=== PATIENT | female | born 1980 | race Caucasian/White ===

== ENCOUNTER 2017-10-02 08:04 | Emergency (ER) | payer SELFPAY ==
--- NOTE | 2017-10-02 08:33 | ER ---
Nurse's Notes [facility] Name: Stella Siegel Age: 37 yrs Sex: Female : 1980 Arrival Date: 10/02/2017 Time: 08:07 Bed 5 Private MD: None, None Diagnosis: Local infection of the skin and subcutaneous tissue, unspecified-left breast Presentation: 10/02 08:12 Presenting complaint: Patient states: about two weeks ago, there was a bump that sg appeared on my left breast. I thought maybe it was a bug bite, well over the last two days it has grown and become red, hot and swollen, now having drainage from the area. Denies Fever, N/V/D, reports mild pain to the L breast. Transition of care: patient was not received from another setting of care. Onset of symptoms was October 02, 2017. Risk Assessment: Do you want to hurt yourself or someone else? Patient reports no desire to harm self or others. Initial Sepsis Screen: Does the patient meet any 2 criteria? No. Patient's initial sepsis screen is negative. Does the patient have a suspected source of infection? No. Patient's initial sepsis screen is negative. Care prior to arrival: None. 08:12 Method Of Arrival: Ambulatory sg 08:12 Acuity: SPENCER 3 sg Historical: - Allergies: 08:08 No Known Allergies; sg - PMHx: 08:08 Headaches; sg - PSHx: 08:08 tummy tuck; breast lift; sg - Immunization history:: Adult Immunizations not up to date. - Ebola Screening: : Patient negative for fever greater than or equal to 101.5 degrees Fahrenheit, and additional compatible Ebola Virus Disease symptoms Patient denies exposure to infectious person Patient denies travel to an Ebola-affected area in the 21 days before illness onset No symptoms or risks identified at this time. Screenin:20 Abuse screen: Denies threats or abuse. Denies injuries from another. Nutritional sv screening: No deficits noted. Tuberculosis screening: No symptoms or risk factors identified. Fall Risk None identified. Assessment: 08:20 General: Appears in no apparent distress. uncomfortable, Behavior is calm, cooperative, sv appropriate for age. Pain: Complains of pain in left nipple Pain currently is 4 out of 10 on a pain scale. Pain began 2 weeks ago, pt stated "It started off as looking like a bug bite of some sort." Is continuous. Neuro: Level of Consciousness is awake, alert, obeys commands, Oriented to person, place, time, situation, Moves all extremities. Full function Gait is steady, Speech is normal. Cardiovascular: Patient's skin is warm and dry. Respiratory: Respiratory effort is even, unlabored, Respiratory pattern is regular, symmetrical. :. Derm: Skin is pink, warm \\T\\ dry. Derm: Reports increased pain to the left nipple. Redness noted to the left nipple. Pt reports clear to green drainage from the left nipple. Musculoskeletal: No signs and/or symptoms reported regarding the musculoskeletal system. 08:57 Reassessment: Patient appears in no apparent distress at this time. No changes from sv previously documented assessment. Patient and/or family updated on plan of care and expected duration. Pain level reassessed. Patient is alert, oriented x 3, equal unlabored respirations, skin warm/dry/pink. Vital Signs: 08:13 BP 149 / 86; Pulse 75 MON; Resp 16 S; Temp 97.9(TE); Pulse Ox 97% on R/A; Pain 4/10; sg ED Course: 08:07 Patient arrived in ED. sb2 08:08 None, None is Private Physician. sb2 08:08 Arm band placed on. EKG completed in triage. Results shown to MD. EKG completed in sg triage. Results shown to MD. 08:13 Triage completed. sg 08:19 [facility]. jr8 08:19 Florin Duenas MD is Attending Physician. jr8 08:20 Patient has correct armband on for positive identification. Placed in gown. Pulse ox sv on. NIBP on. Door closed. Head of bed elevated. 08:26 Karen Finch, RN is Primary Nurse. sv 08:26 Chaperoned breast examination. sv 08:58 Patient did not have IV access during this emergency room visit. sv Administered Medications: No medications were administered Outcome: 08:33 Discharge ordered by . jr8 08:58 Discharged to home ambulatory. sv 08:58 Condition: stable 08:58 Discharge instructions given to patient, Instructed on discharge instructions, follow up and referral plans. medication usage, Demonstrated understanding of instructions, follow-up care, medications, Prescriptions given X 2. 08:58 Patient left the ED. sv Signatures: Karen iFnch RN RN sv Aime Waite RN RN sg Casey Castrejon PA PA jr8 Tasia Parham sb2
--- NOTE | 2017-10-02 08:33 | EDPHYS ---
Physician Documentation [facility] Name: Stella Siegel Age: 37 yrs Sex: Female : 1980 Arrival Date: 10/02/2017 Time: 08:07 Bed 5 Private MD: None, None ED Physician Florin Duenas HPI: 10/02 08:28 This 37 yrs old Female presents to ER via Ambulatory with complaints of jr8 Breast Problem. 08:28 Patient stated that she has noticed red region to left breast that has grown in size jr8 over the last couple of weeks. Stated that it started to drain and become painful now . Onset: The symptoms/episode began/occurred gradually, 2 week(s) ago. Severity of symptoms: At their worst the symptoms were mild in the emergency department the symptoms are unchanged. The patient has not experienced similar symptoms in the past. The patient has not recently seen a physician. Historical: - Allergies: 08:08 No Known Allergies; sg - PMHx: 08:08 Headaches; sg - PSHx: 08:08 tummy tuck; breast lift; sg - Immunization history:: Adult Immunizations not up to date. - Ebola Screening: : Patient negative for fever greater than or equal to 101.5 degrees Fahrenheit, and additional compatible Ebola Virus Disease symptoms Patient denies exposure to infectious person Patient denies travel to an Ebola-affected area in the 21 days before illness onset No symptoms or risks identified at this time. ROS: 08:28 Eyes: Negative for injury, pain, redness, and discharge, ENT: Negative for injury, jr8 pain, and discharge, Neck: Negative for injury, pain, and swelling, Cardiovascular: Negative for chest pain, palpitations, and edema, Respiratory: Negative for shortness of breath, cough, wheezing, and pleuritic chest pain, Abdomen/GI: Negative for abdominal pain, nausea, vomiting, diarrhea, and constipation, Back: Negative for injury and pain, MS/Extremity: Negative for injury and deformity, Neuro: Negative for headache, weakness, numbness, tingling, and seizure. 08:28 Skin: Positive for erythema, swelling, of the left breast. Exam: 08:28 Cardiovascular: Regular rate and rhythm with a normal S1 and S2. No gallops, murmurs, jr8 or rubs. Normal PMI, no JVD. No pulse deficits. Respiratory: Lungs have equal breath sounds bilaterally, clear to auscultation and percussion. No rales, rhonchi or wheezes noted. No increased work of breathing, no retractions or nasal flaring. Skin: Warm, dry with normal turgor. Normal color with no rashes, no lesions, and no evidence of cellulitis. MS/ Extremity: Pulses equal, no cyanosis. Neurovascular intact. Full, normal range of motion. Neuro: Awake and alert, GCS 15, oriented to person, place, time, and situation. Cranial nerves II-XII grossly intact. Motor strength 5/5 in all extremities. Sensory grossly intact. Cerebellar exam normal. Normal gait. 08:28 Chest/axilla: Inspection: normal, Axilla: lymphadenopathy, that is small, in the left axilla, with tenderness, Breasts: nipple discharge, is not appreciated, of the left breast, There is a swollen, red, tender lesion to left breast at 5 o'clock position distal to the nipple. No active drainage noted at this time. No fluctuance noted. Mild induration present . Vital Signs: 08:13 BP 149 / 86; Pulse 75 MON; Resp 16 S; Temp 97.9(TE); Pulse Ox 97% on R/A; Pain 4/10; sg MDM: 08:19 Patient medically screened. [facility] 08:28 Data reviewed: vital signs, nurses notes, and as a result, I will discharge patient. 8 Data interpreted: Pulse oximetry: on room air is 97 %. Interpretation: normal. Counseling: I had a detailed discussion with the patient and/or guardian regarding: the historical points, exam findings, and any diagnostic results supporting the discharge/admit diagnosis, the need for outpatient follow up, a family practitioner, to return to the emergency department if symptoms worsen or persist or if there are any questions or concerns that arise at home. Administered Medications: No medications were administered Disposition: 14:43 Co-signature as Attending Physician, Florin Duenas MD I agree with the assessment and kdr plan of care. Disposition: 10/02/17 08:33 Discharged to Home. Impression: Local infection of the skin and subcutaneous tissue, unspecified - left breast. - Condition is Stable. - Discharge Instructions: Skin Abscess, Cellulitis, Adult. - Prescriptions for Bactroban 2 % Topical Ointment - Apply to affected area 1 application by TOPICAL route every 12 hours; 30 gram. Bactrim DS 800- 160 mg Oral Tablet - take 1 tablet by ORAL route every 12 hours for 10 days; 20 tablet. - Medication Reconciliation Form, Thank You Letter, Antibiotic Education, Prescription Opioid Use form. - Follow up: Private Physician; When: 5 - 6 days; Reason: Wound Recheck, Recheck today's complaints, Continuance of care, Re-evaluation by your physician. - Problem is new. - Symptoms are unchanged. Signatures: Karen Finch RN RN sv Aime Waite RN RN sg Florin Duenas MD MD kdr Roszak, Josh, PA PA jr8 Corrections: (The following items were deleted from the chart) 08:58 08:33 10/02/2017 08:33 Discharged to Home. Impression: Local infection of the skin and sv subcutaneous tissue, unspecified - left breast. Condition is Stable. Forms are Medication Reconciliation Form, Thank You Letter, Antibiotic Education, Prescription Opioid Use. Follow up: Private Physician; When: 5 - 6 days; Reason: Wound Recheck, Recheck today's complaints, Continuance of care, Re-evaluation by your physician. Problem is new. Symptoms are unchanged. jr8
[2017-10-02 09:02] VITALS: BP 149/86; TEMP 97.9; O2SAT 97
== END 2017-10-02 08:58 | disposition home or self-care (01) ==
LOC: ER 08:04
DX: L08.9 Local infection of the skin and subcutaneous tissue, unspecified (principal)
CPT/HCPCS: 99283

== ENCOUNTER 2018-01-16 08:47 | Emergency (ER) | payer SELFPAY ==
[2018-01-16 09:28] LABS: Absolute Lymphocytes (CBC) 2.4 K/uL (0.7-4.9); Absolute Monocytes 0.6 K/uL (0.1-1.3); Absolute Neutrophil 4.7 K/uL (1.8-8.0); Eosinophils % 4.7 % (0-4.4); Hematocrit 47.2 % (36.0-45.0); Lymphocytes % 29.7 % (15.3-44.8); MCH 31.2 pg (27.0-35.0); MCV 90.3 fL (80-100); MPV 8.9 fL (7.6-11.3); RBC Red Blood Cell Count 5.22 M/uL (3.86-4.86)
[2018-01-16 09:47] LABS: BUN Blood Urea Nitrogen 14 mg/dL (7-18); Bicarbonate 24 mmol/L (21-32); Glucose Level 84 mg/dL (74-106); Potassium 3.4 mmol/L (3.5-5.1); Sodium Level 140 mmol/L (136-145)
[2018-01-16] MEDS ORDERED: KETOROLAC 30 MG/ML INJ ONE (10:02)
[2018-01-16] MEDS ORDERED: IPRATROPIUM BROM 0.5MG/2.5ML ONE (10:02)
[2018-01-16] MEDS ORDERED: ALBUTEROL 2.5 MG/3 ML NEB SOL ONE ×2 (10:02→11:11)
[2018-01-16] MEDS ORDERED: NA CHLORIDE 0.9% 1,000 ML ONE (10:02)
[2018-01-16] MEDS ORDERED: POTASSIUM 25 MEQ EFFERV TAB ONE (10:19)
--- NOTE | 2018-01-16 10:46 | RAD REPORT ---
EXAM DESCRIPTION: RAD - Chest Pa And Lat (2 Views) - 01/16/2018 10:08 am CLINICAL HISTORY: Fever, cough and congestion COMPARISON: August 2016 TECHNIQUE: PA and lateral views of the chest were obtained. FINDINGS: The lungs are clear. Interstitial markings are similar to comparison. Heart size is nita l and central vasculature is within normal limits. No pleural effusion or pneumothorax seen. No acu te bone finding. Prominent right convex scoliotic curvature of the thoracic spine noted. No aortic ab normality. IMPRESSION: No acute cardiopulmonary process.
[2018-01-16 10:47] LABS: Urine Blood TRACE (NEG); Urine Glucose NEGATIVE (NEG); Urine Protein TRACE (NEG)
[2018-01-16] MEDS ORDERED: predniSONE 20 MG TAB ONE (11:11)
[2018-01-16] MEDS ORDERED: HYDROCODONE/CHLORPHEN 5 ML/OSYR ONE (11:11)
--- NOTE | 2018-01-16 11:38 | EDPHYS ---
Physician Documentation [facility] Name: Stella Siegel Age: 37 yrs Sex: Female : 1980 Arrival Date: 01/16/2018 Time: 08:51 Bed 18 Private MD: None, None ED Physician Florin Duenas HPI: 01/16 09:20 This 37 yrs old Female presents to ER via Ambulatory with complaints of cp Dizziness, Fever, Congestion. 09:20 The patient presents with dizziness. cp 09:20 Onset: The symptoms/episode began/occurred few weeks. cp 09:20 Associated signs and symptoms: Pertinent positives: chest pain, headache, shortness of cp breath, productive cough, Pertinent negatives: abdominal pain, diaphoresis, focal weakness, vomiting. Severity of symptoms: in the emergency department the symptoms are unchanged despite home interventions. Patient's baseline: Neuro: alert and fully oriented, Motor: no deficits, Ambulation: walks without assistance, Speech: normal. 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 - Social history:: Smoking status: Patient uses tobacco products, smokes one pack cigarettes per day. Patient uses alcohol, occasionally. street drugs, marijuana. - Ebola Screening: : No symptoms or risks identified at this time. ROS: 09:30 Constitutional: Negative for body aches, chills, fever, poor PO intake. cp 09:30 Eyes: Negative for injury, pain, redness, and discharge. cp 09:30 ENT: Negative for drainage from ear(s), ear pain, difficulty swallowing, difficulty handling secretions. 09:30 Cardiovascular: Positive for chest pain, Negative for edema, palpitations. 09:30 Respiratory: Positive for cough, "sounds productive", shortness of breath, on exertion. 09:30 Abdomen/GI: Negative for abdominal pain, vomiting, diarrhea, constipation. 09:30 Back: Negative for pain at rest, pain with movement, radiated pain. 09:30 : Negative for urinary symptoms. 09:30 Skin: Negative for cellulitis, rash. 09:30 Neuro: Positive for dizziness, headache, Negative for altered mental status, syncope, weakness. 09:30 All other systems are negative. Exam: 09:35 Constitutional: The patient appears in no acute distress, alert, awake, cp non-diaphoretic, non-toxic, well developed, well nourished, uncomfortable. 09:35 Head/Face: Normocephalic, atraumatic. cp 09:35 Eyes: Pupils equal round and reactive to light, extra-ocular motions intact. Lids and lashes normal. Conjunctiva and sclera are non-icteric and not injected. Cornea within normal limits. Periorbital areas with no swelling, redness, or edema. ENT: Nares patent. No nasal discharge, no septal abnormalities noted. Tympanic membranes are normal and external auditory canals are clear. Oropharynx with no redness, swelling, or masses, exudates, or evidence of obstruction, uvula midline. Mucous membranes moist. 09:35 Neck: ROM/movement: limited range of motion, is not appreciated, nuchal rigidity, is not appreciated, Lymph nodes: no appreciated lymphadenopathy. 09:35 Chest/axilla: Inspection: normal, Palpation: is normal, no crepitus, no tenderness. 09:35 Cardiovascular: Rate: normal, Rhythm: regular, Heart sounds: murmur, not appreciated, Edema: is not appreciated. 09:35 Respiratory: the patient does not display signs of respiratory distress, Respirations: normal, no use of accessory muscles, no retractions, no splinting, no tachypnea, labored breathing, is not present, Breath sounds: bronchial sounds, that are moderate, are heard diffusely, decreased breath sounds, are not appreciated, stridor, is not appreciated, wheezing: that is mild, is heard diffusely. 09:35 Abdomen/GI: Inspection: abdomen appears normal, Bowel sounds: active, all quadrants, Palpation: abdomen is soft and non-tender, in all quadrants. 09:35 Back: pain, that is moderate, ROM is normal. 09:35 Skin: cellulitis, is not appreciated, no rash present. 09:35 Neuro: Orientation: to person, place \\T\\ time. Mentation: is normal, Cerebellar function: is grossly normal, Motor: moves all fours, strength is normal, Sensation: is normal. Vital Signs: 09:02 BP 119 / 71; Pulse 84; Resp 16; Temp 97.8(O); Pulse Ox 97% on R/A; Weight 63.5 kg; sv Height 5 ft. 7 in. (170.18 cm); Pain 6/10; 10:52 BP 115 / 76; Pulse 75; Resp 18; Pulse Ox 97% on R/A; sv 11:26 BP 117 / 75; Pulse 85; Resp 18; Pulse Ox 100% on R/A; sv 09:02 Body Mass Index 21.93 (63.50 kg, 170.18 cm) sv MDM: 09:02 Patient medically screened. cp 10:00 Differential diagnosis: cardiac arrhythmia, hypovolemia, pneumonia, meningitis, sepsis, cp UTI. 11:36 Data reviewed: vital signs, nurses notes, lab test result(s), radiologic studies, plain cp films. Test interpretation: by ED physician or midlevel provider: plain radiologic studies. Response to treatment: the patient's symptoms have markedly improved after treatment, VSS. Symptoms improved with meds. No signs of respiratory distress noted. Will discharge to home for continued monitoring. 01/16 09:06 Order name: Blood Culture Adult (2) sv 01/16 09:06 Order name: CBC with Diff; Complete Time: 09:33 sv 01/16 09:33 Interpretation: Normal except: RBC 5.22; HGB 16.3; HCT 47.2; EOSINOPHIL % 4.7. cp 01/16 09:06 Order name: Basic Metabolic Panel; Complete Time: 10:03 sv 01/16 10:03 Interpretation: Normal except: K 3.4. cp 01/16 09:34 Order name: Troponin I; Complete Time: 11:40 cp 01/16 11:40 Interpretation: Reviewed. cp 01/16 09:35 Order name: Procalcitonin; Complete Time: 10:48 cp 01/16 09:35 Order name: Lactate; Complete Time: 10:48 cp 01/16 10:51 Interpretation: Reviewed. cp 01/16 09:06 Order name: Chest Pa And Lat (2 Views) XRAY; Complete Time: 10:48 sv 01/16 10:37 Order name: Urine Dipstick--Ancillary (enter results); Complete Time: 10:48 eb 01/16 10:48 Interpretation: Normal except: UKET 1+; UBLD TRACE. cp 01/16 09:06 Order name: IV Saline Lock; Complete Time: 09:20 sv 01/16 09:06 Order name: Labs collected and sent; Complete Time: 09:20 sv 01/16 09:34 Order name: EKG; Complete Time: 09:35 cp 01/16 09:34 Order name: EKG - Nurse/Tech; Complete Time: 10:16 cp 01/16 09:36 Order name: Urine Dipstick-Ancillary (obtain specimen); Complete Time: 10:28 cp 01/16 09:36 Order name: Urine Test (obtain specimen); Complete Time: 10:28 cp Administered Medications: 10:30 Drug: NS 0.9% 1000 ml Route: IV; Rate: 1 bolus; Site: left antecubital; sv 11:30 Follow up: Response: No adverse reaction; IV Status: Order to discontinue infusion; IV sv Intake: 600ml 10:30 Drug: Albuterol 2.5 mg Route: Inhalation; sv 10:30 Drug: AtroVENT Aerosol 0.5 mg Route: Inhalation; sv 10:30 Drug: TORadol 30 mg Route: IVP; Site: left antecubital; sv 10:58 Follow up: Response: No adverse reaction sv 10:30 Drug: Potassium Effervescent Tablet 25 mEq Route: PO; sv 10:58 Follow up: Response: No adverse reaction sv 11:07 Drug: Albuterol 2.5 mg Route: Inhalation; sv 11:07 Drug: Albuterol 2.5 mg Route: Inhalation; sv 11:07 Drug: predniSONE 40 mg Route: PO; sv 11:30 Follow up: Response: No adverse reaction sv 11:07 Drug: Tussionex Pennkinetic ER 5 ml Route: PO; sv 11:30 Follow up: Response: No adverse reaction sv Disposition: 18:51 Co-signature as Attending Physician, Florin Duenas MD I agree with the assessment and kdr plan of care. Disposition: 01/16/18 11:37 Discharged to Home. Impression: Acute bronchitis. - Condition is Stable. - Discharge Instructions: Acute Bronchitis, Adult. - Prescriptions for Zithromax Z- Domenic 250 mg Oral Tablet - take 1 tablet by ORAL route as directed for 5 days Day 1 - take two (2) tablets one time. Day 2, 3, 4 , 5 take one (1) tablet once daily.; 6 tablet. Prednisone 20 mg Oral Tablet - take 2 tablet by ORAL route once daily for 5 days; 10 tablet. Albuterol Sulfate 90 mcg/actuation - inhale 1-2 puff by INHALATION route every 4-6 hours; 1 Inhaler. Guaifenesin AC 10- 100 mg/5 mL Oral Liquid - take 10 milliliters by ORAL route every 6 hours As needed; 180 milliliter. - Work release form, Medication Reconciliation Form, Thank You Letter, Antibiotic Education, Prescription Opioid Use form. - Follow up: Private Physician; When: 2 - 3 days; Reason: Recheck today's complaints. - Problem is new. - Symptoms have improved. Signatures: Dispatcher [employer] Karen Keyes RN RN Florin Obando MD MD kdr Leonel Thorne PA PA cp Corrections: (The following items were deleted from the chart) 11:54 11:37 01/16/2018 11:37 Discharged to Home. Impression: Acute bronchitis. Condition is sv Stable. Forms are Medication Reconciliation Form, Thank You Letter, Antibiotic Education, Prescription Opioid Use. Follow up: Private Physician; When: 2 - 3 days; Reason: Recheck today's complaints. Problem is new. Symptoms have improved. cp
--- NOTE | 2018-01-16 11:38 | ER ---
Nurse's Notes [facility] Name: Stella Siegel Age: 37 yrs Sex: Female : 1980 Arrival Date: 01/16/2018 Time: 08:51 Bed 18 Private MD: None, None Diagnosis: Acute bronchitis Presentation: 01/16 08:52 Presenting complaint: Patient states: fever (Tmax 103), chest congestion, SOB with deep sv breathing, productive cough thick yellow sputum, headache and neck pain x a few weeks. Transition of care: patient was not received from another setting of care. Onset of symptoms was December 2017. Risk Assessment: Do you want to hurt yourself or someone else? Patient reports no desire to harm self or others. Initial Sepsis Screen: Does the patient meet any 2 criteria? No. Patient's initial sepsis screen is negative. Does the patient have a suspected source of infection? Yes: Productive cough/pneumonia. Care prior to arrival: None. 08:52 Method Of Arrival: Ambulatory sv 08:52 Acuity: SPENCER 3 sv Triage Assessment: 08:55 General: Appears in no apparent distress. uncomfortable, slender, Behavior is calm, sv cooperative, appropriate for age. Pain: Complains of pain in chest Pain currently is 6 out of 10 on a pain scale. Quality of pain is described as sharp, Pain began 2-3 days ago. Is intermittent, episodic. Neuro: Level of Consciousness is awake, alert, obeys commands, Oriented to person, place, time, situation, Moves all extremities. Full function Gait is steady, Speech is normal. Respiratory: Reports cough that is productive, persistent pain with cough pain with respiration Airway is patent Respiratory effort is even, unlabored, Respiratory pattern is regular, symmetrical. Derm: Skin is normal. [employer] SEAL: 09:02 LMP 01/13/2018 sv Historical: - Allergies: 09:02 No Known Allergies; sv - Home Meds: 09:02 None [Active]; sv - PMHx: 09:02 Headaches; sv - PSHx: 09:02 tummy tuck; breast lift and reduction; sv - Immunization history:: Adult Immunizations up to date, Flu vaccine is not up to date. - Social history:: Smoking status: Patient uses tobacco products, smokes one pack cigarettes per day. Patient uses alcohol, occasionally. street drugs, marijuana. - Ebola Screening: : No symptoms or risks identified at this time. Screenin:03 Abuse screen: Denies threats or abuse. Denies injuries from another. Nutritional sv screening: No deficits noted. Tuberculosis screening: No symptoms or risk factors identified. Fall Risk None identified. Assessment: 10:40 Reassessment: Patient appears in no apparent distress at this time. Patient and/or sv family updated on plan of care and expected duration. Pain level reassessed. Patient is alert, oriented x 3, equal unlabored respirations, skin warm/dry/pink. Pt states "I can breathe better." Patient states feeling better. Patient states symptoms have improved. 11:53 Reassessment: Patient appears in no apparent distress at this time. Patient and/or sv family updated on plan of care and expected duration. Pain level reassessed. Patient is alert, oriented x 3, equal unlabored respirations, skin warm/dry/pink. Patient states feeling better. Patient states symptoms have improved. Vital Signs: 09:02 BP 119 / 71; Pulse 84; Resp 16; Temp 97.8(O); Pulse Ox 97% on R/A; Weight 63.5 kg; sv Height 5 ft. 7 in. (170.18 cm); Pain 6/10; 10:52 BP 115 / 76; Pulse 75; Resp 18; Pulse Ox 97% on R/A; sv 11:26 BP 117 / 75; Pulse 85; Resp 18; Pulse Ox 100% on R/A; sv 09:02 Body Mass Index 21.93 (63.50 kg, 170.18 cm) sv ED Course: 08:51 Patient arrived in ED. mr 08:52 None, None is Private Physician. mr 08:52 Arm band placed on Patient placed in an exam room, on a stretcher, on pulse oximetry. sv 08:55 First set of blood cultures drawn by me. jb1 09:00 Karen Finch, NELSON is Primary Nurse. sv 09:01 Triage completed. sv 09:02 Leonel Thorne PA is PHCP. cp 09:02 Florin Duenas MD is Attending Physician. cp 09:03 Patient has correct armband on for positive identification. Placed in gown. Bed in low sv position. Pulse ox on. NIBP on. Door closed. Head of bed elevated. 09:10 Second set of blood cultures drawn by me. jb1 09:20 Initial lab(s) drawn, by me, sent to lab. Inserted saline lock: 22 gauge in left jb1 antecubital area, using aseptic technique. Blood collected. 09:43 Patient moved to radiology via wheelchair. jb2 09:52 Lab(s) recollected, by me, sent to lab. gm 10:07 X-ray completed. Patient tolerated procedure well. Patient moved back from radiology. jb2 10:08 Chest Pa And Lat (2 Views) XRAY In Process Unspecified. EDMS 10:10 Patient moved back from radiology. sv 10:15 EKG done, by traffic survey technician. reviewed by Leonel BLAKE. at1 11:53 No provider procedures requiring assistance completed. IV discontinued, intact, sv bleeding controlled, No redness/swelling at site. Pressure dressing applied. Administered Medications: 10:30 Drug: NS 0.9% 1000 ml Route: IV; Rate: 1 bolus; Site: left antecubital; sv 11:30 Follow up: Response: No adverse reaction; IV Status: Order to discontinue infusion; IV sv Intake: 600ml 10:30 Drug: Albuterol 2.5 mg Route: Inhalation; sv 10:30 Drug: AtroVENT Aerosol 0.5 mg Route: Inhalation; sv 10:30 Drug: TORadol 30 mg Route: IVP; Site: left antecubital; sv 10:58 Follow up: Response: No adverse reaction sv 10:30 Drug: Potassium Effervescent Tablet 25 mEq Route: PO; sv 10:58 Follow up: Response: No adverse reaction sv 11:07 Drug: Albuterol 2.5 mg Route: Inhalation; sv 11:07 Drug: Albuterol 2.5 mg Route: Inhalation; sv 11:07 Drug: predniSONE 40 mg Route: PO; sv 11:30 Follow up: Response: No adverse reaction sv 11:07 Drug: Tussionex Pennkinetic ER 5 ml Route: PO; sv 11:30 Follow up: Response: No adverse reaction sv Intake: 11:30 IV: 600ml; Total: 600ml. sv Outcome: 11:37 Discharge ordered by . cp 11:54 Discharged to home ambulatory. sv 11:54 Condition: stable 11:54 Discharge instructions given to patient, Instructed on discharge instructions, follow up and referral plans. medication usage, Demonstrated understanding of instructions, follow-up care, medications, Prescriptions given X 4. 11:54 Patient left the ED. sv Signatures: Dispatcher [employer] EDMS Mikel Quintana jb1 Karen Finch RN RN sv Rivera, Mary mr Buguilherme, Ignacio jb2 Izabela Guererro, inventory auditor EKG Tat1 Leonel Thorne PA PA cp Moya, Gabriella gm
[2018-01-16 11:59] VITALS: TEMP 97.8
[2018-01-16 12:02] VITALS: BP 117/75; O2SAT 100
--- NOTE | 2018-01-16 14:35 | EKG ---
Test Date: 2018-01-16 Test Time: 10:10:58 Assistant Professor Of Economics: YSABEL MEASUREMENT RESULTS: Intervals: Rate: 57 FL: 148 QRSD: 86 QT: 408 QTc: 397 [place]: P: 55 FL: 148 QRS: 70 T: 56 INTERPRETIVE STATEMENTS: Sinus bradycardia Otherwise normal ECG Compared to ECG 09/16/2016 23:13:25 Sinus arrhythmia no longer present Electronically Signed On 01-16-18 14:33:59 LEATHER LEVELER by Deacon Barnes
== END 2018-01-16 11:54 | disposition home or self-care (01) ==
LOC: ER 08:47
DX: J20.9 Acute bronchitis, unspecified (principal); F17.210 Nicotine dependence, cigarettes, uncomplicated
CPT/HCPCS: 36415; 71046; 80048; 81003; 83605; 84145; 84484; 85025; 87040; 93005; 96361; 96374; 99285; J7030; J7512

== ENCOUNTER 2018-04-05 10:32 | Emergency (ER) | payer SELFPAY ==
[2018-04-05 11:51] LABS: Protime INR 1.11
[2018-04-05 11:55] LABS: Absolute Monocytes 0.8 K/uL (0.1-1.3); Absolute Neutrophil 5.8 K/uL (1.8-8.0); Basophils % 0.6 % (0-1.3); Eosinophils % 0.1 % (0-4.4); Hematocrit 49.2 % (36.0-45.0); Lymphocytes % 13.1 % (15.3-44.8); MPV 9.4 fL (7.6-11.3); RBC Red Blood Cell Count 5.57 M/uL (3.86-4.86)
[2018-04-05 11:58] LABS: Barbiturates NEGATIVE (NEGATIVE); Benzodiazepines NEGATIVE (NEGATIVE); Cocaine NEGATIVE (NEGATIVE); METHAMPHETAM NEGATIVE (NEGATIVE); Methadone NEGATIVE (NEGATIVE); Opiates NEGATIVE (NEGATIVE); Phencyclidine NEGATIVE (NEGATIVE); THC Cannibis POSITIVE (NEGATIVE)
--- NOTE | 2018-04-05 11:59 | RAD REPORT ---
EXAM DESCRIPTION: CT - Head Brain Wo Cont - 04/05/2018 11:49 am CLINICAL HISTORY: HEADACHE Headache x5 days COMPARISON: Head Brain Wo Cont dated 09/17/2016; Head Brain Wo Cont dated 07/18/2015 TECHNIQUE: All CT scans are performed using dose optimization technique as appropriate and may inclu de automated exposure control or mA/KV adjustment according to patient size. FINDINGS: No intracranial hemorrhage, hydrocephalus or extra-axial fluid collection.No areas of brai n edema or evidence of midline shift. The paranasal sinuses and mastoids are clear. The calvarium is intact. IMPRESSION: No acute intracranial abnormality.
[2018-04-05 12:01] LABS: ALT/SGPT 15 U/L (12-78); AST/SGOT 9 U/L (15-37); Albumin 4.7 g/dL (3.4-5.0); Alkaline Phosphatase 48 U/L (45-117); BUN Blood Urea Nitrogen 14 mg/dL (7-18); Bicarbonate 27 mmol/L (21-32); Bilirubin Direct 0.2 mg/dL (0-0.2); Bilirubin Total 0.6 mg/dL (0.2-1.0); Glucose Level 104 mg/dL (74-106); Magnesium 2.2 mg/dL (1.8-2.4); NT PRO-BNP 100 pg/mL (<125); Potassium 3.9 mmol/L (3.5-5.1); Protein, Total 8.4 g/dL (6.4-8.2); Sodium Level 138 mmol/L (136-145); Troponin (Emerg Dept Use Only) < 0.02 ng/mL (0.0-0.045)
[2018-04-05] MEDS ORDERED: DEXAMETHASONE 4 MG/ML VIAL ONE (12:20)
[2018-04-05] MEDS ORDERED: DIPHENHYDRAMINE 50 MG/ML VIAL ONE (12:20)
[2018-04-05] MEDS ORDERED: METOCLOPRAMIDE 10 MG/2mL INJ ONE (12:20)
[2018-04-05] MEDS ORDERED: KETOROLAC 30 MG/ML INJ ONE (12:20)
[2018-04-05] MEDS ORDERED: NA CHLORIDE 0.9% 1,000 ML ONE (12:42)
--- NOTE | 2018-04-05 12:47 | RAD REPORT ---
EXAM DESCRIPTION: RAD - Chest Single View - 04/05/2018 12:31 pm CLINICAL HISTORY: CHEST PAIN Chest pain. COMPARISON: <Comparisons> FINDINGS: Portable technique limits examination quality. The lungs are grossly clear. The heart is normal in size. Very pronounced dextroscoliosis of the thor acic spine. IMPRESSION: No acute intrathoracic process suspected.
--- NOTE | 2018-04-05 13:14 | EDPHYS ---
Physician Documentation [facility] Name: Stella Siegel Age: 37 yrs Sex: Female : 1980 Arrival Date: 04/05/2018 Time: 10:35 Bed 17 Private MD: None, None ED Physician Rito Rendon HPI: 04/05 11:20 This 37 yrs old Female presents to ER via Ambulatory with complaints of cp Headache, Pain All Over, Chest Pain. 11:20 The patient complains of pain to the top of head and forehead. cp 11:20 The patient describes the headache as aching, waxing and waning. cp 11:20 Onset: The symptoms/episode began/occurred 5 day(s) ago. cp 11:20 Severity of symptoms: in the emergency department the pain is unchanged, despite home cp interventions. 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 - Social history:: Smoking status: Patient uses tobacco products, Patient uses alcohol. - Ebola Screening: : Patient negative for fever greater than or equal to 101.5 degrees Fahrenheit, and additional compatible Ebola Virus Disease symptoms Patient denies exposure to infectious person Patient denies travel to an Ebola-affected area in the 21 days before illness onset. ROS: 11:25 Constitutional: Positive for weight loss, Negative for body aches, chills, fever, poor cp PO intake. 11:25 Eyes: Negative for injury, pain, redness, and discharge. cp Exam: 11:05 ECG was reviewed by the Attending Physician. cp 11:30 Constitutional: The patient appears in no acute distress, alert, awake, cp non-diaphoretic, non-toxic, well developed, well nourished. 11:30 Head/Face: Normocephalic, atraumatic. Eyes: Pupils equal round and reactive to light, cp extra-ocular motions intact. Lids and lashes normal. Conjunctiva and sclera are non-icteric and not injected. Cornea within normal limits. Periorbital areas with no swelling, redness, or edema. ENT: Nares patent. No nasal discharge, no septal abnormalities noted. Tympanic membranes are normal and external auditory canals are clear. Oropharynx with no redness, swelling, or masses, exudates, or evidence of obstruction, uvula midline. Mucous membranes moist. Neck: Trachea midline, no thyromegaly or masses palpated, and no cervical lymphadenopathy. Supple, full range of motion without nuchal rigidity, or vertebral point tenderness. No Meningismus. Chest/axilla: Normal chest wall appearance and motion. Nontender with no deformity. No lesions are appreciated. 11:30 Cardiovascular: Rate: normal, Rhythm: regular, Pulses: Pulses are 2+ in right radial artery and left radial artery. Heart sounds: murmur, not appreciated, Edema: is not appreciated, JVD: is not appreciated. 11:30 Respiratory: the patient does not display signs of respiratory distress, Respirations: normal, no use of accessory muscles, no retractions, no splinting, no tachypnea, labored breathing, is not present, Breath sounds: are clear throughout, no decreased breath sounds, no stridor, no wheezing. 11:30 Abdomen/GI: Inspection: abdomen appears normal, Bowel sounds: active, all quadrants, Palpation: abdomen is soft and non-tender, in all quadrants, rebound tenderness, is not appreciated, voluntary guarding, is not appreciated, involuntary guarding, is not appreciated. 11:30 Back: pain, is absent, ROM is normal. 11:30 Skin: cellulitis, is not appreciated, no rash present. 11:30 Neuro: Orientation: to person, place \T\ time. Mentation: is normal, Cerebellar function: is grossly normal, Motor: moves all fours, strength is normal, Sensation: is normal. Vital Signs: 10:48 BP 106 / 72; Pulse 115; Resp 18; Temp 98.7(O); Pulse Ox 94% on R/A; Weight 54.43 kg; hj Height 5 ft. 7 in. (170.18 cm); Pain 8/10; 11:10 BP 105 / 74; Pulse 94; Resp 18; Pulse Ox 99% on R/A; em 12:17 BP 138 / 77; Pulse 83; Resp 18; Pulse Ox 99% on R/A; Pain 9/10; em 13:00 BP 120 / 69; Pulse 79; Resp 18; Pulse Ox 99% on R/A; Pain 3/10; em 10:48 Body Mass Index 18.79 (54.43 kg, 170.18 cm) MDM: 10:53 Patient medically screened. 04/05 11:17 Order name: Basic Metabolic Panel; Complete Time: 12:09 04/05 12:10 Interpretation: Normal except: GFR 70; CA 10.2. cp 04/05 11:17 Order name: CBC with Diff; Complete Time: 12:09 04/05 12:10 Interpretation: Normal except: RBC 5.57; HGB 16.6; HCT 49.2; HEATHER% 76.2; LYM% 13.1. cp 04/05 11:17 Order name: LFT's; Complete Time: 12:09 04/05 11:17 Order name: Magnesium; Complete Time: 12:09 cp 04/05 11:17 Order name: NT PRO-BNP; Complete Time: 12:09 04/05 11:17 Order name: PT-INR; Complete Time: 12:09 04/05 11:17 Order name: Troponin (emerg Dept Use Only); Complete Time: 12:09 cp 04/05 11:17 Order name: UDS; Complete Time: 12:09 04/05 11:17 Order name: CT Head Brain wo Cont; Complete Time: 12:09 04/05 11:17 Order name: D-Dimer; Complete Time: 12:09 04/05 12:11 Order name: XRAY Chest (1 view) 04/05 12:47 Order name: Urine Dipstick--Ancillary (enter results) 04/05 12:47 Order name: Urine --Ancillary (enter results) 04/05 11:00 Order name: EKG; Complete Time: 11:01 04/05 11:17 Order name: Cardiac monitoring; Complete Time: 11:41 04/05 11:17 Order name: EKG - Nurse/Tech; Complete Time: 11:41 04/05 11:17 Order name: IV Saline Lock; Complete Time: 11:41 04/05 11:17 Order name: Labs collected and sent; Complete Time: 11:41 04/05 11:17 Order name: O2 Per Protocol; Complete Time: 11:41 04/05 11:17 Order name: O2 Sat Monitoring; Complete Time: 11:41 cp 16 11:17 Order name: Urine Dipstick-Ancillary (obtain specimen); Complete Time: 11:41 cp 04/05 11:17 Order name: Urine Test (obtain specimen); Complete Time: 11:41 cp EC:05 Rate is 89 beats/min. Rhythm is regular. [place] interval is normal. QRS interval is normal. cp QT interval is normal. Interpreted by me. Reviewed by me. Administered Medications: 12:21 Drug: TORadol 30 mg Route: IVP; Site: right antecubital; iw 13:00 Follow up: Response: No adverse reaction; Pain is decreased em 12:22 Drug: Reglan 10 mg Route: IVP; Site: right antecubital; iw 13:00 Follow up: Response: No adverse reaction; Pain is decreased em 12:24 Drug: Decadron - Dexamethasone 10 mg Route: IVP; Site: right antecubital; iw 13:00 Follow up: Response: No adverse reaction; Pain is decreased em 12:25 Drug: Benadryl 25 mg Route: IVP; Site: right antecubital; iw 13:00 Follow up: Response: No adverse reaction em 12:47 Drug: NS 0.9% 1000 ml Route: IV; Rate: 1 bolus; Site: right antecubital; em 14:12 Follow up: IV Status: Completed infusion; IV Intake: 1000ml em Disposition: 18:21 Co-signature as Attending Physician, Rito Rendon MD. Disposition: 04/05/18 13:13 Discharged to Home. Impression: Headache, Other chest pain. - Condition is Stable. - Discharge Instructions: Nonspecific Chest Pain, General Headache Without Cause. - Medication Reconciliation Form, Thank You Letter, Antibiotic Education, Prescription Opioid Use form. - Follow up: Private Physician; When: 2 - 3 days; Reason: Recheck today's complaints. - Problem is new. - Symptoms have improved. Signatures: Dispatcher [employer] Fredis Marie, DENTAL APPLIANCE FIXER DENTAL APPLIANCE FIXER em Melissa Mayes RN RN iw Joaquin, Henry, RN RN hj Page, Corey, PA PA cp Starr, Gregory, MD MD Corrections: (The following items were deleted from the chart) 12:10 12:09 Normal except: GFR 70. cp cp 14:00 13:13 04/05/2018 13:13 Discharged to Home. Impression: Headache; Other chest pain. em Condition is Stable. Forms are Medication Reconciliation Form, Thank You Letter, Antibiotic Education, Prescription Opioid Use. Follow up: Private Physician; When: 2 - 3 days; Reason: Recheck today's complaints. Problem is new. Symptoms have improved. cp
--- NOTE | 2018-04-05 13:14 | ER ---
Nurse's Notes [facility] Name: Stella Siegel Age: 37 yrs Sex: Female : 1980 Arrival Date: 04/05/2018 Time: 10:35 Bed 17 Private MD: None, None Diagnosis: Headache;Other chest pain Presentation: 04/05 10:45 Presenting complaint: Patient states: i had a headache for 5 days, last night my chest hj started hurting and L my arm started to get numbed; pain is 8/10; pain is like someone is sitting on my chest; reports SOB;. Transition of care: patient was not received from another setting of care. Onset of symptoms was April 05, 2018. Risk Assessment: Do you want to hurt yourself or someone else? Patient reports no desire to harm self or others. Initial Sepsis Screen: Does the patient meet any 2 criteria? No. Patient's initial sepsis screen is negative. Does the patient have a suspected source of infection? No. Patient's initial sepsis screen is negative. Care prior to arrival: None. 10:45 Method Of Arrival: Ambulatory 10:45 Acuity: SPENCER 3 Triage Assessment: 10:47 Headache History: The patient has had previous headaches. General: Appears in no hj apparent distress. uncomfortable, Behavior is cooperative, appropriate for age, anxious. Pain: Complains of pain in chest Pain currently is 8 out of 10 on a pain scale. Pain began 1 day ago. Also complains of no other associated symptoms. Neuro: Level of Consciousness is awake, alert, obeys commands, Oriented to person, place, time, situation, Appropriate for age. 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 - Social history:: Smoking status: Patient uses tobacco products, Patient uses alcohol. - Ebola Screening: : Patient negative for fever greater than or equal to 101.5 degrees Fahrenheit, and additional compatible Ebola Virus Disease symptoms Patient denies exposure to infectious person Patient denies travel to an Ebola-affected area in the 21 days before illness onset. Screenin:47 Abuse screen: Denies threats or abuse. Denies injuries from another. Nutritional hj screening: No deficits noted. Tuberculosis screening: No symptoms or risk factors identified. Fall Risk None identified. Assessment: 11:00 General: Appears in no apparent distress. comfortable, Behavior is calm, cooperative, em Denies fever. Pain: Complains of pain in chest and head Pain currently is 9 out of 10 on a pain scale. Neuro: Level of Consciousness is awake, alert, obeys commands, Oriented to person, place, time, situation, Moves all extremities. Gait is steady, Speech is normal, Facial symmetry appears normal, Reports headache in entire. Cardiovascular: Reports "pressure" since last night Capillary refill < 3 seconds Patient's skin is warm and dry. Rhythm is sinus arrythmia. Respiratory: Airway is patent Respiratory effort is even, unlabored, Respiratory pattern is regular, symmetrical. GI: Abdomen is flat, Reports nausea. : No signs and/or symptoms were reported regarding the genitourinary system. EENT: No signs and/or symptoms were reported regarding the EENT system. Derm: Skin is intact, is healthy with good turgor, Skin is pink, warm \\T\\ dry. Musculoskeletal: Range of motion: intact in all extremities. 11:15 Reassessment: Patient appears in no apparent distress at this time. Patient and/or iw family updated on plan of care and expected duration. Pain level reassessed. I agree with above assessment by Fredis Call LVN. 12:00 Reassessment: Patient appears in no apparent distress at this time. Patient and/or em family updated on plan of care and expected duration. Pain level reassessed. Patient is alert, oriented x 3, equal unlabored respirations, skin warm/dry/pink. reports headache, provider notified, new medications orders received. 13:10 Reassessment: Patient appears in no apparent distress at this time. Patient and/or em family updated on plan of care and expected duration. Pain level reassessed. Patient is alert, oriented x 3, equal unlabored respirations, skin warm/dry/pink. pending completion of 1 L NS, rates pain 3/10. Vital Signs: 10:48 BP 106 / 72; Pulse 115; Resp 18; Temp 98.7(O); Pulse Ox 94% on R/A; Weight 54.43 kg; hj Height 5 ft. 7 in. (170.18 cm); Pain 8/10; 11:10 BP 105 / 74; Pulse 94; Resp 18; Pulse Ox 99% on R/A; em 12:17 BP 138 / 77; Pulse 83; Resp 18; Pulse Ox 99% on R/A; Pain 9/10; em 13:00 BP 120 / 69; Pulse 79; Resp 18; Pulse Ox 99% on R/A; Pain 3/10; em 10:48 Body Mass Index 18.79 (54.43 kg, 170.18 cm) hj ED Course: 10:35 Patient arrived in ED. mr 10:36 None, None is Private Physician. mr 10:46 Triage completed. hj 10:47 Arm band placed on right wrist. hj 10:51 Patient has correct armband on for positive identification. Placed in gown. Bed in low hj position. Call light in reach. Side rails up X 1. 10:53 Leonel Thorne PA is PHCP. cp 10:53 Rito Rendon MD is Attending Physician. cp 11:20 Fredis Call LVN is Primary Nurse. em 11:30 Initial lab(s) drawn, by me, sent to lab. Urine collected: clean catch specimen, clear. em Inserted saline lock: 20 gauge in right antecubital area, using aseptic technique. Blood collected. 11:49 CT Head Brain wo Cont In Process Unspecified. EDMS 12:32 XRAY Chest (1 view) In Process Unspecified. EDMS 13:59 No provider procedures requiring assistance completed. IV discontinued, intact, em bleeding controlled, No redness/swelling at site. Pressure dressing applied. Administered Medications: 12:21 Drug: TORadol 30 mg Route: IVP; Site: right antecubital; iw 13:00 Follow up: Response: No adverse reaction; Pain is decreased em 12:22 Drug: Reglan 10 mg Route: IVP; Site: right antecubital; iw 13:00 Follow up: Response: No adverse reaction; Pain is decreased em 12:24 Drug: Decadron - Dexamethasone 10 mg Route: IVP; Site: right antecubital; iw 13:00 Follow up: Response: No adverse reaction; Pain is decreased em 12:25 Drug: Benadryl 25 mg Route: IVP; Site: right antecubital; iw 13:00 Follow up: Response: No adverse reaction em 12:47 Drug: NS 0.9% 1000 ml Route: IV; Rate: 1 bolus; Site: right antecubital; em 14:12 Follow up: IV Status: Completed infusion; IV Intake: 1000ml em Intake: 14:12 IV: 1000ml; Total: 1000ml. em Outcome: 13:13 Discharge ordered by . cp 14:00 Discharged to home ambulatory, with family. em 14:00 Condition: good 14:00 Discharge instructions given to patient, Instructed on discharge instructions, follow up and referral plans. Demonstrated understanding of instructions, follow-up care. 14:00 Patient left the ED. em Signatures: Dispatcher [employer] ANNELIESE Félix Evelyn Call, Fredis, SCRUB NURSE SCRUB NURSE em Melissa Mayes, NELSON DAMON iw Andriy Guthrie RN RN hj Page, Corey, PA PA cp Corrections: (The following items were deleted from the chart) 10:50 10:48 BP 106 / 72; Pulse 95bpm; Resp 18bpm; Pulse Ox 94% RA; Temp 98.7F Oral; 54.43 kg; hj Height 5 ft. 7 in.; BMI: 18.7; Pain 8/10; hj 10:51 10:45 Presenting complaint: Patient states: i had a headache for 5 days, last night my hj chest started hurting and L my arm started to get numbed; pain is 8/10; pain is like someone is sitting on my chest; hj 10:51 10:48 BP 106 / 72; Pulse 95bpm; Resp 18bpm; Pulse Ox 94% RA; Temp 98.7F Oral; 54.43 kg; hj Height 5 ft. 7 in.; BMI: 18.7; Pain 8/10; hj
[2018-04-05 13:54] LABS: Urine Blood 2+ (NEG); Urine Glucose NEGATIVE (NEG); Urine Protein 2+ (NEG); Urine pH 5.5 (5.0-7.0)
[2018-04-05 14:08] VITALS: O2SAT 99
[2018-04-05 14:09] VITALS: BP 120/69
--- NOTE | 2018-04-06 07:41 | EKG ---
Test Date: 2018-04-05 Test Time: 10:57:35 Pe Manager: TALITA MEASUREMENT RESULTS: Intervals: Rate: 89 OR: 140 QRSD: 88 QT: 350 QTc: 425 [place]: P: 56 OR: 140 QRS: 39 T: 67 INTERPRETIVE STATEMENTS: Normal sinus rhythm with sinus arrhythmia Possible Left atrial enlargement Borderline ECG Compared to ECG 01/16/2018 10:10:58 Sinus bradycardia no longer present Electronically Signed On 04-06-18 07:39:28 BOX OFFICE MANAGER by Deacon Barnes
[2018-04-06 18:43] VITALS: TEMP 98.7
== END 2018-04-05 14:00 | disposition home or self-care (01) ==
LOC: ER 10:32
DX: R07.89 Other chest pain (principal); Z72.0 Tobacco use
CPT/HCPCS: 36415; 70450; 71045; 80048; 80076; 80307; 81003; 81025; 83735; 83880; 84484; 85025; 85379; 85610; 93005; 96361; 96374; 96375; 99284; J2765; J7030

== ENCOUNTER 2018-09-16 13:59 | Emergency (ER) | payer SELFPAY ==
--- NOTE | 2018-09-16 15:40 | RAD REPORT ---
EXAM DESCRIPTION: RAD - Wrist Right 3 View - 09/16/2018 3:00 pm CLINICAL HISTORY: Right wrist pain, trauma COMPARISON: None. FINDINGS: No fracture is identified. There is no dislocation or periosteal reaction noted. Epiphyses and growth plates are Normal in appearance. No foreign body or other soft tissue abnormality. IMPRESSION: Negative right wrist examination.
--- NOTE | 2018-09-16 15:44 | RAD REPORT ---
EXAM DESCRIPTION: RAD - Hand Right 3 View - 09/16/2018 3:00 pm CLINICAL HISTORY: Blunt force trauma, hand pain COMPARISON: None. FINDINGS: No fracture is identified. There is no dislocation or periosteal reaction noted. No forei gn body or other soft tissue abnormality. IMPRESSION: Negative right hand examination.
--- NOTE | 2018-09-16 15:53 | ER ---
Nurse's Notes [facility] Name: Stella Siegel Age: 38 yrs Sex: Female : 1980 Arrival Date: 09/16/2018 Time: 13:58 Bed 12 Private MD: None, None Diagnosis: Contusion of right wrist Presentation: 09/16 14:08 Presenting complaint: Patient states: i hit the under side of the table 2x and hurt my hj R wrist, it happened today;. Transition of care: patient was not received from another setting of care. Onset of symptoms was September 16, 2018. Risk Assessment: Do you want to hurt yourself or someone else? Patient reports no desire to harm self or others. Initial Sepsis Screen: Does the patient meet any 2 criteria? No. Patient's initial sepsis screen is negative. Does the patient have a suspected source of infection? No. Patient's initial sepsis screen is negative. Care prior to arrival: None. 14:08 Method Of Arrival: Ambulatory 14:08 Acuity: SPENCER 4 hj Historical: - Allergies: 14:09 No Known Allergies; hj - PMHx: 14:09 Headaches; hj - PSHx: 14:09 tummy tuck; breast lift and reduction; hj - Family history:: not pertinent. - Hospitalizations: : No recent hospitalization is reported. Vital Signs: 14:10 BP 131 / 67; Pulse 71; Resp 18; Temp 99.2(TE); Pulse Ox 98% on R/A; Weight 59.87 kg; hj Height 5 ft. 6 in. (167.64 cm); Pain 10/10; 14:10 Body Mass Index 21.31 (59.87 kg, 167.64 cm) ED Course: 13:58 Patient arrived in ED. dp 13:59 None, None is Private Physician. dp 14:09 Triage completed. hj 14:09 Arm band placed on left wrist. hj 14:25 Anthony Mendoza MD is Attending Physician. rn 14:52 Velcro wrist splint applied to right wrist. sg 15:01 Hand Right 3 View XRAY In Process Unspecified. EDMS 15:01 Wrist Right 3 View XRAY In Process Unspecified. EDMS Administered Medications: No medications were administered Outcome: 15:50 Discharge ordered by . rn 15:59 Patient left the ED. snw Signatures: Dispatcher [employer] EDMS Aime Waite RN RN Karen Pappas, WIPER BLENDER-C WIPER BLENDER-Csnw Anthony Mendoza MD MD rn Joaquin, Henry, RN RN hj Pena, Darian dp
--- NOTE | 2018-09-16 15:53 | EDPHYS ---
Physician Documentation [facility] Name: Stella Siegel Age: 38 yrs Sex: Female : 1980 Arrival Date: 09/16/2018 Time: 13:58 Bed 12 Private MD: None, None ED Physician Anthony Mendoza HPI: 09/16 14:30 This 38 yrs old Female presents to ER via Ambulatory with complaints of Arm rn Injury, Arm Pain. 14:30 The patient or guardian complains of decreased range of motion, injury, pain. The rn complaints affect the right wrist and right hand. Onset: The symptoms/episode began/occurred this morning. Treatment prior to arrival includes: no previous treatment. Associated signs and symptoms: Pertinent negatives: fever, weakness. Severity of symptoms: At their worst the symptoms were moderate, in the emergency department the symptoms are unchanged. The patient has not experienced similar symptoms in the past. Reports hit wrist/hand on [place] register today, then dropped phone on affected wrist, + swelling and pain, no fall or other injury. . Historical: - Allergies: 14:09 No Known Allergies; hj - PMHx: 14:09 Headaches; hj - PSHx: 14:09 tummy tuck; breast lift and reduction; hj - Family history:: not pertinent. - Hospitalizations: : No recent hospitalization is reported. ROS: 14:30 Constitutional: Negative for fever, chills, and weight loss, MS/Extremity: + right rn wrist and hand pain/injury Neuro: Negative for headache, weakness, numbness, tingling, and seizure. Exam: 14:30 Constitutional: This is a well developed, well nourished patient who is awake, alert, rn and in no acute distress. MS/ Extremity: Pulses equal, no cyanosis. Neurovascular intact. + tenderness over right wrist and 1st/2nd MC of right hand. NO gross deformity other than mild swelling. Vital Signs: 14:10 BP 131 / 67; Pulse 71; Resp 18; Temp 99.2(TE); Pulse Ox 98% on R/A; Weight 59.87 kg; hj Height 5 ft. 6 in. (167.64 cm); Pain 10/10; 14:10 Body Mass Index 21.31 (59.87 kg, 167.64 cm) hj MDM: 14:25 Patient medically screened. rn 14:30 Differential diagnosis: closed fracture, contusion. rn 15:48 Data reviewed: vital signs, nurses notes, radiologic studies, plain films, and as a rn result, I will discharge patient. Counseling: I had a detailed discussion with the patient and/or guardian regarding: the historical points, exam findings, and any diagnostic results supporting the discharge/admit diagnosis, radiology results, the need for outpatient follow up, to return to the emergency department if symptoms worsen or persist or if there are any questions or concerns that arise at home. Special discussion: I discussed with the patient/guardian in detail that at this point there is no indication for admission to the hospital. It is understood, however, that if the symptoms persist or worsen the patient needs to return immediately for re-evaluation. 09/16 14:12 Order name: Hand Right 3 View XRAY; Complete Time: 15:51 09/16 14:13 Order name: Wrist Right 3 View XRAY; Complete Time: 15:51 09/16 14:30 Order name: Splint - Wrist: velcro wrist splint; Complete Time: 14:52 rn Administered Medications: No medications were administered Disposition: 09/16/18 15:50 Discharged to Home. Impression: Contusion of right wrist. - Condition is Stable. - Discharge Instructions: Contusion, Wrist Pain. - Medication Reconciliation Form, Thank You Letter, Antibiotic Education, Prescription Opioid Use form. - Follow up: Private Physician; When: As needed; Reason: Recheck today's complaints, Re-evaluation by your physician. - Problem is new. - Symptoms have improved. Signatures: Dispatcher [employer] [facility] Karen Awan, SELENIUM PLANT OPERATOR-C SELENIUM PLANT OPERATOR-Csnw Anthony Mendoza MD MD rn Joaquin, Henry, RN RN hj Corrections: (The following items were deleted from the chart) 14:21 14:14 Wrist Left 3 View+RAD.RAD.BRZ ordered. [facility] 15:59 15:50 09/16/2018 15:50 Discharged to Home. Impression: Contusion of right wrist. snw Condition is Stable. Forms are Medication Reconciliation Form, Thank You Letter, Antibiotic Education, Prescription Opioid Use. Follow up: Private Physician; When: As needed; Reason: Recheck today's complaints, Re-evaluation by your physician. Problem is new. Symptoms have improved. rn
[2018-09-16 16:36] VITALS: BP 131/67; TEMP 99.2; O2SAT 98
== END 2018-09-16 15:59 | disposition home or self-care (01) ==
LOC: ER 13:59
DX: S60.211A Contusion of right wrist, initial encounter (principal); W22.8XXA Striking against or struck by other objects, initial encounter
CPT/HCPCS: 99283

== ENCOUNTER 2018-10-07 12:38 | Emergency (ER) | payer SELFPAY ==
[2018-10-07] MEDS ORDERED: FAMOTIDINE 20 MG/2 ML VIAL IV ONE (12:58)
[2018-10-07] MEDS ORDERED: METHYLPREDNISOLONE 125 MG INJ ONE (12:58)
[2018-10-07] MEDS ORDERED: DIPHENHYDRAMINE 50 MG/ML VIAL ONE (12:58)
--- NOTE | 2018-10-07 13:34 | EDPHYS ---
Physician Documentation [facility] Name: Stella Siegel Age: 38 yrs Sex: Female : 1980 Arrival Date: 10/07/2018 Time: 12:40 Bed 20 Private MD: ED Physician Anthony Mendoza HPI: 10/07 13:30 This 38 yrs old Female presents to ER via Ambulatory with complaints of Rash, rn Allergic Reaction. 13:30 The patient's rash thought to be caused by an unknown cause. The rash is located on the rn body diffusely. The rash can be described as erythematous, papular. The rash can be described as urticarial. Onset: The symptoms/episode began/occurred today. Severity of symptoms: At their worst the symptoms were moderate in the emergency department the symptoms are unchanged. It is unknown whether or not the patient has had similar symptoms in the past. Reports broke out in rash today, itchy, no fever, no skin peeling, not sure what precipitated it, states generally pretty sensitive to perfumes and scents. . 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 tw2 Historical: - Allergies: 12:53 No Known Drug Allergies; tw2 - Home Meds: 12:53 None [Active]; tw2 - PMHx: 12:53 Headaches; tw2 - PSHx: 12:53 tummy tuck; breast lift and reduction; tw2 - Immunization history:: Adult Immunizations. - Social history:: Smoking status: Patient uses tobacco products, smokes one pack cigarettes per day. - Ebola Screening: : Patient denies travel to an Ebola-affected area in the 21 days before illness onset. - Family history:: not pertinent. - Hospitalizations: : No recent hospitalization is reported. ROS: 13:30 Constitutional: Negative for fever, chills, and weight loss, Eyes: Negative for injury, rn pain, redness, and discharge, ENT: Negative for injury, pain, and discharge, Cardiovascular: Negative for chest pain, palpitations, and edema, Respiratory: Negative for shortness of breath, cough, wheezing, and pleuritic chest pain, Abdomen/GI: Negative for abdominal pain, nausea, vomiting, diarrhea, and constipation, MS/Extremity: Negative for injury and deformity, Skin: + itchy widespread rash Neuro: Negative for headache, weakness, numbness, tingling, and seizure. Exam: 13:30 Constitutional: This is a well developed, well nourished patient who is awake, alert, rn itching Head/Face: Normocephalic, atraumatic. Eyes: Pupils equal round and reactive to light, extra-ocular motions intact. Lids and lashes normal. Conjunctiva and sclera are non-icteric and not injected. Cornea within normal limits. Periorbital areas with no swelling, redness, or edema. ENT: No oral lesions or swelling Cardiovascular: Regular rate and rhythm. No pulse deficits. Respiratory: No increased work of breathing, no retractions or nasal flaring. Speaking full sentences Skin: + diffuse erythematous urticarial/papular rash with excoriations. MS/ Extremity: Pulses equal, no cyanosis. Neurovascular intact. Full, normal range of motion. Equal circumference. Neuro: Awake and alert, GCS 15, oriented to person, place, time, and situation. Cranial nerves II-XII grossly intact. Motor strength 5/5 in all extremities. Sensory grossly intact. Cerebellar exam normal. Normal gait. Vital Signs: 12:53 BP 147 / 83; Pulse 92; Resp 19; Pulse Ox 100% on R/A; Weight 58.97 kg (R); Height 5 ft. tw2 6 in. (167.64 cm); Pain 10/10; 12:55 Temp 98.1(O); tw2 13:47 BP 128 / 78; Pulse 79; Resp 17; Pulse Ox 100% on R/A; tw2 12:53 Body Mass Index 20.98 (58.97 kg, 167.64 cm) tw2 12:53 "just itching and aggravated" tw2 MDM: 12:45 Patient medically screened. rn 13:30 Differential diagnosis: allergic reaction. Data reviewed: vital signs, nurses notes, rn and as a result, I will discharge patient. Counseling: I had a detailed discussion with the patient and/or guardian regarding: the historical points, exam findings, and any diagnostic results supporting the discharge/admit diagnosis, the need for outpatient follow up, to return to the emergency department if symptoms worsen or persist or if there are any questions or concerns that arise at home. Response to treatment: the patient's symptoms have markedly improved after treatment. Special discussion: I discussed with the patient/guardian in detail that at this point there is no indication for admission to the hospital. It is understood, however, that if the symptoms persist or worsen the patient needs to return immediately for re-evaluation. 10/07 12:50 Order name: IV Start; Complete Time: 13:12 rn Administered Medications: 13:04 Drug: Pepcid 20 mg Route: IVP; Site: right antecubital; tw2 13:49 Follow up: Response: No adverse reaction tw2 13:06 Drug: Benadryl 50 mg Route: IVP; Site: right antecubital; tw2 13:49 Follow up: Response: No adverse reaction; Marked relief of symptoms tw2 13:10 Drug: SOLU-Medrol 125 mg Route: IVP; Site: right antecubital; tw2 13:49 Follow up: Response: No adverse reaction tw2 Disposition: 10/07/18 13:33 Discharged to Home. Impression: Acute allergic reaction. - Condition is Stable. - Discharge Instructions: Rash. - Prescriptions for Prednisone 20 mg Oral Tablet - take 3 tablet by ORAL route once daily for 5 days; 15 tablet. - Medication Reconciliation Form, Thank You Letter, Antibiotic Education, Prescription Opioid Use form. - Follow up: Private Physician; When: As needed; Reason: Recheck today's complaints, Re-evaluation by your physician. - Problem is new. - Symptoms have improved. Signatures: Anthony Mendoza MD MD rn Wise, Tara, RN RN tw2 Corrections: (The following items were deleted from the chart) 13:52 13:33 10/07/2018 13:33 Discharged to Home. Impression: Acute allergic reaction. tw2 Condition is Stable. Forms are Medication Reconciliation Form, Thank You Letter, Antibiotic Education, Prescription Opioid Use. Follow up: Private Physician; When: As needed; Reason: Recheck today's complaints, Re-evaluation by your physician. Problem is new. Symptoms have improved. rn
--- NOTE | 2018-10-07 13:34 | ER ---
Nurse's Notes [facility] Name: Stella Siegel Age: 38 yrs Sex: Female : 1980 Arrival Date: 10/07/2018 Time: 12:40 Bed 20 Private MD: Diagnosis: Acute allergic reaction Presentation: 10/07 12:49 Presenting complaint: Patient states: i noticed yesterday on my left arm this rash, and tw2 its gotten worse and has spread, my grandson bathed in lavender and that is a big no for me so maybe that was it but i moved recently. Transition of care: patient was not received from another setting of care. Onset: The symptoms/episode began/occurred yesterday. Anaphylaxis evaluation, the patient reports or I have noted the following symptoms which indicate a significant risk of anaphylaxis:. Onset of symptoms was October 06, 2018. Risk Assessment: Do you want to hurt yourself or someone else? Patient reports no desire to harm self or others. Initial Sepsis Screen: Does the patient meet any 2 criteria? No. Patient's initial sepsis screen is negative. Does the patient have a suspected source of infection? No. Patient's initial sepsis screen is negative. Care prior to arrival: None. 12:49 Method Of Arrival: Ambulatory tw2 12:49 Acuity: SPENCER 4 tw2 Triage Assessment: 12:51 General: Appears slender, Behavior is anxious. Pain: Denies pain. Also complains of tw2 itching, all over now. EENT: No signs and/or symptoms were reported regarding the EENT system. Neuro: Level of Consciousness is awake, alert, obeys commands, Oriented to person, place, time, situation. Cardiovascular: Heart tones S1 S2 Patient's skin is warm and dry. Respiratory: Airway is patent Respiratory effort is even, unlabored, Respiratory pattern is regular, symmetrical, Breath sounds are clear bilaterally. GI: No signs and/or symptoms were reported involving the gastrointestinal system. : No signs and/or symptoms were reported regarding the genitourinary system. Derm: Rash noted that is red, raised, on back, buttocks, chest, abdomen, right arm, left arm, right leg and left leg. Musculoskeletal: Range of motion: intact in all extremities. 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 tw2 Historical: - Allergies: 12:53 No Known Drug Allergies; tw2 - Home Meds: 12:53 None [Active]; tw2 - PMHx: 12:53 Headaches; tw2 - PSHx: 12:53 tummy tuck; breast lift and reduction; tw2 - Immunization history:: Adult Immunizations. - Social history:: Smoking status: Patient uses tobacco products, smokes one pack cigarettes per day. - Ebola Screening: : Patient denies travel to an Ebola-affected area in the 21 days before illness onset. - Family history:: not pertinent. - Hospitalizations: : No recent hospitalization is reported. Screenin:56 Abuse screen: Denies threats or abuse. Nutritional screening: No deficits noted. tw2 Tuberculosis screening: No symptoms or risk factors identified. Fall Risk None identified. Assessment: 12:56 Reassessment: see triage assessment. Respiratory: Airway is patent Respiratory effort tw2 is even, unlabored, Respiratory pattern is regular, symmetrical. 13:47 Reassessment: Patient appears in no apparent distress at this time. Patient and/or tw2 family updated on plan of care and expected duration. Pain level reassessed. Patient is alert, oriented x 3, equal unlabored respirations, skin warm/dry/pink. Patient states feeling better. Patient states symptoms have improved. Respiratory: Breath sounds are clear bilaterally. Vital Signs: 12:53 BP 147 / 83; Pulse 92; Resp 19; Pulse Ox 100% on R/A; Weight 58.97 kg (R); Height 5 ft. tw2 6 in. (167.64 cm); Pain 10/10; 12:55 Temp 98.1(O); tw2 13:47 BP 128 / 78; Pulse 79; Resp 17; Pulse Ox 100% on R/A; tw2 12:53 Body Mass Index 20.98 (58.97 kg, 167.64 cm) tw2 12:53 "just itching and aggravated" tw2 ED Course: 12:40 Patient arrived in ED. mr 12:45 Anthony Mendoza MD is Attending Physician. rn 12:45 Bed in low position. Call light in reach. tw2 12:49 Susanna Mario RN is Primary Nurse. tw2 12:50 Triage completed. tw2 12:50 Arm band placed on. tw2 13:04 Inserted saline lock: 22 gauge in right antecubital area, using aseptic technique. tw2 13:52 No provider procedures requiring assistance completed. IV discontinued, intact, tw2 bleeding controlled, No redness/swelling at site. Pressure dressing applied. Administered Medications: 13:04 Drug: Pepcid 20 mg Route: IVP; Site: right antecubital; tw2 13:49 Follow up: Response: No adverse reaction tw2 13:06 Drug: Benadryl 50 mg Route: IVP; Site: right antecubital; tw2 13:49 Follow up: Response: No adverse reaction; Marked relief of symptoms tw2 13:10 Drug: SOLU-Medrol 125 mg Route: IVP; Site: right antecubital; tw2 13:49 Follow up: Response: No adverse reaction tw2 Outcome: 13:33 Discharge ordered by . rn 13:52 Discharged to home ambulatory, with family. tw2 13:52 Condition: stable 13:52 Discharge instructions given to patient, family, Instructed on discharge instructions, follow up and referral plans. medication usage, Demonstrated understanding of instructions, follow-up care, medications, Prescriptions given X 1. 13:52 Patient left the ED. tw2 Signatures: Evelyn Heard Roman, MD MD rn Wise, Tara, RN RN tw2
[2018-10-07 13:56] VITALS: O2SAT 100
[2018-10-07 13:58] VITALS: TEMP 98.1
[2018-10-07 13:59] VITALS: BP 128/78
== END 2018-10-07 13:52 | disposition home or self-care (01) ==
LOC: ER 12:38
DX: R21 Rash and other nonspecific skin eruption (principal); F17.210 Nicotine dependence, cigarettes, uncomplicated
CPT/HCPCS: 96374; 96375; 99283; J2930

== ENCOUNTER 2019-01-12 21:56 | Emergency (ER) | payer SELFPAY ==
[2019-01-12] MEDS ORDERED: HYDROCODONE/APAP 10/325 TAB ONE (22:43)
--- NOTE | 2019-01-12 22:43 | EDPHYS ---
Physician Documentation [facility] Name: Stella Siegel Age: 38 yrs Sex: Female : 1980 Arrival Date: 01/12/2019 Time: 21:58 Bed 25 Private MD: ED Physician Andres Draper HPI: 01/12 22:40 This 38 yrs old Female presents to ER via Ambulatory with complaints of BUMP pm1 ON BREAST. 22:40 Onset: The symptoms/episode began/occurred 3 day(s) ago. Associated signs and symptoms: pm1 Pertinent negatives: abdominal pain, chest pain, cough, fever, shortness of breath. Modifying factors: The patient symptoms are alleviated by nothing, the patient symptoms are aggravated by palpation. The patient has not experienced similar symptoms in the past. The patient has not recently seen a physician, the patient's primary care provider is Dr. Usha keenan. Patient noticed a bump on her breast for the past 3 days. 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 - Social history:: Smoking status: Patient uses tobacco products, smokes one-half pack cigarettes per day. - Ebola Screening: : No symptoms or risks identified at this time. ROS: 22:40 Constitutional: Negative for fever, chills, and weight loss, Eyes: Negative for injury, pm1 pain, redness, and discharge, ENT: Negative for injury, pain, and discharge, Neck: Negative for injury, pain, and swelling, Cardiovascular: Negative for chest pain, palpitations, and edema, Respiratory: Negative for shortness of breath, cough, wheezing, and pleuritic chest pain, Abdomen/GI: Negative for abdominal pain, nausea, vomiting, diarrhea, and constipation, Back: Negative for injury and pain, : Negative for injury, bleeding, discharge, and swelling, MS/Extremity: Negative for injury and deformity, Skin: Negative for injury, rash, and discoloration, Neuro: Negative for headache, weakness, numbness, tingling, and seizure. Exam: 22:40 Constitutional: This is a well developed, well nourished patient who is awake, alert, pm1 and in no acute distress. Head/Face: Normocephalic, atraumatic. 22:40 Cardiovascular: Regular rate and rhythm with a normal S1 and S2. No gallops, murmurs, or rubs. Normal PMI, no JVD. No pulse deficits. Respiratory: Lungs have equal breath sounds bilaterally, clear to auscultation and percussion. No rales, rhonchi or wheezes noted. No increased work of breathing, no retractions or nasal flaring. Back: No spinal tenderness. No costovertebral tenderness. Full range of motion. Skin: Warm, dry with normal turgor. Normal color with no rashes, no lesions, and no evidence of cellulitis. MS/ Extremity: Pulses equal, no cyanosis. Neurovascular intact. Full, normal range of motion. 22:40 Chest/axilla: Inspection: normal, Axilla: lymphadenopathy, is not appreciated, in the right axilla, Breasts: abscess, not appreciated, cellulitis, is not appreciated, mass(es), that is small, in the right breast, that is tender, 3 o'clock, nipple discharge, is not appreciated, rash, is not appreciated, swelling, is not appreciated, Lymph nodes: lymphadenopathy is not appreciated, Wayne DAMON present as international account representative. 22:40 Neuro: Orientation: is normal, Motor: is normal, moves all fours. Vital Signs: 22:02 BP 134 / 92; Pulse 98; Resp 16; Temp 98.1; Pulse Ox 100% ; Weight 68.04 kg; Height 5 rv ft. 6 in. (167.64 cm); Pain 7/10; 23:03 BP 130 / 78; Pulse 90; Resp 18; Temp 98; Pulse Ox 100% on R/A; mg2 22:02 Body Mass Index 24.21 (68.04 kg, 167.64 cm) rv MDM: 22:34 Patient medically screened. pm1 22:40 Data reviewed: vital signs. Data interpreted: Pulse oximetry: on room air is 100 %. pm1 Interpretation: normal. Counseling: I had a detailed discussion with the patient and/or guardian regarding: the historical points, exam findings, and any diagnostic results supporting the discharge/admit diagnosis, the need for outpatient follow up, for definitive care, an OB/Gyne specialist, Mammogram, to return to the emergency department if symptoms worsen or persist or if there are any questions or concerns that arise at home. Administered Medications: 22:47 Drug: Mccaskill 10 mg-325 mg 1 tabs Route: PO; mg2 22:47 Follow up: Response: No adverse reaction; Medication administered at discharge. mg2 Disposition: 01/13 03:40 Co-signature as Attending Physician, Andres Draper MD I agree with the assessment and tw4 plan of care. Disposition: 01/12/19 22:42 Discharged to Home. Impression: Unspecified lump in breast. - Condition is Stable. - Discharge Instructions: Breast Self-Awareness, Nieq-si-[id number]. - Prescriptions for Tramadol 50 mg Oral Tablet - take 1 tablet by ORAL route every 8 hours as needed; 12 tablet. - Medication Reconciliation Form, Thank You Letter, Antibiotic Education, Prescription Opioid Use form. - Follow up: Emergency Department; When: As needed; Reason: Worsening of condition. Follow up: Private Physician; When: 2 - 3 days; Reason: Recheck today's complaints, Continuance of care, Re-evaluation by your physician. - Problem is new. - Symptoms have improved. Signatures: Augustus Davis, ULTRASOUND MANAGER ULTRASOUND MANAGER pm1 Andres Draper MD MD tw4 Wayne Bauer RN RN mg2 Jacob Elizabeth RN RN rv Corrections: (The following items were deleted from the chart) 01/12 23:04 22:42 01/12/2019 22:42 Discharged to Home. Impression: Unspecified lump in breast. mg2 Condition is Stable. Forms are Medication Reconciliation Form, Thank You Letter, Antibiotic Education, Prescription Opioid Use. Follow up: Emergency Department; When: As needed; Reason: Worsening of condition. Follow up: Private Physician; When: 2 - 3 days; Reason: Recheck today's complaints, Continuance of care, Re-evaluation by your physician. Problem is new. Symptoms have improved. pm1
--- NOTE | 2019-01-12 22:43 | ER ---
Nurse's Notes [facility] Name: Stella Siegel Age: 38 yrs Sex: Female : 1980 Arrival Date: 01/12/2019 Time: 21:58 Bed 25 Private MD: Diagnosis: Unspecified lump in breast Presentation: 01/10 08:00 Presenting complaint: Patient states: I FOUND A KNOW ON MY RIGHT BREAST, AND IT IS VERY rv TENDER FOR THREE DAYS NOW. Transition of care: patient was not received from another setting of care. Onset of symptoms was January 10, 2019 at 08:00. Risk Assessment: Do you want to hurt yourself or someone else? Patient reports no desire to harm self or others. Initial Sepsis Screen: Does the patient meet any 2 criteria? No. Patient's initial sepsis screen is negative. Does the patient have a suspected source of infection? No. Patient's initial sepsis screen is negative. Care prior to arrival: None. 08:00 Method Of Arrival: Ambulatory rv 08:00 Acuity: SPENCER 4 rv Triage Assessment: 01/12 22:04 General: Appears in no apparent distress. comfortable, Behavior is calm, cooperative. rv Pain: Complains of pain in right breast. 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 - Social history:: Smoking status: Patient uses tobacco products, smokes one-half pack cigarettes per day. - Ebola Screening: : No symptoms or risks identified at this time. Screenin:41 Abuse screen: Denies threats or abuse. Denies injuries from another. Nutritional mg2 screening: No deficits noted. Tuberculosis screening: No symptoms or risk factors identified. Fall Risk None identified. Assessment: 22:40 General: Appears in no apparent distress. comfortable, Behavior is calm, cooperative. mg2 Pain: Complains of pain in right breast Pain does not radiate. Pain currently is 8 out of 10 on a pain scale. Quality of pain is described as aching, Pain began gradually, 2-3 days ago. Is intermittent. Neuro: Level of Consciousness is awake, alert, obeys commands, Oriented to person, place, time, situation. Cardiovascular: Capillary refill < 3 seconds Patient's skin is warm and dry. Respiratory: Airway is patent Respiratory effort is even, unlabored, Respiratory pattern is regular, symmetrical. GI: No signs and/or symptoms were reported involving the gastrointestinal system. : No signs and/or symptoms were reported regarding the genitourinary system. EENT: No signs and/or symptoms were reported regarding the EENT system. Derm: Skin is intact, is healthy with good turgor, Skin is pink, warm \T\ dry. normal. Musculoskeletal: Circulation, motion, and sensation intact. Capillary refill < 3 seconds. Vital Signs: 22:02 BP 134 / 92; Pulse 98; Resp 16; Temp 98.1; Pulse Ox 100% ; Weight 68.04 kg; Height 5 rv ft. 6 in. (167.64 cm); Pain 7/10; 23:03 BP 130 / 78; Pulse 90; Resp 18; Temp 98; Pulse Ox 100% on R/A; mg2 22:02 Body Mass Index 24.21 (68.04 kg, 167.64 cm) rv ED Course: 21:58 Patient arrived in ED. ag3 22:02 Triage completed. rv 22:24 Augustus Davis NP is PHCP. pm1 22:24 Andres Draper MD is Attending Physician. pm1 22:27 Wayne Bauer RN is Primary Nurse. mg2 22:41 Patient has correct armband on for positive identification. Pulse ox on. NIBP on. Door mg2 closed. Warm blanket given. 22:41 Arm band placed on. mg2 22:41 No provider procedures requiring assistance completed. Patient did not have IV access mg2 during this emergency room visit. Administered Medications: 22:47 Drug: [place] 10 mg-325 mg 1 tabs Route: PO; mg2 22:47 Follow up: Response: No adverse reaction; Medication administered at discharge. mg2 Outcome: 22:42 Discharge ordered by . pm1 23:03 Discharged to home ambulatory. mg2 23:03 Condition: good 23:03 Discharge instructions given to patient, Instructed on discharge instructions, follow up and referral plans. medication usage, Demonstrated understanding of instructions, follow-up care, medications, Prescriptions given X 1. 23:04 Patient left the ED. mg2 Signatures: Augustus Davis, CRANK HAND CRANK HAND pm1 Wayne Bauer, RN RN mg2 Jacob Elizabeth, RN RN rv Lisa Small ag3
[2019-01-12 23:39] VITALS: O2SAT 100
[2019-01-12 23:40] VITALS: BP 130/78; TEMP 98
== END 2019-01-12 23:04 | disposition home or self-care (01) ==
LOC: ER 21:56
DX: N63.0 Unspecified lump in unspecified breast (principal); F17.210 Nicotine dependence, cigarettes, uncomplicated
CPT/HCPCS: 99283

== ENCOUNTER 2019-03-19 06:17 | Emergency (ER) | payer SELFPAY ==
--- NOTE | 2019-03-19 06:48 | EDPHYS ---
Physician Documentation [facility] Name: Stella Siegel Age: 38 yrs Sex: Female : 1980 Arrival Date: 03/19/2019 Time: 06:20 Bed 1 Private MD: ED Physician Andres Draper HPI: 03/19 06:45 This 38 yrs old Female presents to ER via Ambulatory with complaints of Rash. tw4 06:45 The patient presents with rash, that is diffuse, redness of skin. Onset: The tw4 symptoms/episode began/occurred 1 hour(s) ago. Associated signs and symptoms: The patient has no apparent associated signs or symptoms. Possible causes: cleaning products. At home the patient or guardian has treated the symptoms with nothing. The patient has not experienced similar symptoms in the past. 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 - Coronavirus screen:: The patient has NOT traveled to [place], [place], or [place] in the past 14 days. The patient has NOT had contact with known/suspected case of Coronavirus? Proceed with normal triage procedures. - Social history:: Smoking status: Patient reports the use of cigarette tobacco products, smokes one-half pack cigarettes per day, Patient uses alcohol, occasionally. Patient/guardian denies using street drugs, IV drugs. - Ebola Screening: : Patient negative for fever greater than or equal to 101.5 degrees Fahrenheit, and additional compatible Ebola Virus Disease symptoms Patient denies exposure to infectious person Patient denies travel to an Ebola-affected area in the 21 days before illness onset. ROS: 06:45 Constitutional: Negative for fever, chills, and weight loss, Eyes: Negative for injury, tw4 pain, redness, and discharge, Cardiovascular: Negative for chest pain, palpitations, and edema, Respiratory: Negative for shortness of breath, cough, wheezing, and pleuritic chest pain, Abdomen/GI: Negative for abdominal pain, nausea, vomiting, diarrhea, and constipation, Back: Negative for injury and pain, MS/Extremity: Negative for injury and deformity, Neuro: Negative for headache, weakness, numbness, tingling, and seizure. 06:45 Skin: Positive for rash. Exam: 06:45 Constitutional: This is a well developed, well nourished patient who is awake, alert, tw4 and in no acute distress. Chest/axilla: Normal chest wall appearance and motion. Nontender with no deformity. No lesions are appreciated. Cardiovascular: Regular rate and rhythm with a normal S1 and S2. No gallops, murmurs, or rubs. Normal PMI, no JVD. No pulse deficits. Respiratory: Lungs have equal breath sounds bilaterally, clear to auscultation and percussion. No rales, rhonchi or wheezes noted. No increased work of breathing, no retractions or nasal flaring. Abdomen/GI: Soft, non-tender, with normal bowel sounds. No distension or tympany. No guarding or rebound. No evidence of tenderness throughout. Back: No spinal tenderness. No costovertebral tenderness. Full range of motion. 06:45 Skin: urticaria. Vital Signs: 06:44 BP 139 / 72; Pulse 84; Resp 16; Temp 98.1(O); Pulse Ox 98% on R/A; ar5 MDM: 06:43 Patient medically screened. tw4 06:45 Differential diagnosis: urticaria. Data reviewed: vital signs, nurses notes. Data tw4 interpreted: Pulse oximetry: Interpretation: normal. Counseling: I had a detailed discussion with the patient and/or guardian regarding: the historical points, exam findings, and any diagnostic results supporting the discharge/admit diagnosis. Medical screen evaluation completed. [facility] emergency medical condition absent. Medication response: benadryl. Special discussion: I discussed with the patient/guardian in detail that at this point there is no indication for admission to the hospital. It is understood, however, that if the symptoms persist or worsen the patient needs to return immediately for re-evaluation. Administered Medications: 06:50 Drug: SOLU-Medrol 125 mg {Note: Patient was taking to a privit room since wa with son. ao Witnessed by Autom electrical assembly technician.} Route: IM; Site: left gluteus; 07:10 Follow up: Response: No adverse reaction ao 06:50 Drug: Pepcid 20 mg Route: PO; ao 07:09 Follow up: Response: No adverse reaction ao 06:50 Drug: Benadryl 25 mg Route: PO; ao 07:09 Follow up: Response: No adverse reaction ao Disposition: 03/19/19 06:47 Discharged to Home. Impression: Urticaria, unspecified. - Condition is Stable. - Discharge Instructions: Allergies, Adult, Hives, [id number]. - Prescriptions for Medrol (Domenic) 4 mg Oral Tablets, Dose Pack - take 1 tablet by ORAL route as directed - follow package instructions; 1 packet. Pepcid 20 mg Oral Tablet - take 1 tablet by ORAL route once daily; 20 tablet. - Medication Reconciliation Form, Thank You Letter, Antibiotic Education, Prescription Opioid Use form. - Follow up: Private Physician; When: Upon discharge from the Emergency Department; Reason: Recheck today's complaints, Continuance of care. - Problem is new. - Symptoms have improved. Signatures: Efrain Vazquez RN RN Andres Cuevas MD MD tw4 Corrections: (The following items were deleted from the chart) 07:13 06:47 03/19/2019 06:47 Discharged to Home. Impression: Urticaria, unspecified. ao Condition is Stable. Forms are Medication Reconciliation Form, Thank You Letter, Antibiotic Education, Prescription Opioid Use. Follow up: Private Physician; When: Upon discharge from the Emergency Department; Reason: Recheck today's complaints, Continuance of care. Problem is new. Symptoms have improved. tw4
--- NOTE | 2019-03-19 06:48 | ER ---
Nurse's Notes [facility] Name: Stella Siegel Age: 38 yrs Sex: Female : 1980 Arrival Date: 03/19/2019 Time: 06:20 Bed 1 Private MD: Diagnosis: Urticaria, unspecified Presentation: 03/19 06:31 Presenting complaint: Patient states: Patient was in the hospital with her son and ao started itching all over the body. Pt states that has allergies to laundry detergens and fragrances but denies any other allergies. Transition of care: patient was not received from another setting of care. Onset of symptoms was March 19, 2019 at 05:00. Risk Assessment: Do you want to hurt yourself or someone else? Patient reports no desire to harm self or others. Initial Sepsis Screen: Does the patient meet any 2 criteria? No. Patient's initial sepsis screen is negative. Does the patient have a suspected source of infection? No. Patient's initial sepsis screen is negative. Care prior to arrival: None. 06:31 Method Of Arrival: Ambulatory ao 06:31 Acuity: SPENCER 4 ao Triage Assessment: 06:36 General: Appears in no apparent distress. comfortable, Behavior is calm, cooperative, ao appropriate for age. Pain: Denies pain. EENT: No signs and/or symptoms were reported regarding the EENT system. Neuro: Level of Consciousness is awake, alert, obeys commands, Oriented to person, place, time, situation, Appropriate for age Moves all extremities. Weakness Speech is normal, Facial symmetry appears normal. Cardiovascular: Capillary refill < 3 seconds Patient's skin is warm and dry. Respiratory: Airway is patent Respiratory effort is even, unlabored, Respiratory pattern is regular, symmetrical. GI: Abdomen is flat, non-distended. : No signs and/or symptoms were reported regarding the genitourinary system. Derm: Skin is intact, Skin is pink, warm \T\ dry. normal, Skin temperature is warm Rash noted that is itchy, red, on Forearms. Musculoskeletal: Circulation, motion, and sensation intact. Range of motion:. 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 - Coronavirus screen:: The patient has NOT traveled to [place], [place], or [place] in the past 14 days. The patient has NOT had contact with known/suspected case of Coronavirus? Proceed with normal triage procedures. - Social history:: Smoking status: Patient reports the use of cigarette tobacco products, smokes one-half pack cigarettes per day, Patient uses alcohol, occasionally. Patient/guardian denies using street drugs, IV drugs. - Ebola Screening: : Patient negative for fever greater than or equal to 101.5 degrees Fahrenheit, and additional compatible Ebola Virus Disease symptoms Patient denies exposure to infectious person Patient denies travel to an Ebola-affected area in the 21 days before illness onset. Screenin:38 Abuse screen: Denies threats or abuse. Denies injuries from another. Nutritional ao screening: No deficits noted. Tuberculosis screening: No symptoms or risk factors identified. Fall Risk None identified. Assessment: 06:38 General: Appears in no apparent distress. See triage assessment. ao 07:12 Reassessment: Discharge instructions given to patient by nurse and Dr Draper. Pt agree ao with POC and to follow up with PCP. Pt had not questions at this time. Vital Signs: 06:44 BP 139 / 72; Pulse 84; Resp 16; Temp 98.1(O); Pulse Ox 98% on R/A; ar5 ED Course: 06:20 Patient arrived in ED. ag3 06:33 Triage completed. ao 06:35 Arm band placed on right wrist. Patient placed Pt decide to stand next to son's room. ao 06:38 Patient has correct armband on for positive identification. Pulse ox on. NIBP on. ao 06:42 Andres Draper MD is Attending Physician. tw4 07:08 Efrain Vazquez, NELSON is Primary Nurse. ao 07:11 No provider procedures requiring assistance completed. Patient did not have IV access ao during this emergency room visit. Administered Medications: 06:50 Drug: SOLU-Medrol 125 mg {Note: Patient was taking to a privit room since wa with son. ao Witnessed by Autom sound technician supervisor.} Route: IM; Site: left gluteus; 07:10 Follow up: Response: No adverse reaction ao 06:50 Drug: Pepcid 20 mg Route: PO; ao 07:09 Follow up: Response: No adverse reaction ao 06:50 Drug: Benadryl 25 mg Route: PO; ao 07:09 Follow up: Response: No adverse reaction ao Outcome: 06:47 Discharge ordered by . tw4 07:11 Discharged to home ambulatory. ao 07:11 Condition: stable 07:11 Discharge instructions given to patient, Instructed on discharge instructions, follow up and referral plans. Demonstrated understanding of instructions, follow-up care, medications, Prescriptions given X 2. 07:13 Patient left the ED. ao Signatures: Efrain Vazquez RN RN ao Andres Draper MD MD tw4 Lisa Small 3 Ruthann Joaquin ar5 Corrections: (The following items were deleted from the chart) 07:09 07:08 Benadryl 25 mg PO ao ao 07:10 07:08 Pepcid 20 mg PO ao ao 07:11 07:09 SOLU-Medrol 125 mg IM in left gluteus ao ao
[2019-03-19] MEDS ORDERED: DIPHENHYDRAMINE 25 MG TAB/CAP ONE (06:55)
[2019-03-19] MEDS ORDERED: METHYLPREDNISOLONE 125 MG INJ ONE (06:55)
[2019-03-19] MEDS ORDERED: FAMOTIDINE 20 MG TAB ONE (06:56)
[2019-03-19 14:22] VITALS: BP 139/72; TEMP 98.1; O2SAT 98
== END 2019-03-19 07:13 | disposition home or self-care (01) ==
LOC: ER 06:17
DX: L50.9 Urticaria, unspecified (principal)
CPT/HCPCS: 96372; 99283; J2930

== ENCOUNTER 2019-08-17 11:00 | Emergency (ER) | payer SELFPAY ==
[2019-08-17] MEDS ORDERED: METOCLOPRAMIDE 10 MG/2mL INJ ONE (11:51)
[2019-08-17] MEDS ORDERED: NA CHLORIDE 0.9% 1,000 ML ONE (11:51)
--- NOTE | 2019-08-17 12:15 | RAD REPORT ---
EXAM DESCRIPTION: CT - Head Brain Wo Cont - 08/17/2019 11:58 am CLINICAL HISTORY: HEADACHE Headache, drowsiness COMPARISON: Head Brain Wo Cont dated 04/05/2018; Head Brain Wo Cont dated 09/17/2016 TECHNIQUE: All CT scans are performed using dose optimization technique as appropriate and may inclu de automated exposure control or mA/KV adjustment according to patient size. FINDINGS: No intracranial hemorrhage, hydrocephalus or extra-axial fluid collection.No areas of brai n edema or evidence of midline shift. The paranasal sinuses and mastoids are clear. The calvarium is intact. IMPRESSION: No acute intracranial abnormality.
--- NOTE | 2019-08-17 13:25 | ER ---
Nurse's Notes [facility] Name: Stella Siegel Age: 38 yrs Sex: Female : 1980 Arrival Date: 08/17/2019 Time: 11:04 Bed 20 Private MD: Diagnosis: Headache Presentation: 08/16 11:21 Chief complaint: Patient states: left sided migraine that started Saturday and now sv radiates to the left neck and shoulder. c/o nausea. Coronavirus screen: Proceed with normal triage. Patient denies a cough. Patient reports shortness of breath or difficulty breathing. Patient reports a measured and/or subjective temperature greater than 100.4F. Patient denies travel on a cruise ship or to a country the [facility] currently lists as an affected area. Patient denies contact with known and/or suspected case of COVID-19. Pt reports hx of scoliosis and it affects her left lung which is nothing new. Ebola Screen: No symptoms or risks identified at this time. Initial Sepsis Screen: Does the patient meet any 2 criteria? No. Patient's initial sepsis screen is negative. Does the patient have a suspected source of infection? No. Patient's initial sepsis screen is negative. Risk Assessment: Do you want to hurt yourself or someone else? Patient reports no desire to harm self or others. Onset of symptoms was July 2019. 11:21 Method Of Arrival: Ambulatory sv 11:21 Acuity: SPENCER 3 sv Triage Assessment: 11:25 Headache History: The patient has had previous headaches and this one is similar to previous episodes. General: Appears in no apparent distress. uncomfortable, well developed, Behavior is calm, cooperative, appropriate for age. Pain: Complains of pain in left frontal area, left side of the back of head, left temporal area, left occipital area, left ear, left base of the skull, left trapezius and left posterior aspect of neck Pain currently is 9 out of 10 on a pain scale. Pain began gradually, Is continuous, Noted to be has sunglasses on Also complains of sleeplessness. Neuro: Level of Consciousness is awake, alert, obeys commands, Oriented to person, place, time, situation, Moves all extremities. Full function Gait is steady, Speech is normal. Respiratory: Respiratory effort is even, unlabored, Respiratory pattern is regular, symmetrical. Derm: Skin is normal. Historical: - Allergies: 11:24 Laundry detergents; sv 11:24 NKDA; sv - PMHx: 11:24 Headaches; scoliosis; affects her left lung; sv - PSHx: 11:24 Tubal ligation; breast reduction; sv - Immunization history:: Flu vaccine is not up to date. - Social history:: Smoking status: Patient/guardian denies using tobacco, Stopped _ months ago .1. Screenin:26 Abuse screen: Denies threats or abuse. Denies injuries from another. Nutritional sv screening: No deficits noted. Tuberculosis screening: No symptoms or risk factors identified. Fall Risk None identified. Assessment: 11:50 General: Appears uncomfortable, Behavior is calm, cooperative, appropriate for age. ah Pain: Complains of pain in top of head and left eye Pain currently is 7 out of 10 on a pain scale. Quality of pain is described as throbbing, Pain began 1 week Alleviated by nothing. Neuro: Level of Consciousness is awake, alert, obeys commands, Oriented to person, place, time, situation, Appropriate for age. Cardiovascular: Heart tones S1 S2 present Capillary refill < 3 seconds Patient's skin is warm and dry. Respiratory: Airway is patent Respiratory effort is even, unlabored, Respiratory pattern is regular, symmetrical. GI: Reports nausea, Patient currently denies vomiting. Derm: Skin is intact, is healthy with good turgor. 12:01 Reassessment: returned from CT. 12:51 Reassessment: Patient and/or family updated on plan of care and expected duration. Pain ah level reassessed. Patient is alert, oriented x 3, equal unlabored respirations, skin warm/dry/pink. Patient states feeling better. Vital Signs: 11:21 BP 135 / 84; Pulse 72; Resp 16; Temp 98.3; Pulse Ox 99% ; Weight 72.57 kg; Height 5 ft. sv 6 in. (167.64 cm); Pain 9/10; 11:30 BP 134 / 92; Pulse 60; Resp 16; Pulse Ox 98% ; ah 12:48 BP 123 / 74; Pulse 60; Resp 16; Pulse Ox 100% ; ah 11:21 Body Mass Index 25.82 (72.57 kg, 167.64 cm) sv ED Course: 11:04 Patient arrived in ED. mr 11:13 [facility] 11:13 Leonel Carter MD is Attending Physician. [facility] 11:21 Charmaine Mann, RN is Primary Nurse. 11:23 Triage completed. 11:24 Arm band placed on. sv 11:26 Patient has correct armband on for positive identification. Bed in low position. Call light in reach. Pulse ox on. NIBP on. Door closed. Lights dimmed. Warm blanket given. Head of bed elevated. 11:45 Inserted saline lock: 22 gauge in left antecubital area, using aseptic technique. 11:58 CT Head Brain wo Cont In Process Unspecified. EDOR 13:30 No provider procedures requiring assistance completed. IV discontinued. Administered Medications: 11:50 Drug: Reglan 20 mg Route: IVP; Site: left antecubital; 13:29 Follow up: Response: No adverse reaction 12:09 Drug: NS 0.9% 1000 ml Route: IV; Rate: 1 bolus; Site: left antecubital; 13:30 Follow up: Response: No adverse reaction; IV Status: Completed infusion Outcome: 13:25 Discharge ordered by . [facility] 13:30 Discharged to home ambulatory. 13:30 Condition: good 13:30 Discharge instructions given to patient, Instructed on discharge instructions, follow up and referral plans. Demonstrated understanding of instructions, follow-up care. 13:35 Patient left the ED. Signatures: Dispatcher [employer] EDMS Karen Finch RN RN Sloan Yadav PA PA [facility] Félix Evelyn mr Charmaine Mann, RN RN Corrections: (The following items were deleted from the chart) 11:27 11:26 Door closed. Warm blanket given. Head of bed elevated. sv
--- NOTE | 2019-08-17 13:26 | EDPHYS ---
Physician Documentation [facility] Name: Stella Siegel Age: 38 yrs Sex: Female : 1980 Arrival Date: 08/17/2019 Time: 11:04 Bed 20 Private MD: STACIE Physician Leonel Carter HPI: 08/16 11:15 This 38 yrs old Female presents to ER via Ambulatory with complaints of jmm Headache. 11:15 The patient complains of pain to the forehead, left frontal area, left side of the back jmm of head, left temporal area, left occipital area and left base of the skull. Onset: The symptoms/episode began/occurred gradually, 1 week(s) ago. Associated signs and symptoms: Pertinent positives: nausea, Photophobia. Headache History: The patient has had previous headaches and this one is similar to previous episodes. The symptoms are alleviated by nothing. the symptoms are aggravated by lights, noise. The patient has experienced similar episodes in the past, several times. Historical: - Allergies: 11:24 Laundry detergents; sv 11:24 NKDA; sv - PMHx: 11:24 Headaches; scoliosis; affects her left lung; sv - PSHx: 11:24 Tubal ligation; breast reduction; sv - Immunization history:: Flu vaccine is not up to date. - Social history:: Smoking status: Patient/guardian denies using tobacco, Stopped _ months ago .1. ROS: 11:15 Constitutional: Negative for fever, chills, and weight loss, Cardiovascular: Negative jmm for chest pain, palpitations, and edema, Respiratory: Negative for shortness of breath, cough, wheezing, and pleuritic chest pain. 11:15 Abdomen/GI: Positive for nausea. 11:15 Neuro: Positive for headache. 11:15 All other systems are negative. Exam: 11:15 Constitutional: This is a well developed, well nourished patient who is awake, alert, jmm and in no acute distress. Head/Face: atraumatic. Eyes: EOMI, no conjunctival erythema appreciated ENT: Moist Mucus Membranes Neck: Trachea midline, Supple Chest/axilla: Normal chest wall appearance and motion. Cardiovascular: Regular rate and rhythm. No edema appreciated Respiratory: Normal respirations, no respiratory distress appreciated Abdomen/GI: Non distended, soft Back: Normal ROM Skin: General appearance color normal MS/ Extremity: Moves all extremities, no obvious deformities appreciated, no edema noted to the lower extremities Neuro: Awake and alert, normal gait Psych: Behavior is normal, Mood is normal, Patient is cooperative and pleasant Vital Signs: 11:21 BP 135 / 84; Pulse 72; Resp 16; Temp 98.3; Pulse Ox 99% ; Weight 72.57 kg; Height 5 ft. sv 6 in. (167.64 cm); Pain 9/10; 11:30 BP 134 / 92; Pulse 60; Resp 16; Pulse Ox 98% ; ah 12:48 BP 123 / 74; Pulse 60; Resp 16; Pulse Ox 100% ; ah 11:21 Body Mass Index 25.82 (72.57 kg, 167.64 cm) sv MDM: 11:15 Patient medically screened. [facility] 13:23 Data reviewed: vital signs, nurses notes. Counseling: I had a detailed discussion with [facility] the patient and/or guardian regarding: the historical points, exam findings, and any diagnostic results supporting the discharge/admit diagnosis, radiology results, the need for outpatient follow up, to return to the emergency department if symptoms worsen or persist or if there are any questions or concerns that arise at home. ED course: Pain is relieved in the ED. I do not suspect SAH or meningitis. Patient is advised to follow up with neuro for further evaluation. Patient understood and agrees with the plan of care. . 08/16 11:24 Order name: CT Head Brain wo Cont; Complete Time: 12:16 [facility] 08/16 11:24 Order name: Saline Lock; Complete Time: 11:53 [facility] Administered Medications: 11:50 Drug: Reglan 20 mg Route: IVP; Site: left antecubital; 13:29 Follow up: Response: No adverse reaction 12:09 Drug: NS 0.9% 1000 ml Route: IV; Rate: 1 bolus; Site: left antecubital; 13:30 Follow up: Response: No adverse reaction; IV Status: Completed infusion Disposition: 16:14 Co-signature as Attending Physician, Leonel Carter MD I agree with the assessment and kinsey plan of care. Disposition: 08/17/19 13:25 Discharged to Home. Impression: Headache. - Condition is Stable. - Discharge Instructions: Migraine Headache. - Medication Reconciliation Form, Thank You Letter, Antibiotic Education, Prescription Opioid Use form. - Follow up: Private Physician; When: 2 - 3 days; Reason: Recheck today's complaints, Continuance of care, Re-evaluation by your physician. Signatures: Dispatcher [employer] Karen Keyes, RN Leonel Weston MD MD cha Mickail, Joel, PA PA jmm Harris, Amy, RN RN Corrections: (The following items were deleted from the chart) 13:35 13:25 08/17/2019 13:25 Discharged to Home. Impression: Headache. Condition is Stable. Forms are Medication Reconciliation Form, Thank You Letter, Antibiotic Education, Prescription Opioid Use. Follow up: Private Physician; When: 2 - 3 days; Reason: Recheck today's complaints, Continuance of care, Re-evaluation by your physician. alisa
[2019-08-17 13:42] VITALS: TEMP 98.3
[2019-08-17 13:45] VITALS: BP 123/74; O2SAT 100
== END 2019-08-17 13:35 | disposition home or self-care (01) ==
LOC: ER 11:00
DX: R51 Headache (principal); Z91.048 Other nonmedicinal substance allergy status
CPT/HCPCS: 70450; 96361; 96374; 99284; J2765; J7030

== ENCOUNTER 2020-04-07 00:38 | Emergency (ER) | payer SELFPAY ==
[2011-08-13 19:50] VITALS: BP 166/88
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
--- NOTE | 2020-04-07 10:19 | RAD REPORT ---
EXAM DESCRIPTION: RAD - Foot Right 3 View - 04/07/2020 1:19 am CLINICAL HISTORY: PAIN COMPARISON: None. FINDINGS: 3 views of the right foot. Acute intra-articular fractures involving the base of the secon d and fourth metatarsals. No significant divergence of the metatarsals on these images. The metatarsa ls and tarsals remain appropriately aligned. Dorsal soft tissue edema. IMPRESSION: 1. Acute intra-articular fractures involving the base of the second through fourth metat arsals without metatarsal deviation. Follow-up CT could provide additional characterization to more c ompletely for Lisfranc type injury. Electronically signed by: Abdirahman Brice 04/07/2020 1:27 AM GAS ROLLER OPERATOR Due to temporary technical issues with the PACS/Fluency reporting system, reports are being signed by the in house radiologist without review as a courtesy to ensure prompt reporting. The interpreting r adiologist is fully responsible for the content of the report.
== END 2020-04-07 02:14 | disposition home or self-care (01) ==
LOC: ER 00:38
PROC: 2W3QX1Z Immobilization of Right Lower Leg using Splint (ICD-10-PCS; principal; 2020-04-07)
DX: S92.324A Nondisplaced fracture of second metatarsal bone, right foot, initial encounter for closed fracture (principal); S92.334A Nondisplaced fracture of third metatarsal bone, right foot, initial encounter for closed fracture; S92.344A Nondisplaced fracture of fourth metatarsal bone, right foot, initial encounter for closed fracture; F17.210 Nicotine dependence, cigarettes, uncomplicated; Z91.048 Other nonmedicinal substance allergy status
CPT/HCPCS: 99282

== ENCOUNTER 2020-04-10 13:24 | Emergency (ER) | payer SELFPAY ==
--- NOTE | 2020-04-10 15:56 | ER ---
Nurse's Notes [facility] Name: Stella Siegel Age: 39 yrs Sex: Female : 1980 Arrival Date: 04/10/2020 Time: 13:26 Bed 12 Private MD: Diagnosis: Nondisplaced fracture of second metatarsal bone, right foot;Nondisplaced fracture of third metatarsal bone, right foot;Nondisplaced fracture of fourth metatarsal bone, right foot Presentation: 04/10 13:34 Chief complaint: Patient states: Pain on the L side of neck, L lower back, L hip, L ca1 foot pain. Was here Saturday cause 2 of my toes on the R foot was broken. Coronavirus screen: Client denies travel out of the [place] in the last 14 days. At this time, the client does not indicate any symptoms associated with coronavirus-19. Ebola Screen: Patient negative for fever greater than or equal to 101.5 degrees Fahrenheit, and additional compatible Ebola Virus Disease symptoms Patient denies exposure to infectious person. Patient denies travel to an Ebola-affected area in the 21 days before illness onset. No symptoms or risks identified at this time. Initial Sepsis Screen: Does the patient meet any 2 criteria? No. Patient's initial sepsis screen is negative. Does the patient have a suspected source of infection? No. Patient's initial sepsis screen is negative. Risk Assessment: Do you want to hurt yourself or someone else? Patient reports no desire to harm self or others. Onset of symptoms was April 10, 2020. 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 - Social history:: Smoking status: Patient reports the use of cigarette tobacco products, smokes one-half pack cigarettes per day. Vital Signs: 13:34 BP 107 / 68; Pulse 83; Resp 16 S; Temp 98.1(TE); Pulse Ox 98% on R/A; Weight 77.11 kg ca1 (R); Height 5 ft. 7 in. (170.18 cm) (R); Pain 7/10; 13:34 Body Mass Index 26.63 (77.11 kg, 170.18 cm) ca1 ED Course: 13:26 Patient arrived in ED. ag5 13:38 Triage completed. ca1 13:39 Arm band placed on right wrist. ca1 14:30 Melissa Mayes RN is Primary Nurse. iw 14:48 Augustus Davis NP is PHCP. pm1 14:48 Anthony Mendoza MD is Attending Physician. pm1 Administered Medications: No medications were administered Outcome: 15:55 Discharge ordered by . pm1 16:42 Patient left the ED. iw Signatures: Melissa Mayes RN RN iw Augustus Davis NP CAPACITOR INSPECTOR pm1 Cristal Perez RN RN ca1 Ena Calderon ag5
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
[2020-04-10 17:16] VITALS: BP 107/68; TEMP 98.1; O2SAT 98
== END 2020-04-10 16:42 | disposition home or self-care (01) ==
LOC: ER 13:24
PROC: 2W3QX1Z Immobilization of Right Lower Leg using Splint (ICD-10-PCS; principal; 2020-04-10)
DX: S92.324A Nondisplaced fracture of second metatarsal bone, right foot, initial encounter for closed fracture (principal); S92.334A Nondisplaced fracture of third metatarsal bone, right foot, initial encounter for closed fracture; S92.344A Nondisplaced fracture of fourth metatarsal bone, right foot, initial encounter for closed fracture; F17.210 Nicotine dependence, cigarettes, uncomplicated; Z91.048 Other nonmedicinal substance allergy status
CPT/HCPCS: 99281

== ENCOUNTER 2020-09-17 23:27 | Emergency (ER) | payer SELFPAY ==
[2020-09-17 23:59] LABS: Absolute Lymphocytes (CBC) 3.1 K/uL (0.7-4.9); Basophils % 0.8 % (0-1.3); Hematocrit 41.4 % (36.0-45.0); Lymphocytes % 24.8 % (15.3-44.8); MPV 8.7 fL (7.6-11.3); RBC Red Blood Cell Count 4.64 M/uL (3.86-4.86)
[2020-09-18 00:02] LABS: Protime INR 0.97
[2020-09-18] MEDS ORDERED: HYDROMORPHONE HCL 1 MG/ML INJ ONE ×2 (00:16→03:25)
[2020-09-18] MEDS ORDERED: ONDANSETRON 4 MG/2 ML VIAL ONE ×2 (00:17→03:25)
[2020-09-18] MEDS ORDERED: NA CHLORIDE 0.9% 1,000 ML ONE (00:17)
[2020-09-18] MEDS ORDERED: KETOROLAC 30 MG/ML INJ ONE (00:17)
[2020-09-18 00:18] LABS: ALT/SGPT 22 U/L (12-78); AST/SGOT 9 U/L (15-37); Albumin 4.1 g/dL (3.4-5.0); Alkaline Phosphatase 52 U/L (45-117); BUN Blood Urea Nitrogen 20 mg/dL (7-18); Bicarbonate 23 mmol/L (21-32); Bilirubin Direct 0.1 mg/dL (0-0.2); Bilirubin Total 0.5 mg/dL (0.2-1.0); Glucose Level 103 mg/dL (74-106); Lipase 64 U/L (73-393); NT PRO-BNP 8 pg/mL (<125); Potassium 4.2 mmol/L (3.5-5.1); Protein, Total 7.8 g/dL (6.4-8.2); Sodium Level 137 mmol/L (136-145); Troponin (Emerg Dept Use Only) < 0.02 ng/mL (0.0-0.045)
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
--- NOTE | 2020-09-18 03:03 | EDPHYS ---
Physician Documentation [facility] Name: Stella Sigeel Age: 40 yrs Sex: Female : 1980 Arrival Date: 09/17/2020 Time: 23:28 Bed 27 Private MD: STACIE Physician Leonel Carter HPI: 09/17 23:46 This 40 yrs old Female presents to ER via Wheelchair with complaints of RIB kinsey PAIN, Breathing Difficulty, Can't walk. 23:46 The patient has shortness of breath at rest, with light activity. Onset: The kinsey symptoms/episode began/occurred 6 hour(s) ago. Duration: The symptoms are continuous, and are steadily getting worse. The patient's shortness of breath is aggravated by coughing, light activity, talking, walking. Associated signs and symptoms: The patient has no apparent associated signs or symptoms. Severity of symptoms: At their worst the symptoms were moderate in the emergency department the symptoms are unchanged. The patient has not experienced similar symptoms in the past. 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 - Social history:: Smoking status: Patient/guardian denies using tobacco, Stopped _ months ago 9 Patient uses alcohol, occasionally. - Immunization history: Last tetanus immunization: unknown. ROS: 23:47 Constitutional: Negative for fever, chills, and weight loss, Eyes: Negative for injury, kinsey pain, redness, and discharge, ENT: Negative for injury, pain, and discharge, Neck: Negative for injury, pain, and swelling, Cardiovascular: Negative for chest pain, palpitations, and edema, : Negative for injury, bleeding, discharge, and swelling, MS/Extremity: Negative for injury and deformity, Skin: Negative for injury, rash, and discoloration, Neuro: Negative for headache, weakness, numbness, tingling, and seizure, Psych: Negative for depression, anxiety, suicide ideation, homicidal ideation, and hallucinations, Allergy/Immunology: Negative for hives, rash, and allergies, Endocrine: Negative for neck swelling, polydipsia, polyuria, polyphagia, and marked weight changes, Hematologic/Lymphatic: Negative for swollen nodes, abnormal bleeding, and unusual bruising. 23:47 Respiratory: Positive for cough, shortness of breath. 23:47 Back: Positive for decreased range of motion, pain at rest, pain with movement, flank pain, on the right, radiated pain. Exam: 23:47 Head/Face: Normocephalic, atraumatic. Eyes: Pupils equal round and reactive to light, kinsey extra-ocular motions intact. Lids and lashes normal. Conjunctiva and sclera are non-icteric and not injected. Cornea within normal limits. Periorbital areas with no swelling, redness, or edema. ENT: Nares patent. No nasal discharge, no septal abnormalities noted. Tympanic membranes are normal and external auditory canals are clear. Oropharynx with no redness, swelling, or masses, exudates, or evidence of obstruction, uvula midline. Mucous membranes moist. Neck: Trachea midline, no thyromegaly or masses palpated, and no cervical lymphadenopathy. Supple, full range of motion without nuchal rigidity, or vertebral point tenderness. No Meningismus. Chest/axilla: Normal chest wall appearance and motion. Nontender with no deformity. No lesions are appreciated. Cardiovascular: Regular rate and rhythm with a normal S1 and S2. No gallops, murmurs, or rubs. Normal PMI, no JVD. No pulse deficits. Pelvic Exam: Normal external genitalia. Speculum exam with closed cervical os, no discharge or bleeding noted. Bimanual exam with normal adnexa, no adnexal or cervical motion tenderness. Normal uterus. Female : Normal external genitalia. Skin: Warm, dry with normal turgor. Normal color with no rashes, no lesions, and no evidence of cellulitis. MS/ Extremity: Pulses equal, no cyanosis. Neurovascular intact. Full, normal range of motion. Neuro: Awake and alert, GCS 15, oriented to person, place, time, and situation. Cranial nerves II-XII grossly intact. Motor strength 5/5 in all extremities. Sensory grossly intact. Cerebellar exam normal. Normal gait. Psych: Awake, alert, with orientation to person, place and time. Behavior, mood, and affect are within normal limits. 23:47 Respiratory: the patient does not display signs of respiratory distress, Respirations: normal, Breath sounds: decreased breath sounds, that are mild, are scattered, rhonchi, that are mild, are scattered, stridor, is not appreciated, Respiratory rate: 18 Vital Signs: 23:44 BP 134 / 92; Pulse 90; Resp 18 S; Temp 98.3(O); Pulse Ox 8% on R/A; Weight 79.38 kg bb (R); Height 5 ft. 6 in. (167.64 cm) (R); Pain /; 09/18 01:00 BP 133 / 80; Pulse 80; Resp 18; Pulse Ox 99% ; ea 02:00 BP 134 / 90; Pulse 87; Resp 18; Pulse Ox 99% ; ea 03:25 BP 128 / 70; Pulse 88; Resp 18; Pulse Ox 98% ; ea 09/17 23:44 Body Mass Index 28.25 (79.38 kg, 167.64 cm) bb Deisy Coma Score: 09/17 23:47 Eye Response: spontaneous(4). Verbal Response: oriented(5). Motor Response: obeys bb commands(6). Total: 15. 09/18 02:00 Eye Response: spontaneous(4). Verbal Response: oriented(5). Motor Response: obeys ea commands(6). Total: 15. 02:00 Eye Response: spontaneous(4). Verbal Response: oriented(5). Motor Response: obeys ea commands(6). Total: 15. 03:25 Eye Response: spontaneous(4). Verbal Response: oriented(5). Motor Response: obeys ea commands(6). Total: 15. Trauma Score (Adult): 09/17 23:47 Eye Response: spontaneous(1); Verbal Response: oriented(1); Motor Response: obeys bb commands(2); Systolic BP: > 89 mm Hg(4); Respiratory Rate: 10 to 29 per min(4); Deisy Score: 15; Trauma Score: 12 09/18 03:25 Eye Response: spontaneous(1); Verbal Response: oriented(1); Motor Response: obeys ea commands(2); Systolic BP: > 89 mm Hg(4); Respiratory Rate: 10 to 29 per min(4); [place] Score: 15; Trauma Score: 12 MDM: 09/17 23:44 Patient medically screened. kinsey 23:50 Differential diagnosis: Anemia UTI, Cholelithiasis chronic back pain, Osteoporosis kinsey spinal injury, sprain, Ureterolithiasis Pneumothorax vertebral fracture, Blunt Chest Trauma Chest Wall Contusion Chest Wall Injury Pneumothorax Pulmonary Contusion Rib Fracture. Antibiotic administration: Not indicated. The patient's Wells Deep Vein Thrombosis Score was calculated as follows: Total Score: 0-2 Pts- Low Risk. The patient's pulmonary embolism risk score was calculated as follows: Total Score: 0-2 points. This patient was found to be at low risk for a pulmonary embolism by using the Well's assessment criteria. Immunization status:. Data reviewed: vital signs, nurses notes, lab test result(s), EKG, radiologic studies, CT scan, plain films. Data interpreted: monitor worker: rate is 90 beats/min, rhythm is regular, Pulse oximetry: on room air is 98 %. Test interpretation: by ED physician or midlevel provider: ECG, plain radiologic studies. Counseling: I had a detailed discussion with the patient and/or guardian regarding: the historical points, exam findings, and any diagnostic results supporting the discharge/admit diagnosis, lab results, radiology results. 09/17 23:46 Order name: Basic Metabolic Panel [facility] 09/17 23:46 Order name: CBC with Diff [facility] 09/17 23:46 Order name: LFT's; Complete Time: 01: [facility] 09/17 23:46 Order name: Magnesium; Complete Time: : [facility] 09/17 23:46 Order name: NT PRO-BNP; Complete Time: 01: [facility] 09/17 23:46 Order name: PT-INR; Complete Time: 01: [facility] 09/17 23:46 Order name: Troponin (emerg Dept Use Only); Complete Time: 01: [facility] 09/17 23:46 Order name: XRAY Chest (1 view) [facility] 09/17 23:46 Order name: Lipase; Complete Time: : [facility] 09/17 23:47 Order name: Basic Metabolic Panel; Complete Time: : [facility] 09/17 23:47 Order name: CBC with Automated Diff; Complete Time: : [facility] 09/18 00:00 Order name: CT Traumagram (Head C Spine CAP W Con) 09/18 02:14 Order name: SARS-COV-2 RT PCR [facility] 09/17 23:46 Order name: EKG; Complete Time: 23:47 [facility] 09/17 23:46 Order name: Cardiac monitoring; Complete Time: 00:43 [facility] 09/17 23:46 Order name: EKG - Nurse/Tech; Complete Time: 00:43 [facility] 09/17 23:46 Order name: IV Saline Lock; Complete Time: 23:54 [facility] 09/17 23:46 Order name: Labs collected and sent; Complete Time: 23:54 [facility] 09/17 23:46 Order name: O2 Per Protocol; Complete Time: 23:54 [facility] 09/17 23:46 Order name: O2 Sat Monitoring; Complete Time: 23:54 [facility] 09/18 03:00 Order name: INCENTIVE SPIROMETRY kinsey Administered Medications: 23:58 Drug: NS 0.9% 1000 ml Route: IV; Rate: 1 bolus; Site: right antecubital; ea 09/18 03:28 Follow up: Response: No adverse reaction; IV Status: Completed infusion; IV Intake: ea 1000ml 09/17 23:58 Drug: Zofran (Ondansetron) 4 mg Route: IVP; Site: right antecubital; ea 09/18 02:43 Follow up: Response: No adverse reaction 09/17 23:58 Drug: Dilaudid (HYDROmorphone) 1 mg Route: IVP; Site: right antecubital; ea 09/18 02:43 Follow up: Response: No adverse reaction ea 00:01 Drug: Ketorolac 30 mg Route: IVP; Site: right antecubital; ea 02:43 Follow up: Response: No adverse reaction ea 03:23 Drug: Zofran (Ondansetron) 4 mg Route: IVP; Site: right antecubital; ea 03:24 Follow up: Response: Medication administered at discharge. ea 03:24 Drug: Dilaudid (HYDROmorphone) 1 mg Route: IVP; Site: right antecubital; ea 03:24 Follow up: Response: Medication administered at discharge. ea Disposition Summary: 09/18/20 03:02 Discharge Ordered Location: Home kinsey Problem: new kinsey Symptoms: have improved kinsey Condition: Stable kinsey Diagnosis - Strain of muscle and tendon of back wall of thorax kinsey - Contusion of lower back and pelvis kinsey - Other injury of muscle, fascia and tendon of lower back kinsey Followup: kinsey - With: Private Physician - When: 2 - 3 days - Reason: Recheck today's complaints, Continuance of care, Re-evaluation by your physician Followup: kinsey - With: Sukumar Lopez MD - When: 2 - 3 days - Reason: Recheck today's complaints, Continuance of care, Re-evaluation by your physician Discharge Instructions: - Discharge Summary Sheet kinsey - Acute Back Pain, Adult kinsey - Contusion kinsey - Rib Contusion kinsey - Contusion, [id number] [facility] Forms: - Medication Reconciliation Form [facility] - Thank You Letter [facility] - Antibiotic Education [facility] - Prescription Opioid Use [facility] Prescriptions: - acetaminophen-codeine 300-15 mg Oral tablet - take 1 tablet by ORAL route every 6 hours; 24 tablet; Refills: 0, Product [facility] Selection Permitted - Ibuprofen 600 mg Oral Tablet - take 1 tablet by ORAL route every 6 hours As needed take with food; 20 tablet; [facility] Refills: 0, Product Selection Permitted - Cyclobenzaprine 5 mg Oral Tablet - take 1 tablet by ORAL route 3 times per day As needed; 15 tablet; Refills: 0, [facility] Product Selection Permitted Signatures: Dispatcher [employer] Leonel Turner MD MD cha Ballard, Brenda, RN RN Kristie Fox RN RN justino Corrections: (The following items were deleted from the chart) 01:05 09/17 23:47 CORONAVIRUS+MR.LAB.BRZ ordered. STACIEPR ANNELIESE
[2020-09-18 03:33] VITALS: TEMP 98.3
[2020-09-18 03:41] VITALS: BP 128/70; O2SAT 98
--- NOTE | 2020-09-18 09:52 | RAD REPORT ---
EXAM DESCRIPTION: RAD - Chest Single View - 09/17/2020 11:57 pm CLINICAL HISTORY: Chest pain;Blunt chest trauma Chest pain. COMPARISON: Chest Single View dated 04/05/2018; Chest Pa And Lat (2 Views) dated 01/16/2018; Chest Si ngle View dated 09/16/2016; ABDOMEN 1 VIEW KUB dated 08/13/2011 FINDINGS: Portable technique limits examination quality. The lungs are underinflated resulting in vascular crowding. The heart is normal in size. Moderate tho racic dextroscoliosis. IMPRESSION: Underinflated lungs noted.
--- NOTE | 2020-09-19 09:05 | RAD REPORT ---
EXAM DESCRIPTION: CT Head and Cervical Spine Without Intravenous Contrast CLINICAL HISTORY: The patient is 40 years old and is Female; PAIN TECHNIQUE: Axial computed tomography images of the head/brain and cervical spine without intravenous contrast. Sagittal and coronal reformatted images were created and reviewed. This CT exam was pe rformed using one or more of the following dose reduction techniques: automated exposure control, a djustment of the mA and/or kV according to patient size, and/or use of iterative reconstruction techn ique. COMPARISON: No relevant prior studies available. FINDINGS: Brain: Unremarkable. No hemorrhage. No significant white matter disease. No edema. Ventricles: Unremarkable. No ventriculomegaly. Skull: No acute fracture. Sinuses: Unremarkable as visualized. No acute sinusitis. Mastoid air cells: Unremarkable as visualized. No mastoid effusion. Vertebrae: Unremarkable. No acute fracture. Normal alignment. Discs/spinal canal/neural foramina: No acute findings. No spinal canal stenosis. Soft tissues: Unremarkable. * A single impression for all exams can be found at the end of this report EXAM DESCRIPTION: CT Chest, Abdomen and Pelvis With Intravenous Contrast CLINICAL HISTORY: The patient is 40 years old and is Female; PAIN TECHNIQUE: Axial computed tomography images of the chest, abdomen and pelvis with intravenous contra st. Sagittal and coronal reformatted images were created and reviewed. This CT exam was performed using one or more of the following dose reduction techniques: automated exposure control, adjustme nt of the mA and/or kV according to patient size, and/or use of iterative reconstruction technique. COMPARISON: No relevant prior studies available. FINDINGS: CHEST: Lungs: Bibasilar dependent atelectasis. Pleural space: Unremarkable. No significant effusion. No pneumothorax. Heart: Unremarkable. No cardiomegaly. No significant pericardial effusion. ABDOMEN: Liver: Unremarkable. No mass. Gallbladder and bile ducts: Unremarkable. No calcified stones. No ductal dilation. Pancreas: Unremarkable. No ductal dilation. No mass. Spleen: Unremarkable. No splenomegaly. Adrenals: Unremarkable. No mass. Kidneys and ureters: Simple cysts in the left kidney. ACR White Paper guidelines (Manuela, et al. J ACR 2018; 15(2):264-273) suggest no follow-up is necessary. No hydronephrosis. No solid mass. Stomach and bowel: Scattered colonic diverticula. No obstruction. No mucosal thickening. PELVIS: Appendix: No findings to suggest acute appendicitis. Bladder: Unremarkable. No mass. Reproductive: Unremarkable as visualized. CHEST, ABDOMEN and PELVIS: Intraperitoneal space: Unremarkable. No significant fluid collection. No free air. Bones/joints: Scoliosis. No acute fracture. No dislocation. Soft tissues: Unremarkable. Vasculature: Unremarkable. No aortic aneurysm. Lymph nodes: Unremarkable. No enlarged lymph nodes. Tubes, lines and devices: Simple appearing 6 cm right ovarian/adnexal cyst. ACR White Paper joelle delines (Jefe, et. al. JACR 2020;17(2):248-254) recommend pelvic ultrasound follow-up in 6-12 months . * A single impression for all exams can be found at the end of this report IMPRESSION: CT Head and Cervical Spine Without Intravenous Contrast: No acute intracranial abnormality. No acute cervical spine fracture or subluxation. CT Chest, Abdomen and Pelvis With Intravenous Contrast: 1. No acute finding in the chest abdomen or pelvis. 2. Scattered colonic diverticula. 3. Simple appearing 6 cm right ovarian/adnexal cyst. ACR White Paper guidelines (Jefe, et. al. J ACR 2020;17(2):248-254) recommend pelvic ultrasound follow-up in 6-12 months. Electronically signed by: Robert Wright MD 09/18/2020 2:04 AM CDT Due to temporary technical issues with the PACS/Fluency reporting system, reports are being signed by the in house radiologists without review as a courtesy to insure prompt reporting. The interpreting radiologist is fully responsible for the content of the report.
== END 2020-09-18 03:27 | disposition home or self-care (01) ==
LOC: ER 23:27
DX: S29.012A Strain of muscle and tendon of back wall of thorax, initial encounter (principal); S30.0XXA Contusion of lower back and pelvis, initial encounter; S39.092A Other injury of muscle, fascia and tendon of lower back, initial encounter; X58.XXXA Exposure to other specified factors, initial encounter; Z87.891 Personal history of nicotine dependence; M41.9 Scoliosis, unspecified; Z20.822 Contact with and (suspected) exposure to COVID-19
CPT/HCPCS: 36415; 70450; 71045; 71260; 72125; 74177; 80048; 80076; 83690; 83735; 83880; 84484; 85025; 85610; 93005; 96361; 96374; 96375; 99284; G0390; J1170; J2405; Q9967; U0003

== ENCOUNTER 2021-02-28 19:18 | Emergency (ER) | payer SELFPAY ==
[2021-02-28] MEDS ORDERED: KETOROLAC 30 MG/ML INJ ONE (21:19)
[2021-02-28] MEDS ORDERED: PROMETHAZINE INJ 25 MG/ML AMP ONE (21:19)
[2021-02-28 22:02] LABS: Potassium 3.6 mmol/L (3.5-5.1)
[2021-02-28 22:10] LABS: Absolute Lymphocytes (CBC) 3.6 K/uL (0.7-4.9); Hematocrit 35.6 % (36.0-45.0); Lymphocytes % 36.7 % (15.3-44.8); MPV 8.7 fL (7.6-11.3); RBC Red Blood Cell Count 4.04 M/uL (3.86-4.86)
--- NOTE | 2021-03-01 00:09 | EDPHYS ---
Physician Documentation [facility] Name: Stella Goldstein Age: 40 yrs Sex: Female : 1980 Arrival Date: 02/28/2021 Time: 19:23 Bed 7 Private MD: ED Physician Irene Mayberry HPI: 02/28 21:14 This 40 yrs old Female presents to ER via Ambulatory with complaints of Headache, Elbow sp3 Injury. 21:14 40-year-old female with history of migraine headaches presents to the ED for 2 chief sp3 complaints. #1 is a headache that started approximately 16 days ago with her menstrual cycle. Her menses has since ceased but her headache persist. It was initially severe and now is moderately severe waxing and waning. She denies injury, visual changes, sensory motor changes, neck pain, trauma, or any other findings. 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 Her elbow pain is predominantly on the medial epicondyle extending laterally to the olecranon bursa. Patient repeats no redness, elbow swelling, fever, other joint pain, any other symptoms.. 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 - Social history:: Smoking status: Patient/guardian denies using tobacco, the patient reports quitting approximately 1 years ago. ROS: 21:16 Constitutional: Negative for fever, chills, and weight loss, Eyes: Negative for injury, sp3 pain, redness, and discharge, ENT: Negative for injury, pain, and discharge, Neck: Negative for injury, pain, and swelling, Cardiovascular: Negative for chest pain, palpitations, and edema, Respiratory: Negative for shortness of breath, cough, wheezing, and pleuritic chest pain, Abdomen/GI: Negative for abdominal pain, nausea, vomiting, diarrhea, and constipation, Back: Negative for injury and pain, Skin: Negative for injury, rash, and discoloration, Psych: Negative for depression, anxiety, suicide ideation, homicidal ideation, and hallucinations, Allergy/Immunology: Negative for hives, rash, and allergies, Endocrine: Negative for neck swelling, polydipsia, polyuria, polyphagia, and marked weight changes, Hematologic/Lymphatic: Negative for swollen nodes, abnormal bleeding, and unusual bruising. 21:16 All other systems are negative. Exam: 21:16 Constitutional: This is a well developed, well nourished patient who is awake, alert, sp3 and in no acute distress. Head/Face: Normocephalic, atraumatic. Eyes: Pupils equal round and reactive to light, extra-ocular motions intact. Lids and lashes normal. Conjunctiva and sclera are non-icteric and not injected. Cornea within normal limits. Periorbital areas with no swelling, redness, or edema. ENT: Nares patent. No nasal discharge, no septal abnormalities noted. External auditory canals are clear. Oropharynx with no redness, swelling, or masses, exudates, or evidence of obstruction, uvula midline. Mucous membranes moist. Neck: Trachea midline, no thyromegaly or masses palpated, and no cervical lymphadenopathy. Supple, full range of motion without nuchal rigidity, or vertebral point tenderness. No Meningismus. Chest/axilla: Normal chest wall appearance and motion. Nontender with no deformity. No lesions are appreciated. Cardiovascular: Regular rate and rhythm with a normal S1 and S2. No gallops, murmurs, or rubs. Normal PMI, no JVD. No pulse deficits. Respiratory: Lungs have equal breath sounds bilaterally, clear to auscultation and percussion. No rales, rhonchi or wheezes noted. No increased work of breathing, no retractions or nasal flaring. Abdomen/GI: Soft, non-tender, with normal bowel sounds. No distension or tympany. No guarding or rebound. No evidence of tenderness throughout. Back: No spinal tenderness. No costovertebral tenderness. Full range of motion. Skin: Warm, dry with normal turgor. Normal color with no rashes, no lesions, and no evidence of cellulitis. Psych: Awake, alert, with orientation to person, place and time. Behavior, mood, and affect are within normal limits. 21:16 Musculoskeletal/extremity: Patient has pain on the olecranon bursa on the right elbow. Full range of motion is present. No joint effusion is noted clinically. Distal examination neurovascularly is normal with a normal cap refill.. 21:16 Neuro: Patient has a subjective headache with a completely normal neurological exam. Cranial nerves II through XII are intact, motor or sensory, pain and temperature, speech, mental status are all intact and normal.. Vital Signs: 20:16 Pulse 88; Resp 20; Temp 98.2; Pulse Ox 100% ; Weight 124.74 kg; Height 5 ft. 6 in. vc1 (167.64 cm); Pain 2/10; 20:16 BP 115 / 59; vc1 20:53 BP 122 / 81; Pulse 81; Resp 18 S; Pulse Ox 100% on R/A; as6 21:53 BP 121 / 71; Pulse 73; Resp 16; Pulse Ox 98% ; st1 23:00 BP 108 / 63; Pulse 69; Resp 18 S; Pulse Ox 97% on R/A; as6 03/01 00:16 BP 107 / 73; Pulse 62; Resp 18 S; Pulse Ox 96% on R/A; as6 02/28 20:16 Body Mass Index 44.39 (124.74 kg, 167.64 cm) vc1 MDM: 02/28 21:14 Patient medically screened. sp3 21:17 Data reviewed: vital signs, nurses notes. ED course: Will obtain CT scan of the head sp3 and x-ray of the right elbow as well as CBC and a chemistry and a COVID test. Patient will be treated with ketorolac and Phenergan IV for symptomatic treatment of both chief complaints. If work-up is negative will discharge patient home. Included in the differential is olecranon bursitis, elbow sprain. And the headache chief complaint differential includes migraine, generalized headache, COVID. I met highly suspicious for meningitis, intracranial hemorrhage, mass-effect, or any other critical findings at this time.. 03/01 00:07 ED course: Scan is negative and elbow x-ray read by me is also negative. Patient likely sp3 has a small bursitis on the right elbow. Headache symptoms are better with the ketorolac and Phenergan. Will discharge patient home at this time. Labs are all normal with a COVID test pending which we will call patient with results if positive.. 02/28 21:13 Order name: CBC with Diff; Complete Time: 22:31 sp3 02/28 20:22 Order name: XRAY Elbow LEFT 2 view vc1 02/28 21:13 Order name: CT Head Brain wo Cont sp3 02/28 21:13 Order name: Chem 7; Complete Time: 22:31 sp3 03/01 00:14 Order name: SARS-COV-2 RT PCR EDMS 02/28 21:13 Order name: IV Saline Lock; Complete Time: 21:34 sp3 Administered Medications: 02/28 21:34 Drug: Ketorolac 30 mg Route: IVP; Site: left antecubital; as6 03/01 00:17 Follow up: Response: No adverse reaction as6 02/28 21:34 Drug: Phenergan (promethazine) 12.5 mg Route: IVP; Site: left antecubital; as6 03/01 00:17 Follow up: Response: No adverse reaction as6 Disposition Summary: 03/01/21 00:08 Discharge Ordered Location: Home sp3 Condition: Stable sp3 Diagnosis - Headache sp3 - Olecranon bursitis, right elbow sp3 Followup: sp3 - With: Private Physician - When: As needed - Reason: Continuance of care Discharge Instructions: - Discharge Summary Sheet sp3 - Bursitis sp3 - General Headache Without Cause sp3 Forms: - Medication Reconciliation Form sp3 - Thank You Letter sp3 - Antibiotic Education sp3 - Prescription Opioid Use sp3 Prescriptions: - Diclofenac Sodium 75 mg Oral Tablet Sustained Release - take 1 tablet by ORAL route 2 times per day; 30 tablet; Refills: 0, Product sp3 Selection Permitted Signatures: Dispatcher [employer] EDIrene Wade MD MD sp3 Hamzah Cornelius RN RN as6 Marzena Beyer RN RN vc1 Corrections: (The following items were deleted from the chart) 00:14 02/28 21:13 CORONAVIRUS+MR.LAB.BRZ ordered. EDMS EDMS
--- NOTE | 2021-03-01 00:09 | ER ---
Nurse's Notes [facility] Name: Stella Goldstein Age: 40 yrs Sex: Female : 1980 Arrival Date: 02/28/2021 Time: 19:23 Bed 7 Private MD: Diagnosis: Headache;Olecranon bursitis, right elbow Presentation: 02/28 20:16 Chief complaint: Patient states: I bumped it two weeks ago and now I can barely vc1 straighten it. and I have had a headache for 16 days tomorrow. Coronavirus screen: Vaccine status: Patient reports receiving the 2nd dose of the covid vaccine. Date October 21, 2020 [employer]. Ebola Screen: No symptoms or risks identified at this time. Initial Sepsis Screen: Does the patient meet any 2 criteria? No. Patient's initial sepsis screen is negative. Does the patient have a suspected source of infection? No. Patient's initial sepsis screen is negative. Risk Assessment: Do you want to hurt yourself or someone else? Patient reports no desire to harm self or others. Onset of symptoms is unknown. 20:16 Method Of Arrival: Ambulatory vc1 20:16 Acuity: SPENCER 3 vc1 Triage Assessment: 20:23 Headache History: The patient has had previous headaches and this one is more severe vc1 than previous episodes. General: Appears in no apparent distress. Behavior is calm, cooperative, appropriate for age. Pain: Complains of pain in forehead Pain radiates to left sternocleidomastoid Pain currently is 5 out of 10 on a pain scale. Pain began suddenly, Also complains of nausea. Neuro: No deficits noted. Reports headache frontal area, Started 2 weeks ago. 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 - Social history:: Smoking status: Patient/guardian denies using tobacco, the patient reports quitting approximately 1 years ago. Screenin:56 Abuse screen: Denies threats or abuse. Denies injuries from another. Nutritional as6 screening: No deficits noted. Tuberculosis screening: No symptoms or risk factors identified. Fall Risk None identified. Assessment: 20:55 General: Appears uncomfortable, Behavior is calm, cooperative. Pain: Complains of pain as6 in right elbow. Neuro: Level of Consciousness is awake, alert, obeys commands, Oriented to person, place, time, situation, Reports headache. Cardiovascular: Capillary refill < 3 seconds Patient's skin is warm and dry. Respiratory: Airway is patent Trachea midline Respiratory effort is even, unlabored, Respiratory pattern is regular, symmetrical. Derm: Skin is intact, is healthy with good turgor. Musculoskeletal: Reports pain in right elbow. Vital Signs: 20:16 Pulse 88; Resp 20; Temp 98.2; Pulse Ox 100% ; Weight 124.74 kg; Height 5 ft. 6 in. vc1 (167.64 cm); Pain 2/10; 20:16 BP 115 / 59; vc1 20:53 BP 122 / 81; Pulse 81; Resp 18 S; Pulse Ox 100% on R/A; as6 21:53 BP 121 / 71; Pulse 73; Resp 16; Pulse Ox 98% ; st1 23:00 BP 108 / 63; Pulse 69; Resp 18 S; Pulse Ox 97% on R/A; as6 03/01 00:16 BP 107 / 73; Pulse 62; Resp 18 S; Pulse Ox 96% on R/A; as6 02/28 20:16 Body Mass Index 44.39 (124.74 kg, 167.64 cm) vc1 ED Course: 02/28 19:23 Patient arrived in ED. kc5 20:21 Triage completed. vc1 20:26 Arm band placed on left wrist. vc1 20:37 Hamzah Cornelius, NELSON is Primary Nurse. as6 20:46 Irene Mayberry MD is Attending Physician. sp3 20:57 Bed in low position. Call light in reach. Pulse ox on. NIBP on. Warm blanket given. as6 21:10 XRAY Elbow LEFT 2 view In Process Unspecified. EDMS 21:33 Chem 7 Sent. as6 21:34 CBC with Diff Sent. as6 21:34 Inserted saline lock: 20 gauge in left antecubital area, using aseptic technique. Blood as6 collected. 23:32 CT Head Brain wo Cont In Process Unspecified. EDMS 03/01 00:33 No provider procedures requiring assistance completed. IV discontinued, intact, as6 bleeding controlled, No redness/swelling at site. Pressure dressing applied. Administered Medications: 02/28 21:34 Drug: Ketorolac 30 mg Route: IVP; Site: left antecubital; as6 03/01 00:17 Follow up: Response: No adverse reaction as6 02/28 21:34 Drug: Phenergan (promethazine) 12.5 mg Route: IVP; Site: left antecubital; as6 03/01 00:17 Follow up: Response: No adverse reaction as6 Outcome: 00:08 Discharge ordered by . sp3 00:33 Discharged to home ambulatory, with family. as6 00:33 Condition: stable 00:33 Discharge instructions given to patient, Instructed on discharge instructions, follow up and referral plans. medication usage, Demonstrated understanding of instructions, follow-up care, medications, Prescriptions given X 1. 00:33 Patient left the ED. as6 Signatures: Dispatcher [employer] EDMS Irene Mayberry MD MD sp3 Hamzah Cornelius RN RN as6 Supriya Choudhury kc5 Carolina Barrientos, NELSON RN st1 Marzena Beyer RN RN vc1 Corrections: (The following items were deleted from the chart) 00:14 02/28 21:34 CORONAVIRUS+ drawn and sent. as6 EDMS
[2021-03-01 01:18] VITALS: TEMP 98.2
[2021-03-01 01:28] VITALS: BP 107/73; O2SAT 96
--- NOTE | 2021-03-01 07:25 | RAD REPORT ---
EXAM DESCRIPTION: RAD - Elbow Left 2 View - 02/28/2021 9:09 pm CLINICAL HISTORY: PAIN, no trauma history detailed COMPARISON: July 2016 FINDINGS: No fracture is identified and no elevated posterior fat pad. There is no dislocation or pe riosteal reaction noted. No foreign body or other soft tissue abnormality. IMPRESSION: Negative left elbow examination for acute or significant finding.
--- NOTE | 2021-03-01 11:21 | RAD REPORT ---
EXAM DESCRIPTION: CT - Head Brain Wo Cont - 03/01/2021 6:01 am CLINICAL HISTORY: HEADACHE COMPARISON: 09/18/2020 TECHNIQUE: Axial CT of the head obtained from the skull apex to the skull base without contrast. Thi s exam was performed according to our departmental dose-optimization program, which includes automate d exposure control, adjustment of the mA and/or kV according to patient size and/or use of iterative reconstruction technique. FINDINGS: No acute intracranial hemorrhage identified. No mass, mass effect, shift of the midline, abnormal extra-axial fluid collection or CT evidence of acute ischemic change identified. The ventric ular system is unremarkable. No acute abnormalities of the supratentorial white matter, basal gangl ia, cerebellum, or brainstem. The visualized paranasal sinuses and the mastoid air cells are relatively well aerated. No skull fr acture identified. Visualized orbits and globes are unremarkable. IMPRESSION: 1. 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 The interpreting r adiologist is fully responsible for the content of the report.
== END 2021-03-01 00:33 | disposition home or self-care (01) ==
LOC: ER 19:18
DX: M70.21 Olecranon bursitis, right elbow (principal); Z91.048 Other nonmedicinal substance allergy status
CPT/HCPCS: 36415; 70450; 80048; 85025; 96374; 96375; 99284; J2550; U0003

== ENCOUNTER 2021-03-13 07:42 | Emergency (ER) | payer SELFPAY ==
[2021-03-13] MEDS ORDERED: TRAMADOL HCL 50 MG TAB ONE (09:56)
[2021-03-13 10:00] LABS: SARS-COV-2 RT PCR POSITIVE (NEGATIVE)
--- NOTE | 2021-03-13 10:06 | EDPHYS ---
Physician Documentation [facility] Name: Stella Goldstein Age: 40 yrs Sex: Female : 1980 Arrival Date: 03/13/2021 Time: 07:43 Bed 10 Private MD: ED Physician Florin Duenas HPI: 03/13 07:55 This 40 yrs old Female presents to ER via Ambulatory with complaints of Headache, Sore jmm Throat, Body Aches. 07:55 The patient or guardian reports. Onset: The symptoms/episode began/occurred gradually, jmm 2 day(s) ago. Modifying factors: The symptoms are alleviated by nothing. the symptoms are aggravated by nothing. Associated signs and symptoms: Pertinent positives: diarrhea, sore throat, headache. This is a 40 year old female that presents to the ED with complaints of headache, diarrhea, chills, sore throat beginning approx 2 days ago. Patient has had covid vaccination. Denies SOB. . 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 - Social history:: Smoking status: Patient/guardian denies using tobacco, the patient reports quitting approximately 1 years ago. ROS: 07:55 Constitutional: Positive for body aches, chills. jmm 07:55 ENT: Positive for sore throat. 07:55 Respiratory: Positive for cough. 07:55 Neuro: Positive for headache. 07:55 All other systems are negative. Exam: 07:55 Constitutional: This is a well developed, well nourished patient who is awake, alert, jmm and in no acute distress. Head/Face: atraumatic. Eyes: EOMI, no conjunctival erythema appreciated ENT: Moist Mucus Membranes Neck: Trachea midline, Supple Chest/axilla: Normal chest wall appearance and motion. Cardiovascular: Regular rate and rhythm. No edema appreciated Respiratory: Normal respirations, no respiratory distress appreciated Abdomen/GI: Non distended, soft Back: Normal ROM Skin: General appearance color normal MS/ Extremity: Moves all extremities, no obvious deformities appreciated, no edema noted to the lower extremities Neuro: Awake and alert, normal gait Psych: Behavior is normal, Mood is normal, Patient is cooperative and pleasant Vital Signs: 07:53 BP 139 / 99; Pulse 94; Resp 18 S; Temp 99.8(TE); Pulse Ox 97% on R/A; Weight 79.38 kg jd3 (R); Height 5 ft. 7 in. (170.18 cm) (R); Pain 6/10; 07:53 Body Mass Index 27.41 (79.38 kg, 170.18 cm) jd3 MDM: 08:01 Patient medically screened. [facility] 10:05 Data reviewed: vital signs, nurses notes. Counseling: I had a detailed discussion with alisa the patient and/or guardian regarding: the historical points, exam findings, and any diagnostic results supporting the discharge/admit diagnosis, lab results, the need for outpatient follow up, to return to the emergency department if symptoms worsen or persist or if there are any questions or concerns that arise at home. 03/13 07:54 Order name: COVID-19/FLU A+B (Document "Date of Onset" if Symptomatic) [facility] 03/13 07:55 Order name: COVID-19/FLU A+B; Complete Time: 10:05 EDMS Administered Medications: 09:55 Drug: traMADol 50 mg Route: PO; jh5 Disposition: 13:17 Co-signature as Attending Physician, Florin Duenas MD I agree with the assessment and kdr plan of care. Disposition Summary: 03/13/21 10:06 Discharge Ordered Location: Home [facility] Condition: Stable [facility] Diagnosis - Coronavirus infection, unspecified [facility] Followup: jm - With: Private Physician - When: 2 - 3 days - Reason: Recheck today's complaints, Continuance of care, Re-evaluation by your physician Discharge Instructions: - Discharge Summary Sheet [facility] - COVID-19 [facility] Forms: - Medication Reconciliation Form [facility] - Thank You Letter [facility] - Antibiotic Education [facility] - Prescription Opioid Use [facility] Signatures: Dispatcher [employer] EDMS Florin Duenas MD MD kdr Mickail, Joel, PA PA jmm Davies, Jonathon RN RN jd3 Hetal Blackman, RN RN jh5
--- NOTE | 2021-03-13 10:06 | ER ---
Nurse's Notes [facility] Name: Stella Goldstein Age: 40 yrs Sex: Female : 1980 Arrival Date: 03/13/2021 Time: 07:43 Bed 10 Private MD: Diagnosis: Coronavirus infection, unspecified Presentation: 03/13 07:50 Chief complaint: Patient states: "I have been feeling tired the past couple of days and j then yesterday I was boiling crawl fish and I couldn't smell it. then later last night I started having a sore throat, body aches, fatigue, fever, and just a rough night.". Coronavirus screen: cough unrelated to allergies, fatigue, fever, muscle pain, Client presents with at least one sign or symptom that may indicate coronavirus-19. Standard/surgical mask placed on the client. Provider contacted for isolation considerations. Ebola Screen: Patient negative for fever greater than or equal to 101.5 degrees Fahrenheit, and additional compatible Ebola Virus Disease symptoms. Initial Sepsis Screen: Does the patient meet any 2 criteria? No. Patient's initial sepsis screen is negative. Does the patient have a suspected source of infection? No. Patient's initial sepsis screen is negative. Risk Assessment: Do you want to hurt yourself or someone else? Patient reports no desire to harm self or others. Onset of symptoms was March 12, 2021. 07:50 Method Of Arrival: Ambulatory [facility] 07:50 Acuity: SPENCER 4 jd3 Triage Assessment: 08:58 Headache History: The patient has had previous headaches and this one is different than [facility] previous episodes. General: Appears in no apparent distress. uncomfortable, Behavior is calm, cooperative, appropriate for age. Pain: Complains of pain in head Pain at worst was 10 out of 10 on a pain scale. Pain began gradually, Also complains of nausea. EENT: Reports nasal congestion. Neuro: Level of Consciousness is awake, alert, obeys commands, Oriented to person, place, time, situation. Cardiovascular: Capillary refill < 3 seconds Thorax. Respiratory: Reports cough that is persistent Airway is patent Respiratory effort is even, unlabored, Respiratory pattern is regular, symmetrical. 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 - Social history:: Smoking status: Patient/guardian denies using tobacco, the patient reports quitting approximately 1 years ago. Screenin:27 Abuse screen: Denies threats or abuse. Denies injuries from another. Nutritional [facility] screening: No deficits noted. Tuberculosis screening: No symptoms or risk factors identified. Fall Risk None identified. Assessment: 09:56 Reassessment: Pt upset; requesting pain meds that arent tylenol or ibuprofen and 5 wanting her results. Pt educated results are not returned yet from lab and that the provider ordered her pain medication. Pt still irritated at this time however did take the pain medicine. Vital Signs: 07:53 BP 139 / 99; Pulse 94; Resp 18 S; Temp 99.8(TE); Pulse Ox 97% on R/A; Weight 79.38 kg j (R); Height 5 ft. 7 in. (170.18 cm) (R); Pain 6/10; 07:53 Body Mass Index 27.41 (79.38 kg, 170.18 cm) [facility] ED Course: 07:43 Patient arrived in ED. ds1 07:52 Triage completed. jd3 07:54 Arm band placed on. j 07:55 Sloan Yadav PA is PHCP. [facility] 07:55 Florin Duenas MD is Attending Physician. [facility] 09:10 Hetal Blackman, NELSON is Primary Nurse. 5 09:13 Patient has correct armband on for positive identification. Call light in reach. Side [facility] rails up X 1. Pulse ox on. NIBP on. 09:13 COVID swab sent to lab. 5 09:14 COVID-19/FLU A+B (Document "Date of Onset" if Symptomatic) Sent. 5 09:14 COVID-19/FLU A+B Sent. [facility] 09:27 No provider procedures requiring assistance completed. [facility] Administered Medications: 09:55 Drug: traMADol 50 mg Route: PO; jh5 Outcome: 10:06 Discharge ordered by MD. cuellar 10:10 Patient left the ED. jh5 Signatures: Sloan Yadav PA PA jmm Sanford, Demi 1 Aniya Lou [facility] Guillermo Diaz RN RN jd3 Hetal Blackman RN RN jh5 Corrections: (The following items were deleted from the chart) 08: 07:50 Acuity: SPENCER 3 [facility]
[2021-03-13 19:17] VITALS: BP 139/99; TEMP 99.8; O2SAT 97
== END 2021-03-13 10:10 | disposition home or self-care (01) ==
LOC: ER 07:42
DX: U07.1 COVID-19 (principal); Z91.048 Other nonmedicinal substance allergy status
CPT/HCPCS: 0240U; 99283

== ENCOUNTER 2022-04-16 07:23 | Day surgery (SDC) | payer OTHER ==
[2022-04-13 15:06] LABS: Potassium 4.9 mmol/L (3.5-5.1)
[2022-04-16] MEDS: Ringers Lactate 1,000 ML IV ONE (08:00)
[2022-04-16] MEDS ORDERED: propofoL 200 MG/20 ML VIAL IV ONE ×3 (08:21→09:24)
[2022-04-16] MEDS ORDERED: LIDOCAINE 1% MPF 5 ML VIAL ONE (08:36)
[2022-04-16] MEDS ORDERED: ONDANSETRON 4 MG/2 ML VIAL ONE (09:52)
[2022-04-16] MEDS ORDERED: PROMETHAZINE INJ 25 MG/ML AMP ONE (10:24)
[2022-04-16 11:28] VITALS: TEMP 97.2
[2022-04-16 11:29] VITALS: BP 107/87
[2022-04-16 11:30] VITALS: O2SAT 100
== END 2022-04-16 10:53 | disposition home or self-care (01) ==
LOC: OR 07:23
PROVIDERS: ATTEND Surgery
PROC: 0DBL8ZX Excision of Transverse Colon, Via Natural or Artificial Opening Endoscopic, Diagnostic (ICD-10-PCS; 2022-04-16)
PROC: 0DBN8ZX Excision of Sigmoid Colon, Via Natural or Artificial Opening Endoscopic, Diagnostic (ICD-10-PCS; 2022-04-16)
PROC: 0DBP8ZX Excision of Rectum, Via Natural or Artificial Opening Endoscopic, Diagnostic (ICD-10-PCS; 2022-04-16)
PROC: 0DBH8ZX Excision of Cecum, Via Natural or Artificial Opening Endoscopic, Diagnostic (ICD-10-PCS; principal; 2022-04-16 08:30)
DX: R19.5 Other fecal abnormalities (principal); K59.00 Constipation, unspecified; R14.0 Abdominal distension (gaseous); K57.30 Diverticulosis of large intestine without perforation or abscess without bleeding; K64.4 Residual hemorrhoidal skin tags; D12.7 Benign neoplasm of rectosigmoid junction
CPT/HCPCS: 80048; 36415; 88305; 45385; J2704 ×3; J2550; J2001; J7120; J2405

== ENCOUNTER 2022-04-27 20:28 | Emergency (ER) | payer OTHER ==
--- OUTSIDE RECORDS SUMMARY | 2022-04-27 20:34 | XMS REPORT | Continuity of Care Document ---
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 PM) [facility] AND [id number] 23:15:00 Test Item Value Reference Range Interpretation Comments UA Nitrite (test code Negative (05/06/15 6:15 = UA Nitrite) PM) [facility] AND [id number] 23:15:00 Test Item Value Reference Range Interpretation Comments UA Urobilinogen (test code = UA 0.2 0.1-1.0 Urobilinogen) [facility] AND [id number] 23:15:00 Test Item Value Reference Range Interpretation Comments UA Leuk Est (test Negative (05/06/15 6:15 code = UA Leuk Est) PM) [facility] AND [id number] 23:15:00 Test Item Value Reference Range Interpretation Comments UA RBC (test None Seen See_Comment [Automated mes keely] code = UA RBC) (05/06/15 6:15 The system w hich PM) generated this result transmitted ref erence range: <=2. The reference range was not used to int erpret this result as normal/abnormal . [facility] [id number] 23:15:00 Test Item Value Reference Range Interpretation Comments UA WBC (test code = UA WBC) 0-2 /HPF [facility] [id number] 23:15:00 Test Item Value Reference Range Interpretation Comments UA Bacteria (test code = None Seen (05/06/15 UA Bacteria) 6:15 PM) [facility] [id number] 23:15:00 Test Item Value Reference Range Interpretation Comments UA Sq Epi (test code = UA Sq Epi) Rare /[facility]F [facility] [id number] 23:15:00 Test Item Value Reference Range Interpretation Comments U Dejah Scr (test code Negative *NA*(05/06/15 = U Dejah Scr) 6:15 PM) [facility] [id number] 23:15:00 Test Item Value Reference Range Interpretation Comments U Benzodia Scr (test Negative *NA*(05/06/15 code = U Benzodia Scr) 6:15 PM) [facility] [id number] 23:15:00 Test Item Value Reference Range Interpretation Comments U Cocaine Scr (test Negative *NA*(05/06/15 code = U Cocaine Scr) 6:15 PM) [facility] [id number] 23:15:00 Test Item Value Reference Range Interpretation Comments U Cannab Scr (test Positive *ABN*(05/06/15 code = U Cannab Scr) 6:15 PM) [facility] [id number] 23:15:00 Test Item Value Reference Range Interpretation Comments U Opiate Scr (test Positive *ABN*(05/06/15 code = U Opiate Scr) 6:15 PM) [facility] [id number] 23:15:00 Test Item Value Reference Range Interpretation Comments U Phencyc Scr (test Negative *NA*(05/06/15 code = U Phencyc Scr) 6:15 PM) [facility] [id number] 21:39:00 Test Item Value Reference Range Interpretation Comments Antibody Scrn (test Negative (05/06/15 4:39 code = Antibody Scrn) PM) [facility] [employer] [id number] 21:39:00 Test Item Value Reference Range Interpretation Comments ABO/Rh (test code = ABO/Rh) A POS [facility] [employer] [id number] 21:39:00 Test Item Value Reference Range Interpretation Comments Antibody Scrn (test Negative (05/06/15 4:39 code = Antibody Scrn) PM) [facility] [employer] [id number] 21:39:00 Test Item Value Reference Range Interpretation Comments ABO/Rh (test code = ABO/Rh) A POS [facility] WgxilnqEGLETZDHMD2420-13-65 21:34:00 Test Item Value Reference Range Interpretation Comments MCH (test code = MCH) 29.0 pg 27.0-31.0 [facility]icsPabmeskJWKJHRSPCQ2588-76-29 21:34:00 Test Item Value Reference Range Interpretation Comments RDW (test code = RDW) 13.1 11.5-14.5 [facility]icsXtrsbskBCLHJMMINJ2888-97-85 21:34:00 Test Item Value Reference Range Interpretation Comments MCHC (test code = MCHC) 32.7 32.0-36.0 [facility]icsVegqoinEDXQZITAEX7881-62-02 21:34:00 Test Item Value Reference Range Interpretation Comments Etoh (%) (test code = Etoh (%)) <0.003 % [facility]icsSxyjrbfRBDMYYOTKF8154-34-84 21:34:00 Test Item Value Reference Range Interpretation Comments Ethanol Lvl (test code = Ethanol <3.0 mg/dL Lvl) [facility]ics[facility] [id number] 21:34:00 Test Item Value Reference Range Interpretation Comments Lactic Acid Lvl (test code = Lactic 1.0 0.5-2.2 Acid Lvl) [facility] [employer] [id number] 21:34:00 Test Item Value Reference Range Interpretation Comments Lactic Acid Lvl (test code = Lactic 1.0 0.5-2.2 Acid Lvl) [facility]icsJrhriovNZDDWWJAYJSP4325-60-94 21:34:00 Test Item Value Reference Range Interpretation Comments AGAP (test code = AGAP) 12.6 10.0-20.0 [facility]icsJafoqfbJMOFSUCHLKPU5475-09-68 21:34:00 Test Item Value Reference Range Interpretation Comments eGFR (test code = eGFR) 63 [facility]scigsbKMJDQFDIUESX2791-62-59 21:34:00 Test Item Value Reference Range Interpretation Comments Chloride Lvl (test code = Chloride Lvl) 106 95-109 [facility] HospitalTsmmjzzJKWDCTJWUNEM7271-44-46 21:34:00 Test Item Value Reference Range Interpretation Comments Potassium Lvl (test code = Potassium 3.6 3.5-5.1 Lvl) [facility] HospitalPjkeblfWRZMANTRZFLZ6296-11-27 21:34:00 Test Item Value Reference Range Interpretation Comments CO2 (test code = CO2) 25 24-32 [facility] HospitalVvwjritPPWTUTKANCKP1771-01-98 21:34:00 Test Item Value Reference Range Interpretation Comments Calcium Lvl (test code = Calcium Lvl) 9.6 8.5-10.5 [facility] HospitalArlzxruPAFNDSXUWACX8391-06-07 21:34:00 Test Item Value Reference Range Interpretation Comments Sodium Lvl (test code = Sodium Lvl) 140 135-145 [facility] HospitalZraxqzeFQAUJETUPZPK4305-23-79 21:34:00 Test Item Value Reference Range Interpretation Comments Creatinine Lvl (test code = Creatinine 0.71 0.50-1.40 Lvl) [facility] HospitalRmnqcymPKRXMSQIREYV5020-43-53 21:34:00 Test Item Value Reference Range Interpretation Comments BUN (test code = BUN) 15 7-22 [facility] HospitalHufxonaUJTCOCZHGJIQ5893-43-99 21:34:00 Test Item Value Reference Range Interpretation Comments AGAP (test code = AGAP) 12.6 10.0-20.0 [facility] HospitalKtnpgcoQJBGLRQBDHOP6167-53-75 21:34:00 Test Item Value Reference Range Interpretation Comments Glucose Lvl (test code = Glucose Lvl) 121 70-99 [facility]AavhubnOYJOTDLOFCRSS6434-29-86 21:34:00 Test Item Value Reference Range Interpretation Comments S Preg (test code = S Negative *NA*(05/06/15 Preg) 4:34 PM) [facility]GrvxflmIHITLRGIFQ0625-13-69 21:34:00 Test Item Value Reference Range Interpretation Comments Eosinophils (test code = 1.8 See_Comment [A utomated message] The Eosinophils) system which ge nerated this result tra nsmitted reference range : <=4.0. The reference r luc was not used to int erpret this result as normal/abnormal . [facility] CenterNuwrxjzIKDCLHAHJD5508-51-18 21:34:00 Test Item Value Reference Range Interpretation Comments Basophils (test code = 0.8 See_Comment [Aut omated message] The Basophils) system which ge nerated this result tra nsmitted reference range : <=1.0. The reference r luc was not used to int erpret this result as normal/abnormal . [facility] CenterUtzgifnNBHYEZCHOU1889-35-01 21:34:00 Test Item Value Reference Range Interpretation Comments Segs-Bands # (test code = Segs-Bands #) 9.0 1.5-8.1 [facility] CenterTvazfidANESSTOQPT0098-21-40 21:34:00 Test Item Value Reference Range Interpretation Comments Lymphocytes (test code = Lymphocytes) 29.4 20.0-40.0 [facility] CenterSmerowxLJYKRATYBN0609-86-85 21:34:00 Test Item Value Reference Range Interpretation Comments Segs (test code = Segs) 62.1 45.0-75.0 [facility] CenterMehwsbaKETHLVGEZE5230-50-00 21:34:00 Test Item Value Reference Range Interpretation Comments Monocytes (test code = Monocytes) 5.9 2.0-12.0 [facility] CenterZjavfxfCGUWWLEQVJ7706-59-39 21:34:00 Test Item Value Reference Range Interpretation Comments Basophils # (test code 0.1 See_Comment [Aut omated message] The = Basophils #) system which generated this result tra nsmitted reference range : <=0.2. The reference r luc was not used to int erpret this result as normal/abnormal . [facility] CenterXpqsxhnPZNXMFKCJI4833-14-56 21:34:00 Test Item Value Reference Range Interpretation Comments Monocytes # (test code 0.9 See_Comment [Aut omated message] The = Monocytes #) system which generated this result tra nsmitted reference range : <=0.8. The reference r luc was not used to int erpret this result as normal/abnormal . [facility]icsDlvfghyRBZEMGSFIQOW0956-16-09 21:34:00 Test Item Value Reference Range Interpretation Comments eGFR (test code = eGFR) 63 [facility] CenterAajsvjkWRXGHFHXXA9604-41-85 21:34:00 Test Item Value Reference Range Interpretation Comments Lymphocytes # (test code = Lymphocytes 4.3 1.0-5.5 #) [facility] CenterOzbdbeyZLIXGFXEIR0617-70-25 21:34:00 Test Item Value Reference Range Interpretation Comments Eosinophils # (test code 0.3 See_Comment [A utomated message] The = Eosinophils #) system whic h generated this result tra nsmitted reference range : <=0.5. The reference r luc was not used to int erpret this result as normal/abnormal . [facility] CenterOdppddrIWSEGCBMGK9217-64-46 21:34:00 Test Item Value Reference Range Interpretation Comments G-value (test code = G-value) 10.3 5.0-11.6 [facility] CenterFzrjvsmBREFCAFVGN5548-56-72 21:34:00 Test Item Value Reference Range Interpretation Comments Max Amp (test code = Max Amp) 67 mm 52-71 [facility] CenterObtulxtLNYXNJPMAD6698-53-34 21:34:00 Test Item Value Reference Range Interpretation Comments Estimated % Lysis (test 4.6 See_Comment [Au tomated message] The code = Estimated % system wh ich generated Lysis) this result tra nsmitted reference range : <=7.5. The reference r luc was not used to int erpret this result as normal/abnormal . [facility] CenterWirbwdhPLBGAZMBUC1295-13-53 21:34:00 Test Item Value Reference Range Interpretation Comments R-time (test code = R-time) 0.6 min 0.4-0.7 [facility] CenterHxfxiuvXTOBSWYMPQ3823-48-18 21:34:00 Test Item Value Reference Range Interpretation Comments K-time (test code = K-time) 1.3 min 0.6-2.3 [facility] CenterVxqmtvmHHXEPJWMHO2352-93-70 21:34:00 Test Item Value Reference Range Interpretation Comments ACT (TEG) (test code = ACT (TEG)) 105 s 86-118 [facility] CenterCajatcfOJOZFJGMYM5866-14-22 21:34:00 Test Item Value Reference Range Interpretation Comments Split Point (test code = Split Point) 0.5 min [facility] CenterIqfcwgsPVYPZHAZAV2809-17-10 21:34:00 Test Item Value Reference Range Interpretation Comments Angle (test code = Angle) 75 degrees 64-80 [facility]icsSjpjbjdHOXVMXVJTNJJ4822-89-72 21:34:00 Test Item Value Reference Range Interpretation Comments Chloride Lvl (test code = Chloride Lvl) 106 95-109 [facility] CenterLbwirofWAIQOMRGGP0036-38-22 21:34:00 Test Item Value Reference Range Interpretation Comments Rapid TEG Sample Type Citrated Whole Blood (test code = Rapid TEG (05/06/15 4:34 PM) Sample Type) [facility] CenterYazgqplWIRLUXBWKV1828-92-99 21:34:00 Test Item Value Reference Range Interpretation Comments MPV (test code = MPV) 9.1 7.4-10.4 [facility] HospitalRjnatalJCZAEINXWH4036-44-94 21:34:00 Test Item Value Reference Range Interpretation Comments Platelet (test code = Platelet) 227 133-450 [facility] HospitalElvvuibKLUMGEFLVN9333-41-17 21:34:00 Test Item Value Reference Range Interpretation Comments Hct (test code = Hct) 43.8 36.0-48.0 [facility] CenterToqzkheFKFMOUZUHR9679-07-81 21:34:00 Test Item Value Reference Range Interpretation Comments RBC (test code = RBC) 4.94 4.20-5.40 [facility] HospitalUmvghdfVYTELDWOYM2706-80-03 21:34:00 Test Item Value Reference Range Interpretation Comments Hgb (test code = Hgb) 14.3 12.0-16.0 [facility] HospitalGrfpjnuQXSYISCVTG8475-53-07 21:34:00 Test Item Value Reference Range Interpretation Comments WBC (test code = WBC) 14.5 3.7-10.4 [facility] HospitalDpkyjcoQUNBOHZJYE7427-01-83 21:34:00 Test Item Value Reference Range Interpretation Comments MCV (test code = MCV) 88.7 80.0-98.0 [facility] HospitalXaznkuvJSQMJLFLPM8101-21-16 21:34:00 Test Item Value Reference Range Interpretation Comments MCH (test code = MCH) 29.0 pg 27.0-31.0 [facility] HospitalVwhcihmSIGFLDOENW6428-03-97 21:34:00 Test Item Value Reference Range Interpretation Comments RDW (test code = RDW) 13.1 11.5-14.5 [facility] ClinicsNntifixXDMFGDKPDNPI5176-51-45 21:34:00 Test Item Value Reference Range Interpretation Comments Potassium Lvl (test code = Potassium 3.6 3.5-5.1 Lvl) [facility] HospitalPqsfkdqTEHHXWQHCW8060-47-96 21:34:00 Test Item Value Reference Range Interpretation Comments MCHC (test code = MCHC) 32.7 32.0-36.0 [facility]iscoOtadqtxRZQXNLYITY8458-26-61 21:34:00 Test Item Value Reference Range Interpretation Comments Etoh (%) (test code = Etoh (%)) <0.003 % [facility] FriscoErafndbCVPEGKNPCT5751-77-24 21:34:00 Test Item Value Reference Range Interpretation Comments Ethanol Lvl (test code = Ethanol <3.0 mg/dL Lvl) [facility] HospitalBojrmygXUIJGYMEVHLC9102-26-49 21:34:00 Test Item Value Reference Range Interpretation Comments CO2 (test code = CO2) 25 24-32 [place] [address]-03-18 21:34:00 Test Item Value Reference Range Interpretation Comments Calcium Lvl (test code = Calcium Lvl) 9.6 8.5-10.5 [facility] HospitalJzbcpjkVEPXOELRQQOJ6570-16-43 21:34:00 Test Item Value Reference Range Interpretation Comments Sodium Lvl (test code = Sodium Lvl) 140 135-145 [facility] HospitalSocgcptMBPVGMXDGQXP1744-13-57 21:34:00 Test Item Value Reference Range Interpretation Comments Creatinine Lvl (test code = Creatinine 0.71 0.50-1.40 Lvl) [facility] HospitalAcfcfmeKWXCDOKSQVTM1623-62-65 21:34:00 Test Item Value Reference Range Interpretation Comments BUN (test code = BUN) 15 7-22 [place] [address]-03-18 21:34:00 Test Item Value Reference Range Interpretation Comments Glucose Lvl (test code = Glucose Lvl) 121 70-99 [place] [address]1622016-03-18 21:34:00 Test Item Value Reference Range Interpretation Comments S Preg (test code = S Negative *NA*(05/06/15 Preg) 4:34 PM) [facility] CenterZbnsmqgQOTNZZDUIJ4836-56-57 21:34:00 Test Item Value Reference Range Interpretation Comments Eosinophils (test code = 1.8 See_Comment [A utomated message] The Eosinophils) system which ge nerated this result tra nsmitted reference range : <=4.0. The reference r luc was not used to int erpret this result as normal/abnormal . [facility] CenterGhvsqvrMJVIYCIGVD9432-74-03 21:34:00 Test Item Value Reference Range Interpretation Comments Basophils (test code = 0.8 See_Comment [Aut omated message] The Basophils) system which ge nerated this result tra nsmitted reference range : <=1.0. The reference r luc was not used to int erpret this result as normal/abnormal . [facility] CenterJmxczcxAMWFPMHPFR2214-28-95 21:34:00 Test Item Value Reference Range Interpretation Comments Segs-Bands # (test code = Segs-Bands #) 9.0 1.5-8.1 [facility] CenterObyabdxLUOOJSVKZP5418-40-07 21:34:00 Test Item Value Reference Range Interpretation Comments Lymphocytes (test code = Lymphocytes) 29.4 20.0-40.0 [facility] CenterLvogoqzRVLAUXPHUG2082-57-96 21:34:00 Test Item Value Reference Range Interpretation Comments Segs (test code = Segs) 62.1 45.0-75.0 [facility] CenterXjtrterFAQATKJIDU2324-24-43 21:34:00 Test Item Value Reference Range Interpretation Comments Monocytes (test code = Monocytes) 5.9 2.0-12.0 [facility] CenterCgclngaJPYUXZBLRP1184-18-29 21:34:00 Test Item Value Reference Range Interpretation Comments Basophils # (test code 0.1 See_Comment [Aut omated message] The = Basophils #) system which generated this result tra nsmitted reference range : <=0.2. The reference r lcu was not used to int erpret this result as normal/abnormal . [facility] CenterUzkktysPMEKBJLOZA1508-58-75 21:34:00 Test Item Value Reference Range Interpretation Comments Monocytes # (test code 0.9 See_Comment [Aut omated message] The = Monocytes #) system which generated this result tra nsmitted reference range : <=0.8. The reference r luc was not used to int erpret this result as normal/abnormal . [facility] CenterFkvdlzoWSZBTPZDQN3584-88-58 21:34:00 Test Item Value Reference Range Interpretation Comments Lymphocytes # (test code = Lymphocytes 4.3 1.0-5.5 #) [facility] CenterJakqmaqJNXADSKKIR1458-77-33 21:34:00 Test Item Value Reference Range Interpretation Comments Eosinophils # (test code 0.3 See_Comment [A utomated message] The = Eosinophils #) system ic h generated this result tra nsmitted reference range : <=0.5. The reference r luc was not used to int erpret this result as normal/abnormal . [facility] CenterTuybugjUODSSLODKW9875-68-32 21:34:00 Test Item Value Reference Range Interpretation Comments G-value (test code = G-value) 10.3 5.0-11.6 [facility] CenterNmpiipzJZUAMXMCZI9963-13-37 21:34:00 Test Item Value Reference Range Interpretation Comments Max Amp (test code = Max Amp) 67 mm 52-71 [place] 954466-03-18 21:34:00 Test Item Value Reference Range Interpretation Comments Estimated % Lysis (test 4.6 See_Comment [Au tomated message] The code = Estimated % system wh ich generated Lysis) this result tra nsmitted reference range : <=7.5. The reference r luc was not used to int erpret this result as normal/abnormal . [facility] CenterGqmccikBAPMXMQUED4641-29-70 21:34:00 Test Item Value Reference Range Interpretation Comments R-time (test code = R-time) 0.6 min 0.4-0.7 [facility] CenterCrmicyjGGCQXLALNM9883-03-61 21:34:00 Test Item Value Reference Range Interpretation Comments K-time (test code = K-time) 1.3 min 0.6-2.3 [facility] CenterEzzgprfIYTYHLUGWT3273-45-24 21:34:00 Test Item Value Reference Range Interpretation Comments ACT (TEG) (test code = ACT (TEG)) 105 s 86-118 [facility] CenterUyrmmubXGGSRETOAK8802-49-14 21:34:00 Test Item Value Reference Range Interpretation Comments Split Point (test code = Split Point) 0.5 min [facility] CenterTfvfpwvEJBJOCOZWK3416-99-64 21:34:00 Test Item Value Reference Range Interpretation Comments Angle (test code = Angle) 75 degrees 64-80 [facility] CenterQibnpmiEWWECOTTYM1995-87-34 21:34:00 Test Item Value Reference Range Interpretation Comments Rapid TEG Sample Type Citrated Whole Blood (test code = Rapid TEG (05/06/15 4:34 PM) Sample Type) [facility] CenterRawkajaUFHKYDUFAE6526-78-52 21:34:00 Test Item Value Reference Range Interpretation Comments MPV (test code = MPV) 9.1 7.4-10.4 [place] 954466-03-18 21:34:00 Test Item Value Reference Range Interpretation Comments Platelet (test code = Platelet) 227 133-450 [facility] CenterXrolxjaYQYLKXHHJU1753-66-52 21:34:00 Test Item Value Reference Range Interpretation Comments Hct (test code = Hct) 43.8 36.0-48.0 [facility]iscoJoshgacAEJCVZMPHE6415-85-63 21:34:00 Test Item Value Reference Range Interpretation Comments RBC (test code = RBC) 4.94 4.20-5.40 [facility] HospitalKzlfgckDUMAQYDKQL2350-36-78 21:34:00 Test Item Value Reference Range Interpretation Comments Hgb (test code = Hgb) 14.3 12.0-16.0 [facility]iscoBbcyhijXYATGBQOUC0838-39-02 21:34:00 Test Item Value Reference Range Interpretation Comments WBC (test code = WBC) 14.5 3.7-10.4 [facility] FriscoXzujbllLOCLQYRWMH8998-08-86 21:34:00 Test Item Value Reference Range Interpretation Comments MCV (test code = MCV) 88.7 80.0-98.0 [facility] [employer] RPHVSQA1537-95-17 10:52:00 Test Item Value Reference Range Interpretation Comments ABO/Rh (test code = ABO/Rh) A POS [facility] [employer] NKQUDRT9427-82-85 10:52:00 Test Item Value Reference Range Interpretation Comments Antibody Scrn (test Negative (05/02/2012 N code = Antibody Scrn) 05:52:00) [facility] [employer] QLXUKHM6135-91-37 10:52:00 Test Item Value Reference Range Interpretation Comments ABO/Rh (test code = ABO/Rh) A POS [facility] [employer] YUHTNHS5645-26-36 10:52:00 Test Item Value Reference Range Interpretation Comments Antibody Scrn (test Negative (05/02/2012 N code = Antibody Scrn) 05:52:00) [facility]icsRpfhxrrGNTCICGARY7672-84-89 10:44:00 Test Item Value Reference Range Interpretation Comments Segs-Bands # (test code = Segs-Bands #) 10.7 1.5-8.1 H [facility] JrcqcncFCQIIIMKKG7316-75-78 10:44:00 Test Item Value Reference Range Interpretation Comments Lymphocytes # (test code = Lymphocytes 3.3 1.0-5.5 N #) [facility] ClinicsYdcwrseFUTLYTNWUM0278-76-95 10:44:00 Test Item Value Reference Range Interpretation Comments Eosinophils (test code = 0.3 See_Comment N [A utomated message] The Eosinophils) system which ge nerated this result tra nsmitted reference range : <=4.0. The reference r luc was not used to int erpret this result as normal/abnormal . [facility] CenterJtclvdtQUQZYDCRIO6036-38-28 10:44:00 Test Item Value Reference Range Interpretation Comments Basophils (test code = 0.3 See_Comment N [Aut omated message] The Basophils) system which ge nerated this result tra nsmitted reference range : <=1.0. The reference r luc was not used to int erpret this result as normal/abnormal . [facility] CenterSnqblsqSPDVJJHBHG3131-46-67 10:44:00 Test Item Value Reference Range Interpretation Comments Basophils # (test code 0.0 See_Comment N [Aut omated message] The = Basophils #) system which generated this result tra nsmitted reference range : <=0.2. The reference r luc was not used to int erpret this result as normal/abnormal . [facility] CenterEnnqjzzSENQINDJHG2850-28-40 10:44:00 Test Item Value Reference Range Interpretation Comments Monocytes # (test code 1.0 See_Comment H [Aut omated message] The = Monocytes #) system which generated this result tra nsmitted reference range : <=0.8. The reference r luc was not used to int erpret this result as normal/abnormal . [facility] CenterPjgbalsGSQHCNNTGX7037-41-46 10:44:00 Test Item Value Reference Range Interpretation Comments Eosinophils # (test code 0.0 See_Comment N [A utomated message] The = Eosinophils #) system whic h generated this result tra nsmitted reference range : <=0.5. The reference r luc was not used to int erpret this result as normal/abnormal . [facility] CenterIrcbspnQQNEMHYERY6047-41-36 10:44:00 Test Item Value Reference Range Interpretation Comments Lymphocytes (test code = Lymphocytes) 22.2 20.0-40.0 N [facility] CenterWkcpjglCAYBJMSRHD2511-52-89 10:44:00 Test Item Value Reference Range Interpretation Comments RBC Morph (test code = Normal (05/02/2012 N RBC Morph) 05:44:00) [facility] CenterEgcvwekRDCDHEJUZR2896-97-23 10:44:00 Test Item Value Reference Range Interpretation Comments Segs (test code = Segs) 70.7 45.0-75.0 N [facility] CenterWjkemafAZQFGDTLVS5472-82-96 10:44:00 Test Item Value Reference Range Interpretation Comments Plt Morph (test code = Normal (05/02/2012 N Plt Morph) 05:44:00) [facility] CenterNdcrshaIAGTBKOXFS8423-90-03 10:44:00 Test Item Value Reference Range Interpretation Comments G-value (test code = G-value) 10.4 5.0-11.6 N [facility] CenterNovekvwYYUUVRNWYI0610-59-47 10:44:00 Test Item Value Reference Range Interpretation Comments Max Amp (test code = Max Amp) 68 mm 52-71 N [facility] CenterAcdcdkuJNOHLHJAGL9213-15-18 10:44:00 Test Item Value Reference Range Interpretation Comments Estimated % Lysis (test 2.1 See_Comment N [Au tomated message] The code = Estimated % system wh ich generated Lysis) this result tra nsmitted reference range : <=7.5. The reference r luc was not used to int erpret this result as normal/abnormal . [facility] CenterIcwxdsrJILYFNEGTJ8241-39-04 10:44:00 Test Item Value Reference Range Interpretation Comments R-time (test code = R-time) 0.6 min 0.4-0.7 N [facility] CenterLdvsuztBZKRSPBWGC6509-55-48 10:44:00 Test Item Value Reference Range Interpretation Comments K-time (test code = K-time) 1.0 min 0.6-2.3 N [facility] CenterVcagbsgENHZOTWYJL4924-88-42 10:44:00 Test Item Value Reference Range Interpretation Comments Angle (test code = Angle) 78 degrees 64-80 N [facility] CenterFmsvpurMRWVGXWPJN3455-25-66 10:44:00 Test Item Value Reference Range Interpretation Comments Split Point (test code = Split Point) 0.5 min [facility] CenterSxrlkwhNLPSVMSADS5693-81-92 10:44:00 Test Item Value Reference Range Interpretation Comments ACT (TEG) (test code = ACT (TEG)) 105 s 86-118 N [facility] CenterQdxwimaZXCMDQWEXD3470-00-13 10:44:00 Test Item Value Reference Range Interpretation Comments Rapid TEG Sample Type Citrated Whole Blood (test code = Rapid TEG Sample Type) [facility] CenterYhpomvdMQJNSGXGAY5825-85-06 10:44:00 Test Item Value Reference Range Interpretation Comments INR (test code = INR) 1.00 0.85-1.17 N [place] [id number] 10:44:00 Test Item Value Reference Range Interpretation Comments PT (test code = PT) 13.4 s 12.0-14.7 N [facility] CenterXrmvjqaWHSUBAOTIQ0160-53-35 10:44:00 Test Item Value Reference Range Interpretation Comments PTT (test code = PTT) 32.6 s 22.9-35.8 N [facility] CenterBgwovkjPHKKDLHYNH4265-42-14 10:44:00 Test Item Value Reference Range Interpretation Comments MPV (test code = MPV) 9.1 7.4-10.4 N [facility] CenterRwpppgkFDGPJPWVZO7306-48-53 10:44:00 Test Item Value Reference Range Interpretation Comments Platelet (test code = Platelet) 242 133-450 N [facility] CenterBsicuoiVRNWMAAUCA0140-94-03 10:44:00 Test Item Value Reference Range Interpretation Comments RDW (test code = RDW) 12.4 11.5-14.5 N [facility] CenterMtzvwgpAGJTDSJZRO3780-18-64 10:44:00 Test Item Value Reference Range Interpretation Comments MCHC (test code = MCHC) 33.3 32.0-36.0 N [facility] CenterHpsaorvKFCAKZNARA7638-33-35 10:44:00 Test Item Value Reference Range Interpretation Comments MCH (test code = MCH) 30.5 pg 27.0-31.0 N [facility] CenterQfrynxhFSTBKGOPCK2997-93-71 10:44:00 Test Item Value Reference Range Interpretation Comments MCV (test code = MCV) 91.4 81.0-99.0 N [facility] CenterFoqljfqJSHICRJGZG2017-19-58 10:44:00 Test Item Value Reference Range Interpretation Comments Hct (test code = Hct) 43.8 36.0-48.0 N [facility] CenterXdbsbjvTULRNHZMGS8351-98-61 10:44:00 Test Item Value Reference Range Interpretation Comments Hgb (test code = Hgb) 14.6 12.0-16.0 N [facility] CenterFlcdqsoSFXBVCLEBW3405-78-28 10:44:00 Test Item Value Reference Range Interpretation Comments RBC (test code = RBC) 4.79 4.20-5.40 N [facility] CenterBsjqryoCJLHYTXUZN4035-96-28 10:44:00 Test Item Value Reference Range Interpretation Comments WBC (test code = WBC) 15.0 3.7-10.[address] [facility] [place], TXUkinlgpQEKUZGDZR2007-22-04 10:44:00 Test Item Value Reference Range Interpretation Comments eGFR (test code = eGFR) [address] [facility] [place], TXCxwcjimQPDZFGUCE2278-85-38 10:44:00 Test Item Value Reference Range Interpretation Comments Glucose Lvl (test code = Glucose Lvl) 103 70-[address] [facility] [place], TXNsuzwfnDVLFRQKJF4309-52-71 10:44:00 Test Item Value Reference Range Interpretation Comments BUN (test code = BUN) 17 7-[address] [facility] [place], TXYhmaewxRQXYFIWSC2219-77-60 10:44:00 Test Item Value Reference Range Interpretation Comments Creatinine Lvl (test code = Creatinine 0.5 0.5-1.4 N Lvl) [facility] [place], TXKnpbibfBDLUBUPBN0800-50-25 10:44:00 Test Item Value Reference Range Interpretation Comments Sodium Lvl (test code = Sodium Lvl) 137 135-[address] [facility] [place], TXTjjpqygPOSTQOWBI4756-15-43 10:44:00 Test Item Value Reference Range Interpretation Comments Potassium Lvl (test code = Potassium 3.6 3.5-5.1 N Lvl) [facility] [place], TXZrgznovQSHFMPLNP1999-91-14 10:44:00 Test Item Value Reference Range Interpretation Comments Chloride Lvl (test code = Chloride Lvl) 104 95-[address] [facility] [place], TXLolklpbFUVSDIBBO3179-67-30 10:44:00 Test Item Value Reference Range Interpretation Comments CO2 (test code = CO2) 24 24-[address] [facility] [place], TXZwihoygXQMMMZTWT6785-27-51 10:44:00 Test Item Value Reference Range Interpretation Comments Calcium Lvl (test code = Calcium Lvl) 9.0 8.5-10.[address] [facility] [place], TXGmtvlcxJAMYPKLPZ4070-91-28 10:44:00 Test Item Value Reference Range Interpretation Comments AGAP (test code = AGAP) 12.6 10.0-20.0 N [facility] CenterZllpxzdSHOYRLRWHP9012-45-23 10:44:00 Test Item Value Reference Range Interpretation Comments Monocytes (test code = Monocytes) 6.5 2.0-12.0 N [facility] CenterWiewknyVHVAIYQLIX6324-54-08 10:44:00 Test Item Value Reference Range Interpretation Comments Monocytes (test code = Monocytes) 6.5 2.0-12.0 N [facility] CenterBvtcbgfQWFSEQMWLZ5470-62-65 10:44:00 Test Item Value Reference Range Interpretation Comments Segs-Bands # (test code = Segs-Bands #) 10.7 1.5-8.1 H [facility] CenterIrmalxnHXLHRXYOOA7373-74-30 10:44:00 Test Item Value Reference Range Interpretation Comments Lymphocytes # (test code = Lymphocytes 3.3 1.0-5.5 N #) [facility] CenterTssvibkTWFAYTAVKL8472-29-37 10:44:00 Test Item Value Reference Range Interpretation Comments Eosinophils (test code = 0.3 See_Comment N [A utomated message] The Eosinophils) system which ge nerated this result tra nsmitted reference range : <=4.0. The reference r luc was not used to int erpret this result as normal/abnormal . [facility] CenterVbhoarmUUASJWAQGO6964-70-21 10:44:00 Test Item Value Reference Range Interpretation Comments Basophils (test code = 0.3 See_Comment N [Aut omated message] The Basophils) system which ge nerated this result tra nsmitted reference range : <=1.0. The reference r luc was not used to int erpret this result as normal/abnormal . [facility] CenterBiyhvofESIOCUZEXV7250-75-70 10:44:00 Test Item Value Reference Range Interpretation Comments Basophils # (test code 0.0 See_Comment N [Aut omated message] The = Basophils #) system which generated this result tra nsmitted reference range : <=0.2. The reference r luc was not used to int erpret this result as normal/abnormal . [facility] CenterQxoqdupKXFXIUUBAH1148-14-10 10:44:00 Test Item Value Reference Range Interpretation Comments Monocytes # (test code 1.0 See_Comment H [Aut omated message] The = Monocytes #) system which generated this result tra nsmitted reference range : <=0.8. The reference r luc was not used to int erpret this result as normal/abnormal . [facility] CenterFemasjfYTDTENKYIN4365-51-16 10:44:00 Test Item Value Reference Range Interpretation Comments Eosinophils # (test code 0.0 See_Comment N [A utomated message] The = Eosinophils #) system whic h generated this result tra nsmitted reference range : <=0.5. The reference r luc was not used to int erpret this result as normal/abnormal . [facility] CenterTjihowpDWWHVBSHXC5394-72-00 10:44:00 Test Item Value Reference Range Interpretation Comments Lymphocytes (test code = Lymphocytes) 22.2 20.0-40.0 N [facility] CenterAqzqhrtAPRXZVSMOT0819-50-24 10:44:00 Test Item Value Reference Range Interpretation Comments RBC Morph (test code = Normal (05/02/2012 N RBC Morph) 05:44:00) [facility] CenterAjftpvgNADDDPWRMZ9578-02-93 10:44:00 Test Item Value Reference Range Interpretation Comments Segs (test code = Segs) 70.7 45.0-75.0 N [facility] CenterYdhbpvpJJNOUICFYO5767-02-46 10:44:00 Test Item Value Reference Range Interpretation Comments Plt Morph (test code = Normal (05/02/2012 N Plt Morph) 05:44:00) [facility] CenterWpopkikJHNVOVCANN3373-74-50 10:44:00 Test Item Value Reference Range Interpretation Comments G-value (test code = G-value) 10.4 5.0-11.6 N [facility] CenterQmonnkzZAYJURFJDR5630-19-65 10:44:00 Test Item Value Reference Range Interpretation Comments Max Amp (test code = Max Amp) 68 mm 52-71 N [facility] CenterLhnwmehRSZRZSGKCT1151-80-06 10:44:00 Test Item Value Reference Range Interpretation Comments Estimated % Lysis (test 2.1 See_Comment N [Au tomated message] The code = Estimated % system wh ich generated Lysis) this result tra nsmitted reference range : <=7.5. The reference r luc was not used to int erpret this result as normal/abnormal . [facility] CenterDqftuleWLGMNIYDAI7624-36-50 10:44:00 Test Item Value Reference Range Interpretation Comments R-time (test code = R-time) 0.6 min 0.4-0.7 N [facility] CenterNtraqpvUEEHSQVQJG0444-58-17 10:44:00 Test Item Value Reference Range Interpretation Comments K-time (test code = K-time) 1.0 min 0.6-2.3 N [facility] CenterFvsfixhJLKJWRVLEH6921-26-78 10:44:00 Test Item Value Reference Range Interpretation Comments Angle (test code = Angle) 78 degrees 64-80 N [facility] CenterHawleomNVXAGSZKZB9889-53-34 10:44:00 Test Item Value Reference Range Interpretation Comments Split Point (test code = Split Point) 0.5 min [facility] CenterKoekoqpFSJGBONSXM0922-05-00 10:44:00 Test Item Value Reference Range Interpretation Comments ACT (TEG) (test code = ACT (TEG)) 105 s 86-118 N [facility] CenterIfsgzynLWJVVASAMP5306-83-30 10:44:00 Test Item Value Reference Range Interpretation Comments Rapid TEG Sample Type Citrated Whole Blood (test code = Rapid TEG Sample Type) [facility] CenterNprvcfwNEISVDRQKG2089-59-48 10:44:00 Test Item Value Reference Range Interpretation Comments INR (test code = INR) 1.00 0.85-1.17 N [facility] CenterFowbifvFXQUPSWGRB6568-73-49 10:44:00 Test Item Value Reference Range Interpretation Comments PT (test code = PT) 13.4 s 12.0-14.7 N [facility] CenterWfacntfFDUDOBZHWS8907-60-76 10:44:00 Test Item Value Reference Range Interpretation Comments PTT (test code = PTT) 32.6 s 22.9-35.8 N [facility] CenterHrneyuxXSOIUAIBKE9041-92-34 10:44:00 Test Item Value Reference Range Interpretation Comments MPV (test code = MPV) 9.1 7.4-10.4 N [facility] CenterJuuusnrLAXZHJVZWI4848-57-39 10:44:00 Test Item Value Reference Range Interpretation Comments Platelet (test code = Platelet) 242 133-450 N [facility] CenterLvmhikpLJOGLAUTWV1589-08-17 10:44:00 Test Item Value Reference Range Interpretation Comments RDW (test code = RDW) 12.4 11.5-14.5 N [facility] CenterTwuvxraGAZTBFJXJM9059-97-23 10:44:00 Test Item Value Reference Range Interpretation Comments MCHC (test code = MCHC) 33.3 32.0-36.0 N [facility] CenterGppwzqjXKNCCIJFSF1513-67-98 10:44:00 Test Item Value Reference Range Interpretation Comments MCH (test code = MCH) 30.5 pg 27.0-31.0 N [facility] CenterVlexfqgXVDBWGKOUK0705-22-27 10:44:00 Test Item Value Reference Range Interpretation Comments MCV (test code = MCV) 91.4 81.0-99.0 N [facility] CenterMvoygnkUTWZHDGGZJ9097-91-00 10:44:00 Test Item Value Reference Range Interpretation Comments Hct (test code = Hct) 43.8 36.0-48.0 N [facility] CenterRshfabdDVTRPWYCWI3665-81-80 10:44:00 Test Item Value Reference Range Interpretation Comments Hgb (test code = Hgb) 14.6 12.0-16.0 N [facility] CenterObdsdcsJFLZAELQRJ6493-74-60 10:44:00 Test Item Value Reference Range Interpretation Comments RBC (test code = RBC) 4.79 4.20-5.40 N [facility] CenterDwcrmtyAGGWYWYWNX7578-30-75 10:44:00 Test Item Value Reference Range Interpretation Comments WBC (test code = WBC) 15.0 3.7-10.[address] [facility] [place], TXWidmehzUMTXSQCSV5322-87-64 10:44:00 Test Item Value Reference Range Interpretation Comments eGFR (test code = eGFR) [address] [facility] [place], TXFntwhygLYLDRCGAE1840-78-93 10:44:00 Test Item Value Reference Range Interpretation Comments Glucose Lvl (test code = Glucose Lvl) 103 70-[address] [facility] [place], TXLpvpaqnVAYGJWSSE4064-31-99 10:44:00 Test Item Value Reference Range Interpretation Comments BUN (test code = BUN) 17 7-[address] [facility] [place], TXTeapkypCWVRPWXUX3367-54-06 10:44:00 Test Item Value Reference Range Interpretation Comments Creatinine Lvl (test code = Creatinine 0.5 0.5-1.4 N Lvl) [facility] [place], TXHfxmatpMVNZDHPUZ1929-86-66 10:44:00 Test Item Value Reference Range Interpretation Comments Sodium Lvl (test code = Sodium Lvl) 137 135-[address] [facility] [place], TXUknwjfnRMPSSJECS4772-08-86 10:44:00 Test Item Value Reference Range Interpretation Comments Potassium Lvl (test code = Potassium 3.6 3.5-5.1 N Lvl) [facility] [place], TXBpsqygmJGWZJBHEJ2374-53-42 10:44:00 Test Item Value Reference Range Interpretation Comments Chloride Lvl (test code = Chloride Lvl) 104 95-[address] [facility] [place], TXTldogwuMYZBMTFUR6943-95-48 10:44:00 Test Item Value Reference Range Interpretation Comments CO2 (test code = CO2) 24 24-[address] [facility] [place], TXXqokcjxIAXNJUVBK6881-95-24 10:44:00 Test Item Value Reference Range Interpretation Comments Calcium Lvl (test code = Calcium Lvl) 9.0 8.5-10.[address] [facility] [place], TXRojltqaSCERJQSWU9195-69-93 10:44:00 Test Item Value Reference Range Interpretation Comments AGAP (test code = AGAP) 12.6 10.0-20.0 N [facility]
[2022-04-27 22:25] LABS: SARS-COV-2 RT PCR POSITIVE (NEGATIVE)
[2022-04-28 04:21] VITALS: BP 140/90; TEMP 98.2; O2SAT 99
--- NOTE | 2022-05-11 16:11 | EDPHYS ---
Physician Documentation [facility] Name: Stella Goldstein Age: 41 yrs Sex: Female : 1980 Arrival Date: 04/27/2022 Time: 20:31 Bed 11 Private MD: ED Physician Anthony Mendoza HPI: 04/27 21:25 This 41 yrs old Female presents to ER via Ambulatory with complaints of Covid Symptoms. cp 21:25 The patient or guardian reports cough, that is intermittent. cp 21:25 Onset: The symptoms/episode began/occurred 3 day(s) ago. Associated signs and symptoms: cp Pertinent positives: earache, sore throat, Pertinent negatives: diarrhea, vomiting. Severity of symptoms: in the emergency department the symptoms are unchanged despite home interventions. 21:25 Patient reports tested positive for strep and COVID today. 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 - Social history:: Smoking status: Reported history of juuling and/or vaping. ROS: 21:30 Constitutional: Positive for body aches, Negative for fever. cp 21:30 Eyes: Negative for injury, pain, redness, and discharge. cp 21:30 ENT: Positive for ear pain, sore throat, Negative for drainage from ear(s), sinus pain, difficulty swallowing, difficulty handling secretions. 21:30 Cardiovascular: Negative for chest pain, edema, palpitations. 21:30 Respiratory: Positive for cough. 21:30 Abdomen/GI: Negative for vomiting, diarrhea, constipation. 21:30 Neuro: Positive for headache, Negative for altered mental status, weakness. 21:30 All other systems are negative. Exam: 21:35 Constitutional: The patient appears in no acute distress, alert, awake, non-toxic, well cp developed, well nourished. 21:35 Head/Face: Normocephalic, atraumatic. cp 21:35 Eyes: Periorbital structures: appear normal, Conjunctiva: normal, no exudate, no injection, Lids and lashes: appear normal, bilaterally. 21:35 ENT: External ear(s): are unremarkable, Ear canal(s): are normal, clear, TM's: bulging, is not appreciated, erythema, that is mild, bilaterally, Nose: is normal, Mouth: Lips: moist, Oral mucosa: moist, Posterior pharynx: Airway: no evidence of obstruction, patent, Tonsils: with erythema, no enlargement, no exudate, swelling, is not appreciated, erythema, that is mild, exudate, is not appreciated. 21:35 Neck: ROM/movement: is normal, is supple, without pain, no range of motions limitations. 21:35 Chest/axilla: Inspection: normal. 21:35 Cardiovascular: Rate: normal. 21:35 Respiratory: the patient does not display signs of respiratory distress, Respirations: normal, no use of accessory muscles, no retractions, labored breathing, is not present, Breath sounds: are clear throughout, no decreased breath sounds, no stridor, no wheezing. 21:35 Abdomen/GI: Exam negative for discomfort, distension, guarding, Inspection: abdomen appears normal. 21:35 Skin: cellulitis, is not appreciated, no rash present. Vital Signs: 21:13 BP 140 / 90; Pulse 60; Resp 16 S; Temp 98.2(O); Pulse Ox 99% on R/A; Weight 86.18 kg bb (R); Height 5 ft. 6 in. (R); Pain 5/10; 21:13 Body Mass Index 30.67 (86.18 kg, 167.64 cm) bb 21:13 Pain Scale: Adult bb MDM: 21:24 Patient medically screened. cp 22:30 Data reviewed: vital signs, nurses notes, lab test result(s). cp 22:30 Differential diagnosis: bronchitis, flu, URI, COVID-19, strep throat. Antibiotic cp administration: The patient is discharged and will get outpatient antibiotics. Counseling: I had a detailed discussion with the patient and/or guardian regarding: the historical points, exam findings, and any diagnostic results supporting the discharge/admit diagnosis, lab results, to return to the emergency department if symptoms worsen or persist or if there are any questions or concerns that arise at home. 04/27 21:18 Order name: Strep bb 04/27 21:18 Order name: COVID-19/FLU A+B bb 04/27 21:59 Order name: Throat Culture EDMS Administered Medications: No medications were administered Disposition Summary: 04/27/22 22:31 Discharge Ordered Location: Home cp Problem: new cp Symptoms: are unchanged cp Condition: Stable cp Diagnosis - SARS-associated coronavirus as the cause of diseases classified elsewhere cp - Otitis media, unspecified, bilateral cp Followup: cp - With: Private Physician - When: 2 - 3 days - Reason: Worsening of condition Discharge Instructions: - Discharge Summary Sheet cp - Aspirin and Your Heart cp - COVID-19 cp - How to Protect Yourself and Others - [facility] (04/14/2021) cp - 10 Things You Can Do to Manage Your COVID-19 Symptoms at Home - [facility] (09/02/2020) cp - COVID-19: Quarantine and Isolation - [facility] (05/17/2021) cp - COVID-19: What to Do If You Are Sick - [facility] (05/09/2021) cp Forms: - Medication Reconciliation Form cp - Thank You Letter cp - Antibiotic Education cp - Prescription Opioid Use cp Prescriptions: - Bromfed DM 2-30-10 mg/5 mL Oral syrup - administer 10 milliliter by ORAL route every 6 hours; 180 milliliter; Refills: cp 0, Product Selection Permitted - Paxlovid (EUA) 150-100 mg Oral Tablet, Dose Pack - take 1 dose pack by ORAL route per package directions for 5 days; 30 tablet; cp Refills: 0, Product Selection Permitted - Amoxicillin 875 mg Oral Tablet - take 1 tablet by ORAL route every 12 hours for 10 days; 20 tablet; Refills: 0, cp Product Selection Permitted - Ibuprofen 800 mg Oral Tablet - take 1 tablet by ORAL route every 8 hours As needed take with food; 30 tablet; cp Refills: 0, Product Selection Permitted Addendum: 04/30/2022 08:42 Co-signature as Attending Physician, Anthony Mendoza MD I reviewed the patient's care r n provided by the Advanced Practice Provider and agree with the diagnosis and treatment plan. Signatures: Dispatcher MedHo Latia Wiggins, RN RN Anthony Galvez MD MD rn Leonel Thorne, HAYDEN PA cp Corrections: (The following items were deleted from the chart) 04/28 21:47 04/27 21:50 Constitutional: Negative for fever, cp cp
--- NOTE | 2022-05-11 16:11 | ER ---
Nurse's Notes [facility] Name: Stella Goldstein Age: 41 yrs Sex: Female : 1980 Arrival Date: 04/27/2022 Time: 20:31 Bed 11 Private MD: Diagnosis: SARS-associated coronavirus as the cause of diseases classified elsewhere;Otitis media, unspecified, bilateral Presentation: 04/27 21:13 Chief complaint: Patient states: her diagnosed with Covid and strep just now bb and she also is feeling bad. Coronavirus screen: Client presents with at least one sign or symptom that may indicate coronavirus-19. Ebola Screen: No symptoms or risks identified at this time. Initial Sepsis Screen: Does the patient meet any 2 criteria? No. Patient's initial sepsis screen is negative. Does the patient have a suspected source of infection? No. Patient's initial sepsis screen is negative. Risk Assessment: Do you want to hurt yourself or someone else? Patient reports no desire to harm self or others. Onset of symptoms was April 24, 2022. 21:13 Method Of Arrival: Ambulatory bb 21:13 Acuity: SPENCER 4 bb Triage Assessment: 21:15 General: Appears in no apparent distress. Behavior is calm, cooperative. Pain: bb Complains of pain in head Pain currently is 5 out of 10 on a pain scale. Neuro: Level of Consciousness is awake, alert, obeys commands, Oriented to person, place, time, situation. Cardiovascular: Capillary refill < 3 seconds Patient's skin is warm and dry. Respiratory: Respiratory effort is unlabored. GI: No signs and/or symptoms were reported involving the gastrointestinal system. Derm: Skin is pink, warm \T\ dry. Musculoskeletal: Circulation, motion, and sensation intact. 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 - Social history:: Smoking status: Reported history of juuling and/or vaping. Screenin:30 [facility] ED Fall Risk Assessment (Adult) History of falling in the last 3 months, bb including since admission No falls in past 3 months (0 pts) Confusion or Disorientation No (0 pts) Intoxicated or Sedated No (0 pts) Impaired Gait No (0 pts) Score/Fall Risk Level 0 - 2 = Low Risk Oriented to surroundings, Maintained a safe environment. Abuse screen: Denies threats or abuse. Nutritional screening: No deficits noted. Tuberculosis screening: No symptoms or risk factors identified. Assessment: 21:30 Reassessment: Patient is alert, oriented x 3, equal unlabored respirations, skin bb warm/dry/pink. pt verbalized understanding of and agrees to plan of care discharge instructions given pt ambulated with steady gait to exit. Vital Signs: 21:13 BP 140 / 90; Pulse 60; Resp 16 S; Temp 98.2(O); Pulse Ox 99% on R/A; Weight 86.18 kg bb (R); Height 5 ft. 6 in. (R); Pain 5/10; 21:13 Body Mass Index 30.67 (86.18 kg, 167.64 cm) bb 21:13 Pain Scale: Adult bb ED Course: 20:31 Patient arrived in ED. ja2 21:15 Triage completed. bb 21:15 Arm band placed on Patient placed in an exam room, on a stretcher. Labs ordered per bb protocol. 21:23 Leonel Thorne PA is PHCP. cp 21:24 Anthony Mendoza MD is Attending Physician. cp 21:27 COVID-19/FLU A+B Sent. as7 21:27 Strep Sent. as7 21:30 Patient has correct armband on for positive identification. bb 21:30 No provider procedures requiring assistance completed. Patient did not have IV access bb during this emergency room visit. Administered Medications: No medications were administered Medication: 21:30 VIS not applicable for this client. bb Outcome: 21:30 Discharged to home ambulatory. bb 21:30 Condition: stable 21:30 Discharge instructions given to patient, Instructed on discharge instructions, follow up and referral plans. medication usage, Demonstrated understanding of instructions, follow-up care, medications, Prescriptions given X 4. 22:31 Discharge ordered by . cp 23:00 Patient left the ED. bb Signatures: Latia Miller RN RN bb Leonel Thorne PA PA cp Alexander, Jessica ja2 Senkyrik, Ruthann as7
== END 2022-04-27 23:00 | disposition home or self-care (01) ==
LOC: ER 20:28
DX: U07.1 COVID-19 (principal); Z91.048 Other nonmedicinal substance allergy status
CPT/HCPCS: 87070; 87081; 0240U; 99283

== ENCOUNTER 2023-01-18 22:06 | Emergency (ER) | payer OTHER ==
--- OUTSIDE RECORDS SUMMARY | 2023-01-18 22:17 | XMS REPORT | Continuity of Care Document ---
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 Dosing Weight 77.273, kg, Priority: STAT, Start date: 05/06/15 17:16:00, Stop date: 05/06/15 17:16:00 Morphine 2016-0 No 4 mg, [facility] 3-18 Route: l 22:16: IVP, Drug [place] 00 form: INJ, ONCE, Dosing Weight 77.273, [...] a 3-18 Route: l 22:07: IVP, Drug [place] 00 Form: SOLN, Dosing Weight 77.273, kg, ONCALL, STAT, Start date: 05/06/15 17:07:00, Duration: 1 doses or times, Dose = 2.2ml/kg, Max dose = 100ml -- "To be infused by Radiology Staff ONLY" iodixanol 2016-0 No 94 mL, Memori a 3-18 Route: l 22:07: IVP, Drug [place] 00 Form: SOLN, Dosing Weight 77.273, kg, [...] a 3-18 Route: l 22:07: IVP, Drug [place] 00 Form: SOLN, Dosing Weight 77.273, kg, ONCALL, STAT, Start date: 05/06/15 17:07:00, Duration: 1 doses or times, Dose = 2.2ml/kg, Max dose = 100ml -- "To be infused by Radiology Staff ONLY" iodixanol 2016-0 No 94 mL, Memori a 3-18 Route: l 22:07: IVP, Drug [place] 00 Form: SOLN, Dosing Weight 77.273, kg, ONCALL, STAT, Start date: 05/06/15 17:07:00, Duration: 1 doses or times, Dose = 2.2ml/kg, Max dose = 100ml -- "To be infused by Radiology Staff ONLY" iodixanol No 94 mL, Memori a 3-18 Route: l 22:07: IVP, Drug [place] 00 Form: SOLN, Dosing Weight 77.273, kg, ONCALL, STAT, Start date: 05/06/15 17:07:00, Duration: 1 doses or times, Dose = 2.2ml/kg, Max dose = 100ml -- "To be infused by Radiology Staff ONLY" Saline No Notes: [facility] Flush 0.9% 3-18 (Same as: l 21:29: BD [place] 00 Posiflush) Saline No Notes: [facility] Flush 0.9% 3-18 (Same as: l 21:29: BD [place] 00 Posiflush) Saline No Notes: [facility] Flush 0.9% 3-18 (Same as: l 21:29: BD [place] 00 Posiflush) Saline No Notes: [facility] Flush 0.9% 3-18 (Same as: l 21:29: BD [place] 00 Posiflush) Saline No Notes: [facility] Flush 0.9% 3-18 (Same as: l 21:29: BD [place] 00 Posiflush) Saline No Notes: [facility] Flush 0.9% 3-18 (Same as: l 21:29: BD [place] 00 Posiflush) Saline No Notes: [facility] Flush 0.9% 3-18 (Same as: l 21:29: BD [place] 00 Posiflush) Saline No Notes: [facility] Flush 0.9% 3-18 (Same as: l 21:29: BD [place] 00 Posiflush) Saline No Notes: [facility] Flush 0.9% 3-18 (Same as: l 21:29: BD [place] 00 Posiflush) [place] 5/325 Yes Claudy De 1-2 tab, [facility] oral tablet 3-15 [place] PO, Q4-6H, l 14:30: PRN, 15 [place] 52 tab, Pain, Substituti on Allowed, Maintenanc e [place] 5/325 Yes Claudy De 1-2 tab, [facility] oral tablet 3-15 [place] PO, Q4-6H, l 14:30: PRN, 15 [place] 52 tab, Pain, Substituti on Allowed, Maintenanc e [place] 5/325 Yes Claudy De 1-2 tab, [facility] oral tablet 3-15 [place] PO, Q4-6H, l 14:30: PRN, 15 [place] 52 tab, Pain, Substituti on Allowed, Maintenanc e [place] 5/325 Yes Claudy De 1-2 tab, [facility] oral tablet 3-15 [place] PO, Q4-6H, l 14:30: PRN, 15 [place] 52 tab, Pain, Substituti on Allowed, Maintenanc e [place] 5/325 Yes Claudy De 1-2 tab, [facility] oral tablet 3-15 [place] PO, Q4-6H, l 14:30: PRN, 15 [place] 52 tab, Pain, Substituti on Allowed, Maintenanc e [place] 5/325 Yes Claudy De 1-2 tab, [facility] oral tablet 3-15 [place] PO, Q4-6H, l 14:30: PRN, 15 [place] 52 tab, Pain, Substituti on Allowed, Maintenanc e [place] 5/325 Yes Claudy De 1-2 tab, [facility] oral tablet 3-15 [place] PO, Q4-6H, l 14:30: PRN, 15 [place] 52 tab, Pain, Substituti on Allowed, Maintenanc e [place] 5/325 Yes Claudy De 1-2 tab, [facility] oral tablet 3-15 [place] PO, Q4-6H, l 14:30: PRN, 15 [place] 52 tab, Pain, Substituti on Allowed, Maintenanc e [place] 5/325 Yes Claudy De 1-2 tab, [facility] oral tablet 3-15 [place] PO, Q4-6H, l 14:30: PRN, 15 [place] 52 tab, Pain, Substituti on Allowed, Maintenanc e [place] 5/325 No Claudy De 1 tab, Memoria oral tablet 05-02 [facility] Route: PO, l 13:54: Dosing [place] 00 Weight 63, kg, ONCE, Start date: 05/02/12 8:54:00, Stop date: 05/02/12 8:54:00 [place] 5/325 No Claudy De 1 tab, Mem[facility] oral tablet 05-02 [facility] Route: PO, l 13:54: Dosing [place] 00 Weight 63, kg, ONCE, Start date: 05/02/12 8:54:00, Stop date: 05/02/12 8:54:00 [place] 5/325 No Claudy De 1 tab, [facility] oral tablet 05-02 [facility] Route: PO, l 13:54: Dosing [place] 00 Weight 63, kg, ONCE, Start date: 05/02/12 8:54:00, Stop date: 05/02/12 8:54:00 [place] 5/325 No Claudy De 1 tab, Mem[facility] oral tablet 05-02 [facility] Route: PO, l 13:54: Dosing [place] 00 Weight 63, kg, ONCE, Start date: 05/02/12 8:54:00, Stop date: 05/02/12 8:54:00 [place] 5/325 No Claudy De 1 tab, Memoria oral tablet 05-02 [facility] Route: PO, l 13:54: Dosing [place] 00 Weight 63, kg, ONCE, Start date: 05/02/12 8:54:00, Stop date: 05/02/12 8:54:00 [place] 5/325 No Claudy De 1 tab, Mem[facility] oral tablet 05-02 [facility] Route: PO, l 13:54: Dosing [place] 00 Weight 63, kg, ONCE, Start date: 05/02/12 8:54:00, Stop date: 05/02/12 8:54:00 [place] 5/325 No Claudy De 1 tab, [facility] oral tablet 05-02 [facility] Route: PO, l 13:54: Dosing [place] 00 Weight 63, kg, ONCE, Start date: 05/02/12 8:54:00, Stop date: 05/02/12 8:54:00 [place] 5/325 No Claudy De 1 tab, [facility] oral tablet 3-15 [place] Route: PO, l 13:54: Dosing [place] 00 Weight 63, kg, ONCE, Start date: 05/02/12 8:54:00, Stop date: 05/02/12 8:54:00 [place] 5/325 Roxana Alegria 1 tab, [facility] oral tablet 3-15 [place] Route: PO, l 13:54: Dosing [place] 00 Weight 63, kg, ONCE, Start date: 05/02/12 8:54:00, Stop date: 05/02/12 8:54:00 morphine No Florin Thanh 4 mg, Mem oria Sulfate 3-15 [place] Route: l 10:56: IVP, ONCE, [place] Dosing Weight 63, kg, Priority: STAT, Start date: 05/02/12 5:56:00, Stop date: 05/02/12 5:56:00 morphine No Florin Thanh 4 mg, Mem oria Sulfate 3-15 [place] Route: l 10:56: IVP, ONCE, [place] Dosing Weight 63, kg, Priority: STAT, Start date: 05/02/12 5:56:00, Stop date: 05/02/12 5:56:00 ondansetron No Florin Thanh 4 mg, [facility] 3-15 [place] Route: l 10:56: IVP, Drug [place] 00 form: INJ, ONCE, Dosing Weight 63, kg, Priority: STAT, Start date: 05/02/12 5:56:00, Stop date: 05/02/12 5:56:00 ondansetron 0 No Florin Thanh 4 mg, [facility] 3-15 [...] 3-15 [place] Route: l 10:56: IVP, Drug [place] 00 form: INJ, ONCE, Dosing Weight 63, kg, Priority: STAT, Start date: 05/02/12 5:56:00, Stop date: 05/02/12 5:56:00 morphine 2012-0 No Florin Thanh 4 mg, Mem oria Sulfate 3-15 [place] Route: l 10:56: IVP, ONCE, [place] 00 Dosing Weight 63, kg, Priority: STAT, [...] [place] Route: l 10:56: IVP, ONCE, [place] Dosing Weight 63, kg, Priority: STAT, Start date: 05/02/12 5:56:00, Stop date: 05/02/12 5:56:00 ondansetron 2012-0 No Florin Thanh 4 mg, [facility] 3-15 [place] Route: l 10:56: IVP, Drug [place] 00 form: INJ, ONCE, Dosing Weight 63, kg, Priority: STAT, Start date: 05/02/12 5:56:00, Stop date: 05/02/12 5:56:00 morphine 2012-0 No Florin Thanh 4 mg, Mem oria Sulfate 3-15 [place] Route: l 10:56: IVP, ONCE, [place] 00 Dosing Weight 63, kg, Priority: STAT, Start date: 05/02/12 5:56:00, Stop date: 05/02/12 5:56:00 ondansetron 2013-0 No Florin Thanh 4 mg, [facility] 3-15 [...] 3-15 [place] Route: l 10:56: IVP, Drug [place] 00 form: INJ, ONCE, Dosing Weight 63, kg, Priority: STAT, Start date: 05/02/12 5:56:00, Stop date: 05/02/12 5:56:00 morphine 2012-0 No Florin Thanh 4 mg, Mem oria Sulfate 3-15 [place] Route: l 10:56: IVP, ONCE, [place] Dosing Weight 63, kg, Priority: STAT, Start [...] 3-15 [place] Route: l 10:56: IVP, ONCE, [place] Dosing Weight 63, kg, Priority: STAT, Start date: 05/02/12 5:56:00, Stop date: 05/02/12 5:56:00 ondansetron 2012-0 No Florin Thanh 4 mg, [facility] 3-15 [place] Route: l 10:56: IVP, Drug [place] 00 form: INJ, ONCE, Dosing Weight 63, kg, Priority: STAT, Start date: 05/02/12 5:56:00, Stop date: 05/02/12 5:56:00 Immunizations Ordered Filled Immunization Date Status Comments [facility] e Immunization Name Name diphtheria/pertussi 2015-05-06 Completed Mem[facility] ial s, acel/tetanus 23:03:00 [place] adult diphtheria/pertussi 2015-05-06 Completed Mem[facility] ial s, acel/tetanus 23:03:00 [place] adult diphtheria/pertussi 2015-05-06 Completed Memor ial s, acel/tetanus 23:03:00 [place] adult diphtheria/pertussi 2015-05-06 Completed Memor ial s, acel/tetanus 23:03:00 [place] adult diphtheria/pertussi 2015-05-06 Completed Memor ial s, acel/tetanus 23:03:00 [place] adult diphtheria/pertussi 2015-05-06 Completed Memor ial s, acel/tetanus 23:03:00 [place] adult diphtheria/pertussi 2015-05-06 Completed Mem[facility] ial s, acel/tetanus 23:03:00 [place] adult diphtheria/pertussi 2015-05-06 Completed Memor ial s, acel/tetanus 23:03:00 [place] adult Tdap- (Boostrix, 2015-05-06 Completed Marlyn Cabrales eyogld Adacel) 00:00:00 - External Tdap- (Boostrix, 2015-05-06 Completed Marlyn Cabrales eybold Adacel) 00:00:00 - External Tdap- (Boostrix, 2015-05-06 Completed Marlyn galvinbold Adacel) 00:00:00 - External Tdap- (Boostrix, 2015-05-06 Completed Marlyn Cabrales eybold Adacel) 00:00:00 - External Tdap- (Boostrix, 2015-05-06 Completed Marlyn Cabrales eybold Adacel) 00:00:00 - External Tdap- (Boostrix, 2015-05-06 Completed Marlyn Cabrales eybold Adacel) 00:00:00 - External Influenza, 2014-02-18 Completed Marlyn Bermudez Seasonal, 00:00:00 - External Injectable, Preservative Free Influenza, 2014-02-18 Completed Marlyn Bermudez Seasonal, 00:00:00 - External Injectable, Preservative Free Influenza, 2014-02-18 Completed Marlyn Bermudez Seasonal, 00:00:00 - External Injectable, Preservative Free Influenza, 2014-02-18 Completed Marlyn Bermudez Seasonal, 00:00:00 - External Injectable, Preservative Free Influenza, 2014-02-18 Completed Marlyn Bermudez Seasonal, 00:00:00 - External Injectable, Preservative Free Influenza, 2014-02-18 Completed Marlyn Bermudez Seasonal, 00:00:00 - External Injectable, Preservative Free Influenza, 2014-02-18 Completed Marlyn Bermudez Seasonal, 00:00:00 - External Injectable, Preservative Free Influenza, 2014-02-18 Completed Marlyn Bermudez Seasonal, 00:00:00 - External Injectable, Preservative Free Influenza, 2014-02-18 Completed Marlyn Bermudez Seasonal, 00:00:00 - External Injectable, Preservative Free MMR- Measles, 2004-10-05 Completed Marlyn Brunner old Mumps, Rubella 00:00:00 - External Td- Tetanus & 2004-10-05 Completed Marlyn Brunner old Diphtheria Vaccine 00:00:00 - Exte rnal (age 7+ years) MMR- Measles, 2004-10-05 Completed Marlyn Brunner old Mumps, Rubella 00:00:00 - External Td- Tetanus & 2004-10-05 Completed Marlyn Brunner old Diphtheria Vaccine 00:00:00 - Exte rnal (age 7+ years) MMR- Measles, 2004-10-05 Completed Marlyn Brunner old Mumps, Rubella 00:00:00 - External MMR- Measles, 2004-10-05 Completed Marlyn Brunner old Mumps, Rubella 00:00:00 - External Td- Tetanus & 2004-10-05 Completed Marlyn Brunner old Diphtheria Vaccine 00:00:00 - Exte rnal (age 7+ years) Td- Tetanus & 2004-10-05 Completed Marlyn Brunner old Diphtheria Vaccine 00:00:00 - Exte rnal (age 7+ years) MMR- Measles, 2004-10-05 Completed Marlyn Brunner old Mumps, Rubella 00:00:00 - External Td- Tetanus & 2004-10-05 Completed Marlyn Brunner old Diphtheria Vaccine 00:00:00 - Exte rnal (age 7+ years) MMR- Measles, 2004-10-05 Completed Marlyn Brunner old Mumps, Rubella 00:00:00 - External Td- Tetanus & 2004-10-05 Completed Marlyn Brunner old Diphtheria Vaccine 00:00:00 - Exte rnal (age 7+ years) MMR- Measles, 2004-10-05 Completed Marlyn Brunner old Mumps, Rubella 00:00:00 - External Td- Tetanus & 2004-10-05 Completed Marlyn Brunner old Diphtheria Vaccine 00:00:00 - Exte rnal (age 7+ years) MMR- Measles, 2004-10-05 Completed Marlyn Brunner old Mumps, Rubella 00:00:00 - External Td- Tetanus & 2004-10-05 Completed Marlyn Brunner old Diphtheria Vaccine 00:00:00 - Exte rnal (age 7+ years) MMR- Measles, 2004-10-05 Completed Marlyn Brunner old Mumps, Rubella 00:00:00 - External Td- Tetanus & 2004-10-05 Completed Marlyn Brunner old Diphtheria Vaccine 00:00:00 - Exte rnal (age 7+ years) diphtheria/pertussi Unknown Completed Memor ial s, acel/tetanus [place] adult Vital Signs Vital Name Observation Time Observation Value Comments Source Body height 2022-07-17 20:30:00 167.6 cm Marlyn Cabrales eybold - External Body weight 2022-07-17 20:30:00 86.637 kg Marlyn Cabrales eybold - External BMI 2022-07-17 20:30:00 30.83 kg/m2 Marlyn Cabrales eybold - External Systolic blood 2022-06-25 19:36:00 137 mm[Hg] Marlyn Seybold - pressure External Diastolic blood 2022-06-25 19:36:00 85 mm[Hg] Maxim y Seybold - pressure External Heart rate 2022-06-25 19:36:00 76 /min Marlyn Cabrales eybold - External Body temperature 2022-06-25 19:36:00 36.78 Maura Sonali ey [place]bold - External Respiratory rate 2022-06-25 19:36:00 15 /min Sonali galvin Seybold - External Body weight 2022-06-25 19:36:00 86.637 kg Marlyn Cabrales eybold - External BMI 2022-06-25 19:36:00 30.83 kg/m2 Marlyn S eybold - External Systolic blood 2022-06-08 16:21:00 123 mm[Hg] Recheck Marlyn Seybold - pressure External Diastolic blood 2022-06-08 16:21:00 87 mm[Hg] Recheck Kendallse y Seybold - pressure External Heart rate 2022-06-08 16:18:00 81 /min Marlyn S eybold - External Body temperature 2022-06-08 16:18:00 36.33 Maura Sonali ey [place]bold - External Respiratory rate 2022-06-08 16:18:00 16 /min Sonali ey Seybold - External Body height 2022-06-08 16:18:00 167.6 cm Marlyn Cabrales eybold - External Body weight 2022-06-08 16:18:00 84.369 kg Marlyn S eybold - External BMI 2022-06-08 16:18:00 30.02 kg/m2 Marlyn S eybold - External Systolic blood 2022-05-22 19:17:00 126 mm[Hg] Marlyn Seybold - pressure External Diastolic blood 2022-05-22 19:17:00 74 mm[Hg] Kendallse y Seybold - pressure External Body temperature 2022-05-22 19:17:00 37.17 Maura Sonali ey Seybold - External Respiratory rate 2022-05-22 19:17:00 14 /min Sonali ey Seybold - External Body height 2022-05-22 19:17:00 167.6 cm Marlyn Cabrales eybold - External Body weight 2022-05-22 19:17:00 89.812 kg Marlyn Cabrales eybold - External BMI 2022-05-22 19:17:00 31.96 kg/m2 Marlyn S eybold - External Systolic blood 2022-05-07 20:38:00 133 mm[Hg] Marlyn Seybold - pressure External Diastolic blood 2022-05-07 20:38:00 86 mm[Hg] Kendallse y Seybold - pressure External Heart rate 2022-05-07 20:38:00 69 /min Marlyn S eybold - External Body temperature 2022-05-07 20:38:00 36.61 Maura Sonali ey Seybold - External Respiratory rate 2022-05-07 20:38:00 14 /min Sonali ey Seybold - External Body height 2022-05-07 20:38:00 167.6 cm Marlyn Cabrales eybold - External Body weight 2022-05-07 20:38:00 85.276 kg Marlyn S eybold - External BMI 2022-05-07 20:38:00 30.34 kg/m2 Marlyn Cabrales eybold - External Oxygen saturation in 2022-05-07 20:38:00 99 /min Marlyn Seradhaold - Arterial blood by External Pulse oximetry Systolic blood 2022-04-23 15:42:00 94 mm[Hg] Marlyn Seybold - pressure External Diastolic blood 2022-04-23 15:42:00 70 mm[Hg] Kendallse y Seybold - pressure External Heart rate 2022-04-23 15:42:00 55 /min Marlyn Cabrales eybold - External Respiratory rate 2022-04-23 15:42:00 18 /min Sonali galvin Seybold - External Body height 2022-04-23 15:42:00 167.6 cm Marlyn Cabrales eybold - External Body weight 2022-04-23 15:42:00 90.175 kg Marlyn Cabrales eybold - External BMI 2022-04-23 15:42:00 32.09 kg/m2 Marlyn Cabrales eybold - External Systolic blood 2022-04-17 19:49:00 104 mm[Hg] Marlyn Seybold - pressure External Diastolic blood 2022-04-17 19:49:00 72 mm[Hg] Maxim y Seybold - pressure External Heart rate 2022-04-17 19:49:00 83 /min Marlyn Cabrales eybold - External Respiratory rate 2022-04-17 19:49:00 18 /min Sonali galvin Seybold - External Body height 2022-04-17 19:49:00 167.6 cm Marlyn Cabrales eybold - External Body weight 2022-04-17 19:49:00 87.635 kg Marlyn S eybold - External BMI 2022-04-17 19:49:00 31.18 kg/m2 Marlyn S eybold - External Systolic blood 2022-03-22 16:22:00 104 mm[Hg] Marlyn Seybold - pressure External Diastolic blood 2022-03-22 16:22:00 68 mm[Hg] Maxim y Seybold - pressure External Heart rate 2022-03-22 16:22:00 77 /min Marlyn Cabrales eybold - External Body temperature 2022-03-22 16:22:00 36.39 Maura Sonali ey Seybold - External Respiratory rate 2022-03-22 16:22:00 15 /min Sonali ey Seybold - External Body height 2022-03-22 16:22:00 167.6 cm Marlyn Cabrales eybold - External Body weight 2022-03-22 16:22:00 [...] Body temperature 2022-03-08 21:06:00 36.67 Maura Sonali galvin Seybold - External Respiratory rate 2022-03-08 21:06:00 14 /min Sonali galvin Seybold - External Body height 2022-03-08 21:06:00 167.6 cm Marlyn Cabrales eybold - External Body weight 2022-03-08 21:06:00 94.802 kg Marlyn Cabrales eybold - External BMI 2022-03-08 21:06:00 33.73 kg/m2 Marlyn Cabrales eybold - External Systolic (mm Hg) 2015-05-07 01:54:00 Bhargav rial [place] Diastolic (mm Hg) 2015-05-07 01:54:00 Mem orial [place] Respitory Rate 2015-05-07 01:54:00 Memori al [place] Temperature Oral (F) 2015-05-07 01:54:00 98.4 F [facility] [place] Respitory Rate 2015-05-07 00:00:00 Memori al [place] Systolic (mm Hg) 2015-05-07 00:00:00 Bhargav rial [place] Diastolic (mm Hg) 2015-05-07 00:00:00 Shira orial [place] Systolic (mm Hg) 2015-05-06 23:00:00 Bhargav oneill [place] Diastolic (mm Hg) 2015-05-06 23:00:00 Mem orial [place] Respitory Rate 2015-05-06 23:00:00 Ghazal Oliveraann Heart Rate 2015-05-06 21:27:00 [facility] [place] Weight 2015-05-06 21:27:00 [facility] [place] Height 2015-05-06 21:27:00 167.64 cm [facility] [place] BMI Calculated 2015-05-06 21:27:00 Ghazal neal [place] Weight 2012-05-02 10:22:00 [facility] [place] Height 2012-05-02 10:16:00 170.18 cm [facility] [place] Weight 2012-05-02 10:16[facility] Procedure Date / Time Performed Performing Clinician Sour e LUMBAR SPINE 2 VIEWS 2022-06-08 17:41:43 Abdirizak Braswell Seybold - External THORACIC SPINE 3 VIEWS 2022-06-08 17:40:26 Abdirizak Braswell y Seybold - External CERVICAL SPINE - 5 2022-06-08 17:39:17 Abdirizak Braswell Se ybold - VIEWS External Encounters Start End Encounter Admission Attending Care Care Encounter Source Date/Time Date/Time Type Type Clinicians Facility Department ID 2023-01-30 2023-01-30 Outpatient MARLYN MEYER [id number] Marlyn 16:00:00 16:00:00 Seybol d 2023-01-22 2023-01-22 Outpatient MARLYN NARVAEZ [id number] [place] 11:15:00 11:15:00 LALO Seybol d 2023-01-17 2023-01-17 Outpatient MARLYN NARVAEZ [id number] Marlyn 11:15:00 11:15:00 LALO Seybol d 2023-01-14 2023-01-14 Outpatient MARLYN NARVAEZ [id number] [place]n 00:00:00 00:00:00 LALO Seybol d 2023-01-12 2023-01-12 Outpatient MARLYN PENNY [id number] Marlyn 00:00:00 00:00:00 WESAM Seybol d 2022-12-11 2022-12-11 Outpatient MARLYN PENNY [id number] M[place]n 00:00:00 00:00:00 WESAM Seybol d 2022-11-09 2022-11-09 Outpatient MARLYN PETERS [id number] Marlyn 00:00:00 00:00:00 CAROL Seybol d 2022-10-23 2022-10-23 Outpatient TRELL MACK [id number] M[place]n 15:00:00 15:00:00 Seybol d 2022-10-19 2022-10-19 Outpatient MARLYN PENNY [id number] Marlyn 00:00:00 00:00:00 WESAM Seybol d 2022-10-08 2022-10-08 Outpatient MARLYN PENNY [id number] Marlyn 00:00:00 00:00:00 WESAM Seybol d 2022-09-28 2022-09-28 Outpatient GIULIANA ROMERO [id number] Marlyn 14:30:00 14:30:00 Seybol d 2022-09-28 2022-09-28 Outpatient TRELL MACK [id number] Marlyn 13:45:00 13:45:00 Seybol d 2022-09-17 2022-09-17 Outpatient TRELL MACK [id number] [facility]n 15:00:00 15:00:00 Seybol d 2022-09-14 2022-09-14 Outpatient MARLYN BERNAL [id number] [place] 15:30:00 15:30:00 ETELVINA Seybol d 2022-08-19 2022-08-19 Outpatient MARLYN PETERS [id number] [place]n 00:00:00 00:00:00 CAROL Seybol d 2022-08-14 2022-08-14 Outpatient MARLYN PENNY [id number] Marlyn 00:00:00 00:00:00 WESAM Seybol d 2022-07-26 2022-07-26 Outpatient AISHA JUAREZ [id number] Marlyn 09:30:00 09:30:00 Seybol d 2022-07-18 2022-07-18 Outpatient MARLYN MEYER [id number] Marlyn 11:15:00 11:15:00 Seybol d 2022-07-18 2022-07-18 Outpatient MARLYN MEYER [id number] Marlyn 00:00:00 00:00:00 Seybol d 2022-07-17 2022-07-17 Outpatient MARLYN PENNY [id number] Marlyn 15:15:00 15:15:00 WESAM Seybol d 2022-06-26 2022-06-26 Outpatient MARLYN MEYER [id number] Marlyn 00:00:00 00:00:00 Seybol d 2022-06-25 2022-06-25 Outpatient MARLYN JAIME [id number] Marlyn 14:30:00 14:30:00 JENNIFER Seybo ld 2022-06-15 2022-06-15 Outpatient MARLYN BERNAL [id number] Marlyn 13:30:00 13:30:00 ETELVINA Seybol d 2022-06-08 2022-06-08 Outpatient MARLYN MEYER [id number] Marlyn 12:15:00 12:15:00 Seybol d 2022-06-08 2022-06-08 Outpatient MARLYN MEYER [id number] Marlyn 12:10:00 12:10:00 Seybol d 2022-06-08 2022-06-08 Outpatient MARLYN MEYER [id number] Marlyn 12:05:00 12:05:00 Seybol d 2022-06-08 2022-06-08 Outpatient MARLYN BRASWELL [id number] Marlyn 11:30:00 11:30:00 ABDIRIZAK Seybol d 2022-06-06 2022-06-06 Outpatient MARLYN MEDINA [id number] Marlyn 10:45:00 10:45:00 CHRISTOPHER Seybol d 2022-05-30 2022-05-30 Outpatient MARLYN CHAVEZ [id number] Marlyn 00:00:00 00:00:00 EDDIE Seybol d 2022-05-23 2022-05-23 Outpatient MARLYN MEDINA [id number] Marlyn 14:30:00 14:30:00 CHRISTOPHER Seybol d 2022-05-22 2022-05-22 Outpatient LAB90 MARLYN MEYER [id number] Marlyn 15:15:00 15:15:00 Seybol d 2022-05-22 2022-05-22 Outpatient FRAN, MARLYN MEYER [id number] Marlyn 14:30:00 14:30:00 CAROL Seybol d 2022-05-21 2022-05-21 Outpatient Y[place]IMARLYN [place] [id number] Marlyn 13:30:00 13:30:00 JENNIFER Seybo ld 2022-05-14 2022-05-14 Outpatient MARLYN CHAVEZ [id number] Marlyn 00:00:00 00:00:00 EDDIE Seybol d 2022-05-14 2022-05-14 Outpatient NARVAEZMARLYN [id number] Marlyn 00:00:00 00:00:00 LALO Seybol d 2022-05-11 2022-05-11 Outpatient HUNDL, MARLYN MEYER [id number] Marlyn 00:00:00 00:00:00 CAROL Seybol d 2022-05-07 2022-05-07 Outpatient MARLYN CHAVEZ [id number] [place]arlyn 16:00:00 16:00:00 EDDIE Seybol d 2022-05-04 2022-05-04 Outpatient MARLYN MEYER [id number] Marlyn 15:40:00 15:40:00 Seybol d 2022-05-04 2022-05-04 Outpatient MARLYN MEYER [id number] [place]arlyn 13:30:00 13:30:00 Seybol d 2022-05-03 2022-05-03 Outpatient MARLYN MEYER [id number] [place]arlyn 15:00:00 15:00:00 Seybol d 2022-05-01 2022-05-01 Outpatient MARLYN CHAVEZ [id number] [place] 00:00:00 00:00:00 EDDIE Seybol d 2022-04-30 2022-04-30 Outpatient MARLYN PETERS [id number] [place]arlyn 10:30:00 10:30:00 CAROL Seybol d 2022-04-23 2022-04-23 Outpatient MARLYN NARVAEZ [id number] [place]arlyn 09:30:00 09:30:00 LALO Seybol d 2022-04-20 2022-04-20 Outpatient MARLYN NARVAEZ [id number] [place]arlyn 00:00:00 00:00:00 LALO Seybol d 2022-04-18 2022-04-18 Outpatient MARLYN PETERS [id number] [place] 00:00:00 00:00:00 CAROL Seybol d 2022-04-17 2022-04-17 Outpatient MARLYN NARVAEZ [id number] [place]arly[place] 13:45:00 13:45:00 LALO Seybol d 2022-04-06 2022-04-06 Outpatient MARLYN MEYER [id number] [place]arlyn 00:00:00 00:00:00 Seybol d 2022-04-04 2022-04-04 Outpatient MARLYN PETERS [id number] [place] 00:00:00 00:00:00 CAROL Seybol d 2022-03-30 2022-03-30 Outpatient MARLYN PETERS [id number] [place] 00:00:00 00:00:00 CAROL Seybol d 2022-03-29 2022-03-29 Outpatient MARLYN PETERS [id number] [place] 00:00:00 00:00:00 CAROL Seybol d 2022-03-27 2022-03-27 Outpatient MARLYN PETERS [id number] [place] 00:00:00 00:00:00 CAROL Seybol d 2022-03-22 2022-03-22 Outpatient LAB90 MARLYN MEYER [id number] [place]arly[place] 11:25:00 11:25:00 Seybol d 2022-03-22 2022-03-22 Outpatient MARLYN PETERS [id number] [place]arlyn 10:00:00 10:00:00 CAROL Seybol d 2022-03-22 2022-03-22 Outpatient MARLYN MEYER [id number] [place] 00:00:00 00:00:00 Seybol d 2022-03-22 2022-03-22 Outpatient MARLYN MEYER [id number] [place]arlyn 00:00:00 00:00:00 Seybol d 2022-03-09 2022-03-09 Outpatient MARLYN CHAVEZ MARLYN [id number] [place]arlyn 00:00:00 00:00:00 EDDIE Seybol d 2022-03-08 2022-03-08 Outpatient FRAN MARLYN MEYER [id number] [place]arlyn 15:30:00 15:30:00 CAROL Seybol d 2022-03-08 2022-03-08 Outpatient MARLYN MEYER [id number] [place]n 00:00:00 00:00:00 Seybol d 2015-05-06 2015-05-07 EC nullFlavo [facility] [id number] Memoria 21:28:00 02:10:00 Emergency r [address] 2015-05-06 2015-05-07 [facility] [id number] Memoria 21:28:00 02:10:00 Emergency r [address] 2015-05-06 2015-05-06 Outpatient Damaris [facility] [id number] 16:28:00 21:10:00 Jaya oRse 2012-05-02 2012-05-02 [facility] [id number] Memoria 04:01:00 09:33:[address] 2012-05-02 2012-05-02 [facility] [id number] Memoria 04:01:00 09:33:[address] Results Test Description Test Time Test Comments Results Result Comments Source DRUG SCREEN 2015-05-06 23:15:00 Test Item Value Reference Range Interpretation Comme nts U Dejah Scr (test code = U Dejah Scr) Negative *NA*(05/06/15 6:15 PM) [facility] [id number] 23:15:00 Test Item Value Reference Range Interpretation Comments U Benzodia Scr (test Negative *NA*(05/06/15 code = U Benzodia Scr) 6:15 PM) [facility] [id number] 23:15:00 Test Item Value Reference Range Interpretation Comments U Cocaine Scr (test Negative *NA*(05/06/15 code = U Cocaine Scr) 6:15 PM) [facility] [id number] 23:15:00 Test Item Value Reference Range Interpretation Comments U Cannab Scr (test Positive *ABN*(05/06/15 code = U Cannab Scr) 6:15 PM) [facility] [id number] 23:15:00 Test Item Value Reference Range Interpretation Comments U Opiate Scr (test Positive *ABN*(05/06/15 code = U Opiate Scr) 6:15 PM) [facility] [id number] 23:15:00 Test Item Value Reference Range Interpretation Comments U Phencyc Scr (test Negative *NA*(05/06/15 code = U Phencyc Scr) 6:15 PM) [facility] [id number] 23:15:00 Test Item Value Reference Range Interpretation Comments UDS Note (test code = See Note (05/06/15 6:15 UDS Note) PM) [facility] [id number] 23:15:00 Test Item Value Reference Range Interpretation Comments U Amph Scr (test code Negative *NA*(05/06/15 = U Amph Scr) 6:15 PM) [facility] [id number] 23:15:00 Test Item Value Reference Range Interpretation Comments UA Glucose (test code = UA Negative mg/dL Glucose) [facility] [id number] 23:15:00 Test Item Value Reference Range Interpretation Comments UA Protein (test code = UA Negative mg/dL Protein) [facility] [id number] 23:15:00 Test Item Value Reference Range Interpretation Comments UA Color (test code = Yellow *NA*(05/06/15 UA Color) 6:15 PM) [facility] [id number] 23:15:00 Test Item Value Reference Range Interpretation Comments UA Spec Grav (test code = UA Spec 1.020 1 Grav) [facility] [id number] 23:15:00 Test Item Value Reference Range Interpretation Comments UA Turbidity (test code Slight Cloudy = UA Turbidity) (05/06/15 6:15 PM) [facility] [id number] 23:15:00 Test Item Value Reference Range Interpretation Comments UA pH (test code = UA pH) 5.5 1 5.0-8.0 [facility] [id number] 23:15:00 Test Item Value Reference Range Interpretation Comments UA Ketones (test code = UA Negative mg/dL Ketones) [facility] [id number] 23:15:00 Test Item Value Reference Range Interpretation Comments UA Bili (test code = Negative *NA*(05/06/15 UA Bili) 6:15 PM) [facility] [id number] 23:15:00 Test Item Value Reference Range Interpretation Comments UA Blood (test code = Negative (05/06/15 6:15 UA Blood) PM) [facility] [id number] 23:15:00 Test Item Value Reference Range Interpretation Comments UA Nitrite (test code Negative (05/06/15 6:15 = UA Nitrite) PM) [facility] [id number] 23:15:00 Test Item Value Reference Range Interpretation Comments UA Urobilinogen (test code = UA 0.2 0.1-1.0 Urobilinogen) [facility] [id number] 23:15:00 Test Item Value Reference Range Interpretation Comments UA Leuk Est (test Negative (05/06/15 6:15 code = UA Leuk Est) PM) [facility] [id number] 23:15:00 Test Item Value Reference Range Interpretation Comments UA RBC (test code = UA None Seen (05/06/15 6:15 <=2 RBC) PM) [facility] [id number] 23:15:00 Test Item Value Reference Range Interpretation Comments UA WBC (test code = UA WBC) 0-2 /HPF [facility] [id number] 23:15:00 Test Item Value Reference Range Interpretation Comments UA Bacteria (test code = None Seen (05/06/15 UA Bacteria) 6:15 PM) [facility] [id number] 23:15:00 Test Item Value Reference Range Interpretation Comments UA Sq Epi (test code = UA Sq Epi) Rare /LPF [facility] [id number] 23:15:00 Test Item Value Reference Range Interpretation Comments U Dejah Scr (test code Negative *NA*(05/06/15 = U Dejah Scr) 6:15 PM) [facility] [id number] 23:15:00 Test Item Value Reference Range Interpretation Comments U Benzodia Scr (test Negative *NA*(05/06/15 code = U Benzodia Scr) 6:15 PM) [facility] [id number] 23:15:00 Test Item Value Reference Range Interpretation Comments U Cocaine Scr (test Negative *NA*(05/06/15 code = U Cocaine Scr) 6:15 PM) [facility] [id number] 23:15:00 Test Item Value Reference Range Interpretation Comments U Cannab Scr (test Positive *ABN*(05/06/15 code = U Cannab Scr) 6:15 PM) [facility] [id number] 23:15:00 Test Item Value Reference Range Interpretation Comments U Opiate Scr (test Positive *ABN*(05/06/15 code = U Opiate Scr) 6:15 PM) [facility] [id number] 23:15:00 Test Item Value Reference Range Interpretation Comments U Phencyc Scr (test Negative *NA*(05/06/15 code = U Phencyc Scr) 6:15 PM) [facility] [id number] 23:15:00 Test Item Value Reference Range Interpretation Comments UDS Note (test code = See Note (05/06/15 6:15 UDS Note) PM) [facility] [id number] 23:15:00 Test Item Value Reference Range Interpretation Comments U Amph Scr (test code Negative *NA*(05/06/15 = U Amph Scr) 6:15 PM) [facility] [id number] 23:15:00 Test Item Value Reference Range Interpretation Comments UA Glucose (test code = UA Negative mg/dL Glucose) [facility] [id number] 23:15:00 Test Item Value Reference Range Interpretation Comments UA Protein (test code = UA Negative mg/dL Protein) [facility] [id number] 23:15:00 Test Item Value Reference Range Interpretation Comments UA Color (test code = Yellow *NA*(05/06/15 UA Color) 6:15 PM) [facility] [id number] 23:15:00 Test Item Value Reference Range Interpretation Comments UA Spec Grav (test code = UA Spec 1.020 1 Grav) [facility] [id number] 23:15:00 Test Item Value Reference Range Interpretation Comments UA Turbidity (test code Slight Cloudy = UA Turbidity) (05/06/15 6:15 PM) [facility] [id number] 23:15:00 Test Item Value Reference Range Interpretation Comments UA pH (test code = UA pH) 5.5 1 5.0-8.0 [facility] [id number] 23:15:00 Test Item Value Reference Range Interpretation Comments UA Ketones (test code = UA Negative mg/dL Ketones) [facility] [id number] 23:15:00 Test Item Value Reference Range Interpretation Comments UA Bili (test code = Negative *NA*(05/06/15 UA Bili) 6:15 PM) [facility] [id number] 23:15:00 Test Item Value Reference Range Interpretation Comments UA Blood (test code = Negative (05/06/15 6:15 UA Blood) PM) [facility] [id number] 23:15:00 Test Item Value Reference Range Interpretation Comments UA Nitrite (test code Negative (05/06/15 6:15 = UA Nitrite) PM) [facility] [id number] 23:15:00 Test Item Value Reference Range Interpretation Comments UA Urobilinogen (test code = UA 0.2 0.1-1.0 Urobilinogen) [facility] [id number] 23:15:00 Test Item Value Reference Range Interpretation Comments UA Leuk Est (test Negative (05/06/15 6:15 code = UA Leuk Est) PM) [facility] [id number] 23:15:00 Test Item Value Reference Range Interpretation Comments U Dejah Scr (test code Negative *NA*(05/06/15 = U Dejah Scr) 6:15 PM) [facility] [id number] 23:15:00 Test Item Value Reference Range Interpretation Comments UA RBC (test None Seen See_Comment [Automated mes keely] code = UA RBC) (05/06/15 6:15 The system [facility] PM) generated this result transmitted ref erence range: <=2. The reference range was not used to int erpret this result as normal/abnormal . [facility] [id number] 23:15:00 Test Item Value Reference Range Interpretation Comments UA WBC (test code = UA WBC) 0-2 /HPF [facility] [id number] 23:15:00 Test Item Value Reference Range Interpretation Comments UA Bacteria (test code = None Seen (05/06/15 UA Bacteria) 6:15 PM) [facility] [id number] 23:15:00 Test Item Value Reference Range Interpretation Comments UA Sq Epi (test code = UA Sq Epi) Rare /LPF [facility] [id number] 23:15:00 Test Item Value Reference Range Interpretation Comments U Benzodia Scr (test Negative *NA*(05/06/15 code = U Benzodia Scr) 6:15 PM) [facility] [id number] 23:15:00 Test Item Value Reference Range Interpretation Comments U Cocaine Scr (test Negative *NA*(05/06/15 code = U Cocaine Scr) 6:15 PM) [facility] [id number] 23:15:00 Test Item Value Reference Range Interpretation Comments U Cannab Scr (test Positive *ABN*(05/06/15 code = U Cannab Scr) 6:15 PM) [facility] [id number] 23:15:00 Test Item Value Reference Range Interpretation Comments U Opiate Scr (test Positive *ABN*(05/06/15 code = U Opiate Scr) 6:15 PM) [facility] [id number] 23:15:00 Test Item Value Reference Range Interpretation Comments U Phencyc Scr (test Negative *NA*(05/06/15 code = U Phencyc Scr) 6:15 PM) [facility] [id number] 23:15:00 Test Item Value Reference Range Interpretation Comments UDS Note (test code = See Note (05/06/15 6:15 UDS Note) PM) [facility] [id number] 23:15:00 Test Item Value Reference Range Interpretation Comments U Amph Scr (test code Negative *NA*(05/06/15 = U Amph Scr) 6:15 PM) [facility] [id number] 23:15:00 Test Item Value Reference Range Interpretation Comments UA Glucose (test code = UA Negative mg/dL Glucose) [facility] [id number] 23:15:00 Test Item Value Reference Range Interpretation Comments UA Protein (test code = UA Negative mg/dL Protein) [facility] [id number] 23:15:00 Test Item Value Reference Range Interpretation Comments UA Color (test code = Yellow *NA*(05/06/15 UA Color) 6:15 PM) [facility] [id number] 23:15:00 Test Item Value Reference Range Interpretation Comments U Dejah Scr (test code Negative *NA*(05/06/15 = U Dejah Scr) 6:15 PM) [facility] [id number] 23:15:00 Test Item Value Reference Range Interpretation Comments U Benzodia Scr (test Negative *NA*(05/06/15 code = U Benzodia Scr) 6:15 PM) [facility] [id number] 23:15:00 Test Item Value Reference Range Interpretation Comments U Cocaine Scr (test Negative *NA*(05/06/15 code = U Cocaine Scr) 6:15 PM) [facility] [id number] 23:15:00 Test Item Value Reference Range Interpretation Comments U Cannab Scr (test Positive *ABN*(05/06/15 code = U Cannab Scr) 6:15 PM) [facility] [id number] 23:15:00 Test Item Value Reference Range Interpretation Comments U Opiate Scr (test Positive *ABN*(05/06/15 code = U Opiate Scr) 6:15 PM) [facility] AND [id number] 23:15:00 Test Item Value Reference Range Interpretation Comments UA Spec Grav (test code = UA Spec 1.020 1 Grav) [facility] [id number] 23:15:00 Test Item Value Reference Range Interpretation Comments U Phencyc Scr (test Negative *NA*(05/06/15 code = U Phencyc Scr) 6:15 PM) [facility] [id number] 23:15:00 Test Item Value Reference Range Interpretation Comments UDS Note (test code = See Note (05/06/15 6:15 UDS Note) PM) [facility] [id number] 23:15:00 Test Item Value Reference Range Interpretation Comments U Amph Scr (test code Negative *NA*(05/06/15 = U Amph Scr) 6:15 PM) [facility] [id number] 23:15:00 Test Item Value Reference Range Interpretation Comments UA Glucose (test code = UA Negative mg/dL Glucose) [facility] [id number] 23:15:00 Test Item Value Reference Range Interpretation Comments UA Protein (test code = UA Negative mg/dL Protein) [facility] [id number] 23:15:00 Test Item Value Reference Range Interpretation Comments UA Color (test code = Yellow *NA*(05/06/15 UA Color) 6:15 PM) [facility] [id number] 23:15:00 Test Item Value Reference Range Interpretation Comments UA Spec Grav (test code = UA Spec 1.020 1 Grav) [facility] [id number] 23:15:00 Test Item Value Reference Range Interpretation Comments UA Turbidity (test code Slight Cloudy = UA Turbidity) (05/06/15 6:15 PM) [facility] [id number] 23:15:00 Test Item Value Reference Range Interpretation Comments UA pH (test code = UA pH) 5.5 1 5.0-8.0 [facility] [id number] 23:15:00 Test Item Value Reference Range Interpretation Comments UA Ketones (test code = UA Negative mg/dL Ketones) [facility] [id number] 23:15:00 Test Item Value Reference Range Interpretation Comments UA Turbidity (test code Slight Cloudy = UA Turbidity) (05/06/15 6:15 PM) [facility] [id number] 23:15:00 Test Item Value Reference Range Interpretation Comments UA Bili (test code = Negative *NA*(05/06/15 UA Bili) 6:15 PM) [facility] [id number] 23:15:00 Test Item Value Reference Range Interpretation Comments UA Blood (test code = Negative (05/06/15 6:15 UA Blood) PM) [facility] [id number] 23:15:00 Test Item Value Reference Range Interpretation Comments UA Nitrite (test code Negative (05/06/15 6:15 = UA Nitrite) PM) [facility] [id number] 23:15:00 Test Item Value Reference Range Interpretation Comments UA Urobilinogen (test code = UA 0.2 0.1-1.0 Urobilinogen) [facility] AND [id number] 23:15:00 Test Item Value Reference Range Interpretation Comments UA Leuk Est (test Negative (05/06/15 6:15 code = UA Leuk Est) PM) [facility] AND [id number] 23:15:00 Test Item Value Reference Range Interpretation Comments UA RBC (test None Seen See_Comment [Automated mes keely] code = UA RBC) (05/06/15 6:15 The system w hich PM) generated this result transmitted ref erence range: <=2. The reference range was not used to int erpret this result as normal/abnormal . [facility] AND [id number] 23:15:00 Test Item Value Reference Range Interpretation Comments UA WBC (test code = UA WBC) 0-2 /HPF [facility] AND [id number] 23:15:00 Test Item Value Reference Range Interpretation Comments UA Bacteria (test code = None Seen (05/06/15 UA Bacteria) 6:15 PM) [facility] AND [id number] 23:15:00 Test Item Value Reference Range Interpretation Comments UA Sq Epi (test code = UA Sq Epi) Rare /LPF [facility] AND [id number] 23:15:00 Test Item Value Reference Range Interpretation Comments UA pH (test code = UA pH) 5.5 1 5.0-8.0 [facility] AND [id number] 23:15:00 Test Item Value Reference Range Interpretation Comments UA Ketones (test code = UA Negative mg/dL Ketones) [facility] AND [id number] 23:15:00 Test Item Value Reference Range Interpretation Comments UA Bili (test code = Negative *NA*(05/06/15 UA Bili) 6:15 PM) [facility] AND [id number] 23:15:00 Test Item Value Reference Range Interpretation Comments UA Blood (test code = Negative (05/06/15 6:15 UA Blood) PM) [facility] [id number] 23:15:00 Test Item Value Reference Range Interpretation Comments UA Nitrite (test code Negative (05/06/15 6:15 = UA Nitrite) PM) [facility] [id number] 23:15:00 Test Item Value Reference Range Interpretation Comments UA Urobilinogen (test code = UA 0.2 0.1-1.0 Urobilinogen) [facility] [id number] 23:15:00 Test Item Value Reference Range Interpretation Comments UA Leuk Est (test Negative (05/06/15 6:15 code = UA Leuk Est) PM) [facility] [id number] 23:15:00 Test Item Value Reference Range Interpretation Comments UA RBC (test None Seen See_Comment [Automated mes keely] code = UA RBC) (05/06/15 6:15 The system [facility] PM) generated this result transmitted ref erence range: <=2. The reference range was not used to int erpret this result as normal/abnormal . [facility] [id number] 23:15:00 Test Item Value Reference Range Interpretation Comments UA WBC (test code = UA WBC) 0-2 /HPF [facility] [id number] 23:15:00 Test Item Value Reference Range Interpretation Comments UA Bacteria (test code = None Seen (05/06/15 UA Bacteria) 6:15 PM) [facility] [id number] 23:15:00 Test Item Value Reference Range Interpretation Comments UA Sq Epi (test code = UA Sq Epi) Rare /LPF [facility] [id number] 23:15:00 Test Item Value Reference Range Interpretation Comments U Dejah Scr (test code Negative *NA*(05/06/15 = U Dejah Scr) 6:15 PM) [facility] [id number] 23:15:00 Test Item Value Reference Range Interpretation Comments U Benzodia Scr (test Negative *NA*(05/06/15 code = U Benzodia Scr) 6:15 PM) [facility] [id number] 23:15:00 Test Item Value Reference Range Interpretation Comments U Cocaine Scr (test Negative *NA*(05/06/15 code = U Cocaine Scr) 6:15 PM) [facility] [id number] 23:15:00 Test Item Value Reference Range Interpretation Comments U Cannab Scr (test Positive *ABN*(05/06/15 code = U Cannab Scr) 6:15 PM) [facility] [id number] 23:15:00 Test Item Value Reference Range Interpretation Comments U Opiate Scr (test Positive *ABN*(05/06/15 code = U Opiate Scr) 6:15 PM) [facility] [id number] 23:15:00 Test Item Value Reference Range Interpretation Comments U Phencyc Scr (test Negative *NA*(05/06/15 code = U Phencyc Scr) 6:15 PM) [facility] [id number] 23:15:00 Test Item Value Reference Range Interpretation Comments UDS Note (test code = See Note (05/06/15 6:15 UDS Note) PM) [facility] [id number] 23:15:00 Test Item Value Reference Range Interpretation Comments U Amph Scr (test code Negative *NA*(05/06/15 = U Amph Scr) 6:15 PM) [facility] [id number] 23:15:00 Test Item Value Reference Range Interpretation Comments UA Glucose (test code = UA Negative mg/dL Glucose) [facility] [id number] 23:15:00 Test Item Value Reference Range Interpretation Comments UA Protein (test code = UA Negative mg/dL Protein) [facility] [id number] 23:15:00 Test Item Value Reference Range Interpretation Comments UA Color (test code = Yellow *NA*(05/06/15 UA Color) 6:15 PM) [facility] [id number] 23:15:00 Test Item Value Reference Range Interpretation Comments UA Spec Grav (test code = UA Spec 1.020 1 Grav) [facility] [id number] 23:15:00 Test Item Value Reference Range Interpretation Comments UA Turbidity (test code Slight Cloudy = UA Turbidity) (05/06/15 6:15 PM) [facility] [id number] 23:15:00 Test Item Value Reference Range Interpretation Comments UA pH (test code = UA pH) 5.5 1 5.0-8.0 [facility] AND [id number] 23:15:00 Test Item Value Reference Range Interpretation Comments UA Ketones (test code = UA Negative mg/dL Ketones) [facility] AND [id number] 23:15:00 Test Item Value Reference Range Interpretation Comments UA Bili (test code = Negative *NA*(05/06/15 UA Bili) 6:15 PM) [facility] AND [id number] 23:15:00 Test Item Value Reference Range Interpretation Comments UA Blood (test code = Negative (05/06/15 6:15 UA Blood) PM) [facility] AND [id number] 23:15:00 Test Item Value Reference Range Interpretation Comments UA Nitrite (test code Negative (05/06/15 6:15 = UA Nitrite) PM) [facility] AND [id number] 23:15:00 Test Item Value Reference Range Interpretation Comments UA Urobilinogen (test code = UA 0.2 0.1-1.0 Urobilinogen) [facility] AND [id number] 23:15:00 Test Item Value Reference Range Interpretation Comments UA Leuk Est (test Negative (05/06/15 6:15 code = UA Leuk Est) PM) [facility] AND [id number] 23:15:00 Test Item Value Reference Range Interpretation Comments UA RBC (test None Seen See_Comment [Automated mes keely] code = UA RBC) (05/06/15 6:15 The system [facility] PM) generated this result transmitted ref erence range: <=2. The reference range was not used to int erpret this result as normal/abnormal . [facility] AND [id number] 23:15:00 Test Item Value Reference Range Interpretation Comments UA WBC (test code = UA WBC) 0-2 /HPF [facility] AND [id number] 23:15:00 Test Item Value Reference Range Interpretation Comments UA Bacteria (test code = None Seen (05/06/15 UA Bacteria) 6:15 PM) [facility] AND [id number] 23:15:00 Test Item Value Reference Range Interpretation Comments UA Sq Epi (test code = UA Sq Epi) Rare /LPF [facility] [id number] 23:15:00 Test Item Value Reference Range Interpretation Comments U Dejah Scr (test code Negative *NA*(05/06/15 = U Dejah Scr) 6:15 PM) [facility] [id number] 23:15:00 Test Item Value Reference Range Interpretation Comments U Benzodia Scr (test Negative *NA*(05/06/15 code = U Benzodia Scr) 6:15 PM) [facility] [id number] 23:15:00 Test Item Value Reference Range Interpretation Comments U Cocaine Scr (test Negative *NA*(05/06/15 code = U Cocaine Scr) 6:15 PM) [facility] [id number] 23:15:00 Test Item Value Reference Range Interpretation Comments U Cannab Scr (test Positive *ABN*(05/06/15 code = U Cannab Scr) 6:15 PM) [facility] [id number] 23:15:00 Test Item Value Reference Range Interpretation Comments U Opiate Scr (test Positive *ABN*(05/06/15 code = U Opiate Scr) 6:15 PM) [facility] [id number] 23:15:00 Test Item Value Reference Range Interpretation Comments U Phencyc Scr (test Negative *NA*(05/06/15 code = U Phencyc Scr) 6:15 PM) [facility] [id number] 23:15:00 Test Item Value Reference Range Interpretation Comments UDS Note (test code = See Note (05/06/15 6:15 UDS Note) PM) [facility] [id number] 23:15:00 Test Item Value Reference Range Interpretation Comments U Amph Scr (test code Negative *NA*(05/06/15 = U Amph Scr) 6:15 PM) [facility] [id number] 23:15:00 Test Item Value Reference Range Interpretation Comments UA Glucose (test code = UA Negative mg/dL Glucose) [facility] [id number] 23:15:00 Test Item Value Reference Range Interpretation Comments UA Protein (test code = UA Negative mg/dL Protein) [facility] [id number] 23:15:00 Test Item Value Reference Range Interpretation Comments UA Color (test code = Yellow *NA*(05/06/15 UA Color) 6:15 PM) [facility] AND [id number] 23:15:00 Test Item Value Reference Range Interpretation Comments UA Spec Grav (test code = UA Spec 1.020 1 Grav) [facility] AND [id number] 23:15:00 Test Item Value Reference Range Interpretation Comments UA Turbidity (test code Slight Cloudy = UA Turbidity) (05/06/15 6:15 PM) [facility] AND [id number] 23:15:00 Test Item Value Reference Range Interpretation Comments UA pH (test code = UA pH) 5.5 1 5.0-8.0 [facility] AND [id number] 23:15:00 Test Item Value Reference Range Interpretation Comments UA Ketones (test code = UA Negative mg/dL Ketones) [facility] AND [id number] 23:15:00 Test Item Value Reference Range Interpretation Comments UA Bili (test code = Negative *NA*(05/06/15 UA Bili) 6:15 PM) [facility] AND [id number] 23:15:00 Test Item Value Reference Range Interpretation Comments UA Blood (test code = Negative (05/06/15 6:15 UA Blood) PM) [facility] AND [id number] 23:15:00 Test Item Value Reference Range Interpretation Comments UA Nitrite (test code Negative (05/06/15 6:15 = UA Nitrite) PM) [facility] AND [id number] 23:15:00 Test Item Value Reference Range Interpretation Comments UA Urobilinogen (test code = UA 0.2 0.1-1.0 Urobilinogen) [facility] AND [id number] 23:15:00 Test Item Value Reference Range Interpretation Comments UA Leuk Est (test Negative (05/06/15 6:15 code = UA Leuk Est) PM) [facility] AND [id number] 23:15:00 Test Item Value Reference Range Interpretation Comments UA RBC (test None Seen See_Comment [Automated mes keely] code = UA RBC) (05/06/15 6:15 The system w hich PM) generated this result transmitted ref erence range: <=2. The reference range was not used to int erpret this result as normal/abnormal . [facility] [id number] 23:15:00 Test Item Value Reference Range Interpretation Comments UA WBC (test code = UA WBC) 0-2 /HPF [facility] [id number] 23:15:00 Test Item Value Reference Range Interpretation Comments UA Bacteria (test code = None Seen (05/06/15 UA Bacteria) 6:15 PM) [facility] [id number] 23:15:00 Test Item Value Reference Range Interpretation Comments UA Sq Epi (test code = UA Sq Epi) Rare /LPF [facility] [id number] 23:15:00 Test Item Value Reference Range Interpretation Comments U Dejah Scr (test code Negative *NA*(05/06/15 = U Dejah Scr) 6:15 PM) [facility] [id number] 23:15:00 Test Item Value Reference Range Interpretation Comments U Benzodia Scr (test Negative *NA*(05/06/15 code = U Benzodia Scr) 6:15 PM) [facility] [id number] 23:15:00 Test Item Value Reference Range Interpretation Comments U Cocaine Scr (test Negative *NA*(05/06/15 code = U Cocaine Scr) 6:15 PM) [facility] [id number] 23:15:00 Test Item Value Reference Range Interpretation Comments U Cannab Scr (test Positive *ABN*(05/06/15 code = U Cannab Scr) 6:15 PM) [facility] [id number] 23:15:00 Test Item Value Reference Range Interpretation Comments U Opiate Scr (test Positive *ABN*(05/06/15 code = U Opiate Scr) 6:15 PM) [facility] [id number] 23:15:00 Test Item Value Reference Range Interpretation Comments U Phencyc Scr (test Negative *NA*(05/06/15 code = U Phencyc Scr) 6:15 PM) [facility] [id number] 23:15:00 Test Item Value Reference Range Interpretation Comments UDS Note (test code = See Note (05/06/15 6:15 UDS Note) PM) [facility] [id number] 23:15:00 Test Item Value Reference Range Interpretation Comments U Amph Scr (test code Negative *NA*(05/06/15 = U Amph Scr) 6:15 PM) [facility] [id number] 23:15:00 Test Item Value Reference Range Interpretation Comments UA Glucose (test code = UA Negative mg/dL Glucose) [facility] [id number] 23:15:00 Test Item Value Reference Range Interpretation Comments UA Protein (test code = UA Negative mg/dL Protein) [facility] [id number] 23:15:00 Test Item Value Reference Range Interpretation Comments UA Color (test code = Yellow *NA*(05/06/15 UA Color) 6:15 PM) [facility] [id number] 23:15:00 Test Item Value Reference Range Interpretation Comments UA Spec Grav (test code = UA Spec 1.020 1 Grav) [facility] [id number] 23:15:00 Test Item Value Reference Range Interpretation Comments UA Turbidity (test code Slight Cloudy = UA Turbidity) (05/06/15 6:15 PM) [facility] [id number] 23:15:00 Test Item Value Reference Range Interpretation Comments UA pH (test code = UA pH) 5.5 1 5.0-8.0 [facility] [id number] 23:15:00 Test Item Value Reference Range Interpretation Comments UA Ketones (test code = UA Negative mg/dL Ketones) [facility] [id number] 23:15:00 Test Item Value Reference Range Interpretation Comments UA Bili (test code = Negative *NA*(05/06/15 UA Bili) 6:15 PM) [facility] [id number] 23:15:00 Test Item Value Reference Range Interpretation Comments UA Blood (test code = Negative (05/06/15 6:15 UA Blood) PM) [facility] [id number] 23:15:00 Test Item Value Reference Range Interpretation Comments UA Nitrite (test code Negative (05/06/15 6:15 = UA Nitrite) PM) [facility] [id number] 23:15:00 Test Item Value Reference Range Interpretation Comments UA Urobilinogen (test code = UA 0.2 0.1-1.0 Urobilinogen) [facility] [id number] 23:15:00 Test Item Value Reference Range Interpretation Comments UA Leuk Est (test Negative (05/06/15 6:15 code = UA Leuk Est) PM) [facility] [id number] 23:15:00 Test Item Value Reference Range Interpretation Comments UA RBC (test None Seen See_Comment [Automated mes keely] code = UA RBC) (05/06/15 6:15 The system w hich PM) generated this result transmitted ref erence range: <=2. The reference range was not used to int erpret this result as normal/abnormal . [facility] [id number] 23:15:00 Test Item Value Reference Range Interpretation Comments UA WBC (test code = UA WBC) 0-2 /HPF [facility] [id number] 23:15:00 Test Item Value Reference Range Interpretation Comments UA Bacteria (test code = None Seen (05/06/15 UA Bacteria) 6:15 PM) [facility] [id number] 23:15:00 Test Item Value Reference Range Interpretation Comments UA Sq Epi (test code = UA Sq Epi) Rare /LPF [facility] [id number] 23:15:00 Test Item Value Reference Range Interpretation Comments U Dejah Scr (test code Negative *NA*(05/06/15 = U Dejah Scr) 6:15 PM) [facility] [id number] 23:15:00 Test Item Value Reference Range Interpretation Comments U Benzodia Scr (test Negative *NA*(05/06/15 code = U Benzodia Scr) 6:15 PM) [facility] [id number] 23:15:00 Test Item Value Reference Range Interpretation Comments U Cocaine Scr (test Negative *NA*(05/06/15 code = U Cocaine Scr) 6:15 PM) [facility] [id number] 23:15:00 Test Item Value Reference Range Interpretation Comments U Cannab Scr (test Positive *ABN*(05/06/15 code = U Cannab Scr) 6:15 PM) [facility] [id number] 23:15:00 Test Item Value Reference Range Interpretation Comments U Opiate Scr (test Positive *ABN*(05/06/15 code = U Opiate Scr) 6:15 PM) [facility] [id number] 23:15:00 Test Item Value Reference Range Interpretation Comments U Phencyc Scr (test Negative *NA*(05/06/15 code = U Phencyc Scr) 6:15 PM) [facility] [id number] 23:15:00 Test Item Value Reference Range Interpretation Comments UDS Note (test code = See Note (05/06/15 6:15 UDS Note) PM) [facility] [id number] 23:15:00 Test Item Value Reference Range Interpretation Comments U Amph Scr (test code Negative *NA*(05/06/15 = U Amph Scr) 6:15 PM) [facility] [id number] 23:15:00 Test Item Value Reference Range Interpretation Comments UA Glucose (test code = UA Negative mg/dL Glucose) [facility] [id number] 23:15:00 Test Item Value Reference Range Interpretation Comments UA Protein (test code = UA Negative mg/dL Protein) [facility] [id number] 23:15:00 Test Item Value Reference Range Interpretation Comments UA Color (test code = Yellow *NA*(05/06/15 UA Color) 6:15 PM) [facility] [id number] 23:15:00 Test Item Value Reference Range Interpretation Comments UA Spec Grav (test code = UA Spec 1.020 1 Grav) [facility] [id number] 23:15:00 Test Item Value Reference Range Interpretation Comments UA Turbidity (test code Slight Cloudy = UA Turbidity) (05/06/15 6:15 PM) [facility] [id number] 23:15:00 Test Item Value Reference Range Interpretation Comments UA pH (test code = UA pH) 5.5 1 5.0-8.0 [facility] [id number] 23:15:00 Test Item Value Reference Range Interpretation Comments UA Ketones (test code = UA Negative mg/dL Ketones) [facility] [id number] 23:15:00 Test Item Value Reference Range Interpretation Comments UA Bili (test code = Negative *NA*(05/06/15 UA Bili) 6:15 PM) [facility] [id number] 23:15:00 Test Item Value Reference Range Interpretation Comments UA Blood (test code = Negative (05/06/15 6:15 UA Blood) PM) [facility] [id number] 23:15:00 Test Item Value Reference Range Interpretation Comments UA Nitrite (test code Negative (05/06/15 6:15 = UA Nitrite) PM) [facility] [id number] 23:15:00 Test Item Value Reference Range Interpretation Comments UA Urobilinogen (test code = UA 0.2 0.1-1.0 Urobilinogen) [facility] [id number] 23:15:00 Test Item Value Reference Range Interpretation Comments UA Leuk Est (test Negative (05/06/15 6:15 code = UA Leuk Est) PM) [facility] [id number] 23:15:00 Test Item Value Reference Range Interpretation Comments UA RBC (test None Seen See_Comment [Automated mes keely] code = UA RBC) (05/06/15 6:15 The system w [facility] PM) generated this result transmitted ref erence range: <=2. The reference range was not used to int erpret this result as normal/abnormal . [facility] [id number] 23:15:00 Test Item Value Reference Range Interpretation Comments UA WBC (test code = UA WBC) 0-2 /HPF [facility] [id number] 23:15:00 Test Item Value Reference Range Interpretation Comments UA Bacteria (test code = None Seen (05/06/15 UA Bacteria) 6:15 PM) [facility] [id number] 23:15:00 Test Item Value Reference Range Interpretation Comments UA Sq Epi (test code = UA Sq Epi) Rare /LPF [facility] [id number] 23:15:00 Test Item Value Reference Range Interpretation Comments U Dejah Scr (test code Negative *NA*(05/06/15 = U Dejah Scr) 6:15 PM) [facility] [id number] 23:15:00 Test Item Value Reference Range Interpretation Comments U Benzodia Scr (test Negative *NA*(05/06/15 code = U Benzodia Scr) 6:15 PM) [facility] [id number] 23:15:00 Test Item Value Reference Range Interpretation Comments U Cocaine Scr (test Negative *NA*(05/06/15 code = U Cocaine Scr) 6:15 PM) [facility] [id number] 23:15:00 Test Item Value Reference Range Interpretation Comments U Cannab Scr (test Positive *ABN*(05/06/15 code = U Cannab Scr) 6:15 PM) [facility] [id number] 23:15:00 Test Item Value Reference Range Interpretation Comments U Opiate Scr (test Positive *ABN*(05/06/15 code = U Opiate Scr) 6:15 PM) [facility] [id number] 23:15:00 Test Item Value Reference Range Interpretation Comments U Phencyc Scr (test Negative *NA*(05/06/15 code = U Phencyc Scr) 6:15 PM) [facility] [id number] 23:15:00 Test Item Value Reference Range Interpretation Comments UDS Note (test code = See Note (05/06/15 6:15 UDS Note) PM) [facility] [id number] 23:15:00 Test Item Value Reference Range Interpretation Comments U Amph Scr (test code Negative *NA*(05/06/15 = U Amph Scr) 6:15 PM) [facility] [id number] 23:15:00 Test Item Value Reference Range Interpretation Comments UA Glucose (test code = UA Negative mg/dL Glucose) [facility] [id number] 23:15:00 Test Item Value Reference Range Interpretation Comments UA Protein (test code = UA Negative mg/dL Protein) [facility] [id number] 23:15:00 Test Item Value Reference Range Interpretation Comments UA Color (test code = Yellow *NA*(05/06/15 UA Color) 6:15 PM) [facility] [id number] 23:15:00 Test Item Value Reference Range Interpretation Comments UA Spec Grav (test code = UA Spec 1.020 1 Grav) [facility] [id number] 23:15:00 Test Item Value Reference Range Interpretation Comments UA Turbidity (test code Slight Cloudy = UA Turbidity) (05/06/15 6:15 PM) [facility] AND [id number] 23:15:00 Test Item Value Reference Range Interpretation Comments UA pH (test code = UA pH) 5.5 1 5.0-8.0 [facility] AND [id number] 23:15:00 Test Item Value Reference Range Interpretation Comments UA Ketones (test code = UA Negative mg/dL Ketones) [facility] AND [id number] 23:15:00 Test Item Value Reference Range Interpretation Comments UA Bili (test code = Negative *NA*(05/06/15 UA Bili) 6:15 PM) [facility] AND [id number] 23:15:00 Test Item Value Reference Range Interpretation Comments UA Blood (test code = Negative (05/06/15 6:15 UA Blood) PM) [facility] AND [id number] 23:15:00 Test Item Value Reference Range Interpretation Comments UA Nitrite (test code Negative (05/06/15 6:15 = UA Nitrite) PM) [facility] AND [id number] 23:15:00 Test Item Value Reference Range Interpretation Comments UA Urobilinogen (test code = UA 0.2 0.1-1.0 Urobilinogen) [facility] AND [id number] 23:15:00 Test Item Value Reference Range Interpretation Comments UA Leuk Est (test Negative (05/06/15 6:15 code = UA Leuk Est) PM) [facility] AND [id number] 23:15:00 Test Item Value Reference Range Interpretation Comments UA RBC (test None Seen See_Comment [Automated mes keely] code = UA RBC) (05/06/15 6:15 The system [facility] PM) generated this result transmitted ref erence range: <=2. The reference range was not used to int erpret this result as normal/abnormal . [facility] AND [id number] 23:15:00 Test Item Value Reference Range Interpretation Comments UA WBC (test code = UA WBC) 0-2 /HPF [facility] AND [id number] 23:15:00 Test Item Value Reference Range Interpretation Comments UA Bacteria (test code = None Seen (05/06/15 UA Bacteria) 6:15 PM) [facility] [id number] 23:15:00 Test Item Value Reference Range Interpretation Comments UA Sq Epi (test code = UA Sq Epi) Rare /[facility]F [facility] [id number] 21:39:00 Test Item Value Reference Range Interpretation Comments Antibody Scrn (test Negative (05/06/15 4:39 code = Antibody Scrn) PM) [facility] [id number] 21:39:00 Test Item Value Reference Range Interpretation Comments ABO/Rh (test code = ABO/Rh) [facility] BANK [id number] 21:39:00 Test Item Value Reference Range Interpretation Comments Antibody Scrn (test Negative (05/06/15 4:39 code = Antibody Scrn) PM) [facility] [id number] 21:39:00 Test Item Value Reference Range Interpretation Comments ABO/Rh (test code = ABO/Rh) A POS [facility] Of Me BANK [id number] 21:39:00 Test Item Value Reference Range Interpretation Comments Antibody Scrn (test Negative (05/06/15 4:39 code = Antibody Scrn) PM) [facility] [id number] 21:39:00 Test Item Value Reference Range Interpretation Comments ABO/Rh (test code = ABO/Rh) [facility] Me BANK [id number] 21:39:00 Test Item Value Reference Range Interpretation Comments Antibody Scrn (test Negative (05/06/15 4:39 code = Antibody Scrn) PM) [facility] [id number] 21:39:00 Test Item Value Reference Range Interpretation Comments ABO/Rh (test code = ABO/Rh) A [facility] Me BANK [id number] 21:39:00 Test Item Value Reference Range Interpretation Comments Antibody Scrn (test Negative (05/06/15 4:39 code = Antibody Scrn) PM) [facility] [id number] 21:39:00 Test Item Value Reference Range Interpretation Comments ABO/Rh (test code = ABO/Rh) A [facility] [employer] [id number] 21:39:00 Test Item Value Reference Range Interpretation Comments Antibody Scrn (test Negative (05/06/15 4:39 code = Antibody Scrn) PM) [facility] [employer] [id number] 21:39:00 Test Item Value Reference Range Interpretation Comments ABO/Rh (test code = ABO/Rh) A POS [facility] [employer] [id number] 21:39:00 Test Item Value Reference Range Interpretation Comments Antibody Scrn (test Negative (05/06/15 4:39 code = Antibody Scrn) PM) [facility] [employer] [id number] 21:39:00 Test Item Value Reference Range Interpretation Comments ABO/Rh (test code = ABO/Rh) [facility] [employer] [id number] 21:39:00 Test Item Value Reference Range Interpretation Comments Antibody Scrn (test Negative (05/06/15 4:39 code = Antibody Scrn) PM) [facility] [employer] [id number] 21:39:00 Test Item Value Reference Range Interpretation Comments ABO/Rh (test code = ABO/Rh) [facility] [employer] [id number] 21:39:00 Test Item Value Reference Range Interpretation Comments Antibody Scrn (test Negative (05/06/15 4:39 code = Antibody Scrn) PM) [facility] [employer] [id number] 21:39:00 Test Item Value Reference Range Interpretation Comments ABO/Rh (test code = ABO/Rh) [facility] [employer] [id number] 21:34:00 Test Item Value Reference Range Interpretation Comments Lactic Acid Lvl (test code = Lactic 1.0 0.5-2.2 Acid Lvl) [facility] [id number] 21:34:00 Test Item Value Reference Range Interpretation Comments AGAP (test code = AGAP) 12.6 10.0-20.0 [facility] [id number] 21:34:00 Test Item Value Reference Range Interpretation Comments eGFR (test code = eGFR) 63 [id number] 21:34:00 Test Item Value Reference Range Interpretation Comments Chloride Lvl (test code = Chloride Lvl) 106 95-109 [id number] 21:34:00 Test Item Value Reference Range Interpretation Comments Potassium Lvl (test code = Potassium 3.6 3.5-5.1 Lvl) [facility] H[id number] 21:34:00 Test Item Value Reference Range Interpretation Comments CO2 (test code = CO2) 25 24-32 [facility] Hos[id number] 21:34:00 Test Item Value Reference Range Interpretation Comments Calcium Lvl (test code = Calcium Lvl) 9.6 8.5-10.5 [facility] Hos[id number] 21:34:00 Test Item Value Reference Range Interpretation Comments Sodium Lvl (test code = Sodium Lvl) 140 135-145 [facility] Hos[id number] 21:34:00 Test Item Value Reference Range Interpretation Comments Creatinine Lvl (test code = Creatinine 0.71 0.50-1.40 Lvl) [facility] Hos[id number] 21:34:00 Test Item Value Reference Range Interpretation Comments BUN (test code = BUN) 15 7-22 [facility] Hosp[id number] 21:34:00 Test Item Value Reference Range Interpretation Comments Glucose Lvl (test code = Glucose Lvl) 121 70-99 [place] [id number] 21:34:00 Test Item Value Reference Range Interpretation Comments S Preg (test code = S Negative *NA*(05/06/15 Preg) 4:34 PM) [id number] 21:34:00 Test Item Value Reference Range Interpretation Comments Eosinophils (test code = Eosinophils) 1.8 <=4.0 [facility] [id number] 21:34:00 Test Item Value Reference Range Interpretation Comments Basophils (test code = Basophils) 0.8 <=1.0 [facility] C[id number] 21:34:00 Test Item Value Reference Range Interpretation Comments Segs-Bands # (test code = Segs-Bands #) 9.0 1.5-8.1 [facility] CenterUtgpuswSHARTBKOGQ9417-19-27 21:34:00 Test Item Value Reference Range Interpretation Comments Lymphocytes (test code = Lymphocytes) 29.4 20.0-40.0 [place] [id number] 21:34:00 Test Item Value Reference Range Interpretation Comments Segs (test code = Segs) 62.1 45.0-75.0 [place] [id number] 21:34:00 Test Item Value Reference Range Interpretation Comments Monocytes (test code = Monocytes) 5.9 2.0-12.0 [place] [address]-03-18 21:34:00 Test Item Value Reference Range Interpretation Comments Basophils # (test code = Basophils #) 0.1 <=0.2 [place] [address]-03-18 21:34:00 Test Item Value Reference Range Interpretation Comments Monocytes # (test code = Monocytes #) 0.9 <=0.8 [place] [address]-03-18 21:34:00 Test Item Value Reference Range Interpretation Comments Lymphocytes # (test code = Lymphocytes 4.3 1.0-5.5 #) [facility] [id number] 21:34:00 Test Item Value Reference Range Interpretation Comments Eosinophils # (test code = Eosinophils 0.3 <=0.5 #) [facility] [id number] 21:34:00 Test Item Value Reference Range Interpretation Comments G-value (test code = G-value) 10.3 5.0-11.6 [place] [address]-03-18 21:34:00 Test Item Value Reference Range Interpretation Comments Max Amp (test code = Max Amp) 67 mm 52-71 [place] [id number] 21:34:00 Test Item Value Reference Range Interpretation Comments Estimated % Lysis (test code = 4.6 <=7.5 Estimated % Lysis) [place] 072796-03-18 21:34:00 Test Item Value Reference Range Interpretation Comments R-time (test code = R-time) 0.6 min 0.4-0.7 [place] [address]-03-18 21:34:00 Test Item Value Reference Range Interpretation Comments K-time (test code = K-time) 1.3 min 0.6-2.3 [facility] CenterLiyhanpGQCCFAWXDK5606-76-08 21:34:00 Test Item Value Reference Range Interpretation Comments ACT (TEG) (test code = ACT (TEG)) 105 s 86-118 [place] 072796-03-18 21:34:00 Test Item Value Reference Range Interpretation Comments Split Point (test code = Split Point) 0.5 min [facility] CenterMyrpupvCIOXUCABJV3920-77-15 21:34:00 Test Item Value Reference Range Interpretation Comments Angle (test code = Angle) 75 degrees 64-80 [place] [id number] 21:34:00 Test Item Value Reference Range Interpretation Comments Rapid TEG Sample Type Citrated Whole Blood (test code = Rapid TEG (05/06/15 4:34 PM) Sample Type) [facility] CenterUebkdalOQLJZRYZVZ8497-45-65 21:34:00 Test Item Value Reference Range Interpretation Comments MPV (test code = MPV) 9.1 7.4-10.4 [place] [address]-03-18 21:34:00 Test Item Value Reference Range Interpretation Comments Platelet (test code = Platelet) 227 133-450 [facility] CenterLtizhukZLYAXCJQZM8640-95-93 21:34:00 Test Item Value Reference Range Interpretation Comments Hct (test code = Hct) 43.8 36.0-48.0 [place] 072796-03-18 21:34:00 Test Item Value Reference Range Interpretation Comments RBC (test code = RBC) 4.94 4.20-5.40 [facility] CenterUijvrtuXVTSEDHRSF1208-73-04 21:34:00 Test Item Value Reference Range Interpretation Comments Hgb (test code = Hgb) 14.3 12.0-16.0 [place] 072796-03-18 21:34:00 Test Item Value Reference Range Interpretation Comments WBC (test code = WBC) 14.5 3.7-10.4 [place] [address]-03-18 21:34:00 Test Item Value Reference Range Interpretation Comments MCV (test code = MCV) 88.7 80.0-98.0 [facility] CenterLpqzdclDWKLSCPOFE3732-12-88 21:34:00 Test Item Value Reference Range Interpretation Comments MCH (test code = MCH) 29.0 pg 27.0-31.0 [place] [id number] 21:34:00 Test Item Value Reference Range Interpretation Comments RDW (test code = RDW) 13.1 11.5-14.5 [place] 072796-03-18 21:34:00 Test Item Value Reference Range Interpretation Comments MCHC (test code = MCHC) 32.7 32.0-36.0 [place] [id number] 21:34:00 Test Item Value Reference Range Interpretation Comments Etoh (%) (test code = Etoh (%)) <0.003 % [place] [id number] 21:34:00 Test Item Value Reference Range Interpretation Comments Ethanol Lvl (test code = Ethanol <3.0 mg/dL Lvl) [facility]2016-03-18 21:34:00 Test Item Value Reference Range Interpretation Comments Lactic Acid Lvl (test code = Lactic 1.0 0.5-2.2 Acid Lvl) [facility]YepzsrcTCJSWLRETCOV9238-24-08 21:34:00 Test Item Value Reference Range Interpretation Comments AGAP (test code = AGAP) 12.6 10.0-20.0 [facility] HospitalMhfnuhnODJNUYCGMUKN2345-93-43 21:34:00 Test Item Value Reference Range Interpretation Comments eGFR (test code = eGFR) 63 [facility] HospitalPyghntuCAFVGMRSLZRQ0803-19-66 21:34:00 Test Item Value Reference Range Interpretation Comments Chloride Lvl (test code = Chloride Lvl) 106 95-109 [facility] HospitalEbdzfyqWUAEVTRAOCOD5481-82-54 21:34:00 Test Item Value Reference Range Interpretation Comments Potassium Lvl (test code = Potassium 3.6 3.5-5.1 Lvl) [facility] HospitalXxjkxvdIOPOSVIGHMCN6275-82-14 21:34:00 Test Item Value Reference Range Interpretation Comments CO2 (test code = CO2) 25 24-32 [facility] HospitalMmlxoqiPBJKSERFZGYW4851-40-41 21:34:00 Test Item Value Reference Range Interpretation Comments Calcium Lvl (test code = Calcium Lvl) 9.6 8.5-10.5 [facility] HospitalGflivxwHXEOCZFKGKTG6585-18-31 21:34:00 Test Item Value Reference Range Interpretation Comments Sodium Lvl (test code = Sodium Lvl) 140 135-145 [facility] HospitalZwfwqkyBRAOBCXBGKSL1173-52-12 21:34:00 Test Item Value Reference Range Interpretation Comments Creatinine Lvl (test code = Creatinine 0.71 0.50-1.40 Lvl) [facility] HospitalEhiseomKLJGOZQOBTRR5117-39-29 21:34:00 Test Item Value Reference Range Interpretation Comments BUN (test code = BUN) 15 7-22 [facility]KbnrvloWWWSFMVHQTOU7778-11-66 21:34:00 Test Item Value Reference Range Interpretation Comments Glucose Lvl (test code = Glucose Lvl) 121 70-99 [facility]UqrccecNPEKGSRCFBBUD5498-15-09 21:34:00 Test Item Value Reference Range Interpretation Comments S Preg (test code = S Negative *NA*(05/06/15 Preg) 4:34 PM) [facility] CenterMykanlsDNBPKZMYSH6218-81-63 21:34:00 Test Item Value Reference Range Interpretation Comments Eosinophils (test code = 1.8 See_Comment [A utomated message] The Eosinophils) system which ge nerated this result tra nsmitted reference range : <=4.0. The reference r luc was not used to int erpret this result as normal/abnormal . [facility] CenterQgxzndpXSTUUWNNJJ6417-55-41 21:34:00 Test Item Value Reference Range Interpretation Comments Basophils (test code = 0.8 See_Comment [Aut omated message] The Basophils) system which ge nerated this result tra nsmitted reference range : <=1.0. The reference r luc was not used to int erpret this result as normal/abnormal . [facility] CenterBszndfwLEZEDEMUHT8521-31-37 21:34:00 Test Item Value Reference Range Interpretation Comments Segs-Bands # (test code = Segs-Bands #) 9.0 1.5-8.1 [facility] CenterUrrvjleIDHKAVPDEZ2881-30-34 21:34:00 Test Item Value Reference Range Interpretation Comments Lymphocytes (test code = Lymphocytes) 29.4 20.0-40.0 [facility] CenterCrjpjokLYPKKIVQQF0450-29-25 21:34:00 Test Item Value Reference Range Interpretation Comments Segs (test code = Segs) 62.1 45.0-75.0 [facility] CenterGozarfsYFECTZDXIB9287-75-43 21:34:00 Test Item Value Reference Range Interpretation Comments Monocytes (test code = Monocytes) 5.9 2.0-12.0 [facility] CenterCjzgqxhKJNNCXNLWL0504-58-95 21:34:00 Test Item Value Reference Range Interpretation Comments Basophils # (test code 0.1 See_Comment [Aut omated message] The = Basophils #) system which generated this result tra nsmitted reference range : <=0.2. The reference r luc was not used to int erpret this result as normal/abnormal . [facility] CenterWbgnmwwHKMKSJJJZT3269-67-44 21:34:00 Test Item Value Reference Range Interpretation Comments Monocytes # (test code 0.9 See_Comment [Aut omated message] The = Monocytes #) system which generated this result tra nsmitted reference range : <=0.8. The reference r luc was not used to int erpret this result as normal/abnormal . [facility] CenterOvwflsiWALHEABALI0539-47-64 21:34:00 Test Item Value Reference Range Interpretation Comments Lymphocytes # (test code = Lymphocytes 4.3 1.0-5.5 #) [facility] CenterWismatmQKADGBSCAJ1980-87-53 21:34:00 Test Item Value Reference Range Interpretation Comments Eosinophils # (test code 0.3 See_Comment [A utomated message] The = Eosinophils #) system [facility] h generated this result tra nsmitted reference range : <=0.5. The reference r luc was not used to int erpret this result as normal/abnormal . [facility] CenterBlzxnnwZKWYLXBVKF9135-28-15 21:34:00 Test Item Value Reference Range Interpretation Comments G-value (test code = G-value) 10.3 5.0-11.6 [facility] CenterVximyemXLJWSLQZNK3883-03-76 21:34:00 Test Item Value Reference Range Interpretation Comments Max Amp (test code = Max Amp) 67 mm 52-71 [facility] CenterXfkfbjmBRBNPCGEOM0133-43-45 21:34:00 Test Item Value Reference Range Interpretation Comments Estimated % Lysis (test 4.6 See_Comment [Au tomated message] The code = Estimated % system [facility] generated Lysis) this result tra nsmitted reference range : <=7.5. The reference r luc was not used to int erpret this result as normal/abnormal . [facility] CenterOngwkgrWZIJORVCVO0851-18-99 21:34:00 Test Item Value Reference Range Interpretation Comments R-time (test code = R-time) 0.6 min 0.4-0.7 [facility] CenterCicpwqpRPEHDMYZRH6128-49-54 21:34:00 Test Item Value Reference Range Interpretation Comments K-time (test code = K-time) 1.3 min 0.6-2.3 [facility] CenterHpjogfhUQWXZZXRRF8926-12-55 21:34:00 Test Item Value Reference Range Interpretation Comments ACT (TEG) (test code = ACT (TEG)) 105 s 86-118 [facility] CenterQopkpajXHQGNSDSXI1674-14-40 21:34:00 Test Item Value Reference Range Interpretation Comments Split Point (test code = Split Point) 0.5 min [facility] CenterFpxglnnMGZKNCYSNB8307-34-60 21:34:00 Test Item Value Reference Range Interpretation Comments Angle (test code = Angle) 75 degrees 64-80 [facility] CenterYnknztbYXVJYHIQGV4968-70-83 21:34:00 Test Item Value Reference Range Interpretation Comments Rapid TEG Sample Type Citrated Whole Blood (test code = Rapid TEG (05/06/15 4:34 PM) Sample Type) [facility] CenterZldqthoKKGKBBQBND5590-55-66 21:34:00 Test Item Value Reference Range Interpretation Comments MPV (test code = MPV) 9.1 7.4-10.4 [place] 072796-03-18 21:34:00 Test Item Value Reference Range Interpretation Comments Platelet (test code = Platelet) 227 133-450 [facility] CenterOobjbvmNNXWXCANYZ5730-47-39 21:34:00 Test Item Value Reference Range Interpretation Comments Hct (test code = Hct) 43.8 36.0-48.0 [facility] CenterAymfkxeZEGYNNCHIN4650-91-73 21:34:00 Test Item Value Reference Range Interpretation Comments RBC (test code = RBC) 4.94 4.20-5.40 [facility] CenterEquygpyGEXPZCPXOO7308-64-31 21:34:00 Test Item Value Reference Range Interpretation Comments Hgb (test code = Hgb) 14.3 12.0-16.0 [facility] CenterSbcfhdoXWMXZGVXNX7955-32-58 21:34:00 Test Item Value Reference Range Interpretation Comments WBC (test code = WBC) 14.5 3.7-10.4 [facility] CenterDhcfsflJTPDGGMMSX2540-57-82 21:34:00 Test Item Value Reference Range Interpretation Comments MCV (test code = MCV) 88.7 80.0-98.0 [place] 072796-03-18 21:34:00 Test Item Value Reference Range Interpretation Comments MCH (test code = MCH) 29.0 pg 27.0-31.0 [place] 072796-03-18 21:34:00 Test Item Value Reference Range Interpretation Comments RDW (test code = RDW) 13.1 11.5-14.5 [facility] CenterNptttukEBYOLVIUFR5369-61-14 21:34:00 Test Item Value Reference Range Interpretation Comments MCHC (test code = MCHC) 32.7 32.0-36.0 [place] [id number] 21:34:00 Test Item Value Reference Range Interpretation Comments Etoh (%) (test code = Etoh (%)) <0.003 % [place] [id number] 21:34:00 Test Item Value Reference Range Interpretation Comments Ethanol Lvl (test code = Ethanol <3.0 mg/dL Lvl) [facility] CenterCHEM IPMPA8035-84-41 21:34:00 Test Item Value Reference Range Interpretation Comments Lactic Acid Lvl (test code = Lactic 1.0 0.5-2.2 Acid Lvl) [facility] HospitalKntefzpFBPAPESLHOAN6245-59-57 21:34:00 Test Item Value Reference Range Interpretation Comments AGAP (test code = AGAP) 12.6 10.0-20.0 [facility] HospitalUrtdfysDOZKIMWDIMVX4609-72-57 21:34:00 Test Item Value Reference Range Interpretation Comments eGFR (test code = eGFR) 63 [facility] HospitalGezcekuVNFWOARNGJJS8149-42-98 21:34:00 Test Item Value Reference Range Interpretation Comments Chloride Lvl (test code = Chloride Lvl) 106 95-109 [facility] HospitalNyvnurgJVWZSMEQLVBM1073-41-74 21:34:00 Test Item Value Reference Range Interpretation Comments Potassium Lvl (test code = Potassium 3.6 3.5-5.1 Lvl) [facility] HospitalGpjyhwtGJZYMJKMVKVD7600-58-13 21:34:00 Test Item Value Reference Range Interpretation Comments CO2 (test code = CO2) 25 24-32 [facility] HospitalTwjrpuaODAQGBBGXVEQ8527-58-73 21:34:00 Test Item Value Reference Range Interpretation Comments Calcium Lvl (test code = Calcium Lvl) 9.6 8.5-10.5 [facility] HospitalXloydogIVQPIJCHYYEN5321-77-71 21:34:00 Test Item Value Reference Range Interpretation Comments Sodium Lvl (test code = Sodium Lvl) 140 135-145 [facility] HospitalNwttvkuRGAOBZBXYSBO5131-26-25 21:34:00 Test Item Value Reference Range Interpretation Comments Creatinine Lvl (test code = Creatinine 0.71 0.50-1.40 Lvl) [facility] HospitalCdopbjnJZXZMFNSINTE3689-09-58 21:34:00 Test Item Value Reference Range Interpretation Comments BUN (test code = BUN) 15 7-22 [facility] HospitalBwnltrlNTGWCMRZAFHS7293-27-59 21:34:00 Test Item Value Reference Range Interpretation Comments Glucose Lvl (test code = Glucose Lvl) 121 70-99 [place] 54886016-03-18 21:34:00 Test Item Value Reference Range Interpretation Comments S Preg (test code = S Negative *NA*(05/06/15 Preg) 4:34 PM) [facility] CenterRmbldxkNNDTYCOBBP0387-76-76 21:34:00 Test Item Value Reference Range Interpretation Comments Eosinophils (test code = 1.8 See_Comment [A utomated message] The Eosinophils) system which ge nerated this result tra nsmitted reference range : <=4.0. The reference r luc was not used to int erpret this result as normal/abnormal . [facility] CenterFiinvtqHZCXFOQUHV4300-68-33 21:34:00 Test Item Value Reference Range Interpretation Comments Basophils (test code = 0.8 See_Comment [Aut omated message] The Basophils) system which ge nerated this result tra nsmitted reference range : <=1.0. The reference r luc was not used to int erpret this result as normal/abnormal . [facility] CenterKptrtfaVJJJTHBTCP0736-88-57 21:34:00 Test Item Value Reference Range Interpretation Comments Segs-Bands # (test code = Segs-Bands #) 9.0 1.5-8.1 [facility] CenterAzmcisrIYKFNWZTSC0171-24-38 21:34:00 Test Item Value Reference Range Interpretation Comments Lymphocytes (test code = Lymphocytes) 29.4 20.0-40.0 [facility] CenterDszahemGXFXWARFZG9688-75-73 21:34:00 Test Item Value Reference Range Interpretation Comments Segs (test code = Segs) 62.1 45.0-75.0 [facility] CenterPtunumpOBBRGGMGSF9872-98-54 21:34:00 Test Item Value Reference Range Interpretation Comments Monocytes (test code = Monocytes) 5.9 2.0-12.0 [facility] CenterYlrnvfvFCDVXVHMIC5366-69-56 21:34:00 Test Item Value Reference Range Interpretation Comments Basophils # (test code 0.1 See_Comment [Aut omated message] The = Basophils #) system which generated this result tra nsmitted reference range : <=0.2. The reference r luc was not used to int erpret this result as normal/abnormal . [facility] CenterDcrrygmBGLPYPRQPL0148-66-73 21:34:00 Test Item Value Reference Range Interpretation Comments Monocytes # (test code 0.9 See_Comment [Aut omated message] The = Monocytes #) system which generated this result tra nsmitted reference range : <=0.8. The reference r luc was not used to int erpret this result as normal/abnormal . [facility] CenterHyrelcyGOQDIWZWNV7902-71-03 21:34:00 Test Item Value Reference Range Interpretation Comments Lymphocytes # (test code = Lymphocytes 4.3 1.0-5.5 #) [facility] CenterYbgkhkmFDHBNSJJPZ0402-25-87 21:34:00 Test Item Value Reference Range Interpretation Comments Eosinophils # (test code 0.3 See_Comment [A utomated message] The = Eosinophils #) system [facility] h generated this result tra nsmitted reference range : <=0.5. The reference r luc was not used to int erpret this result as normal/abnormal . [facility] CenterVchlbvmNVINNKVAEO3379-42-33 21:34:00 Test Item Value Reference Range Interpretation Comments G-value (test code = G-value) 10.3 5.0-11.6 [facility] CenterRthsnctHYWLCBYDWL1305-96-29 21:34:00 Test Item Value Reference Range Interpretation Comments Max Amp (test code = Max Amp) 67 mm 52-71 [facility] CenterTdkvoigNWUTSGQETG8348-64-42 21:34:00 Test Item Value Reference Range Interpretation Comments Estimated % Lysis (test 4.6 See_Comment [Au tomated message] The code = Estimated % system [facility] generated Lysis) this result tra nsmitted reference range : <=7.5. The reference r luc was not used to int erpret this result as normal/abnormal . [facility] CenterUewjeycAEYAZJFWCR9516-30-33 21:34:00 Test Item Value Reference Range Interpretation Comments R-time (test code = R-time) 0.6 min 0.4-0.7 [facility] CenterVhdrmoyLIFSOVMJYW8341-16-16 21:34:00 Test Item Value Reference Range Interpretation Comments K-time (test code = K-time) 1.3 min 0.6-2.3 [facility] CenterBfrpkljHDTNYHMKBK2796-98-88 21:34:00 Test Item Value Reference Range Interpretation Comments ACT (TEG) (test code = ACT (TEG)) 105 s 86-118 [facility] CenterLewtyfzEJMNDBRSGM6624-39-08 21:34:00 Test Item Value Reference Range Interpretation Comments Split Point (test code = Split Point) 0.5 min [place] 072796-03-18 21:34:00 Test Item Value Reference Range Interpretation Comments Angle (test code = Angle) 75 degrees 64-80 [facility] CenterYeitqhgGGMYRKRUMW3313-93-76 21:34:00 Test Item Value Reference Range Interpretation Comments Rapid TEG Sample Type Citrated Whole Blood (test code = Rapid TEG (05/06/15 4:34 PM) Sample Type) [address]03-18 21:34:00 Test Item Value Reference Range Interpretation Comments MPV (test code = MPV) 9.1 7.4-10.4 [facility] CenterTzbyzoaCWFVGQKZDA1373-40-12 21:34:00 Test Item Value Reference Range Interpretation Comments Platelet (test code = Platelet) 227 133-450 [facility] CenterDxdpubaJFGLQUEBXA8218-07-74 21:34:00 Test Item Value Reference Range Interpretation Comments Hct (test code = Hct) 43.8 36.0-48.0 [facility] CenterPgixjfuETEEGXSNJI4151-20-20 21:34:00 Test Item Value Reference Range Interpretation Comments RBC (test code = RBC) 4.94 4.20-5.40 [facility] CenterWotxhudZPLXRBQOCQ8507-64-31 21:34:00 Test Item Value Reference Range Interpretation Comments Hgb (test code = Hgb) 14.3 12.0-16.0 [facility] CenterNjsapxgDZEANJVAJV2489-53-37 21:34:00 Test Item Value Reference Range Interpretation Comments WBC (test code = WBC) 14.5 3.7-10.4 [place] [address]-03-18 21:34:00 Test Item Value Reference Range Interpretation Comments MCV (test code = MCV) 88.7 80.0-98.0 [place] 21[address]-03-18 21:34:00 Test Item Value Reference Range Interpretation Comments MCH (test code = MCH) 29.0 pg 27.0-31.0 [place] 072796-03-18 21:34:00 Test Item Value Reference Range Interpretation Comments RDW (test code = RDW) 13.1 11.5-14.5 [facility] CenterKawvzcfZULJYLSBQU2512-53-22 21:34:00 Test Item Value Reference Range Interpretation Comments MCHC (test code = MCHC) 32.7 32.0-36.0 [place] 90070016-03-18 21:34:00 Test Item Value Reference Range Interpretation Comments Etoh (%) (test code = Etoh (%)) <0.003 % [place] [id number] 21:34:00 Test Item Value Reference Range Interpretation Comments Ethanol Lvl (test code = Ethanol <3.0 mg/dL Lvl) [facility]2016-03-18 21:34:00 Test Item Value Reference Range Interpretation Comments Lactic Acid Lvl (test code = Lactic 1.0 0.5-2.2 Acid Lvl) [facility] HospitalPwvwqllNKYMLNDKNBTK7290-44-23 21:34:00 Test Item Value Reference Range Interpretation Comments AGAP (test code = AGAP) 12.6 10.0-20.0 [facility] HospitalBuohzmxTAJJNVGYPUZO2833-08-77 21:34:00 Test Item Value Reference Range Interpretation Comments eGFR (test code = eGFR) 63 [facility] HospitalGartacyJYBXOPJKAALH9978-57-41 21:34:00 Test Item Value Reference Range Interpretation Comments Chloride Lvl (test code = Chloride Lvl) 106 95-109 [facility]2016-03-18 21:34:00 Test Item Value Reference Range Interpretation Comments Lactic Acid Lvl (test code = Lactic 1.0 0.5-2.2 Acid Lvl) [facility] HospitalPytpvqiFDLYLQJZSRAP7668-92-43 21:34:00 Test Item Value Reference Range Interpretation Comments Potassium Lvl (test code = Potassium 3.6 3.5-5.1 Lvl) [facility] HospitalLkzbrtlPFWVDMETFNTL4945-64-86 21:34:00 Test Item Value Reference Range Interpretation Comments CO2 (test code = CO2) 25 24-32 [facility] HospitalGqonmcjZATBRAUWNOPX1607-17-54 21:34:00 Test Item Value Reference Range Interpretation Comments Calcium Lvl (test code = Calcium Lvl) 9.6 8.5-10.5 [facility] HospitalIngumqrXRBAJNCOSXSG3628-00-17 21:34:00 Test Item Value Reference Range Interpretation Comments Sodium Lvl (test code = Sodium Lvl) 140 135-145 [facility] HospitalAziyfegYAHKLBLVYWFA0780-67-40 21:34:00 Test Item Value Reference Range Interpretation Comments Creatinine Lvl (test code = Creatinine 0.71 0.50-1.40 Lvl) [facility] HospitalZkcwvmxGNOCFLVZBZGI2233-41-04 21:34:00 Test Item Value Reference Range Interpretation Comments BUN (test code = BUN) 15 7-22 [facility] HospitalUkxqjlrSXDQRJNRQRHE8772-80-68 21:34:00 Test Item Value Reference Range Interpretation Comments Glucose Lvl (test code = Glucose Lvl) 121 70-99 [place] 54886016-03-18 21:34:00 Test Item Value Reference Range Interpretation Comments S Preg (test code = S Negative *NA*(05/06/15 Preg) 4:34 PM) [facility] CenterMzgbrugUOGHGNZOOV9876-64-54 21:34:00 Test Item Value Reference Range Interpretation Comments Eosinophils (test code = 1.8 See_Comment [A utomated message] The Eosinophils) system which ge nerated this result tra nsmitted reference range : <=4.0. The reference r luc was not used to int erpret this result as normal/abnormal . [facility] CenterGlvahlxQSDFYHXSZB6249-30-21 21:34:00 Test Item Value Reference Range Interpretation Comments Basophils (test code = 0.8 See_Comment [Aut omated message] The Basophils) system which ge nerated this result tra nsmitted reference range : <=1.0. The reference r luc was not used to int erpret this result as normal/abnormal . [facility] HospitalOdylwdsMXZJBSVJLTGG6442-07-33 21:34:00 Test Item Value Reference Range Interpretation Comments AGAP (test code = AGAP) 12.6 10.0-20.0 [facility] CenterXwyhrliKVARTQVOZZ2714-18-03 21:34:00 Test Item Value Reference Range Interpretation Comments Segs-Bands # (test code = Segs-Bands #) 9.0 1.5-8.1 [facility] CenterXmtucqaUCVALVWRCR4595-21-61 21:34:00 Test Item Value Reference Range Interpretation Comments Lymphocytes (test code = Lymphocytes) 29.4 20.0-40.0 [facility] CenterDifyaciZAUCSPXLEK1722-14-88 21:34:00 Test Item Value Reference Range Interpretation Comments Segs (test code = Segs) 62.1 45.0-75.0 [facility] CenterCfbmjluADDDPOEHIA0844-62-55 21:34:00 Test Item Value Reference Range Interpretation Comments Monocytes (test code = Monocytes) 5.9 2.0-12.0 [facility] CenterZnfubdvSVIOLKFVXI7462-89-70 21:34:00 Test Item Value Reference Range Interpretation Comments Basophils # (test code 0.1 See_Comment [Aut omated message] The = Basophils #) system which generated this result tra nsmitted reference range : <=0.2. The reference r luc was not used to int erpret this result as normal/abnormal . [facility] CenterXoxdcmhOVCQQBMKYA6670-44-06 21:34:00 Test Item Value Reference Range Interpretation Comments Monocytes # (test code 0.9 See_Comment [Aut omated message] The = Monocytes #) system which generated this result tra nsmitted reference range : <=0.8. The reference r luc was not used to int erpret this result as normal/abnormal . [facility] CenterZflnmxlTHOGNXHFVG8879-43-44 21:34:00 Test Item Value Reference Range Interpretation Comments Lymphocytes # (test code = Lymphocytes 4.3 1.0-5.5 #) [facility] CenterFhornhwINAEUTUFBT2373-20-89 21:34:00 Test Item Value Reference Range Interpretation Comments Eosinophils # (test code 0.3 See_Comment [A utomated message] The = Eosinophils #) system whic h generated this result tra nsmitted reference range : <=0.5. The reference r luc was not used to int erpret this result as normal/abnormal . [facility] CenterHdidkhaTHGGIMSKEY5182-22-21 21:34:00 Test Item Value Reference Range Interpretation Comments G-value (test code = G-value) 10.3 5.0-11.6 [facility] CenterZoisqwgDKMVKNZCET9480-01-37 21:34:00 Test Item Value Reference Range Interpretation Comments Max Amp (test code = Max Amp) 67 mm 52-71 [facility]TbxgqhlYIMZVOWJYHZP8676-57-11 21:34:00 Test Item Value Reference Range Interpretation Comments eGFR (test code = eGFR) 63 [facility] CenterPycypuoXVYAKJMTQL8298-08-12 21:34:00 Test Item Value Reference Range Interpretation Comments Estimated % Lysis (test 4.6 See_Comment [Au tomated message] The code = Estimated % system wh ich generated Lysis) this result tra nsmitted reference range : <=7.5. The reference r luc was not used to int erpret this result as normal/abnormal . [facility] CenterScjneogASHSPXWDVQ3397-25-52 21:34:00 Test Item Value Reference Range Interpretation Comments R-time (test code = R-time) 0.6 min 0.4-0.7 [facility] CenterZrpqciaCESVBORZXC6655-16-35 21:34:00 Test Item Value Reference Range Interpretation Comments K-time (test code = K-time) 1.3 min 0.6-2.3 [facility] CenterTbgsrcpQIFWKFHWWB0235-71-19 21:34:00 Test Item Value Reference Range Interpretation Comments ACT (TEG) (test code = ACT (TEG)) 105 s 86-118 [facility] CenterUodipzqWAZIPDGYAM4778-97-25 21:34:00 Test Item Value Reference Range Interpretation Comments Split Point (test code = Split Point) 0.5 min [facility] CenterDaztubgQQBQIKKSDI5757-13-75 21:34:00 Test Item Value Reference Range Interpretation Comments Angle (test code = Angle) 75 degrees 64-80 [facility] CenterIqpnizyORBJYFBLKG8892-10-31 21:34:00 Test Item Value Reference Range Interpretation Comments Rapid TEG Sample Type Citrated Whole Blood (test code = Rapid TEG (05/06/15 4:34 PM) Sample Type) [facility] CenterUkgbcrdQVUKPWAYJN1863-55-12 21:34:00 Test Item Value Reference Range Interpretation Comments MPV (test code = MPV) 9.1 7.4-10.4 [facility] CenterDftikyoSQGQYHCAJT1437-00-02 21:34:00 Test Item Value Reference Range Interpretation Comments Platelet (test code = Platelet) 227 133-450 [facility] CenterHyuwslxANTOOOPHTR6117-13-82 21:34:00 Test Item Value Reference Range Interpretation Comments Hct (test code = Hct) 43.8 36.0-48.0 [facility]IuskkkwFSPGXSQNUMRV5798-83-67 21:34:00 Test Item Value Reference Range Interpretation Comments Chloride Lvl (test code = Chloride Lvl) 106 95-109 [facility] CenterEbqiqfwLYRCVVPVBH3937-97-41 21:34:00 Test Item Value Reference Range Interpretation Comments RBC (test code = RBC) 4.94 4.20-5.40 [facility] CenterPhukkqbRFWZRRPVTY9903-76-33 21:34:00 Test Item Value Reference Range Interpretation Comments Hgb (test code = Hgb) 14.3 12.0-16.0 [facility] CenterSrpxtorFYKQDKGBBT2846-97-28 21:34:00 Test Item Value Reference Range Interpretation Comments WBC (test code = WBC) 14.5 3.7-10.4 [facility] CenterUmgubmvYAFXDVCRBO0802-28-64 21:34:00 Test Item Value Reference Range Interpretation Comments MCV (test code = MCV) 88.7 80.0-98.0 [facility] CenterDrjxnhfKIJTMHPRYY3254-75-72 21:34:00 Test Item Value Reference Range Interpretation Comments MCH (test code = MCH) 29.0 pg 27.0-31.0 [facility] CenterPabnixvQTBOGEPEGI5450-56-35 21:34:00 Test Item Value Reference Range Interpretation Comments RDW (test code = RDW) 13.1 11.5-14.5 [facility] CenterCjrvtdyDQHFZMKDMT4690-02-77 21:34:00 Test Item Value Reference Range Interpretation Comments MCHC (test code = MCHC) 32.7 32.0-36.0 [place] [id number] 21:34:00 Test Item Value Reference Range Interpretation Comments Etoh (%) (test code = Etoh (%)) <0.003 % [place] [id number] 21:34:00 Test Item Value Reference Range Interpretation Comments Ethanol Lvl (test code = Ethanol <3.0 mg/dL Lvl) [facility] HospitalDxkckrvYLMWAQUGWHTR3670-50-21 21:34:00 Test Item Value Reference Range Interpretation Comments Potassium Lvl (test code = Potassium 3.6 3.5-5.1 Lvl) [facility] HospitalGjqziilXIGWCVGZPDEC0957-33-77 21:34:00 Test Item Value Reference Range Interpretation Comments CO2 (test code = CO2) 25 24-32 [facility] HospitalEotbsmuMWKAHGUWAFHE2123-35-93 21:34:00 Test Item Value Reference Range Interpretation Comments Calcium Lvl (test code = Calcium Lvl) 9.6 8.5-10.5 [facility] HospitalCbvbuokOVMEHMTELWBP2421-93-44 21:34:00 Test Item Value Reference Range Interpretation Comments Sodium Lvl (test code = Sodium Lvl) 140 135-145 [facility] HospitalQlqqizfBNZZCNOMEELD2968-05-52 21:34:00 Test Item Value Reference Range Interpretation Comments Creatinine Lvl (test code = Creatinine 0.71 0.50-1.40 Lvl) [facility] HospitalFltvwibKUIOQXURAOXX3428-45-91 21:34:00 Test Item Value Reference Range Interpretation Comments BUN (test code = BUN) 15 7-22 [facility] HospitalAkvwrvdVTVYJMRGMXFF9934-50-56 21:34:00 Test Item Value Reference Range Interpretation Comments Glucose Lvl (test code = Glucose Lvl) 121 70-99 [facility]GvmxgbgADIXLVZMBBAYU6019-17-07 21:34:00 Test Item Value Reference Range Interpretation Comments S Preg (test code = S Negative *NA*(05/06/15 Preg) 4:34 PM) [facility] HospitalVltmvieSQQLBREZOB6408-96-75 21:34:00 Test Item Value Reference Range Interpretation Comments Eosinophils (test code = 1.8 See_Comment [A utomated message] The Eosinophils) system which ge nerated this result tra nsmitted reference range : <=4.0. The reference r luc was not used to int erpret this result as normal/abnormal . [facility]CHEM AXMFS8310-51-96 21:34:00 Test Item Value Reference Range Interpretation Comments Lactic Acid Lvl (test code = Lactic 1.0 0.5-2.2 Acid Lvl) [facility] HospitalWcsucrmNWVGSYFGEHLT8487-17-72 21:34:00 Test Item Value Reference Range Interpretation Comments AGAP (test code = AGAP) 12.6 10.0-20.0 [facility] HospitalBexgxjeBQSLOMEWQFXB2774-34-81 21:34:00 Test Item Value Reference Range Interpretation Comments eGFR (test code = eGFR) 63 [facility] HospitalDhksrorEUBHRQSPGWCL6546-06-54 21:34:00 Test Item Value Reference Range Interpretation Comments Chloride Lvl (test code = Chloride Lvl) 106 95-109 [facility] HospitalYkleyyfBELSMWPRWKTY6499-57-28 21:34:00 Test Item Value Reference Range Interpretation Comments Potassium Lvl (test code = Potassium 3.6 3.5-5.1 Lvl) [facility] HospitalEyyxpisIIUBFNYUDZTY4967-74-95 21:34:00 Test Item Value Reference Range Interpretation Comments CO2 (test code = CO2) 25 24-32 [facility] HospitalCqzsrluIAYZKTBUQCYQ0963-55-35 21:34:00 Test Item Value Reference Range Interpretation Comments Calcium Lvl (test code = Calcium Lvl) 9.6 8.5-10.5 [facility] HospitalAtlfhnrZLDYVYJOBBVR8971-91-84 21:34:00 Test Item Value Reference Range Interpretation Comments Sodium Lvl (test code = Sodium Lvl) 140 135-145 [facility] HospitalZtbvnadOOPYFJLXJWFI3724-17-73 21:34:00 Test Item Value Reference Range Interpretation Comments Creatinine Lvl (test code = Creatinine 0.71 0.50-1.40 Lvl) [facility] CenterRojluvaTSOVAWEHME8869-66-06 21:34:00 Test Item Value Reference Range Interpretation Comments Basophils (test code = 0.8 See_Comment [Aut omated message] The Basophils) system which ge nerated this result tra nsmitted reference range : <=1.0. The reference r luc was not used to int erpret this result as normal/abnormal . [facility] HospitalXnslmpiCELNRCKLGDFK8312-56-44 21:34:00 Test Item Value Reference Range Interpretation Comments BUN (test code = BUN) 15 7-22 [facility] HospitalCcmmhltLRWLJHWVKSOQ2006-27-05 21:34:00 Test Item Value Reference Range Interpretation Comments Glucose Lvl (test code = Glucose Lvl) 121 70-99 [place] [id number] 21:34:00 Test Item Value Reference Range Interpretation Comments S Preg (test code = S Negative *NA*(05/06/15 Preg) 4:34 PM) [facility] CenterHrviszsFTYQXBSNPI0793-64-89 21:34:00 Test Item Value Reference Range Interpretation Comments Eosinophils (test code = 1.8 See_Comment [A utomated message] The Eosinophils) system which ge nerated this result tra nsmitted reference range : <=4.0. The reference r luc was not used to int erpret this result as normal/abnormal . [facility] CenterCtwncjaAWHHRINKTO3133-51-48 21:34:00 Test Item Value Reference Range Interpretation Comments Basophils (test code = 0.8 See_Comment [Aut omated message] The Basophils) system which ge nerated this result tra nsmitted reference range : <=1.0. The reference r luc was not used to int erpret this result as normal/abnormal . [facility] CenterQukerkbFKERKBMCGC8599-44-64 21:34:00 Test Item Value Reference Range Interpretation Comments Segs-Bands # (test code = Segs-Bands #) 9.0 1.5-8.1 [facility] CenterTwqybeuQGRJKFGPWI7748-60-17 21:34:00 Test Item Value Reference Range Interpretation Comments Lymphocytes (test code = Lymphocytes) 29.4 20.0-40.0 [facility] CenterQqunsouREXVRLIKSU3612-16-27 21:34:00 Test Item Value Reference Range Interpretation Comments Segs (test code = Segs) 62.1 45.0-75.0 [facility] CenterPlewtgyQISLYERNKS1885-55-86 21:34:00 Test Item Value Reference Range Interpretation Comments Monocytes (test code = Monocytes) 5.9 2.0-12.0 [facility] CenterRcymccnELUOTDFOIB4600-09-20 21:34:00 Test Item Value Reference Range Interpretation Comments Basophils # (test code 0.1 See_Comment [Aut omated message] The = Basophils #) system which generated this result tra nsmitted reference range : <=0.2. The reference r luc was not used to int erpret this result as normal/abnormal . [facility] CenterDfivoagQZHVQFTMJJ5992-75-47 21:34:00 Test Item Value Reference Range Interpretation Comments Segs-Bands # (test code = Segs-Bands #) 9.0 1.5-8.1 [facility] CenterQoqgvzvXVMNLTRDSD2966-58-66 21:34:00 Test Item Value Reference Range Interpretation Comments Monocytes # (test code 0.9 See_Comment [Aut omated message] The = Monocytes #) system which generated this result tra nsmitted reference range : <=0.8. The reference r luc was not used to int erpret this result as normal/abnormal . [facility] CenterDjxgbbsNYEQGLPPTK7205-99-42 21:34:00 Test Item Value Reference Range Interpretation Comments Lymphocytes # (test code = Lymphocytes 4.3 1.0-5.5 #) [facility] CenterVvidmgwEBSKPNQJTA3303-78-78 21:34:00 Test Item Value Reference Range Interpretation Comments Eosinophils # (test code 0.3 See_Comment [A utomated message] The = Eosinophils #) system whic h generated this result tra nsmitted reference range : <=0.5. The reference r luc was not used to int erpret this result as normal/abnormal . [facility] CenterUsdyqniSPZAMZDQBX2596-94-53 21:34:00 Test Item Value Reference Range Interpretation Comments G-value (test code = G-value) 10.3 5.0-11.6 [facility] CenterBvxmvqlHDIJEIAUUR3155-75-28 21:34:00 Test Item Value Reference Range Interpretation Comments Max Amp (test code = Max Amp) 67 mm 52-71 [facility] CenterKcdukpbVNBBEOXUZN1467-66-65 21:34:00 Test Item Value Reference Range Interpretation Comments Estimated % Lysis (test 4.6 See_Comment [Au tomated message] The code = Estimated % system wh ich generated Lysis) this result tra nsmitted reference range : <=7.5. The reference r luc was not used to int erpret this result as normal/abnormal . [facility] CenterPfhyujkUKULZACEOD5153-46-53 21:34:00 Test Item Value Reference Range Interpretation Comments R-time (test code = R-time) 0.6 min 0.4-0.7 [place] 072796-03-18 21:34:00 Test Item Value Reference Range Interpretation Comments K-time (test code = K-time) 1.3 min 0.6-2.3 [facility] CenterPpqctiqWBFGRCEIHJ9325-65-87 21:34:00 Test Item Value Reference Range Interpretation Comments ACT (TEG) (test code = ACT (TEG)) 105 s 86-118 [facility] CenterOhfqttfQPRNASDYXT4082-87-46 21:34:00 Test Item Value Reference Range Interpretation Comments Split Point (test code = Split Point) 0.5 min [facility] CenterJivcvavBVEBITMJYR7829-87-35 21:34:00 Test Item Value Reference Range Interpretation Comments Lymphocytes (test code = Lymphocytes) 29.4 20.0-40.0 [place] 072796-03-18 21:34:00 Test Item Value Reference Range Interpretation Comments Angle (test code = Angle) 75 degrees 64-80 [facility] CenterVcevdnlLOCAWBZBXD5193-53-26 21:34:00 Test Item Value Reference Range Interpretation Comments Rapid TEG Sample Type Citrated Whole Blood (test code = Rapid TEG (05/06/15 4:34 PM) Sample Type) [facility] CenterDfmbfyyZQKICANOSZ4951-05-06 21:34:00 Test Item Value Reference Range Interpretation Comments MPV (test code = MPV) 9.1 7.4-10.4 [place] [id number] 21:34:00 Test Item Value Reference Range Interpretation Comments Platelet (test code = Platelet) 227 133-450 [facility] CenterKcomocsMYOXSKEELU0742-37-67 21:34:00 Test Item Value Reference Range Interpretation Comments Hct (test code = Hct) 43.8 36.0-48.0 [facility] CenterBmkjynlTSHPPRFXIZ6132-01-75 21:34:00 Test Item Value Reference Range Interpretation Comments RBC (test code = RBC) 4.94 4.20-5.40 [facility] CenterNiscmafGGQNNMPVDS1186-36-16 21:34:00 Test Item Value Reference Range Interpretation Comments Hgb (test code = Hgb) 14.3 12.0-16.0 [facility] CenterCkcxjdgBMGMGGKTWU6611-97-67 21:34:00 Test Item Value Reference Range Interpretation Comments WBC (test code = WBC) 14.5 3.7-10.4 [facility] CenterEnsahcyUDZRHRELUB5853-49-62 21:34:00 Test Item Value Reference Range Interpretation Comments MCV (test code = MCV) 88.7 80.0-98.0 [facility] CenterCaudsgvDEDEEKOYJI0958-23-05 21:34:00 Test Item Value Reference Range Interpretation Comments MCH (test code = MCH) 29.0 pg 27.0-31.0 [facility] CenterAytpgexEHWKKAXBPV6352-53-62 21:34:00 Test Item Value Reference Range Interpretation Comments Segs (test code = Segs) 62.1 45.0-75.0 [facility] CenterDdifntwYHJTNRWBLT4185-13-75 21:34:00 Test Item Value Reference Range Interpretation Comments RDW (test code = RDW) 13.1 11.5-14.5 [facility] CenterHtkzubfKKIIHIUQXS2314-82-41 21:34:00 Test Item Value Reference Range Interpretation Comments MCHC (test code = MCHC) 32.7 32.0-36.0 [place] [id number] 21:34:00 Test Item Value Reference Range Interpretation Comments Etoh (%) (test code = Etoh (%)) <0.003 % [place] [id number] 21:34:00 Test Item Value Reference Range Interpretation Comments Ethanol Lvl (test code = Ethanol <3.0 mg/dL Lvl) [facility] CenterHaoduzwWPAAPUJNNK7631-52-62 21:34:00 Test Item Value Reference Range Interpretation Comments Monocytes (test code = Monocytes) 5.9 2.0-12.0 [facility] CenterBvwxvzqMVAHBGUKFY0732-42-24 21:34:00 Test Item Value Reference Range Interpretation Comments Basophils # (test code 0.1 See_Comment [Aut omated message] The = Basophils #) system which generated this result tra nsmitted reference range : <=0.2. The reference r luc was not used to int erpret this result as normal/abnormal . [facility] CenterPjmyevmMWNNHPUHQH3835-64-81 21:34:00 Test Item Value Reference Range Interpretation Comments Monocytes # (test code 0.9 See_Comment [Aut omated message] The = Monocytes #) system which generated this result tra nsmitted reference range : <=0.8. The reference r luc was not used to int erpret this result as normal/abnormal . [facility] CenterFejpsfyHGUYNELOMC3537-58-33 21:34:00 Test Item Value Reference Range Interpretation Comments Lymphocytes # (test code = Lymphocytes 4.3 1.0-5.5 #) [facility] CenterKkaezzfGLCSUECZRV1928-62-88 21:34:00 Test Item Value Reference Range Interpretation Comments Eosinophils # (test code 0.3 See_Comment [A utomated message] The = Eosinophils #) system [facility] h generated this result tra nsmitted reference range : <=0.5. The reference r luc was not used to int erpret this result as normal/abnormal . [facility] CenterYazinxuFYTNAPTQBW3192-76-12 21:34:00 Test Item Value Reference Range Interpretation Comments G-value (test code = G-value) 10.3 5.0-11.6 [facility] CenterWbrtrccLXECFQATAM9641-93-17 21:34:00 Test Item Value Reference Range Interpretation Comments Max Amp (test code = Max Amp) 67 mm 52-71 [facility] CenterFpaokaaLEBYXHEYTM9275-12-60 21:34:00 Test Item Value Reference Range Interpretation Comments Estimated % Lysis (test 4.6 See_Comment [Au tomated message] The code = Estimated % system ich generated Lysis) this result tra nsmitted reference range : <=7.5. The reference r luc was not used to int erpret this result as normal/abnormal . [facility]2016-03-18 21:34:00 Test Item Value Reference Range Interpretation Comments Lactic Acid Lvl (test code = Lactic 1.0 0.5-2.2 Acid Lvl) [facility] HospitalUiubrogKFRHKHAUNMDR2069-76-19 21:34:00 Test Item Value Reference Range Interpretation Comments AGAP (test code = AGAP) 12.6 10.0-20.0 [facility] HospitalPkbpssbYBUTVDDHIUKW5962-67-21 21:34:00 Test Item Value Reference Range Interpretation Comments eGFR (test code = eGFR) 63 [facility] HospitalZtjptxwLCDVGAVDNFBS6427-17-33 21:34:00 Test Item Value Reference Range Interpretation Comments Chloride Lvl (test code = Chloride Lvl) 106 95-109 [facility] HospitalKbynbkjTQKAKSPDTX6093-46-69 21:34:00 Test Item Value Reference Range Interpretation Comments R-time (test code = R-time) 0.6 min 0.4-0.7 [facility] HospitalLszlacjYZJTLEYNAKRP3798-82-92 21:34:00 Test Item Value Reference Range Interpretation Comments Potassium Lvl (test code = Potassium 3.6 3.5-5.1 Lvl) [facility] HospitalKjhidriVYACXFWYFBRK9853-81-97 21:34:00 Test Item Value Reference Range Interpretation Comments CO2 (test code = CO2) 25 24-32 [facility] HospitalAqrssbhLDOBZMUOQISB0683-30-55 21:34:00 Test Item Value Reference Range Interpretation Comments Calcium Lvl (test code = Calcium Lvl) 9.6 8.5-10.5 [facility] HospitalApyydltGOPDYTMXLUGY9004-07-74 21:34:00 Test Item Value Reference Range Interpretation Comments Sodium Lvl (test code = Sodium Lvl) 140 135-145 [facility] HospitalBbwvyouQOPKGXWGTCYQ4907-63-83 21:34:00 Test Item Value Reference Range Interpretation Comments Creatinine Lvl (test code = Creatinine 0.71 0.50-1.40 Lvl) [facility] HospitalLjojjamKOSTSWJDEKPC2895-10-84 21:34:00 Test Item Value Reference Range Interpretation Comments BUN (test code = BUN) 15 7-22 [facility] HospitalDjmhnehLQRYKKFIXLTU1685-83-36 21:34:00 Test Item Value Reference Range Interpretation Comments Glucose Lvl (test code = Glucose Lvl) 121 70-99 [facility]NrjikysMKLFGULJTUJAR3798-39-06 21:34:00 Test Item Value Reference Range Interpretation Comments S Preg (test code = S Negative *NA*(05/06/15 Preg) 4:34 PM) [facility] CenterZqhoxhoNYTRTIBLPK5169-90-87 21:34:00 Test Item Value Reference Range Interpretation Comments Eosinophils (test code = 1.8 See_Comment [A utomated message] The Eosinophils) system which ge nerated this result tra nsmitted reference range : <=4.0. The reference r luc was not used to int erpret this result as normal/abnormal . [facility] CenterMxjlbvnPPNHVREOXD9316-19-79 21:34:00 Test Item Value Reference Range Interpretation Comments Basophils (test code = 0.8 See_Comment [Aut omated message] The Basophils) system which ge nerated this result tra nsmitted reference range : <=1.0. The reference r luc was not used to int erpret this result as normal/abnormal . [facility] CenterLzqcmrlEGWIEQMKYQ1706-39-09 21:34:00 Test Item Value Reference Range Interpretation Comments K-time (test code = K-time) 1.3 min 0.6-2.3 [place] 072796-03-18 21:34:00 Test Item Value Reference Range Interpretation Comments Segs-Bands # (test code = Segs-Bands #) 9.0 1.5-8.1 [place] 072796-03-18 21:34:00 Test Item Value Reference Range Interpretation Comments Lymphocytes (test code = Lymphocytes) 29.4 20.0-40.0 [place] 072796-03-18 21:34:00 Test Item Value Reference Range Interpretation Comments Segs (test code = Segs) 62.1 45.0-75.0 [place] 072796-03-18 21:34:00 Test Item Value Reference Range Interpretation Comments Monocytes (test code = Monocytes) 5.9 2.0-12.0 [place] 072796-03-18 21:34:00 Test Item Value Reference Range Interpretation Comments Basophils # (test code 0.1 See_Comment [Aut omated message] The = Basophils #) system which generated this result tra nsmitted reference range : <=0.2. The reference r luc was not used to int erpret this result as normal/abnormal . [facility] CenterBwnhgmzGTGGGQOGYS9120-37-77 21:34:00 Test Item Value Reference Range Interpretation Comments Monocytes # (test code 0.9 See_Comment [Aut omated message] The = Monocytes #) system which generated this result tra nsmitted reference range : <=0.8. The reference r luc was not used to int erpret this result as normal/abnormal . [facility] CenterWwmtqcbRQSBMQYOJQ8854-20-69 21:34:00 Test Item Value Reference Range Interpretation Comments Lymphocytes # (test code = Lymphocytes 4.3 1.0-5.5 #) [facility] CenterYopgkynSXIWUSZDTL6259-88-26 21:34:00 Test Item Value Reference Range Interpretation Comments Eosinophils # (test code 0.3 See_Comment [A utomated message] The = Eosinophils #) system [facility] h generated this result tra nsmitted reference range : <=0.5. The reference r luc was not used to int erpret this result as normal/abnormal . [place] [address]-03-18 21:34:00 Test Item Value Reference Range Interpretation Comments G-value (test code = G-value) 10.3 5.0-11.6 [facility] CenterDihspcpTFYVQLJEWD1969-10-57 21:34:00 Test Item Value Reference Range Interpretation Comments Max Amp (test code = Max Amp) 67 mm 52-71 [facility] CenterIixfesdYDOLCNBMJD9841-91-35 21:34:00 Test Item Value Reference Range Interpretation Comments ACT (TEG) (test code = ACT (TEG)) 105 s 86-118 [facility] CenterYmhoapzNJYDMANYUP4815-59-00 21:34:00 Test Item Value Reference Range Interpretation Comments Estimated % Lysis (test 4.6 See_Comment [Au tomated message] The code = Estimated % system [facility] generated Lysis) this result tra nsmitted reference range : <=7.5. The reference r luc was not used to int erpret this result as normal/abnormal . [facility] CenterXuqqdhdGCVZTNKYZO7958-18-65 21:34:00 Test Item Value Reference Range Interpretation Comments R-time (test code = R-time) 0.6 min 0.4-0.7 [place] 072796-03-18 21:34:00 Test Item Value Reference Range Interpretation Comments K-time (test code = K-time) 1.3 min 0.6-2.3 [facility] CenterBtonkuaGURQZAXZFE6437-40-65 21:34:00 Test Item Value Reference Range Interpretation Comments ACT (TEG) (test code = ACT (TEG)) 105 s 86-118 [facility] CenterJoxewlmPSIFVZHFFB1461-52-04 21:34:00 Test Item Value Reference Range Interpretation Comments Split Point (test code = Split Point) 0.5 min [facility] CenterKiemmgmNSTHIVIPQI8702-13-75 21:34:00 Test Item Value Reference Range Interpretation Comments Angle (test code = Angle) 75 degrees 64-80 [facility] CenterOjuggcfPVDRPXNYWA0287-90-84 21:34:00 Test Item Value Reference Range Interpretation Comments Rapid TEG Sample Type Citrated Whole Blood (test code = Rapid TEG (05/06/15 4:34 PM) Sample Type) [facility] CenterCazjvzmLSKKXUJFKH7352-62-68 21:34:00 Test Item Value Reference Range Interpretation Comments MPV (test code = MPV) 9.1 7.4-10.4 [facility] CenterVvyavtjJMTQVANEHG1221-36-01 21:34:00 Test Item Value Reference Range Interpretation Comments Platelet (test code = Platelet) 227 133-450 [facility] CenterVobpjowSQLBUJCVLP8111-66-81 21:34:00 Test Item Value Reference Range Interpretation Comments Hct (test code = Hct) 43.8 36.0-48.0 [facility] CenterAegtdjiCSGVHEGHND9258-32-96 21:34:00 Test Item Value Reference Range Interpretation Comments Split Point (test code = Split Point) 0.5 min [facility] CenterEmpnkbyLEHBMBQIOY9355-90-79 21:34:00 Test Item Value Reference Range Interpretation Comments RBC (test code = RBC) 4.94 4.20-5.40 [facility] CenterAbeenvdAIZLMNDEUU8741-68-68 21:34:00 Test Item Value Reference Range Interpretation Comments Hgb (test code = Hgb) 14.3 12.0-16.0 [facility] CenterDadznpzYYSKEZOFOK8521-55-72 21:34:00 Test Item Value Reference Range Interpretation Comments WBC (test code = WBC) 14.5 3.7-10.4 [facility] CenterJughbmkJRPNXCGQGI3049-18-34 21:34:00 Test Item Value Reference Range Interpretation Comments MCV (test code = MCV) 88.7 80.0-98.0 [facility] CenterPdzxelaXCGUDWOMWH0457-29-23 21:34:00 Test Item Value Reference Range Interpretation Comments MCH (test code = MCH) 29.0 pg 27.0-31.0 [place] [id number] 21:34:00 Test Item Value Reference Range Interpretation Comments RDW (test code = RDW) 13.1 11.5-14.5 [facility] CenterZftiqdaFASXEHKVBT3530-10-79 21:34:00 Test Item Value Reference Range Interpretation Comments MCHC (test code = MCHC) 32.7 32.0-36.0 [place] [id number] 21:34:00 Test Item Value Reference Range Interpretation Comments Etoh (%) (test code = Etoh (%)) <0.003 % [place] [id number] 21:34:00 Test Item Value Reference Range Interpretation Comments Ethanol Lvl (test code = Ethanol <3.0 mg/dL Lvl) [facility] CenterDixpujuELKOWTRCAH9198-92-21 21:34:00 Test Item Value Reference Range Interpretation Comments Angle (test code = Angle) 75 degrees 64-80 [facility] CenterXuacwbuFCKJXODYXI1701-85-74 21:34:00 Test Item Value Reference Range Interpretation Comments Rapid TEG Sample Type Citrated Whole Blood (test code = Rapid TEG (05/06/15 4:34 PM) Sample Type) [facility] CenterAmkuwceIQOFOXHIIM5253-66-26 21:34:00 Test Item Value Reference Range Interpretation Comments MPV (test code = MPV) 9.1 7.4-10.4 [facility] CenterDqorilpBGFYHXJKJF2058-15-23 21:34:00 Test Item Value Reference Range Interpretation Comments Platelet (test code = Platelet) 227 133-450 [facility] CenterPaofdwoVPNHKFCELS2038-63-05 21:34:00 Test Item Value Reference Range Interpretation Comments Hct (test code = Hct) 43.8 36.0-48.0 [place] [address]-03-18 21:34:00 Test Item Value Reference Range Interpretation Comments RBC (test code = RBC) 4.94 4.20-5.40 [place] [id number] 21:34:00 Test Item Value Reference Range Interpretation Comments Hgb (test code = Hgb) 14.3 12.0-16.0 [facility] CenterPquxgouFFPBHMIWNF1006-65-33 21:34:00 Test Item Value Reference Range Interpretation Comments WBC (test code = WBC) 14.5 3.7-10.4 [place] [address]-03-18 21:34:00 Test Item Value Reference Range Interpretation Comments MCV (test code = MCV) 88.7 80.0-98.0 [facility]2016-03-18 21:34:00 Test Item Value Reference Range Interpretation Comments Lactic Acid Lvl (test code = Lactic 1.0 0.5-2.2 Acid Lvl) [facility] HospitalKfoeywuESHDZNCHOTQZ3734-22-75 21:34:00 Test Item Value Reference Range Interpretation Comments AGAP (test code = AGAP) 12.6 10.0-20.0 [facility] HospitalHoacaxnOEISMARQRFHY6023-93-98 21:34:00 Test Item Value Reference Range Interpretation Comments eGFR (test code = eGFR) 63 [facility] HospitalBywhdmwBECBZMEJIFWC4783-82-49 21:34:00 Test Item Value Reference Range Interpretation Comments Chloride Lvl (test code = Chloride Lvl) 106 95-109 [facility] HospitalKpqwgqxYYZNPNLCUNXL4672-10-71 21:34:00 Test Item Value Reference Range Interpretation Comments Potassium Lvl (test code = Potassium 3.6 3.5-5.1 Lvl) [facility] HospitalCotpkhiKYLFZXEANXKZ9553-35-80 21:34:00 Test Item Value Reference Range Interpretation Comments CO2 (test code = CO2) 25 24-32 [facility] HospitalStepbyyPCPRWGFNJWIM3165-55-69 21:34:00 Test Item Value Reference Range Interpretation Comments Calcium Lvl (test code = Calcium Lvl) 9.6 8.5-10.5 [facility] HospitalOnlynbrEJDTTXADYIKY6358-00-10 21:34:00 Test Item Value Reference Range Interpretation Comments Sodium Lvl (test code = Sodium Lvl) 140 135-145 [facility] HospitalWpklheyXUEVZUNGPNPH5540-33-81 21:34:00 Test Item Value Reference Range Interpretation Comments Creatinine Lvl (test code = Creatinine 0.71 0.50-1.40 Lvl) [facility] CenterBtpyjynKQFIOQYECP9305-66-97 21:34:00 Test Item Value Reference Range Interpretation Comments MCH (test code = MCH) 29.0 pg 27.0-31.0 [facility] HospitalIlpiimrAIANAPRLGERV9640-62-75 21:34:00 Test Item Value Reference Range Interpretation Comments BUN (test code = BUN) 15 7-22 [facility] HospitalPxmabulUNUXEFHVSQWL8786-97-36 21:34:00 Test Item Value Reference Range Interpretation Comments Glucose Lvl (test code = Glucose Lvl) 121 70-99 [facility]WekgowbNEMKTTXYZJXAQ1695-63-87 21:34:00 Test Item Value Reference Range Interpretation Comments S Preg (test code = S Negative *NA*(05/06/15 Preg) 4:34 PM) [facility] CenterLysuawoXOOEYLQBNI5257-92-84 21:34:00 Test Item Value Reference Range Interpretation Comments Eosinophils (test code = 1.8 See_Comment [A utomated message] The Eosinophils) system which ge nerated this result tra nsmitted reference range : <=4.0. The reference r luc was not used to int erpret this result as normal/abnormal . [facility] CenterWhsxzbhLVPCRNIIGQ9480-43-83 21:34:00 Test Item Value Reference Range Interpretation Comments Basophils (test code = 0.8 See_Comment [Aut omated message] The Basophils) system which ge nerated this result tra nsmitted reference range : <=1.0. The reference r luc was not used to int erpret this result as normal/abnormal . [facility] CenterBytktfaJMEVEJNRLH2602-91-44 21:34:00 Test Item Value Reference Range Interpretation Comments Segs-Bands # (test code = Segs-Bands #) 9.0 1.5-8.1 [facility] CenterRdlnvlsHNSVREIKNG9997-95-76 21:34:00 Test Item Value Reference Range Interpretation Comments Lymphocytes (test code = Lymphocytes) 29.4 20.0-40.0 [facility] CenterMsvgyqzZTFELISNSG7327-50-44 21:34:00 Test Item Value Reference Range Interpretation Comments Segs (test code = Segs) 62.1 45.0-75.0 [facility] CenterXfvkgvyFXEEOWBBOW7522-56-72 21:34:00 Test Item Value Reference Range Interpretation Comments Monocytes (test code = Monocytes) 5.9 2.0-12.0 [facility] CenterGlauucmLBEYCTKXJR6620-11-91 21:34:00 Test Item Value Reference Range Interpretation Comments Basophils # (test code 0.1 See_Comment [Aut omated message] The = Basophils #) system which generated this result tra nsmitted reference range : <=0.2. The reference r luc was not used to int erpret this result as normal/abnormal . [facility] CenterRdwfoliSASACMZWGF1966-03-16 21:34:00 Test Item Value Reference Range Interpretation Comments RDW (test code = RDW) 13.1 11.5-14.5 [facility] CenterAsgzbivSUVYMQBNKI0280-95-02 21:34:00 Test Item Value Reference Range Interpretation Comments Monocytes # (test code 0.9 See_Comment [Aut omated message] The = Monocytes #) system which generated this result tra nsmitted reference range : <=0.8. The reference r luc was not used to int erpret this result as normal/abnormal . [facility] CenterEnqjzscVOVOCHWRMS2115-01-40 21:34:00 Test Item Value Reference Range Interpretation Comments Lymphocytes # (test code = Lymphocytes 4.3 1.0-5.5 #) [facility] CenterEfnurweLCHHYUOJJU9328-81-85 21:34:00 Test Item Value Reference Range Interpretation Comments Eosinophils # (test code 0.3 See_Comment [A utomated message] The = Eosinophils #) system [facility] h generated this result tra nsmitted reference range : <=0.5. The reference r luc was not used to int erpret this result as normal/abnormal . [facility] CenterHvlaungWXTPDDBGNN1582-74-43 21:34:00 Test Item Value Reference Range Interpretation Comments G-value (test code = G-value) 10.3 5.0-11.6 [facility] CenterJpnekckBNBVRNQIUN3413-60-45 21:34:00 Test Item Value Reference Range Interpretation Comments Max Amp (test code = Max Amp) 67 mm 52-71 [facility] CenterQdeeqzpHNXMNXSQMZ3255-31-88 21:34:00 Test Item Value Reference Range Interpretation Comments Estimated % Lysis (test 4.6 See_Comment [Au tomated message] The code = Estimated % system wh ich generated Lysis) this result tra nsmitted reference range : <=7.5. The reference r luc was not used to int erpret this result as normal/abnormal . [facility] CenterEwtiwgaDDPNCPWMSN8316-84-92 21:34:00 Test Item Value Reference Range Interpretation Comments R-time (test code = R-time) 0.6 min 0.4-0.7 [facility] CenterKjsbifyPCADVKCKPH9719-86-20 21:34:00 Test Item Value Reference Range Interpretation Comments K-time (test code = K-time) 1.3 min 0.6-2.3 [facility] CenterOhwewgxESFFVBWEEV1930-61-50 21:34:00 Test Item Value Reference Range Interpretation Comments ACT (TEG) (test code = ACT (TEG)) 105 s 86-118 [facility] CenterHzxjpetURIWIDMNRR6791-65-50 21:34:00 Test Item Value Reference Range Interpretation Comments Split Point (test code = Split Point) 0.5 min [facility] CenterMyiactjXCQWZVYAVG5639-43-03 21:34:00 Test Item Value Reference Range Interpretation Comments MCHC (test code = MCHC) 32.7 32.0-36.0 [facility] CenterSsdukbbAAEDPZMDIY9034-35-72 21:34:00 Test Item Value Reference Range Interpretation Comments Angle (test code = Angle) 75 degrees 64-80 [facility] CenterBylopjzTHXYNZRYVT8838-89-41 21:34:00 Test Item Value Reference Range Interpretation Comments Rapid TEG Sample Type Citrated Whole Blood (test code = Rapid TEG (05/06/15 4:34 PM) Sample Type) [facility] CenterPzmimmtSSPWGZXHDW5426-85-27 21:34:00 Test Item Value Reference Range Interpretation Comments MPV (test code = MPV) 9.1 7.4-10.4 [facility] CenterAnrahsuBRURDFWZVK9641-04-14 21:34:00 Test Item Value Reference Range Interpretation Comments Platelet (test code = Platelet) 227 133-450 [facility] CenterDcwjxhxEQEKYHAALJ9022-74-07 21:34:00 Test Item Value Reference Range Interpretation Comments Hct (test code = Hct) 43.8 36.0-48.0 [place] 072796-03-18 21:34:00 Test Item Value Reference Range Interpretation Comments RBC (test code = RBC) 4.94 4.20-5.40 [facility] CenterDfchpaxXVEVCCJFEX7478-27-50 21:34:00 Test Item Value Reference Range Interpretation Comments Hgb (test code = Hgb) 14.3 12.0-16.0 [facility] CenterQkrycjiVBDLCELPHO1804-37-34 21:34:00 Test Item Value Reference Range Interpretation Comments WBC (test code = WBC) 14.5 3.7-10.4 [facility] CenterDadppdrSPIBAIVYOX6778-01-14 21:34:00 Test Item Value Reference Range Interpretation Comments MCV (test code = MCV) 88.7 80.0-98.0 [place] 072796-03-18 21:34:00 Test Item Value Reference Range Interpretation Comments MCH (test code = MCH) 29.0 pg 27.0-31.0 [place] [id number] 21:34:00 Test Item Value Reference Range Interpretation Comments Etoh (%) (test code = Etoh (%)) <0.003 % [facility] CenterOflbawgDFIDUTEBOA8292-75-54 21:34:00 Test Item Value Reference Range Interpretation Comments RDW (test code = RDW) 13.1 11.5-14.5 [facility] CenterAngqsffKMRRQFYZCM1750-12-70 21:34:00 Test Item Value Reference Range Interpretation Comments MCHC (test code = MCHC) 32.7 32.0-36.0 [place] [id number] 21:34:00 Test Item Value Reference Range Interpretation Comments Etoh (%) (test code = Etoh (%)) <0.003 % [place] 201376-03-18 21:34:00 Test Item Value Reference Range Interpretation Comments Ethanol Lvl (test code = Ethanol <3.0 mg/dL Lvl) [place] [id number] 21:34:00 Test Item Value Reference Range Interpretation Comments Ethanol Lvl (test code = Ethanol <3.0 mg/dL Lvl) [facility] FFBJF7987-03-23 21:34:00 Test Item Value Reference Range Interpretation Comments Lactic Acid Lvl (test code = Lactic 1.0 0.5-2.2 Acid Lvl) [facility] HospitalZhjdinaXMTHBNDZTIBQ8727-32-83 21:34:00 Test Item Value Reference Range Interpretation Comments AGAP (test code = AGAP) 12.6 10.0-20.0 [facility] HospitalXqnfulaXSTMHIBURNRN1085-43-01 21:34:00 Test Item Value Reference Range Interpretation Comments eGFR (test code = eGFR) 63 [facility] HospitalMrpryzpFBPJXTDHHFJO8047-11-01 21:34:00 Test Item Value Reference Range Interpretation Comments Chloride Lvl (test code = Chloride Lvl) 106 95-109 [facility] HospitalNtteakyPEWHIENFQFTT3930-60-51 21:34:00 Test Item Value Reference Range Interpretation Comments Potassium Lvl (test code = Potassium 3.6 3.5-5.1 Lvl) [facility] HospitalQfrkvhvPRLTSKYKCZCV9317-54-73 21:34:00 Test Item Value Reference Range Interpretation Comments CO2 (test code = CO2) 25 24-32 [facility] HospitalSruekkbVXKMXMVHTJPQ4013-13-53 21:34:00 Test Item Value Reference Range Interpretation Comments Calcium Lvl (test code = Calcium Lvl) 9.6 8.5-10.5 [facility] HospitalMgoxqxyMGVNAQORXBLO3179-84-16 21:34:00 Test Item Value Reference Range Interpretation Comments Sodium Lvl (test code = Sodium Lvl) 140 135-145 [facility] HospitalMborxwwZGEZRHXSBUDU5675-38-14 21:34:00 Test Item Value Reference Range Interpretation Comments Creatinine Lvl (test code = Creatinine 0.71 0.50-1.40 Lvl) [facility] HospitalFfsmtisYQDMHATPQMFY0343-63-58 21:34:00 Test Item Value Reference Range Interpretation Comments BUN (test code = BUN) 15 7-22 [facility] HospitalDowewhgAPGLWVMJIKNX1225-24-61 21:34:00 Test Item Value Reference Range Interpretation Comments Glucose Lvl (test code = Glucose Lvl) 121 70-99 [place] [id number] 21:34:00 Test Item Value Reference Range Interpretation Comments S Preg (test code = S Negative *NA*(05/06/15 Preg) 4:34 PM) [facility] CenterCrgqkvkUQOQDONZII0107-19-29 21:34:00 Test Item Value Reference Range Interpretation Comments Eosinophils (test code = 1.8 See_Comment [A utomated message] The Eosinophils) system which ge nerated this result tra nsmitted reference range : <=4.0. The reference r luc was not used to int erpret this result as normal/abnormal . [facility] CenterKtxebzgIDIKHXKXUC8452-28-29 21:34:00 Test Item Value Reference Range Interpretation Comments Basophils (test code = 0.8 See_Comment [Aut omated message] The Basophils) system which ge nerated this result tra nsmitted reference range : <=1.0. The reference r luc was not used to int erpret this result as normal/abnormal . [facility] CenterAgeaedxDUMWRTTFAE8191-71-85 21:34:00 Test Item Value Reference Range Interpretation Comments Segs-Bands # (test code = Segs-Bands #) 9.0 1.5-8.1 [facility] CenterGyesgodKGRZCNXORP7600-35-81 21:34:00 Test Item Value Reference Range Interpretation Comments Lymphocytes (test code = Lymphocytes) 29.4 20.0-40.0 [facility] CenterQdwhausKQYXSGCOCA4564-50-56 21:34:00 Test Item Value Reference Range Interpretation Comments Segs (test code = Segs) 62.1 45.0-75.0 [facility] CenterHkglyvcNKWQVYPAOF7580-53-62 21:34:00 Test Item Value Reference Range Interpretation Comments Monocytes (test code = Monocytes) 5.9 2.0-12.0 [facility] CenterGjfsnojGDPNBKFTWZ3315-62-68 21:34:00 Test Item Value Reference Range Interpretation Comments Basophils # (test code 0.1 See_Comment [Aut omated message] The = Basophils #) system which generated this result tra nsmitted reference range : <=0.2. The reference r luc was not used to int erpret this result as normal/abnormal . [facility] CenterMjxwnpkBZKAIJQTJZ9863-02-18 21:34:00 Test Item Value Reference Range Interpretation Comments Monocytes # (test code 0.9 See_Comment [Aut omated message] The = Monocytes #) system which generated this result tra nsmitted reference range : <=0.8. The reference r luc was not used to int erpret this result as normal/abnormal . [facility] CenterFzwqvhhFGUSTGBYLQ4153-68-38 21:34:00 Test Item Value Reference Range Interpretation Comments Lymphocytes # (test code = Lymphocytes 4.3 1.0-5.5 #) [facility] CenterHgiujwzOGDXSNDWMD9172-05-20 21:34:00 Test Item Value Reference Range Interpretation Comments Eosinophils # (test code 0.3 See_Comment [A utomated message] The = Eosinophils #) system [facility] h generated this result tra nsmitted reference range : <=0.5. The reference r luc was not used to int erpret this result as normal/abnormal . [facility] CenterNoksruuSPYIHEDLCW2897-10-41 21:34:00 Test Item Value Reference Range Interpretation Comments G-value (test code = G-value) 10.3 5.0-11.6 [facility] CenterLfzmzksTLEIRRTHQX1239-40-35 21:34:00 Test Item Value Reference Range Interpretation Comments Max Amp (test code = Max Amp) 67 mm 52-71 [facility] CenterJzgcjxlNWKHVOHFNT1577-20-77 21:34:00 Test Item Value Reference Range Interpretation Comments Estimated % Lysis (test 4.6 See_Comment [Au tomated message] The code = Estimated % system wh ich generated Lysis) this result tra nsmitted reference range : <=7.5. The reference r luc was not used to int erpret this result as normal/abnormal . [facility] CenterXddnarxHQAYSAHCRK4986-61-62 21:34:00 Test Item Value Reference Range Interpretation Comments R-time (test code = R-time) 0.6 min 0.4-0.7 [facility] CenterHoksiokUDLHLVENUU6553-14-64 21:34:00 Test Item Value Reference Range Interpretation Comments K-time (test code = K-time) 1.3 min 0.6-2.3 [facility] CenterIfmczajVGQFJAVFNZ9210-74-30 21:34:00 Test Item Value Reference Range Interpretation Comments ACT (TEG) (test code = ACT (TEG)) 105 s 86-118 [facility] CenterOlgumjzBQLGBHJCTF1045-62-51 21:34:00 Test Item Value Reference Range Interpretation Comments Split Point (test code = Split Point) 0.5 min [facility] CenterEpvtqkdYUDGPMDZWG5375-07-00 21:34:00 Test Item Value Reference Range Interpretation Comments Angle (test code = Angle) 75 degrees 64-80 [place] 072796-03-18 21:34:00 Test Item Value Reference Range Interpretation Comments Rapid TEG Sample Type Citrated Whole Blood (test code = Rapid TEG (05/06/15 4:34 PM) Sample Type) [facility] CenterNbsqtdcRVVUZWROZV5233-62-99 21:34:00 Test Item Value Reference Range Interpretation Comments MPV (test code = MPV) 9.1 7.4-10.4 [facility] CenterSjpjokmQVPWSZMZEZ9205-48-16 21:34:00 Test Item Value Reference Range Interpretation Comments Platelet (test code = Platelet) 227 133-450 [facility] CenterXqbrkdkTEXRDPJFRB2581-79-85 21:34:00 Test Item Value Reference Range Interpretation Comments Hct (test code = Hct) 43.8 36.0-48.0 [facility] CenterPyvmesrQNIPJTUTVY1752-74-79 21:34:00 Test Item Value Reference Range Interpretation Comments RBC (test code = RBC) 4.94 4.20-5.40 [place] 072796-03-18 21:34:00 Test Item Value Reference Range Interpretation Comments Hgb (test code = Hgb) 14.3 12.0-16.0 [facility] CenterErvfpcxUJCNREJFHZ9990-82-11 21:34:00 Test Item Value Reference Range Interpretation Comments WBC (test code = WBC) 14.5 3.7-10.4 [facility] CenterWvqyjboDDQWEXIAEQ9194-57-18 21:34:00 Test Item Value Reference Range Interpretation Comments MCV (test code = MCV) 88.7 80.0-98.0 [facility] CenterUbdlvfwZFXXOGSTJZ2117-72-57 21:34:00 Test Item Value Reference Range Interpretation Comments MCH (test code = MCH) 29.0 pg 27.0-31.0 [facility] CenterWujjoylPOQKYIOHEQ0561-63-92 21:34:00 Test Item Value Reference Range Interpretation Comments RDW (test code = RDW) 13.1 11.5-14.5 [facility] CenterLxmshcuEODEZOZVNW7507-77-51 21:34:00 Test Item Value Reference Range Interpretation Comments MCHC (test code = MCHC) 32.7 32.0-36.0 [place] [id number] 21:34:00 Test Item Value Reference Range Interpretation Comments Etoh (%) (test code = Etoh (%)) <0.003 % [facility]OvdyicuFTNASYDYYQ3834-00-79 21:34:00 Test Item Value Reference Range Interpretation Comments Ethanol Lvl (test code = Ethanol <3.0 mg/dL Lvl) [facility] [employer] UMCUCAS3870-27-88 10:52:00 Test Item Value Reference Range Interpretation Comments ABO/Rh (test code = ABO/Rh) A POS [facility] [employer] GRORBMW8106-25-38 10:52:00 Test Item Value Reference Range Interpretation Comments Antibody Scrn (test Negative (05/02/2012 N code = Antibody Scrn) 05:52:00) [facility] [employer] UHYJCDA7708-52-77 10:52:00 Test Item Value Reference Range Interpretation Comments ABO/Rh (test code = ABO/Rh) A POS [facility] [employer] HRLBCQA3361-73-36 10:52:00 Test Item Value Reference Range Interpretation Comments Antibody Scrn (test Negative (05/02/2012 N code = Antibody Scrn) 05:52:00) [facility] [employer] [id number] 10:52:00 Test Item Value Reference Range Interpretation Comments ABO/Rh (test code = ABO/Rh) A [facility] [employer] VFVTKUB1454-60-51 10:52:00 Test Item Value Reference Range Interpretation Comments Antibody Scrn (test Negative (05/02/2012 N code = Antibody Scrn) 05:52:00) [facility] [id number] 10:52:00 Test Item Value Reference Range Interpretation Comments ABO/Rh (test code = ABO/Rh) [facility] NSSTWNP9204-22-59 10:52:00 Test Item Value Reference Range Interpretation Comments Antibody Scrn (test Negative (05/02/2012 N code = Antibody Scrn) 05:52:00) [facility] [employer] [id number] 10:52:00 Test Item Value Reference Range Interpretation Comments ABO/Rh (test code = ABO/Rh) A [facility] [employer] ROEOAWN1866-55-93 10:52:00 Test Item Value Reference Range Interpretation Comments Antibody Scrn (test Negative (05/02/2012 N code = Antibody Scrn) 05:52:00) [facility] DYWNTPY3033-12-15 10:52:00 Test Item Value Reference Range Interpretation Comments ABO/Rh (test code = ABO/Rh) A [facility] [employer] JRHLYBU2051-74-53 10:52:00 Test Item Value Reference Range Interpretation Comments Antibody Scrn (test Negative (05/02/2012 N code = Antibody Scrn) 05:52:00) [facility] ZBRTBMB9530-12-63 10:52:00 Test Item Value Reference Range Interpretation Comments ABO/Rh (test code = ABO/Rh) A [facility] [employer] OQSWMQW2253-25-87 10:52:00 Test Item Value Reference Range Interpretation Comments Antibody Scrn (test Negative (05/02/2012 N code = Antibody Scrn) 05:52:00) [facility] VHCDIVI5591-83-24 10:52:00 Test Item Value Reference Range Interpretation Comments ABO/Rh (test code = ABO/Rh) A [facility] [employer] LVFROOF8143-11-41 10:52:00 Test Item Value Reference Range Interpretation Comments Antibody Scrn (test Negative (05/02/2012 N code = Antibody Scrn) 05:52:00) [facility] [employer] FBMDKLZ9700-63-02 10:52:00 Test Item Value Reference Range Interpretation Comments ABO/Rh (test code = ABO/Rh) A [facility] [id number] 10:52:00 Test Item Value Reference Range Interpretation Comments Antibody Scrn (test Negative (05/02/2012 N code = Antibody Scrn) 05:52:00) [facility] CenterVnjfuknKFISUJSSUW1668-31-42 10:44:00 Test Item Value Reference Range Interpretation Comments ACT (TEG) (test code = ACT (TEG)) 105 s 86-118 N [facility] CenterXnfbztuKEGBTSMAZM4796-24-78 10:44:00 Test Item Value Reference Range Interpretation Comments Rapid TEG Sample Type Citrated Whole Blood (test code = Rapid TEG Sample Type) [facility] CenterDifnmolUCHSXNVCRU6311-91-85 10:44:00 Test Item Value Reference Range Interpretation Comments INR (test code = INR) 1.00 0.85-1.17 N [facility] CenterQaxlzxdLDNEQMJBVN3034-56-98 10:44:00 Test Item Value Reference Range Interpretation Comments PT (test code = PT) 13.4 s 12.0-14.7 N [facility] CenterJatasumEOUYJTUQCQ5491-42-64 10:44:00 Test Item Value Reference Range Interpretation Comments PTT (test code = PTT) 32.6 s 22.9-35.8 N [facility] CenterQbtlhevYQAENBOPNC5608-09-82 10:44:00 Test Item Value Reference Range Interpretation Comments MPV (test code = MPV) 9.1 7.4-10.4 N [facility] CenterSkaxibhVMZOLJHEXJ7691-68-41 10:44:00 Test Item Value Reference Range Interpretation Comments Platelet (test code = Platelet) 242 133-450 N [facility] CenterUjgifxcWNRIINXPQB0622-84-21 10:44:00 Test Item Value Reference Range Interpretation Comments RDW (test code = RDW) 12.4 11.5-14.5 N [facility] CenterWexgtqhAKALCPBAHJ8989-83-88 10:44:00 Test Item Value Reference Range Interpretation Comments MCHC (test code = MCHC) 33.3 32.0-36.0 N [facility] CenterYzxjrbvHQXEJGJSYE8942-80-38 10:44:00 Test Item Value Reference Range Interpretation Comments MCH (test code = MCH) 30.5 pg 27.0-31.0 N [facility] CenterOoxfipePFMQFDVVHA0124-05-72 10:44:00 Test Item Value Reference Range Interpretation Comments MCV (test code = MCV) 91.4 81.0-99.0 N [facility] CenterBowiejaSGEZNAEKQF7731-84-57 10:44:00 Test Item Value Reference Range Interpretation Comments Hct (test code = Hct) 43.8 36.0-48.0 N [facility] CenterTiuanfdOAKVJIFLCE6991-58-33 10:44:00 Test Item Value Reference Range Interpretation Comments Hgb (test code = Hgb) 14.6 12.0-16.0 N [facility] CenterKjzpkrdLBDKPDUZFY8809-46-96 10:44:00 Test Item Value Reference Range Interpretation Comments RBC (test code = RBC) 4.79 4.20-5.40 N [facility] CenterYnbjekmGFJZIKAHGU1943-82-89 10:44:00 Test Item Value Reference Range Interpretation Comments WBC (test code = WBC) 15.0 3.7-10.4 H [facility] CenterTlqwbowRZEYNLIPZ1968-62-09 10:44:00 Test Item Value Reference Range Interpretation Comments eGFR (test code = eGFR) 128 [facility] CenterYmuvundMLBAVUQSB1253-11-74 10:44:00 Test Item Value Reference Range Interpretation Comments Glucose Lvl (test code = Glucose Lvl) 103 70-99 H [facility] CenterHzighevQLRALRHZE1922-00-05 10:44:00 Test Item Value Reference Range Interpretation Comments BUN (test code = BUN) 17 7-22 N [facility] CenterFgvtkjfDELCHAKXW8757-66-69 10:44:00 Test Item Value Reference Range Interpretation Comments Creatinine Lvl (test code = Creatinine 0.5 0.5-1.4 N Lvl) [facility] CenterAmwnrkpFOPLXWHNA1123-03-40 10:44:00 Test Item Value Reference Range Interpretation Comments Sodium Lvl (test code = Sodium Lvl) 137 135-145 N [facility] CenterNzgltybOFTLHLBWV7902-00-34 10:44:00 Test Item Value Reference Range Interpretation Comments Potassium Lvl (test code = Potassium 3.6 3.5-5.1 N Lvl) [facility] CenterCdqnqtfJKJDCKFKN8858-24-59 10:44:00 Test Item Value Reference Range Interpretation Comments Chloride Lvl (test code = Chloride Lvl) 104 95-109 N [facility] CenterNyxiswmZXJBTBYDX9847-17-16 10:44:00 Test Item Value Reference Range Interpretation Comments CO2 (test code = CO2) 24 24-32 N [facility] CenterHtpxntlPFWRNBMPT9765-79-24 10:44:00 Test Item Value Reference Range Interpretation Comments Calcium Lvl (test code = Calcium Lvl) 9.0 8.5-10.5 N [facility] CenterYbagnzxEVJTEJRES2145-57-39 10:44:00 Test Item Value Reference Range Interpretation Comments AGAP (test code = AGAP) 12.6 10.0-20.0 N [facility] CenterQfhfkctJFUPMUNXBC5751-82-39 10:44:00 Test Item Value Reference Range Interpretation Comments Monocytes (test code = Monocytes) 6.5 2.0-12.0 N [facility] CenterYgbcayeMVTYOAWNWT3817-82-11 10:44:00 Test Item Value Reference Range Interpretation Comments Segs-Bands # (test code = Segs-Bands #) 10.7 1.5-8.1 H [facility] CenterNefnmufGACWEXZXKW7222-17-47 10:44:00 Test Item Value Reference Range Interpretation Comments Lymphocytes # (test code = Lymphocytes 3.3 1.0-5.5 N #) [facility] CenterAyxhjifIAQLSZJYGE1382-20-40 10:44:00 Test Item Value Reference Range Interpretation Comments Eosinophils (test code = 0.3 See_Comment N [A utomated message] The Eosinophils) system which ge nerated this result tra nsmitted reference range : <=4.0. The reference r luc was not used to int erpret this result as normal/abnormal . [facility] CenterIaydlohJATMKDCXTC3576-88-26 10:44:00 Test Item Value Reference Range Interpretation Comments Basophils (test code = 0.3 See_Comment N [Aut omated message] The Basophils) system which ge nerated this result tra nsmitted reference range : <=1.0. The reference r luc was not used to int erpret this result as normal/abnormal . [facility] CenterMihlwukALYGQSKVTQ7764-78-32 10:44:00 Test Item Value Reference Range Interpretation Comments Basophils # (test code 0.0 See_Comment N [Aut omated message] The = Basophils #) system which generated this result tra nsmitted reference range : <=0.2. The reference r luc was not used to int erpret this result as normal/abnormal . [facility] CenterDniflgeTZIXXIQACX5033-87-82 10:44:00 Test Item Value Reference Range Interpretation Comments Monocytes # (test code 1.0 See_Comment H [Aut omated message] The = Monocytes #) system which generated this result tra nsmitted reference range : <=0.8. The reference r luc was not used to int erpret this result as normal/abnormal . [facility] CenterSlcafsmNXCPQEKUKL8827-07-62 10:44:00 Test Item Value Reference Range Interpretation Comments Eosinophils # (test code 0.0 See_Comment N [A utomated message] The = Eosinophils #) system whic h generated this result tra nsmitted reference range : <=0.5. The reference r luc was not used to int erpret this result as normal/abnormal . [facility] CenterDymatcjOQTAYUKYDK2643-21-08 10:44:00 Test Item Value Reference Range Interpretation Comments Lymphocytes (test code = Lymphocytes) 22.2 20.0-40.0 N [facility] CenterTtoaoxpPENHKHSCHZ9414-94-24 10:44:00 Test Item Value Reference Range Interpretation Comments RBC Morph (test code = Normal (05/02/2012 N RBC Morph) 05:44:00) [facility] CenterNhjanahYSPNPLPMQO9495-49-09 10:44:00 Test Item Value Reference Range Interpretation Comments Segs (test code = Segs) 70.7 45.0-75.0 N [facility] CenterXemtbfoGNBOJHURTB7142-43-23 10:44:00 Test Item Value Reference Range Interpretation Comments Plt Morph (test code = Normal (05/02/2012 N Plt Morph) 05:44:00) [facility] CenterUwxcpnoUICQRIYERE0117-54-76 10:44:00 Test Item Value Reference Range Interpretation Comments G-value (test code = G-value) 10.4 5.0-11.6 N [facility] CenterJrdupjmKCXOJVNFAP1367-59-65 10:44:00 Test Item Value Reference Range Interpretation Comments Max Amp (test code = Max Amp) 68 mm 52-71 N [facility] CenterTyjflwdBNAAGAHXLZ3710-14-47 10:44:00 Test Item Value Reference Range Interpretation Comments Estimated % Lysis (test 2.1 See_Comment N [Au tomated message] The code = Estimated % system wh ich generated Lysis) this result tra nsmitted reference range : <=7.5. The reference r luc was not used to int erpret this result as normal/abnormal . [facility] CenterFfecrcrULAAKMCVSS6498-94-19 10:44:00 Test Item Value Reference Range Interpretation Comments R-time (test code = R-time) 0.6 min 0.4-0.7 N [facility] CenterYrbvpfaJBAKRTYUAP5984-47-01 10:44:00 Test Item Value Reference Range Interpretation Comments K-time (test code = K-time) 1.0 min 0.6-2.3 N [facility] CenterFopvwapPACEJBLDAP9865-36-96 10:44:00 Test Item Value Reference Range Interpretation Comments Angle (test code = Angle) 78 degrees 64-80 N [facility] CenterEiknaopVFZNHVXJSR0492-81-63 10:44:00 Test Item Value Reference Range Interpretation Comments Split Point (test code = Split Point) 0.5 min [facility] CenterDdvpedvZQFETNJULS7861-91-60 10:44:00 Test Item Value Reference Range Interpretation Comments ACT (TEG) (test code = ACT (TEG)) 105 s 86-118 N [facility] CenterWbfgcivBCRHBRJPTE4001-72-64 10:44:00 Test Item Value Reference Range Interpretation Comments Rapid TEG Sample Type Citrated Whole Blood (test code = Rapid TEG Sample Type) [facility] CenterLlsycpkWPBLSTKOGC0818-40-22 10:44:00 Test Item Value Reference Range Interpretation Comments INR (test code = INR) 1.00 0.85-1.17 N [facility] CenterOegoghhYIJAPVVCKP2168-40-79 10:44:00 Test Item Value Reference Range Interpretation Comments PT (test code = PT) 13.4 s 12.0-14.7 N [facility] CenterAaiufojBVMJPTXAAJ6816-88-67 10:44:00 Test Item Value Reference Range Interpretation Comments PTT (test code = PTT) 32.6 s 22.9-35.8 N [facility] CenterIpjnzpgDORJKXNEVC4540-66-24 10:44:00 Test Item Value Reference Range Interpretation Comments MPV (test code = MPV) 9.1 7.4-10.4 N [facility] CenterQhkxvikWEVQGTFTHG3473-83-90 10:44:00 Test Item Value Reference Range Interpretation Comments Platelet (test code = Platelet) 242 133-450 N [facility] CenterEdjhatkQVMRJPSTCP3092-95-46 10:44:00 Test Item Value Reference Range Interpretation Comments RDW (test code = RDW) 12.4 11.5-14.5 N [facility] CenterWiyhuhlPTUAYAGAVE0835-23-89 10:44:00 Test Item Value Reference Range Interpretation Comments MCHC (test code = MCHC) 33.3 32.0-36.0 N [facility] CenterDuyaadbPRWVILXHSB8772-87-86 10:44:00 Test Item Value Reference Range Interpretation Comments MCH (test code = MCH) 30.5 pg 27.0-31.0 N [facility] CenterHfnwffsMGHETMHASC9010-73-01 10:44:00 Test Item Value Reference Range Interpretation Comments MCV (test code = MCV) 91.4 81.0-99.0 N [facility] CenterXzxpjxtGUMWNREJLZ3105-87-98 10:44:00 Test Item Value Reference Range Interpretation Comments Hct (test code = Hct) 43.8 36.0-48.0 N [facility] CenterYqbxqgoQCXYFAMCUF7941-08-54 10:44:00 Test Item Value Reference Range Interpretation Comments Hgb (test code = Hgb) 14.6 12.0-16.0 N [facility] CenterOrsewvrZMQOSLMCTL4073-92-29 10:44:00 Test Item Value Reference Range Interpretation Comments RBC (test code = RBC) 4.79 4.20-5.40 N [facility] CenterAplbyyaDOCFZGZFXZ7656-75-02 10:44:00 Test Item Value Reference Range Interpretation Comments WBC (test code = WBC) 15.0 3.7-10.4 H [facility] CenterQttmikcNRBIJGDND8065-71-18 10:44:00 Test Item Value Reference Range Interpretation Comments eGFR (test code = eGFR) 128 [facility] CenterMylwlfmFYMJNTNMR8286-65-47 10:44:00 Test Item Value Reference Range Interpretation Comments Glucose Lvl (test code = Glucose Lvl) 103 70-99 H [facility] CenterTrjfdxgMSLYUKVTP5325-53-16 10:44:00 Test Item Value Reference Range Interpretation Comments BUN (test code = BUN) 17 7-22 N [facility] CenterKkpltryRFKXYECQF3277-70-46 10:44:00 Test Item Value Reference Range Interpretation Comments Creatinine Lvl (test code = Creatinine 0.5 0.5-1.4 N Lvl) [facility] CenterVhlklveXJFMXICEX7566-14-54 10:44:00 Test Item Value Reference Range Interpretation Comments Sodium Lvl (test code = Sodium Lvl) 137 135-145 N [facility] CenterGmhnzmmMKSCKHVKR5909-00-11 10:44:00 Test Item Value Reference Range Interpretation Comments Potassium Lvl (test code = Potassium 3.6 3.5-5.1 N Lvl) [facility] CenterXkvicrkQPRLHMGVP3179-24-80 10:44:00 Test Item Value Reference Range Interpretation Comments Chloride Lvl (test code = Chloride Lvl) 104 95-109 N [facility] CenterCtjywxwTFTFCQWQO7642-82-74 10:44:00 Test Item Value Reference Range Interpretation Comments CO2 (test code = CO2) 24 24-32 N [facility] CenterObnekxdNKAGJXETY6131-09-90 10:44:00 Test Item Value Reference Range Interpretation Comments Calcium Lvl (test code = Calcium Lvl) 9.0 8.5-10.5 N [facility] CenterXqxkjvxCIRPMEHYC7749-53-40 10:44:00 Test Item Value Reference Range Interpretation Comments AGAP (test code = AGAP) 12.6 10.0-20.0 N [facility] CenterOvrdolrXZNVMVULQD6980-73-28 10:44:00 Test Item Value Reference Range Interpretation Comments Monocytes (test code = Monocytes) 6.5 2.0-12.0 N [facility] CenterAkbeekuNUAWMICDDD7227-49-15 10:44:00 Test Item Value Reference Range Interpretation Comments Segs-Bands # (test code = Segs-Bands #) 10.7 1.5-8.1 H [facility] CenterMwswzjxJZJBWYALLQ3074-69-40 10:44:00 Test Item Value Reference Range Interpretation Comments Lymphocytes # (test code = Lymphocytes 3.3 1.0-5.5 N #) [facility] CenterSfghaljQIEEOSZTCH0239-12-29 10:44:00 Test Item Value Reference Range Interpretation Comments Eosinophils (test code = 0.3 See_Comment N [A utomated message] The Eosinophils) system which ge nerated this result tra nsmitted reference range : <=4.0. The reference r luc was not used to int erpret this result as normal/abnormal . [facility] CenterVcqbtxnXAPXJKDNEJ0658-01-69 10:44:00 Test Item Value Reference Range Interpretation Comments Basophils (test code = 0.3 See_Comment N [Aut omated message] The Basophils) system which ge nerated this result tra nsmitted reference range : <=1.0. The reference r luc was not used to int erpret this result as normal/abnormal . [facility] CenterTcdqsswPHNIIEFXOM7588-75-75 10:44:00 Test Item Value Reference Range Interpretation Comments Basophils # (test code 0.0 See_Comment N [Aut omated message] The = Basophils #) system which generated this result tra nsmitted reference range : <=0.2. The reference r luc was not used to int erpret this result as normal/abnormal . [facility] CenterBvwzjqbLWAFEPPNBS7993-18-53 10:44:00 Test Item Value Reference Range Interpretation Comments Monocytes # (test code 1.0 See_Comment H [Aut omated message] The = Monocytes #) system which generated this result tra nsmitted reference range : <=0.8. The reference r luc was not used to int erpret this result as normal/abnormal . [facility] CenterYcabkgaQQQFVZZMBL5206-99-01 10:44:00 Test Item Value Reference Range Interpretation Comments Eosinophils # (test code 0.0 See_Comment N [A utomated message] The = Eosinophils #) system whic h generated this result tra nsmitted reference range : <=0.5. The reference r luc was not used to int erpret this result as normal/abnormal . [facility] CenterIutbhzsSQUEHMDGGV9766-81-26 10:44:00 Test Item Value Reference Range Interpretation Comments Lymphocytes (test code = Lymphocytes) 22.2 20.0-40.0 N [facility] CenterBwpxlnfVDQLBAZMBB5711-42-04 10:44:00 Test Item Value Reference Range Interpretation Comments RBC Morph (test code = Normal (05/02/2012 N RBC Morph) 05:44:00) [facility] CenterQbupekoRFRISMGYYJ8301-42-56 10:44:00 Test Item Value Reference Range Interpretation Comments Segs (test code = Segs) 70.7 45.0-75.0 N [facility] CenterOpibocbXJIPVLZQRX9248-75-05 10:44:00 Test Item Value Reference Range Interpretation Comments Plt Morph (test code = Normal (05/02/2012 N Plt Morph) 05:44:00) [facility] CenterEechbtgHJVSDZYOUE5410-14-44 10:44:00 Test Item Value Reference Range Interpretation Comments G-value (test code = G-value) 10.4 5.0-11.6 N [facility] CenterOpavmhkALEMESPLXK2252-06-63 10:44:00 Test Item Value Reference Range Interpretation Comments Max Amp (test code = Max Amp) 68 mm 52-71 N [facility] CenterRecxthoPRYIXBFMNA7228-17-29 10:44:00 Test Item Value Reference Range Interpretation Comments Estimated % Lysis (test 2.1 See_Comment N [Au tomated message] The code = Estimated % system wh ich generated Lysis) this result tra nsmitted reference range : <=7.5. The reference r luc was not used to int erpret this result as normal/abnormal . [facility] CenterNejwoccGXKEGKBNCQ8794-76-30 10:44:00 Test Item Value Reference Range Interpretation Comments R-time (test code = R-time) 0.6 min 0.4-0.7 N [facility] CenterUedqvrzTFGROJLSZT9959-29-28 10:44:00 Test Item Value Reference Range Interpretation Comments K-time (test code = K-time) 1.0 min 0.6-2.3 N [facility] CenterRieyfglXLNMUMPUGF5173-10-02 10:44:00 Test Item Value Reference Range Interpretation Comments Angle (test code = Angle) 78 degrees 64-80 N [facility] CenterXxjzhclUFYYHDLERP7389-91-77 10:44:00 Test Item Value Reference Range Interpretation Comments Split Point (test code = Split Point) 0.5 min [facility] CenterXrthfofYNEIWUDOAJ4118-69-79 10:44:00 Test Item Value Reference Range Interpretation Comments ACT (TEG) (test code = ACT (TEG)) 105 s 86-118 N [facility] CenterNfebhjbHVINVQCTVL1338-04-31 10:44:00 Test Item Value Reference Range Interpretation Comments Rapid TEG Sample Type Citrated Whole Blood (test code = Rapid TEG Sample Type) [facility] CenterGxnlkpfLVUTGCTZXX4809-33-49 10:44:00 Test Item Value Reference Range Interpretation Comments INR (test code = INR) 1.00 0.85-1.17 N [facility] CenterIfpppajIYEHILWQLY6416-23-59 10:44:00 Test Item Value Reference Range Interpretation Comments PT (test code = PT) 13.4 s 12.0-14.7 N [facility] CenterVcdjxtcKYHTOKPQUR3344-73-88 10:44:00 Test Item Value Reference Range Interpretation Comments PTT (test code = PTT) 32.6 s 22.9-35.8 N [facility] CenterKtcjxjdJBZIPNFRSW7318-16-66 10:44:00 Test Item Value Reference Range Interpretation Comments MPV (test code = MPV) 9.1 7.4-10.4 N [facility] CenterElkamehKBAUAJSHCC3613-67-15 10:44:00 Test Item Value Reference Range Interpretation Comments Platelet (test code = Platelet) 242 133-450 N [facility] CenterKwybntmWXKQPMYLVZ6996-61-01 10:44:00 Test Item Value Reference Range Interpretation Comments RDW (test code = RDW) 12.4 11.5-14.5 N [facility] CenterCqhdudnLLHPYIRYFU4091-55-10 10:44:00 Test Item Value Reference Range Interpretation Comments MCHC (test code = MCHC) 33.3 32.0-36.0 N [facility] CenterRgatgalKBETKEOXID3853-55-96 10:44:00 Test Item Value Reference Range Interpretation Comments MCH (test code = MCH) 30.5 pg 27.0-31.0 N [facility] CenterZmkfqxkTDNYNYPDCS0954-51-69 10:44:00 Test Item Value Reference Range Interpretation Comments MCV (test code = MCV) 91.4 81.0-99.0 N [facility] CenterHqmbxkgBYNFAWCERX7355-38-45 10:44:00 Test Item Value Reference Range Interpretation Comments Hct (test code = Hct) 43.8 36.0-48.0 N [facility] CenterTeoudnwDAMVMEICAE7448-05-00 10:44:00 Test Item Value Reference Range Interpretation Comments Hgb (test code = Hgb) 14.6 12.0-16.0 N [facility] CenterXquovmfPRYVOYVCOE9441-27-90 10:44:00 Test Item Value Reference Range Interpretation Comments RBC (test code = RBC) 4.79 4.20-5.40 N [facility] CenterDvlohdnSLRWGVYDVM8058-08-04 10:44:00 Test Item Value Reference Range Interpretation Comments WBC (test code = WBC) 15.0 3.7-10.4 H [facility] CenterPpxvmiwSDSSIUGDF4921-50-53 10:44:00 Test Item Value Reference Range Interpretation Comments eGFR (test code = eGFR) 128 [facility] CenterMmvfdaoPDXXXNOZW9369-01-41 10:44:00 Test Item Value Reference Range Interpretation Comments Glucose Lvl (test code = Glucose Lvl) 103 70-99 H [facility] CenterXahfqmnCEEXDFMGL9680-69-95 10:44:00 Test Item Value Reference Range Interpretation Comments BUN (test code = BUN) 17 7-22 N [facility] CenterEvqpntdYOJYRDRSI4992-14-31 10:44:00 Test Item Value Reference Range Interpretation Comments Creatinine Lvl (test code = Creatinine 0.5 0.5-1.4 N Lvl) [facility] CenterDjbbwegOVRIMSKCS4580-08-08 10:44:00 Test Item Value Reference Range Interpretation Comments Sodium Lvl (test code = Sodium Lvl) 137 135-145 N [facility] CenterFvsvuskKBIYPEODW5154-54-11 10:44:00 Test Item Value Reference Range Interpretation Comments Potassium Lvl (test code = Potassium 3.6 3.5-5.1 N Lvl) [facility] CenterUeqeemnOQHNUEEZZ6472-00-19 10:44:00 Test Item Value Reference Range Interpretation Comments Chloride Lvl (test code = Chloride Lvl) 104 95-109 N [facility] CenterLjgntzwJTQRTTOLL2934-76-08 10:44:00 Test Item Value Reference Range Interpretation Comments CO2 (test code = CO2) 24 24-32 N [facility] CenterZvpommzDTFCHBNTI6305-34-51 10:44:00 Test Item Value Reference Range Interpretation Comments Calcium Lvl (test code = Calcium Lvl) 9.0 8.5-10.5 N [facility] CenterKcnwdnpSRUAKFLAS7365-61-82 10:44:00 Test Item Value Reference Range Interpretation Comments AGAP (test code = AGAP) 12.6 10.0-20.0 N [facility] CenterStgnrugAMZIHPCYQT6595-09-79 10:44:00 Test Item Value Reference Range Interpretation Comments Monocytes (test code = Monocytes) 6.5 2.0-12.0 N [facility] CenterEhncpxrJAAKCVYCFL6224-42-94 10:44:00 Test Item Value Reference Range Interpretation Comments Segs-Bands # (test code = Segs-Bands #) 10.7 1.5-8.1 H [facility] CenterUzcptduZTBWLAXDOZ3399-90-52 10:44:00 Test Item Value Reference Range Interpretation Comments Lymphocytes # (test code = Lymphocytes 3.3 1.0-5.5 N #) [facility] CenterIjirmneAWIZHXJBBF0549-95-37 10:44:00 Test Item Value Reference Range Interpretation Comments Eosinophils (test code = 0.3 See_Comment N [A utomated message] The Eosinophils) system which ge nerated this result tra nsmitted reference range : <=4.0. The reference r luc was not used to int erpret this result as normal/abnormal . [facility] CenterXgffczpQTYIWSNTEL5494-12-56 10:44:00 Test Item Value Reference Range Interpretation Comments Basophils (test code = 0.3 See_Comment N [Aut omated message] The Basophils) system which ge nerated this result tra nsmitted reference range : <=1.0. The reference r luc was not used to int erpret this result as normal/abnormal . [facility] CenterKdbtgiwMNTAQSQAVM4487-33-29 10:44:00 Test Item Value Reference Range Interpretation Comments Basophils # (test code 0.0 See_Comment N [Aut omated message] The = Basophils #) system which generated this result tra nsmitted reference range : <=0.2. The reference r luc was not used to int erpret this result as normal/abnormal . [facility] CenterEszzfpaKNHJZVUIUA8718-61-11 10:44:00 Test Item Value Reference Range Interpretation Comments Monocytes # (test code 1.0 See_Comment H [Aut omated message] The = Monocytes #) system which generated this result tra nsmitted reference range : <=0.8. The reference r luc was not used to int erpret this result as normal/abnormal . [facility] CenterTcljeorWMXGFNIVOZ7220-52-54 10:44:00 Test Item Value Reference Range Interpretation Comments Eosinophils # (test code 0.0 See_Comment N [A utomated message] The = Eosinophils #) system whic h generated this result tra nsmitted reference range : <=0.5. The reference r luc was not used to int erpret this result as normal/abnormal . [facility] CenterBnbnbcpECPKCCDSKM0357-36-41 10:44:00 Test Item Value Reference Range Interpretation Comments Lymphocytes (test code = Lymphocytes) 22.2 20.0-40.0 N [facility] CenterDindjjbFVTABJKVQD8675-47-15 10:44:00 Test Item Value Reference Range Interpretation Comments RBC Morph (test code = Normal (05/02/2012 N RBC Morph) 05:44:00) [facility] CenterSkcorsxXOFNQOJTDS5442-40-47 10:44:00 Test Item Value Reference Range Interpretation Comments Segs (test code = Segs) 70.7 45.0-75.0 N [facility] CenterGdlgjhkOCVVRYRQVR7193-72-80 10:44:00 Test Item Value Reference Range Interpretation Comments Plt Morph (test code = Normal (05/02/2012 N Plt Morph) 05:44:00) [facility] CenterYmozdieIULNZBMFEN0471-68-72 10:44:00 Test Item Value Reference Range Interpretation Comments G-value (test code = G-value) 10.4 5.0-11.6 N [facility] CenterYhbfcwvEVEETYLCMK4757-13-54 10:44:00 Test Item Value Reference Range Interpretation Comments Max Amp (test code = Max Amp) 68 mm 52-71 N [facility] CenterGnftikrMMIWDCHRWY6278-21-32 10:44:00 Test Item Value Reference Range Interpretation Comments Estimated % Lysis (test 2.1 See_Comment N [Au tomated message] The code = Estimated % system wh ich generated Lysis) this result tra nsmitted reference range : <=7.5. The reference r luc was not used to int erpret this result as normal/abnormal . [facility] CenterEiuloetUVDZCBSFBZ1572-33-45 10:44:00 Test Item Value Reference Range Interpretation Comments R-time (test code = R-time) 0.6 min 0.4-0.7 N [facility] CenterBnfoadnFBJVJBELGK8154-63-42 10:44:00 Test Item Value Reference Range Interpretation Comments K-time (test code = K-time) 1.0 min 0.6-2.3 N [facility] CenterLrkckxtJCEANXDUXW0859-55-66 10:44:00 Test Item Value Reference Range Interpretation Comments Angle (test code = Angle) 78 degrees 64-80 N [facility] CenterCnaywpcKFHCVXJFCB5095-90-41 10:44:00 Test Item Value Reference Range Interpretation Comments Split Point (test code = Split Point) 0.5 min [facility] CenterKkswirsRFEUSPKUHK6664-88-47 10:44:00 Test Item Value Reference Range Interpretation Comments ACT (TEG) (test code = ACT (TEG)) 105 s 86-118 N [facility] CenterMjgmazuSSATHPSGCP2957-59-17 10:44:00 Test Item Value Reference Range Interpretation Comments Rapid TEG Sample Type Citrated Whole Blood (test code = Rapid TEG Sample Type) [facility] CenterXzgujvhODVGAGTOTT7924-29-02 10:44:00 Test Item Value Reference Range Interpretation Comments INR (test code = INR) 1.00 0.85-1.17 N [facility] CenterOxfwksuNLVTCYUAEI1937-06-48 10:44:00 Test Item Value Reference Range Interpretation Comments PT (test code = PT) 13.4 s 12.0-14.7 N [facility] CenterFybtgtpPDEWABDZFX8339-52-64 10:44:00 Test Item Value Reference Range Interpretation Comments PTT (test code = PTT) 32.6 s 22.9-35.8 N [facility] CenterEmtrcejJWOAAXTXNV5906-85-87 10:44:00 Test Item Value Reference Range Interpretation Comments MPV (test code = MPV) 9.1 7.4-10.4 N [facility] CenterJnxyyxkDNHCEEKEBI1214-04-67 10:44:00 Test Item Value Reference Range Interpretation Comments Platelet (test code = Platelet) 242 133-450 N [facility] CenterElvxczfDTPQAQAIBN6306-19-50 10:44:00 Test Item Value Reference Range Interpretation Comments RDW (test code = RDW) 12.4 11.5-14.5 N [facility] CenterYmjcafbXBWHBENRGY4026-31-34 10:44:00 Test Item Value Reference Range Interpretation Comments MCHC (test code = MCHC) 33.3 32.0-36.0 N [facility] CenterKifpeztXVHCABQTJJ8560-62-93 10:44:00 Test Item Value Reference Range Interpretation Comments MCH (test code = MCH) 30.5 pg 27.0-31.0 N [facility] CenterDpejwlfAYVOERXJEJ7973-58-59 10:44:00 Test Item Value Reference Range Interpretation Comments MCV (test code = MCV) 91.4 81.0-99.0 N [facility] CenterXvssrgeSFUCZCILOJ9615-26-40 10:44:00 Test Item Value Reference Range Interpretation Comments Hct (test code = Hct) 43.8 36.0-48.0 N [facility] CenterXtdkpmeCXJQQXWIQS7576-02-86 10:44:00 Test Item Value Reference Range Interpretation Comments Hgb (test code = Hgb) 14.6 12.0-16.0 N [facility] CenterZbqeisxBZPLTKJCOQ2263-72-38 10:44:00 Test Item Value Reference Range Interpretation Comments RBC (test code = RBC) 4.79 4.20-5.40 N [facility] CenterKetvdfyYVVHRRHCEN6639-74-34 10:44:00 Test Item Value Reference Range Interpretation Comments WBC (test code = WBC) 15.0 3.7-10.4 H [facility] CenterVwqaqcvQZSRSIQBK0207-26-14 10:44:00 Test Item Value Reference Range Interpretation Comments eGFR (test code = eGFR) 128 [facility] CenterPdvstatVUUMTLBJK4951-82-54 10:44:00 Test Item Value Reference Range Interpretation Comments Glucose Lvl (test code = Glucose Lvl) 103 70-99 H [facility] CenterCowjftgEDSRURSQF4794-91-83 10:44:00 Test Item Value Reference Range Interpretation Comments BUN (test code = BUN) 17 7-22 N [facility] CenterEssqbdvSQWPTYANB3144-12-21 10:44:00 Test Item Value Reference Range Interpretation Comments Creatinine Lvl (test code = Creatinine 0.5 0.5-1.4 N Lvl) [facility] CenterNrvgnanMYBOGGBCF3105-78-53 10:44:00 Test Item Value Reference Range Interpretation Comments Sodium Lvl (test code = Sodium Lvl) 137 135-145 N [facility] CenterCtxjthhGGRBQARSF4231-10-10 10:44:00 Test Item Value Reference Range Interpretation Comments Potassium Lvl (test code = Potassium 3.6 3.5-5.1 N Lvl) [facility] CenterBubfwkvOEKRKICKL0399-86-69 10:44:00 Test Item Value Reference Range Interpretation Comments Chloride Lvl (test code = Chloride Lvl) 104 95-109 N [facility] CenterWiqkkkiEGAQCKFDV3919-19-88 10:44:00 Test Item Value Reference Range Interpretation Comments CO2 (test code = CO2) 24 24-32 N [facility] CenterXpnstkxVMJZHWCHC2806-52-38 10:44:00 Test Item Value Reference Range Interpretation Comments Calcium Lvl (test code = Calcium Lvl) 9.0 8.5-10.5 N [facility] CenterQxxtijjNRASTLIPN7146-00-88 10:44:00 Test Item Value Reference Range Interpretation Comments AGAP (test code = AGAP) 12.6 10.0-20.0 N [facility] CenterTmjntulKHGRCTUVRZ5962-11-50 10:44:00 Test Item Value Reference Range Interpretation Comments Monocytes (test code = Monocytes) 6.5 2.0-12.0 N [facility] CenterBehyqumXSUCSGPJOH5766-54-94 10:44:00 Test Item Value Reference Range Interpretation Comments Segs-Bands # (test code = Segs-Bands #) 10.7 1.5-8.1 H [facility] CenterHmzueduKEYXDDBHSI4228-34-24 10:44:00 Test Item Value Reference Range Interpretation Comments Lymphocytes # (test code = Lymphocytes 3.3 1.0-5.5 N #) [facility] CenterHouvmniLEVKZKHEUH8214-07-79 10:44:00 Test Item Value Reference Range Interpretation Comments Eosinophils (test code = 0.3 See_Comment N [A utomated message] The Eosinophils) system which ge nerated this result tra nsmitted reference range : <=4.0. The reference r luc was not used to int erpret this result as normal/abnormal . [facility] CenterLvkekkgWCGHAPDNFT6172-05-28 10:44:00 Test Item Value Reference Range Interpretation Comments Basophils (test code = 0.3 See_Comment N [Aut omated message] The Basophils) system which ge nerated this result tra nsmitted reference range : <=1.0. The reference r luc was not used to int erpret this result as normal/abnormal . [facility] CenterHedtuicACAPWXMEPM3401-89-43 10:44:00 Test Item Value Reference Range Interpretation Comments Basophils # (test code 0.0 See_Comment N [Aut omated message] The = Basophils #) system which generated this result tra nsmitted reference range : <=0.2. The reference r luc was not used to int erpret this result as normal/abnormal . [facility] CenterUxkrjojFJXYQXOEGW4347-85-21 10:44:00 Test Item Value Reference Range Interpretation Comments Monocytes # (test code 1.0 See_Comment H [Aut omated message] The = Monocytes #) system which generated this result tra nsmitted reference range : <=0.8. The reference r luc was not used to int erpret this result as normal/abnormal . [facility] CenterNilbirvCZMRYTXVJZ2438-20-92 10:44:00 Test Item Value Reference Range Interpretation Comments Eosinophils # (test code 0.0 See_Comment N [A utomated message] The = Eosinophils #) system whic h generated this result tra nsmitted reference range : <=0.5. The reference r luc was not used to int erpret this result as normal/abnormal . [facility] CenterCqlfkfkTNCULIDAPT7216-42-21 10:44:00 Test Item Value Reference Range Interpretation Comments Lymphocytes (test code = Lymphocytes) 22.2 20.0-40.0 N [facility] CenterCysfsjmMVHBNWQMFI3867-49-65 10:44:00 Test Item Value Reference Range Interpretation Comments RBC Morph (test code = Normal (05/02/2012 N RBC Morph) 05:44:00) [facility] CenterPexcxltHOZRQTEMKV2278-36-92 10:44:00 Test Item Value Reference Range Interpretation Comments Segs (test code = Segs) 70.7 45.0-75.0 N [facility] CenterLqchhciERHNNJCHCD3447-76-15 10:44:00 Test Item Value Reference Range Interpretation Comments Plt Morph (test code = Normal (05/02/2012 N Plt Morph) 05:44:00) [facility] CenterQukmeeuYWTSIVBARY8347-43-62 10:44:00 Test Item Value Reference Range Interpretation Comments G-value (test code = G-value) 10.4 5.0-11.6 N [facility] CenterVoyuzfzPLNFCXZEGQ3723-36-82 10:44:00 Test Item Value Reference Range Interpretation Comments Max Amp (test code = Max Amp) 68 mm 52-71 N [facility] CenterLuidkocNZXRDXVAJF2715-02-14 10:44:00 Test Item Value Reference Range Interpretation Comments Estimated % Lysis (test 2.1 See_Comment N [Au tomated message] The code = Estimated % system wh ich generated Lysis) this result tra nsmitted reference range : <=7.5. The reference r luc was not used to int erpret this result as normal/abnormal . [facility] CenterWtldiufGKIETJDDCQ6001-21-53 10:44:00 Test Item Value Reference Range Interpretation Comments R-time (test code = R-time) 0.6 min 0.4-0.7 N [facility] CenterQlwbgsbCZXDQAMQBO1826-73-93 10:44:00 Test Item Value Reference Range Interpretation Comments K-time (test code = K-time) 1.0 min 0.6-2.3 N [facility] CenterSvwbjebIWQEFDNDYM4858-43-43 10:44:00 Test Item Value Reference Range Interpretation Comments Angle (test code = Angle) 78 degrees 64-80 N [facility] CenterCqkdsbxGHZBBYUFKH7524-63-06 10:44:00 Test Item Value Reference Range Interpretation Comments Split Point (test code = Split Point) 0.5 min [facility] CenterItwmdujTLCURFNRSC5147-69-72 10:44:00 Test Item Value Reference Range Interpretation Comments ACT (TEG) (test code = ACT (TEG)) 105 s 86-118 N [facility] CenterOqiuvhwLVUNJSXABL3400-15-36 10:44:00 Test Item Value Reference Range Interpretation Comments Rapid TEG Sample Type Citrated Whole Blood (test code = Rapid TEG Sample Type) [facility] CenterNjalbevVIAWWKDZLI4566-45-76 10:44:00 Test Item Value Reference Range Interpretation Comments INR (test code = INR) 1.00 0.85-1.17 N [facility] CenterCogndoxNYXZLZOVUB1552-22-36 10:44:00 Test Item Value Reference Range Interpretation Comments PT (test code = PT) 13.4 s 12.0-14.7 N [facility] CenterHhypxdeZSUDPTBNNZ8600-62-75 10:44:00 Test Item Value Reference Range Interpretation Comments PTT (test code = PTT) 32.6 s 22.9-35.8 N [facility] CenterXocmxblBUISUTWRS3414-81-13 10:44:00 Test Item Value Reference Range Interpretation Comments eGFR (test code = eGFR) 128 [facility] CenterSgpdkuzNWMYZGYOIE7843-85-49 10:44:00 Test Item Value Reference Range Interpretation Comments MPV (test code = MPV) 9.1 7.4-10.4 N [facility] CenterKdwmrjbUVOMLWUYRA8008-56-76 10:44:00 Test Item Value Reference Range Interpretation Comments Platelet (test code = Platelet) 242 133-450 N [facility] CenterNhyzbkaZCMZUMUNNK8427-97-92 10:44:00 Test Item Value Reference Range Interpretation Comments RDW (test code = RDW) 12.4 11.5-14.5 N [facility] CenterQsrhoetXNFWKLBMXK2808-97-80 10:44:00 Test Item Value Reference Range Interpretation Comments MCHC (test code = MCHC) 33.3 32.0-36.0 N [facility] CenterOgiamncDEQQLIXCOB3419-96-09 10:44:00 Test Item Value Reference Range Interpretation Comments MCH (test code = MCH) 30.5 pg 27.0-31.0 N [facility] CenterQrbrbtxCQVADKLPLW6983-13-13 10:44:00 Test Item Value Reference Range Interpretation Comments MCV (test code = MCV) 91.4 81.0-99.0 N [facility] CenterPwprcviJUPDVASFNM2178-16-72 10:44:00 Test Item Value Reference Range Interpretation Comments Hct (test code = Hct) 43.8 36.0-48.0 N [facility] CenterHptrdarBWUDPZPVVU9268-83-00 10:44:00 Test Item Value Reference Range Interpretation Comments Hgb (test code = Hgb) 14.6 12.0-16.0 N [facility] CenterNajchqlAOCQZQUFJV5470-33-64 10:44:00 Test Item Value Reference Range Interpretation Comments RBC (test code = RBC) 4.79 4.20-5.40 N [facility] CenterAmykztmWRFMBVCEMU2792-59-92 10:44:00 Test Item Value Reference Range Interpretation Comments WBC (test code = WBC) 15.0 3.7-10.4 H [facility] CenterEqkhvfzDDTNHPJOP6106-62-59 10:44:00 Test Item Value Reference Range Interpretation Comments Glucose Lvl (test code = Glucose Lvl) 103 70-99 H [facility] CenterXybkmxeVWLJQSRQM8937-39-79 10:44:00 Test Item Value Reference Range Interpretation Comments BUN (test code = BUN) 17 7-22 N [facility] CenterPbmlohoSONHHFISJ0116-36-43 10:44:00 Test Item Value Reference Range Interpretation Comments Creatinine Lvl (test code = Creatinine 0.5 0.5-1.4 N Lvl) [facility] CenterOhhqrpcNKAQSLTXY4227-35-42 10:44:00 Test Item Value Reference Range Interpretation Comments Sodium Lvl (test code = Sodium Lvl) 137 135-145 N [facility] CenterTovyypuCXSTJCKXO0664-94-56 10:44:00 Test Item Value Reference Range Interpretation Comments Potassium Lvl (test code = Potassium 3.6 3.5-5.1 N Lvl) [facility] CenterBrticppSMKRXAGVS0501-92-30 10:44:00 Test Item Value Reference Range Interpretation Comments Chloride Lvl (test code = Chloride Lvl) 104 95-109 N [facility] CenterXdekaheVSWWRBEWU7308-18-66 10:44:00 Test Item Value Reference Range Interpretation Comments CO2 (test code = CO2) 24 24-32 N [facility] CenterYndsvoxGXNTQPWJP1230-24-11 10:44:00 Test Item Value Reference Range Interpretation Comments Calcium Lvl (test code = Calcium Lvl) 9.0 8.5-10.5 N [facility] CenterMqgxwjeOPVYTSWYY6099-57-55 10:44:00 Test Item Value Reference Range Interpretation Comments AGAP (test code = AGAP) 12.6 10.0-20.0 N [facility] CenterFrovlglKAIWTWZAK3678-42-93 10:44:00 Test Item Value Reference Range Interpretation Comments eGFR (test code = eGFR) 128 [facility] CenterCelfgwxGGSWHGALV7225-71-01 10:44:00 Test Item Value Reference Range Interpretation Comments Glucose Lvl (test code = Glucose Lvl) 103 70-99 H [facility] CenterCuefklnVGGFNFIVX5620-42-76 10:44:00 Test Item Value Reference Range Interpretation Comments BUN (test code = BUN) 17 7-22 N [facility] CenterBkcvkwcHITQSDKPP7400-35-80 10:44:00 Test Item Value Reference Range Interpretation Comments Creatinine Lvl (test code = Creatinine 0.5 0.5-1.4 N Lvl) [facility] CenterZlxrjxhYRSWKTTZW2100-60-71 10:44:00 Test Item Value Reference Range Interpretation Comments Sodium Lvl (test code = Sodium Lvl) 137 135-145 N [facility] CenterYdesssfJWNRERVYQ5917-43-43 10:44:00 Test Item Value Reference Range Interpretation Comments Potassium Lvl (test code = Potassium 3.6 3.5-5.1 N Lvl) [facility] CenterUihwondFKVKMOFEF6708-93-30 10:44:00 Test Item Value Reference Range Interpretation Comments Chloride Lvl (test code = Chloride Lvl) 104 95-109 N [facility] CenterVbgxbdfASSKJCAQH2730-26-25 10:44:00 Test Item Value Reference Range Interpretation Comments CO2 (test code = CO2) 24 24-32 N [facility] CenterJngbsnyRKWDGABVU2165-55-81 10:44:00 Test Item Value Reference Range Interpretation Comments Calcium Lvl (test code = Calcium Lvl) 9.0 8.5-10.5 N [facility] CenterXaogftzZHIGPGTSJA1254-14-18 10:44:00 Test Item Value Reference Range Interpretation Comments Monocytes (test code = Monocytes) 6.5 2.0-12.0 N [facility] CenterCakayvwESPMDDDRG7230-43-07 10:44:00 Test Item Value Reference Range Interpretation Comments AGAP (test code = AGAP) 12.6 10.0-20.0 N [facility] CenterTrceppuDJRJJWPDYV9055-78-73 10:44:00 Test Item Value Reference Range Interpretation Comments Monocytes (test code = Monocytes) 6.5 2.0-12.0 N [facility] CenterZjndysqFWNVJIYBUL3555-63-91 10:44:00 Test Item Value Reference Range Interpretation Comments Segs-Bands # (test code = Segs-Bands #) 10.7 1.5-8.1 H [facility] CenterBohvdqzUUVHFEKANR9124-45-10 10:44:00 Test Item Value Reference Range Interpretation Comments Lymphocytes # (test code = Lymphocytes 3.3 1.0-5.5 N #) [facility] CenterPgkeymcUYFNQHDFRP2485-01-11 10:44:00 Test Item Value Reference Range Interpretation Comments Eosinophils (test code = 0.3 See_Comment N [A utomated message] The Eosinophils) system which ge nerated this result tra nsmitted reference range : <=4.0. The reference r luc was not used to int erpret this result as normal/abnormal . [facility] CenterLwjvtxeJBYZTTLDGE2073-07-76 10:44:00 Test Item Value Reference Range Interpretation Comments Basophils (test code = 0.3 See_Comment N [Aut omated message] The Basophils) system which ge nerated this result tra nsmitted reference range : <=1.0. The reference r luc was not used to int erpret this result as normal/abnormal . [facility] CenterJiyxpkpPVHWGCHAHD4199-01-03 10:44:00 Test Item Value Reference Range Interpretation Comments Basophils # (test code 0.0 See_Comment N [Aut omated message] The = Basophils #) system which generated this result tra nsmitted reference range : <=0.2. The reference r luc was not used to int erpret this result as normal/abnormal . [facility] CenterFlgnabtMHCJLSDDJD1108-57-74 10:44:00 Test Item Value Reference Range Interpretation Comments Monocytes # (test code 1.0 See_Comment H [Aut omated message] The = Monocytes #) system which generated this result tra nsmitted reference range : <=0.8. The reference r luc was not used to int erpret this result as normal/abnormal . [facility] CenterNlyrvnfANSNCWUTHP0451-92-11 10:44:00 Test Item Value Reference Range Interpretation Comments Eosinophils # (test code 0.0 See_Comment N [A utomated message] The = Eosinophils #) system [facility] h generated this result tra nsmitted reference range : <=0.5. The reference r luc was not used to int erpret this result as normal/abnormal . [facility] CenterQxbjhgoMNXUKCZXCV6010-90-30 10:44:00 Test Item Value Reference Range Interpretation Comments Lymphocytes (test code = Lymphocytes) 22.2 20.0-40.0 N [facility] CenterTgibaodNSBKZHMGJL6843-38-29 10:44:00 Test Item Value Reference Range Interpretation Comments Monocytes (test code = Monocytes) 6.5 2.0-12.0 N [facility] CenterMgtocdgUHEAKVIEBU3503-27-48 10:44:00 Test Item Value Reference Range Interpretation Comments Segs-Bands # (test code = Segs-Bands #) 10.7 1.5-8.1 H [facility] CenterPkvouzxDOZFDUVJZK9333-70-68 10:44:00 Test Item Value Reference Range Interpretation Comments Lymphocytes # (test code = Lymphocytes 3.3 1.0-5.5 N #) [facility] CenterKxyijorMFCMQXNMQA2746-46-36 10:44:00 Test Item Value Reference Range Interpretation Comments Eosinophils (test code = Eosinophils) 0.3 <=4.0 N [facility] CenterJemngliBAMSYGSQCE2562-22-97 10:44:00 Test Item Value Reference Range Interpretation Comments Basophils (test code = Basophils) 0.3 <=1.0 N [facility] CenterForwuyoEUUSCOOGZG4185-34-21 10:44:00 Test Item Value Reference Range Interpretation Comments Basophils # (test code = Basophils #) 0.0 <=0.2 N [facility] CenterXpwtmvsJSYGUVNZRG4240-65-84 10:44:00 Test Item Value Reference Range Interpretation Comments Monocytes # (test code = Monocytes #) 1.0 <=0.8 H [facility] CenterEqfcvxeHGSDQACVCU8099-69-07 10:44:00 Test Item Value Reference Range Interpretation Comments Eosinophils # (test code = Eosinophils 0.0 <=0.5 N #) [facility] CenterOtlzdfhQERMABYQAN6523-95-02 10:44:00 Test Item Value Reference Range Interpretation Comments Lymphocytes (test code = Lymphocytes) 22.2 20.0-40.0 N [facility] CenterHupbqjgMEYEINHCZK2935-18-66 10:44:00 Test Item Value Reference Range Interpretation Comments RBC Morph (test code = Normal (05/02/2012 N RBC Morph) 05:44:00) [facility] CenterGgowqgeJSBISVLAVV1424-61-45 10:44:00 Test Item Value Reference Range Interpretation Comments Segs (test code = Segs) 70.7 45.0-75.0 N [facility] CenterOfxmsqxXLMDYEFZMJ2359-45-37 10:44:00 Test Item Value Reference Range Interpretation Comments Plt Morph (test code = Normal (05/02/2012 N Plt Morph) 05:44:00) [facility] CenterQdncbvySIKSOMFICX8115-52-46 10:44:00 Test Item Value Reference Range Interpretation Comments G-value (test code = G-value) 10.4 5.0-11.6 N [facility] CenterBkemkvuCQGFIOGPGC8195-38-00 10:44:00 Test Item Value Reference Range Interpretation Comments Max Amp (test code = Max Amp) 68 mm 52-71 N [facility] CenterAiijwwwCSBSTTVNFI3355-18-74 10:44:00 Test Item Value Reference Range Interpretation Comments Estimated % Lysis (test code = 2.1 <=7.5 N Estimated % Lysis) [facility] CenterYaulhaeTFJTTQWEDL8360-13-09 10:44:00 Test Item Value Reference Range Interpretation Comments R-time (test code = R-time) 0.6 min 0.4-0.7 N [facility] CenterRlyqtktSSKFDCLWXX8236-12-64 10:44:00 Test Item Value Reference Range Interpretation Comments K-time (test code = K-time) 1.0 min 0.6-2.3 N [facility] CenterJlxkaxsYYBFVANXOQ2038-77-40 10:44:00 Test Item Value Reference Range Interpretation Comments Angle (test code = Angle) 78 degrees 64-80 N [facility] CenterJmpagtxXHGCATSCLQ0318-98-37 10:44:00 Test Item Value Reference Range Interpretation Comments Split Point (test code = Split Point) 0.5 min [facility] CenterQkywswsYFPHTIDCTF8306-87-20 10:44:00 Test Item Value Reference Range Interpretation Comments ACT (TEG) (test code = ACT (TEG)) 105 s 86-118 N [facility] CenterJixqwraCNHEKJZYIJ4296-81-36 10:44:00 Test Item Value Reference Range Interpretation Comments Rapid TEG Sample Type Citrated Whole Blood (test code = Rapid TEG Sample Type) [facility] CenterTjxbyrxNYBXPDKDHW8131-14-09 10:44:00 Test Item Value Reference Range Interpretation Comments INR (test code = INR) 1.00 0.85-1.17 N [facility] CenterVbtayetJMXKJATSDN2277-57-56 10:44:00 Test Item Value Reference Range Interpretation Comments PT (test code = PT) 13.4 s 12.0-14.7 N [facility] CenterZfdhefkZXHDYNQQAH9085-18-29 10:44:00 Test Item Value Reference Range Interpretation Comments PTT (test code = PTT) 32.6 s 22.9-35.8 N [facility] CenterRqmolidHLUPGTEDWK5752-75-16 10:44:00 Test Item Value Reference Range Interpretation Comments MPV (test code = MPV) 9.1 7.4-10.4 N [facility] CenterLmbaqwwORYUPRLMMX2509-64-09 10:44:00 Test Item Value Reference Range Interpretation Comments Platelet (test code = Platelet) 242 133-450 N [place] 072793-03-15 10:44:00 Test Item Value Reference Range Interpretation Comments RDW (test code = RDW) 12.4 11.5-14.5 N [facility] CenterIfrxaejYKYXYMIBPJ5191-09-12 10:44:00 Test Item Value Reference Range Interpretation Comments MCHC (test code = MCHC) 33.3 32.0-36.0 N [facility] CenterFbirrucYYVDIJVMSS8623-04-51 10:44:00 Test Item Value Reference Range Interpretation Comments MCH (test code = MCH) 30.5 pg 27.0-31.0 N [facility] CenterUtlhjbgKXQFXHOQCQ2890-32-11 10:44:00 Test Item Value Reference Range Interpretation Comments MCV (test code = MCV) 91.4 81.0-99.0 N [facility] CenterHyewteoUUYLFUIHEA6497-46-73 10:44:00 Test Item Value Reference Range Interpretation Comments Hct (test code = Hct) 43.8 36.0-48.0 N [facility] CenterGuatjlmRBQENEPSQP9434-90-99 10:44:00 Test Item Value Reference Range Interpretation Comments Hgb (test code = Hgb) 14.6 12.0-16.0 N [facility] CenterKyblebuXXLZMXLGGU8426-28-78 10:44:00 Test Item Value Reference Range Interpretation Comments RBC (test code = RBC) 4.79 4.20-5.40 N [facility] CenterSsmdfcdQSDQQUJJKQ9680-95-50 10:44:00 Test Item Value Reference Range Interpretation Comments WBC (test code = WBC) 15.0 3.7-10.4 H [facility] CenterIduzdgzQVEIPTEGM2981-63-35 10:44:00 Test Item Value Reference Range Interpretation Comments eGFR (test code = eGFR) 128 [facility] CenterVkkinqzPMRUGWKSA8336-60-62 10:44:00 Test Item Value Reference Range Interpretation Comments Glucose Lvl (test code = Glucose Lvl) 103 70-99 H [facility] CenterNnzrcdeSITSUHGWK4832-12-75 10:44:00 Test Item Value Reference Range Interpretation Comments BUN (test code = BUN) 17 7-22 N [facility] CenterZesnrbrZLKNWJRAD0970-62-44 10:44:00 Test Item Value Reference Range Interpretation Comments Creatinine Lvl (test code = Creatinine 0.5 0.5-1.4 N Lvl) [facility] CenterYofkytgBBJBXNROP7940-67-12 10:44:00 Test Item Value Reference Range Interpretation Comments Sodium Lvl (test code = Sodium Lvl) 137 135-145 N [facility] CenterAbmzbnoOJMVHZKUR9125-16-79 10:44:00 Test Item Value Reference Range Interpretation Comments Potassium Lvl (test code = Potassium 3.6 3.5-5.1 N Lvl) [facility] CenterCyickujZSAZLBQVI4309-16-57 10:44:00 Test Item Value Reference Range Interpretation Comments Chloride Lvl (test code = Chloride Lvl) 104 95-109 N [facility] CenterCxxukafISAPJCBQA4250-38-00 10:44:00 Test Item Value Reference Range Interpretation Comments CO2 (test code = CO2) 24 24-32 N [facility] CenterCopzmcjFSUQYGMFN7149-40-05 10:44:00 Test Item Value Reference Range Interpretation Comments Calcium Lvl (test code = Calcium Lvl) 9.0 8.5-10.5 N [facility] CenterGuqaaluJYYYXQNDE5662-45-20 10:44:00 Test Item Value Reference Range Interpretation Comments AGAP (test code = AGAP) 12.6 10.0-20.0 N [facility] CenterVotjvyeCXCAILLJSC1806-41-83 10:44:00 Test Item Value Reference Range Interpretation Comments Segs-Bands # (test code = Segs-Bands #) 10.7 1.5-8.1 H [facility] CenterHpjbogfGQCPBAVYTJ9050-60-03 10:44:00 Test Item Value Reference Range Interpretation Comments RBC Morph (test code = Normal (05/02/2012 N RBC Morph) 05:44:00) [facility] CenterVlewxmwWTMRUDNUWJ0462-31-07 10:44:00 Test Item Value Reference Range Interpretation Comments Segs (test code = Segs) 70.7 45.0-75.0 N [facility] CenterQltusozLEVXWOTUKQ6185-94-82 10:44:00 Test Item Value Reference Range Interpretation Comments Plt Morph (test code = Normal (05/02/2012 N Plt Morph) 05:44:00) [facility] CenterGnwxvuxIMDSMVFNDQ5751-12-16 10:44:00 Test Item Value Reference Range Interpretation Comments G-value (test code = G-value) 10.4 5.0-11.6 N [facility] CenterLqvmcoyZMSPNVLXMZ2447-04-94 10:44:00 Test Item Value Reference Range Interpretation Comments Max Amp (test code = Max Amp) 68 mm 52-71 N [facility] CenterXybwfxtBKSTAZEORN2308-30-57 10:44:00 Test Item Value Reference Range Interpretation Comments Estimated % Lysis (test 2.1 See_Comment N [Au tomated message] The code = Estimated % system wh ich generated Lysis) this result tra nsmitted reference range : <=7.5. The reference r luc was not used to int erpret this result as normal/abnormal . [facility] CenterUhehgwjUPDKVJPRFW7031-69-02 10:44:00 Test Item Value Reference Range Interpretation Comments R-time (test code = R-time) 0.6 min 0.4-0.7 N [place] 072793-03-15 10:44:00 Test Item Value Reference Range Interpretation Comments K-time (test code = K-time) 1.0 min 0.6-2.3 N [place] 072793-03-15 10:44:00 Test Item Value Reference Range Interpretation Comments Angle (test code = Angle) 78 degrees 64-80 N [facility] CenterAzlkmlaAHKRMZWUPQ3022-21-20 10:44:00 Test Item Value Reference Range Interpretation Comments Split Point (test code = Split Point) 0.5 min [facility] CenterWngifkiIGFRXAWYGB2837-09-86 10:44:00 Test Item Value Reference Range Interpretation Comments Lymphocytes # (test code = Lymphocytes 3.3 1.0-5.5 N #) [facility] CenterDjwnpetDYIZYBQMVY2402-73-90 10:44:00 Test Item Value Reference Range Interpretation Comments ACT (TEG) (test code = ACT (TEG)) 105 s 86-118 N [facility] CenterTrdmnpbMDSYYMSNEZ0196-37-79 10:44:00 Test Item Value Reference Range Interpretation Comments Rapid TEG Sample Type Citrated Whole Blood (test code = Rapid TEG Sample Type) [facility] CenterPbcyqqcYSEQZHXKHX2659-47-50 10:44:00 Test Item Value Reference Range Interpretation Comments INR (test code = INR) 1.00 0.85-1.17 N [facility] CenterHcecpizLYADMVSRRF1190-48-29 10:44:00 Test Item Value Reference Range Interpretation Comments PT (test code = PT) 13.4 s 12.0-14.7 N [facility] CenterAbijdjxSILOUAZPQB1719-59-59 10:44:00 Test Item Value Reference Range Interpretation Comments PTT (test code = PTT) 32.6 s 22.9-35.8 N [place] 072793-03-15 10:44:00 Test Item Value Reference Range Interpretation Comments MPV (test code = MPV) 9.1 7.4-10.4 N [facility] CenterUdpyhpfJJWANWGKFQ6568-82-39 10:44:00 Test Item Value Reference Range Interpretation Comments Platelet (test code = Platelet) 242 133-450 N [facility] CenterTkankbmCBXLRKZKRU9894-39-80 10:44:00 Test Item Value Reference Range Interpretation Comments RDW (test code = RDW) 12.4 11.5-14.5 N [facility] CenterTwsobwsMUIOFKDRFT5687-90-15 10:44:00 Test Item Value Reference Range Interpretation Comments MCHC (test code = MCHC) 33.3 32.0-36.0 N [facility] CenterKatrykyPXINYFEEFO9514-04-76 10:44:00 Test Item Value Reference Range Interpretation Comments MCH (test code = MCH) 30.5 pg 27.0-31.0 N [facility] CenterVhxlfouLYVCKWXWPP8881-92-46 10:44:00 Test Item Value Reference Range Interpretation Comments Eosinophils (test code = 0.3 See_Comment N [A utomated message] The Eosinophils) system which ge nerated this result tra nsmitted reference range : <=4.0. The reference r luc was not used to int erpret this result as normal/abnormal . [facility] CenterViaopeySBVSEHSSJO3215-78-62 10:44:00 Test Item Value Reference Range Interpretation Comments MCV (test code = MCV) 91.4 81.0-99.0 N [facility] CenterPlmptznSNFUNGPDIY1567-28-46 10:44:00 Test Item Value Reference Range Interpretation Comments Hct (test code = Hct) 43.8 36.0-48.0 N [facility] CenterBlvteoaASAYYBZUHI4521-83-51 10:44:00 Test Item Value Reference Range Interpretation Comments Hgb (test code = Hgb) 14.6 12.0-16.0 N [facility] CenterHceqgnyTCYBQLWLZW8498-60-03 10:44:00 Test Item Value Reference Range Interpretation Comments RBC (test code = RBC) 4.79 4.20-5.40 N [facility] CenterWdtkrezPXCTQHPBZJ3058-52-16 10:44:00 Test Item Value Reference Range Interpretation Comments WBC (test code = WBC) 15.0 3.7-10.4 H [facility] CenterIiomclpFORLKWPBRN6192-58-57 10:44:00 Test Item Value Reference Range Interpretation Comments Basophils (test code = 0.3 See_Comment N [Aut omated message] The Basophils) system which ge nerated this result tra nsmitted reference range : <=1.0. The reference r luc was not used to int erpret this result as normal/abnormal . [facility] CenterUogthnnTPEYTWGNXM8214-38-14 10:44:00 Test Item Value Reference Range Interpretation Comments Basophils # (test code 0.0 See_Comment N [Aut omated message] The = Basophils #) system which generated this result tra nsmitted reference range : <=0.2. The reference r luc was not used to int erpret this result as normal/abnormal . [facility] CenterWhiubsaNJBPMCLXJJ3781-03-37 10:44:00 Test Item Value Reference Range Interpretation Comments Monocytes # (test code 1.0 See_Comment H [Aut omated message] The = Monocytes #) system which generated this result tra nsmitted reference range : <=0.8. The reference r luc was not used to int erpret this result as normal/abnormal . [facility] CenterBjzrfkzCYNKAFRELR2688-72-72 10:44:00 Test Item Value Reference Range Interpretation Comments Eosinophils # (test code 0.0 See_Comment N [A utomated message] The = Eosinophils #) system whic h generated this result tra nsmitted reference range : <=0.5. The reference r luc was not used to int erpret this result as normal/abnormal . [facility] CenterHgixcwyPINTSIHPUM9181-97-15 10:44:00 Test Item Value Reference Range Interpretation Comments Lymphocytes (test code = Lymphocytes) 22.2 20.0-40.0 N [facility] CenterDejhrciIRGQWBPHGQ1466-22-35 10:44:00 Test Item Value Reference Range Interpretation Comments RBC Morph (test code = Normal (05/02/2012 N RBC Morph) 05:44:00) [facility] CenterEpjczkrHATMUOTBHI9434-83-02 10:44:00 Test Item Value Reference Range Interpretation Comments Segs (test code = Segs) 70.7 45.0-75.0 N [facility] CenterLroylfxAUCXOCTMLH7909-17-49 10:44:00 Test Item Value Reference Range Interpretation Comments Plt Morph (test code = Normal (05/02/2012 N Plt Morph) 05:44:00) [facility] CenterBacsnjcNURESRQEGK9528-72-45 10:44:00 Test Item Value Reference Range Interpretation Comments G-value (test code = G-value) 10.4 5.0-11.6 N [facility] CenterVbgsljiQPMKQJLBLZ6635-55-40 10:44:00 Test Item Value Reference Range Interpretation Comments Max Amp (test code = Max Amp) 68 mm 52-71 N [facility] CenterDvmavriOBISWFDSLH0891-93-37 10:44:00 Test Item Value Reference Range Interpretation Comments Estimated % Lysis (test 2.1 See_Comment N [Au tomated message] The code = Estimated % system wh ich generated Lysis) this result tra nsmitted reference range : <=7.5. The reference r luc was not used to int erpret this result as normal/abnormal . [facility] CenterBzbqspsRDKCGXZXQE4685-82-48 10:44:00 Test Item Value Reference Range Interpretation Comments R-time (test code = R-time) 0.6 min 0.4-0.7 N [facility] CenterQqhylyzQQARMQQTWC0764-70-05 10:44:00 Test Item Value Reference Range Interpretation Comments K-time (test code = K-time) 1.0 min 0.6-2.3 N [facility] CenterCbbvcyzLRVSXLQOJX4699-13-19 10:44:00 Test Item Value Reference Range Interpretation Comments Angle (test code = Angle) 78 degrees 64-80 N [facility] CenterTphyfgcYYHRDWSTKJ1107-96-21 10:44:00 Test Item Value Reference Range Interpretation Comments Split Point (test code = Split Point) 0.5 min [facility] CenterEatjlckBDPZJLZOPV3343-62-73 10:44:00 Test Item Value Reference Range Interpretation Comments ACT (TEG) (test code = ACT (TEG)) 105 s 86-118 N [facility] CenterUvxfknxTOBEVGSWTV9678-73-81 10:44:00 Test Item Value Reference Range Interpretation Comments Rapid TEG Sample Type Citrated Whole Blood (test code = Rapid TEG Sample Type) [facility] CenterGcylvzvSMIPGRYCYN0640-22-77 10:44:00 Test Item Value Reference Range Interpretation Comments INR (test code = INR) 1.00 0.85-1.17 N [facility] CenterBsvvkxjVMRZDTVIKY6746-26-14 10:44:00 Test Item Value Reference Range Interpretation Comments PT (test code = PT) 13.4 s 12.0-14.7 N [facility] CenterRluiijhPYLDQTTMIN3226-59-13 10:44:00 Test Item Value Reference Range Interpretation Comments PTT (test code = PTT) 32.6 s 22.9-35.8 N [facility] CenterRdwbfwsJBDXCKKKBD5197-97-63 10:44:00 Test Item Value Reference Range Interpretation Comments MPV (test code = MPV) 9.1 7.4-10.4 N [facility] CenterExbggydXALMBUWTMH3733-92-27 10:44:00 Test Item Value Reference Range Interpretation Comments Platelet (test code = Platelet) 242 133-450 N [facility] CenterQafjfarZLWOSILQPT0709-45-89 10:44:00 Test Item Value Reference Range Interpretation Comments RDW (test code = RDW) 12.4 11.5-14.5 N [facility] CenterIlndktvBTVAOLTQEN7258-23-35 10:44:00 Test Item Value Reference Range Interpretation Comments MCHC (test code = MCHC) 33.3 32.0-36.0 N [facility] CenterKwjalhwTITTFZOJXV7687-49-48 10:44:00 Test Item Value Reference Range Interpretation Comments MCH (test code = MCH) 30.5 pg 27.0-31.0 N [facility] CenterDnusrgdZFBEABNITO0322-35-78 10:44:00 Test Item Value Reference Range Interpretation Comments MCV (test code = MCV) 91.4 81.0-99.0 N [facility] CenterItmxvvwMQYGABZEFD9490-26-87 10:44:00 Test Item Value Reference Range Interpretation Comments Hct (test code = Hct) 43.8 36.0-48.0 N [facility] CenterIajeligYBHTVIGLID7159-69-52 10:44:00 Test Item Value Reference Range Interpretation Comments Hgb (test code = Hgb) 14.6 12.0-16.0 N [facility] CenterCibznvaZCPFOTEMKW8679-57-47 10:44:00 Test Item Value Reference Range Interpretation Comments RBC (test code = RBC) 4.79 4.20-5.40 N [facility] CenterRbpquclQFHCWUCQOF3741-87-28 10:44:00 Test Item Value Reference Range Interpretation Comments WBC (test code = WBC) 15.0 3.7-10.4 H [facility] CenterDrumhwyHICYWTHJA8352-84-10 10:44:00 Test Item Value Reference Range Interpretation Comments eGFR (test code = eGFR) 128 [facility] CenterSdvlvxoHVYMEAIAT9454-35-62 10:44:00 Test Item Value Reference Range Interpretation Comments Glucose Lvl (test code = Glucose Lvl) 103 70-99 H [facility] CenterUdeivkxMVLJOBHRX5886-54-32 10:44:00 Test Item Value Reference Range Interpretation Comments BUN (test code = BUN) 17 7-22 N [facility] CenterOjuiwbhEZNPUBMNQ9812-25-07 10:44:00 Test Item Value Reference Range Interpretation Comments Creatinine Lvl (test code = Creatinine 0.5 0.5-1.4 N Lvl) [facility] CenterTovzfhsZIGHNRCHS1068-59-54 10:44:00 Test Item Value Reference Range Interpretation Comments Sodium Lvl (test code = Sodium Lvl) 137 135-145 N [facility] CenterEanjaeaHKDLLMCGN0036-58-43 10:44:00 Test Item Value Reference Range Interpretation Comments Potassium Lvl (test code = Potassium 3.6 3.5-5.1 N Lvl) [facility] CenterIoybmdjGHKGJSTKN6965-14-63 10:44:00 Test Item Value Reference Range Interpretation Comments Chloride Lvl (test code = Chloride Lvl) 104 95-109 N [facility] CenterEwfilniRMXTGCEUO8080-56-88 10:44:00 Test Item Value Reference Range Interpretation Comments CO2 (test code = CO2) 24 24-32 N [facility] CenterLelgvwqVQROPNDBJ5908-67-28 10:44:00 Test Item Value Reference Range Interpretation Comments Calcium Lvl (test code = Calcium Lvl) 9.0 8.5-10.5 N [facility] CenterZyhjdwjORBFCGVPP6798-55-29 10:44:00 Test Item Value Reference Range Interpretation Comments AGAP (test code = AGAP) 12.6 10.0-20.0 N [facility] CenterFnqutxoCTRFUHMOJZ9944-80-52 10:44:00 Test Item Value Reference Range Interpretation Comments Monocytes (test code = Monocytes) 6.5 2.0-12.0 N [facility] CenterQsqazbqOUMXGSSFVF2135-63-32 10:44:00 Test Item Value Reference Range Interpretation Comments Segs-Bands # (test code = Segs-Bands #) 10.7 1.5-8.1 H [facility] CenterGdtfmszOJGOZTYELO3039-41-02 10:44:00 Test Item Value Reference Range Interpretation Comments Lymphocytes # (test code = Lymphocytes 3.3 1.0-5.5 N #) [facility] CenterWbhcnfiSZHCXZIZTI4407-86-22 10:44:00 Test Item Value Reference Range Interpretation Comments Eosinophils (test code = 0.3 See_Comment N [A utomated message] The Eosinophils) system which ge nerated this result tra nsmitted reference range : <=4.0. The reference r luc was not used to int erpret this result as normal/abnormal . [facility] CenterUvlhsmvWGLQIDPLQO7310-41-77 10:44:00 Test Item Value Reference Range Interpretation Comments Basophils (test code = 0.3 See_Comment N [Aut omated message] The Basophils) system which ge nerated this result tra nsmitted reference range : <=1.0. The reference r luc was not used to int erpret this result as normal/abnormal . [facility] CenterLxmyrxvVSVQQEQMSX7298-08-68 10:44:00 Test Item Value Reference Range Interpretation Comments Basophils # (test code 0.0 See_Comment N [Aut omated message] The = Basophils #) system which generated this result tra nsmitted reference range : <=0.2. The reference r luc was not used to int erpret this result as normal/abnormal . [facility] CenterKhudgzsKKRIUZDHCQ1901-41-41 10:44:00 Test Item Value Reference Range Interpretation Comments Monocytes # (test code 1.0 See_Comment H [Aut omated message] The = Monocytes #) system which generated this result tra nsmitted reference range : <=0.8. The reference r luc was not used to int erpret this result as normal/abnormal . [facility] CenterDogihwcAELPNQELZF4994-16-55 10:44:00 Test Item Value Reference Range Interpretation Comments Eosinophils # (test code 0.0 See_Comment N [A utomated message] The = Eosinophils #) system whic h generated this result tra nsmitted reference range : <=0.5. The reference r luc was not used to int erpret this result as normal/abnormal . [facility] CenterVbrbidzEWELRADTCV0629-82-69 10:44:00 Test Item Value Reference Range Interpretation Comments Lymphocytes (test code = Lymphocytes) 22.2 20.0-40.0 N [facility] CenterYujhpgjFHJUQOFWBU0045-49-10 10:44:00 Test Item Value Reference Range Interpretation Comments RBC Morph (test code = Normal (05/02/2012 N RBC Morph) 05:44:00) [facility] CenterKypvptrPLUQOQOJHW3037-28-25 10:44:00 Test Item Value Reference Range Interpretation Comments Segs (test code = Segs) 70.7 45.0-75.0 N [facility] CenterJoutfslSEYLCAEOPG8707-35-85 10:44:00 Test Item Value Reference Range Interpretation Comments Plt Morph (test code = Normal (05/02/2012 N Plt Morph) 05:44:00) [facility] CenterJverhntOPYJOUOAVL2429-99-19 10:44:00 Test Item Value Reference Range Interpretation Comments G-value (test code = G-value) 10.4 5.0-11.6 N [facility] CenterKszqzrqVTJRDDCAMF6583-57-27 10:44:00 Test Item Value Reference Range Interpretation Comments Max Amp (test code = Max Amp) 68 mm 52-71 N [facility] CenterJnliwkxXWVDKWJUWR1452-39-98 10:44:00 Test Item Value Reference Range Interpretation Comments Estimated % Lysis (test 2.1 See_Comment N [Au tomated message] The code = Estimated % system wh ich generated Lysis) this result tra nsmitted reference range : <=7.5. The reference r luc was not used to int erpret this result as normal/abnormal . [facility] CenterZdgazvnKGOBBSLYOG5661-62-82 10:44:00 Test Item Value Reference Range Interpretation Comments R-time (test code = R-time) 0.6 min 0.4-0.7 N [facility] CenterGkrvdzoYLUJIIGPPQ0479-90-95 10:44:00 Test Item Value Reference Range Interpretation Comments K-time (test code = K-time) 1.0 min 0.6-2.3 N [facility] CenterLfdxefzTJGGCFEYSQ7412-04-47 10:44:00 Test Item Value Reference Range Interpretation Comments Angle (test code = Angle) 78 degrees 64-80 N [facility] CenterOzzbgfzSFNQJJUTAL3564-70-29 10:44:00 Test Item Value Reference Range Interpretation Comments Split Point (test code = Split Point) 0.5 min [facility] CenterXuisjjpKUUSWMAJSB2003-56-49 10:44:00 Test Item Value Reference Range Interpretation Comments ACT (TEG) (test code = ACT (TEG)) 105 s 86-118 N [facility] CenterAhrvtaiCYDMOVKIRQ9460-41-58 10:44:00 Test Item Value Reference Range Interpretation Comments Rapid TEG Sample Type Citrated Whole Blood (test code = Rapid TEG Sample Type) [facility] CenterOfxioyhZVCSIODCFQ1213-52-63 10:44:00 Test Item Value Reference Range Interpretation Comments INR (test code = INR) 1.00 0.85-1.17 N [facility] CenterCzdtsnqPSVEIIGVEA4938-51-43 10:44:00 Test Item Value Reference Range Interpretation Comments PT (test code = PT) 13.4 s 12.0-14.7 N [facility] CenterVprcictHZGMUGEBAA8958-58-73 10:44:00 Test Item Value Reference Range Interpretation Comments PTT (test code = PTT) 32.6 s 22.9-35.8 N [facility] CenterRqperveHRPGFJZQQP9639-49-00 10:44:00 Test Item Value Reference Range Interpretation Comments MPV (test code = MPV) 9.1 7.4-10.4 N [facility] CenterFbaipfhBQFCPTBNGA1073-56-36 10:44:00 Test Item Value Reference Range Interpretation Comments Platelet (test code = Platelet) 242 133-450 N [facility] CenterQhcaxakQIWDQETRYM0089-28-70 10:44:00 Test Item Value Reference Range Interpretation Comments RDW (test code = RDW) 12.4 11.5-14.5 N [facility] CenterBvabegaNQMZEZMANQ3277-46-17 10:44:00 Test Item Value Reference Range Interpretation Comments MCHC (test code = MCHC) 33.3 32.0-36.0 N [facility] CenterXueyfphBFZREMUAJN7213-15-73 10:44:00 Test Item Value Reference Range Interpretation Comments MCH (test code = MCH) 30.5 pg 27.0-31.0 N [facility] CenterCwzixxnFPDUILGCXK5711-70-33 10:44:00 Test Item Value Reference Range Interpretation Comments MCV (test code = MCV) 91.4 81.0-99.0 N [facility] CenterYylcvsdPVLQSVASRO9120-67-12 10:44:00 Test Item Value Reference Range Interpretation Comments Hct (test code = Hct) 43.8 36.0-48.0 N [facility] CenterCiyfoqnMBZEPCVJCU7321-31-66 10:44:00 Test Item Value Reference Range Interpretation Comments Hgb (test code = Hgb) 14.6 12.0-16.0 N [facility] CenterPavkrfrTOKSHOMHMO3863-41-34 10:44:00 Test Item Value Reference Range Interpretation Comments RBC (test code = RBC) 4.79 4.20-5.40 N [facility] CenterFgndtnzTMJZRELTIU7822-86-53 10:44:00 Test Item Value Reference Range Interpretation Comments WBC (test code = WBC) 15.0 3.7-10.4 H [facility] CenterTugjrqtGUKWVIAQW8538-00-28 10:44:00 Test Item Value Reference Range Interpretation Comments eGFR (test code = eGFR) 128 [facility] CenterXrhkbzbGJUXWPAIG6664-78-73 10:44:00 Test Item Value Reference Range Interpretation Comments Glucose Lvl (test code = Glucose Lvl) 103 70-99 H [facility] CenterScacmnbFFVMFVRMH9152-10-48 10:44:00 Test Item Value Reference Range Interpretation Comments BUN (test code = BUN) 17 7-22 N [facility] CenterYxqpbmsKUVUFPQSV1182-97-78 10:44:00 Test Item Value Reference Range Interpretation Comments Creatinine Lvl (test code = Creatinine 0.5 0.5-1.4 N Lvl) [facility] CenterYthpjaoMZLEBNDVD8983-19-48 10:44:00 Test Item Value Reference Range Interpretation Comments Sodium Lvl (test code = Sodium Lvl) 137 135-145 N [facility] CenterQakeifmANGCFCKOP5407-79-04 10:44:00 Test Item Value Reference Range Interpretation Comments Potassium Lvl (test code = Potassium 3.6 3.5-5.1 N Lvl) [facility] CenterJldfcvxSUYTPNHMA9245-46-18 10:44:00 Test Item Value Reference Range Interpretation Comments Chloride Lvl (test code = Chloride Lvl) 104 95-109 N [facility] CenterRdmlwyqPXYRDJMIE0720-47-59 10:44:00 Test Item Value Reference Range Interpretation Comments CO2 (test code = CO2) 24 24-32 N [facility] CenterEmqcpqyDEXGLPZRA4535-53-30 10:44:00 Test Item Value Reference Range Interpretation Comments Calcium Lvl (test code = Calcium Lvl) 9.0 8.5-10.5 N [facility] CenterExwbpakXPDRMADRG9680-92-32 10:44:00 Test Item Value Reference Range Interpretation Comments AGAP (test code = AGAP) 12.6 10.0-20.0 N [facility]MmpzzbyFRMBRAFTXG0987-50-83 10:44:00 Test Item Value Reference Range Interpretation Comments Monocytes (test code = Monocytes) 6.5 2.0-12.0 N [facility] CenterUaerhajCZCZRLLEOX6497-06-63 10:44:00 Test Item Value Reference Range Interpretation Comments Segs-Bands # (test code = Segs-Bands #) 10.7 1.5-8.1 H [facility] CenterIwszszfGMAEQRZVAR2719-28-22 10:44:00 Test Item Value Reference Range Interpretation Comments Lymphocytes # (test code = Lymphocytes 3.3 1.0-5.5 N #) [facility] CenterOqiaxfjDIKZHCGOZI4921-24-41 10:44:00 Test Item Value Reference Range Interpretation Comments Eosinophils (test code = 0.3 See_Comment N [A utomated message] The Eosinophils) system which ge nerated this result tra nsmitted reference range : <=4.0. The reference r luc was not used to int erpret this result as normal/abnormal . [facility] CenterZzmpjjzGJLBAYRRIM7868-22-94 10:44:00 Test Item Value Reference Range Interpretation Comments Basophils (test code = 0.3 See_Comment N [Aut omated message] The Basophils) system which ge nerated this result tra nsmitted reference range : <=1.0. The reference r luc was not used to int erpret this result as normal/abnormal . [facility] CenterWpozvzaEGNYFUCOUN6552-21-43 10:44:00 Test Item Value Reference Range Interpretation Comments Basophils # (test code 0.0 See_Comment N [Aut omated message] The = Basophils #) system which generated this result tra nsmitted reference range : <=0.2. The reference r luc was not used to int erpret this result as normal/abnormal . [facility] CenterMwuilzaHWSVBKKQKY1696-37-08 10:44:00 Test Item Value Reference Range Interpretation Comments Monocytes # (test code 1.0 See_Comment H [Aut omated message] The = Monocytes #) system which generated this result tra nsmitted reference range : <=0.8. The reference r luc was not used to int erpret this result as normal/abnormal . [facility] CenterXtpwpjjRDYYNAGRFK9437-59-98 10:44:00 Test Item Value Reference Range Interpretation Comments Eosinophils # (test code 0.0 See_Comment N [A utomated message] The = Eosinophils #) system whic h generated this result tra nsmitted reference range : <=0.5. The reference r luc was not used to int erpret this result as normal/abnormal . [facility] CenterShfieufVWMWQFMKBO0981-17-33 10:44:00 Test Item Value Reference Range Interpretation Comments Lymphocytes (test code = Lymphocytes) 22.2 20.0-40.0 N [facility] CenterPfjwwizHWUBEXCTRK7572-07-35 10:44:00 Test Item Value Reference Range Interpretation Comments RBC Morph (test code = Normal (05/02/2012 N RBC Morph) 05:44:00) [facility] CenterIqhvktuZIIARNXPSU1080-41-59 10:44:00 Test Item Value Reference Range Interpretation Comments Segs (test code = Segs) 70.7 45.0-75.0 N [facility] CenterZydxuzvYXVKEYCKTV2328-97-06 10:44:00 Test Item Value Reference Range Interpretation Comments Plt Morph (test code = Normal (05/02/2012 N Plt Morph) 05:44:00) [facility] CenterKsdiqekOAWEBBWQPA6817-30-55 10:44:00 Test Item Value Reference Range Interpretation Comments G-value (test code = G-value) 10.4 5.0-11.6 N [facility] CenterWbnznxeUNIHTQXNTN6192-78-87 10:44:00 Test Item Value Reference Range Interpretation Comments Max Amp (test code = Max Amp) 68 mm 52-71 N [facility] CenterRjhsthyQJDSVSYIPP6936-29-30 10:44:00 Test Item Value Reference Range Interpretation Comments Estimated % Lysis (test 2.1 See_Comment N [Au tomated message] The code = Estimated % system wh ich generated Lysis) this result tra nsmitted reference range : <=7.5. The reference r luc was not used to int erpret this result as normal/abnormal . [facility] CenterRzzurtuZGPUSYGTRF9300-03-76 10:44:00 Test Item Value Reference Range Interpretation Comments R-time (test code = R-time) 0.6 min 0.4-0.7 N [facility] CenterQrfxwwlMZRIKAFATO5943-18-75 10:44:00 Test Item Value Reference Range Interpretation Comments K-time (test code = K-time) 1.0 min 0.6-2.3 N [facility] CenterYsythtzKJBRIOYRSA3570-56-92 10:44:00 Test Item Value Reference Range Interpretation Comments Angle (test code = Angle) 78 degrees 64-80 N [facility] CenterHhgmmegARSAKGSRYA7135-05-25 10:44:00 Test Item Value Reference Range Interpretation Comments Split Point (test code = Split Point) 0.5 min [facility]
[2023-01-18] MEDS ORDERED: KETOROLAC 30 MG/ML INJ ONE (23:04)
[2023-01-18 23:26] LABS: Urine WBC Clump Occasional /HPF (None Seen)
[2023-01-18 23:37] LABS: Urine Bacteria <20 /HPF (<20); Urine Bilirubin NEGATIVE (Negative); Urine Blood Trace (Negative); Urine Clarity Extremely Turbid (Clear); Urine Color Light-Yellow (Yellow); Urine Crystals Unidentified Few /HPF (None Seen); Urine Glucose NEGATIVE (Negative); Urine Mucus Slight /HPF (None Seen); Urine Protein NEGATIVE (Negative); Urine RBC <5 /HPF (None Seen); Urine Urobilinogen Normal (Normal)
[2023-01-18 23:56] LABS: Absolute Lymphocytes (CBC) 4.7 K/uL (0.7-4.9); Hematocrit 29.3 % (36.0-45.0); Lymphocytes % 37.3 % (15.3-44.8); MCV 73.8 fL (80-100); Platelets 347 thou/uL (152-406); RBC Red Blood Cell Count 3.97 M/uL (3.86-4.86)
[2023-01-19 00:14] LABS: Albumin 3.2 g/dL (3.4-5.0); Bilirubin Total 0.1 mg/dL (0.2-1.0); Protein, Total 6.9 g/dL (6.4-8.2)
--- NOTE | 2023-01-19 00:59 | ER ---
Nurse's Notes [facility] Name: Stella Goldstein Age: 42 yrs Sex: Female : 1980 Arrival Date: 01/18/2023 Time: 22:06 Bed 7 Private MD: Diagnosis: Menorrhagia Presentation: 01/18 22:27 Chief complaint: Patient states: "I have been passing clots from vaginal bleeding, have jw7 been bleeding since December 23 with mild to heavy bleeding since it started and I started having neck swelling today, abdominal pain, and lightheaded". Coronavirus screen: At this time, the client does not indicate any symptoms associated with coronavirus-19. Ebola Screen: No symptoms or risks identified at this time. Initial Sepsis Screen:. Initial Sepsis Screen: Does the patient meet any 2 criteria? No. Patient's initial sepsis screen is negative. Does the patient have a suspected source of infection? No. Patient's initial sepsis screen is negative. Risk Assessment: Do you want to hurt yourself or someone else? Patient reports no desire to harm self or others. Onset of symptoms was December 23, 2022. 22:27 Method Of Arrival: Ambulatory [facility] 22:27 Acuity: SPENCER 3 jw7 Triage Assessment: 22:35 General: Appears in no apparent distress. uncomfortable, Behavior is calm, cooperative, jw7 anxious. Pain: Complains of pain in abdomen. Pain: Pain does not radiate. Pain currently is 7 out of 10 on a pain scale. Quality of pain is described as crampy, sharp, Pain began December 23 Is continuous, Noted to be guarding, resistant to movement. EENT: No deficits noted. No signs and/or symptoms were reported regarding the EENT system. Neuro: Hernandez Agitation-Sedation Scale (RASS): 0 - Alert and Calm Level of Consciousness is awake, alert, obeys commands, Oriented to person, place, time, situation. Cardiovascular:. Cardiovascular: Capillary refill < 3 seconds Clubbing of nail beds is absent JVD is absent Patient's skin is warm and dry. Respiratory: Airway is patent Trachea midline Respiratory effort is even, unlabored, Respiratory pattern is regular, symmetrical. GI: Abdomen is round non-distended, Abd is soft Abdomen is tender to palpation X 4 quads. Reports lower abdominal pain, upper abdominal pain, cramping, intolerance of food, nausea. : Reports vaginal bleeding that is bright red, brown, with clots, heavy flow. Derm: No deficits noted. No signs and/or symptoms reported regarding the dermatologic system. Musculoskeletal: No deficits noted. No signs and/or symptoms reported regarding the musculoskeletal system. 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 jw7 Historical: - Allergies: 22:35 Laundry detergents; jw7 - Home Meds: 22:35 fluoxetine 40 mg oral capsule 1 cap once [Active]; risperidone 2 mg oral tablet 1 tab jw7 every day at bedtime [Active]; hydroxyzine HCl 25 mg Oral tablet 1 tab 3 times per day [Active]; Prazosin Oral 1 cap every day at bedtime [Active]; Bupropion Oral [Active]; topiramate oral [Active]; Ubrelvy oral [Active]; Sumatriptan Sub-Q [Active]; - PMHx: 22:35 Headaches; Migraines; scoliosis; affects her left lung; jw7 - PSHx: 22:35 tubal ligation (scoliosis); jw7 - Immunization history:: Adult Immunizations up to date, Client reports receiving the 2nd dose of the Covid vaccine, Flu vaccine is not up to date. - Social history:: Smoking status: Reported history of juuling and/or vaping. Patient uses alcohol, occasionally. Patient/guardian denies using street drugs, IV drugs. - Family history:: not pertinent. Screenin/02 01:23 [facility] ED Fall Risk Assessment (Adult) History of falling in the last 3 months, nw1 including since admission No falls in past 3 months (0 pts) Confusion or Disorientation No (0 pts) Intoxicated or Sedated No (0 pts) Impaired Gait No (0 pts) Mobility Assist Device Used No (0 pt) Altered Elimination No (0 pt) Score/Fall Risk Level 0 - 2 = Low Risk Oriented to surroundings, Maintained a safe environment, Educated pt \\T\\ family on fall prevention, incl call for assistance when getting out of bed, Assessed \\T\\ reinforced patient's understanding of fall precautions, Provided non-skid footwear, Hourly rounding (assess needs \\T\\ fall precautionary measures) done. Abuse screen: Denies threats or abuse. Denies injuries from another. Nutritional screening: No deficits noted. Tuberculosis screening: No symptoms or risk factors identified. Assessment: 01/18 22:56 Reassessment: Pt to US via wheelchair and US tech. nw1 Vital Signs: 22:27 BP 127 / 89; Pulse 84; Resp 18; Temp 98.7(O); Pulse Ox 100% on R/A; Weight 71.21 kg; jw7 Height 5 ft. 7 in. ; Pain 7/10; 01/19 00:12 BP 118 / 82; Pulse 78; Pulse Ox 100% on R/A; nw1 12 22:27 Body Mass Index 24.59 (71.21 kg, 170.18 cm) jw7 12 22:27 Pain Scale: Adult 7 ED Course: 01/18 22:08 Patient arrived in ED. ag3 22:17 Jose E Lynch MD is Attending Physician. rt 22:35 Triage completed. jw7 22:35 Arm band placed on. jw7 22:47 Jovita Spence, RN is Primary Nurse. la4 23:06 US Transvaginal Ob Sent. la4 23:33 US Transvaginal Ob In Process Unspecified. EDMS 01/19 01:23 Patient has correct armband on for positive identification. Placed in gown. Bed in low nw1 position. Call light in reach. Side rails up X2. Provided Education on: Blood Transfusion, POC. Client placed on continuous cardiac and pulse oximetry monitoring. NIBP monitoring applied. shelter monitor on. Pulse ox on. NIBP on. 01:23 No provider procedures requiring assistance completed. IV discontinued, intact, nw1 bleeding controlled, No redness/swelling at site. Pressure dressing applied, 20 g right wrist and 20 g right forearm. Administered Medications: 01/18 23:00 Drug: Ketorolac IM 30 mg IM once Route: IM; Site: right ventrogluteal; km8 Medication: 01/19 01:23 VIS not applicable for this client. nw1 Outcome: 00:58 Discharge ordered by . rt 01:23 Discharged to home ambulatory, nw1 01:23 Condition: stable 01:23 Discharge instructions given to patient, Instructed on discharge instructions, medication usage, Demonstrated understanding of instructions, follow-up care, medications, Prescriptions given X 1, 01:25 Patient left the ED. nw1 Signatures: Dispatcher [employer] Lisa Small ag3 Martina Bear, RN RN jw7 Jose E Lynch MD MD rt Kena You RN RN km8 Jovita Spence RN RN la4 Dianne Mayes RN RN nw1
--- NOTE | 2023-01-19 00:59 | EDPHYS ---
Physician Documentation [facility] Name: Stella Goldstein Age: 42 yrs Sex: Female : 1980 Arrival Date: 01/18/2023 Time: 22:06 Bed 7 Private MD: ED Physician Jose E Lynch HPI: 01/18 22:53 This 42 yrs old Female presents to ER via Ambulatory with complaints of Vaginal rt Bleeding, Neck Swelling. 22:53 Patient presents to the ED with vaginal bleeding since about December 23. She states it rt has been an increasing amount of bleeding. She is try to get a hysterectomy, was unable to schedule as an outpatient yet. She states that she developed an abdominal pain, lightheadedness today prompted come to the ED for further evaluation. Does report a neck swelling and pain to the bilateral sides of the neck. Denies other acute complaints at this time, symptoms are moderate in severity, no other aggravating elevating factors.. 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 - Social history:: Smoking status: Reported history of juuling and/or vaping. Patient uses alcohol, occasionally. Patient/guardian denies using street drugs, IV drugs. - Family history:: not pertinent. ROS: 22:53 Constitutional: Negative for fever, chills, and weight loss, Cardiovascular: Negative rt for chest pain, palpitations, and edema, Respiratory: Negative for shortness of breath, cough, wheezing, and pleuritic chest pain, MS/Extremity: Negative for injury and deformity, Skin: Negative for injury, rash, and discoloration, Neuro: Negative for headache, weakness, numbness, tingling, and seizure, 22:53 Neck: Positive for pain at rest, swelling, 22:53 Abdomen/GI: Positive for abdominal pain, Negative for nausea and vomiting, 22:53 : Positive for vaginal bleeding, Negative for urinary symptoms, Exam: 22:53 Constitutional: This is a well developed, well nourished patient who is awake, alert, rt and in no acute distress. Head/Face: Normocephalic, atraumatic. Chest/axilla: Normal chest wall appearance and motion. Nontender with no deformity. No lesions are appreciated. Cardiovascular: Regular rate and rhythm with a normal S1 and S2. No gallops, murmurs, or rubs. Normal PMI, no JVD. No pulse deficits. Respiratory: Lungs have equal breath sounds bilaterally, clear to auscultation and percussion. No rales, rhonchi or wheezes noted. No increased work of breathing, no retractions or nasal flaring. Abdomen/GI: Mild tenderness diffusely without rebound, guarding, distention Skin: Warm, dry with normal turgor. Normal color with no rashes, no lesions, and no evidence of cellulitis. MS/ Extremity: Pulses equal, no cyanosis. Neurovascular intact. Full, normal range of motion. Neuro: Awake and alert, GCS 15, oriented to person, place, time, and situation. Cranial nerves II-XII grossly intact. Motor strength 5/5 in all extremities. Sensory grossly intact. Cerebellar exam normal. Normal gait. 22:53 Neck: No appreciable swelling to the neck, mild tenderness at the superior trapezius muscles, no midline tenderness, no deformity, Vital Signs: 22:27 BP 127 / 89; Pulse 84; Resp 18; Temp 98.7(O); Pulse Ox 100% on R/A; Weight 71.21 kg; jw7 Height 5 ft. 7 in. ; Pain 7/10; 1202 00:12 BP 118 / 82; Pulse 78; Pulse Ox 100% on R/A; nw1 01/18 22:27 Body Mass Index 24.59 (71.21 kg, 170.18 cm) jw7 01/18 22:27 Pain Scale: Adult jw7 MDM: 01/18 22:44 Patient medically screened. rt 01/19 05:34 Differential diagnosis: Menorrhagia, ectopic . Data reviewed: vital signs, rt nurses notes, lab test result(s), radiologic studies. Consideration of Admission/Observation Escalation of care including admission/observation considered. Patient with negative hCG effectively ruling out ectopic , after discussion with the radiologist, believes that it is ovarian cyst as opposed to ectopic , seems very unlikely given radiographic appearance with negative beta hCG. Test considered but Not performed: CT: Low suspicion for appendicitis, kidney stone, CT scan not indicated. Counseling: I had a detailed discussion with the patient and/or guardian regarding the historical points, exam findings, and any diagnostic results supporting the discharge/admit diagnosis, lab results, radiology results, the need for outpatient follow up, to return to the emergency department if symptoms worsen or persist or if there are any questions or concerns that arise at home. 01/18 22:32 Order name: CBC with Diff; Complete Time: 00:02 rt 01/18 22:32 Order name: CMP; Complete Time: 00:38 rt 01/18 22:32 Order name: Test, Serum; Complete Time: 00:38 rt 01/18 22:32 Order name: Type And Screen; Complete Time: 00:53 rt 01/18 23:00 Order name: UAM; Complete Time: 23:48 rt 01/18 23:00 Order name: Test, Urine; Complete Time: 23:48 rt 01/18 23:31 Order name: HCG-Quantitative; Complete Time: 00:38 rt 01/18 22:32 Order name: US Transvaginal Ob rt Administered Medications: 01/18 23:00 Drug: Ketorolac IM 30 mg IM once Route: IM; Site: right ventrogluteal; km8 Disposition Summary: 01/19/23 00:58 Discharge Ordered Notes: Location: Home rt Condition: Stable rt Diagnosis - Menorrhagia rt Followup: rt - With: Private Physician - When: 2 - 3 days - Reason: Discharge Instructions: - Discharge Summary Sheet rt - Menorrhagia rt Forms: - Medication Reconciliation Form rt - Thank You Letter rt - Antibiotic Education rt - Prescription Opioid Use rt - Patient Portal Instructions rt - Leadership Thank You Letter rt Prescriptions: - LYSTEDA 650 mg tab - take 2 tablet ORAL route 3 times per day; 30 tablet; Refills: 0, Product rt Selection Permitted Signatures: Dispatcher [employer] Martina Silva, RN RN jw7 Jose E Lynch MD MD rt Kena You RN RN km8
[2023-01-19 01:29] VITALS: TEMP 98.7; O2SAT 100
[2023-01-19 01:31] VITALS: BP 118/82
--- NOTE | 2023-01-19 19:33 | RAD REPORT ---
EXAM DESCRIPTION: ADDENDUM #1 THIS REPORT CONTAINS FINDINGS THAT MAY BE CRITICAL TO PATIENT CARE: The findings were verbally discus sed via telephone conference with Dr. 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 The results were ack nowledged and understood. Electronically signed by: Luis Silvestre MD 01/19/2023 12:41 AM FISHING INSTRUCTOR End of Addendum EXAM DESCRIPTION: US , Transvaginal CLINICAL HISTORY: Bleeding pain TECHNIQUE: Real-time transvaginal obstetrical ultrasound of the maternal pelvis and a first trimeste r with image documentation. Transvaginal imaging was used for better evaluation of the fe tus and adnexa. COMPARISON: No relevant prior studies available. FINDINGS: Gestation: No demonstrable intrauterine gestational sac. Uterus/cervix: The uterus is anteverted and measures 9.8 x 5.3 x 6.3 cm. The myometrium is diffusel y heterogeneous with suggestion for a dominant fibroid at the upper uterine body anteriorly measuring approximately 3.5 x 3.7 x 4.3 cm. Nabothian cysts at the level of the cervix. Ovaries: The left ovary measures 4 x 2.8 x 2.9 cm. There are a few cysts, at least one of which jael ears to be partially hemorrhagic measuring approximately 3 x 1.7 x 2.6 cm. The right ovary measures 6.4 x 5.4 x 6.6 cm predominantly replaced by a cystic structure. There is a small peripheral cystic structure. Free fluid: No free fluid. IMPRESSION: No demonstrable intrauterine . In light of the clinical history of positive p regnancy test, the findings may represent sequelae of recent spontaneous . The possibility of very early intrauterine or extrauterine cannot be excluded. Bilateral ovarian cysts. T he cystic structure on the right demonstrates a peripheral smaller cyst suggestive of a daughter cyst . The possibility of an abnormal enlarged yolk sac in the setting of an ovarian ectopic is felt less likely although cannot be entirely excluded. Careful follow-up including correlation with beta-hCG le vels is recommended. Electronically signed by: Luis Silvestre MD 01/19/2023 12:36 AM FISHING INSTRUCTOR Due to temporary technical issues with the PACS/Fluency reporting system, reports are being signed by the in house radiologists without review as a courtesy to insure prompt reporting. The interpreting radiologist is fully responsible for the content of the report.
== END 2023-01-19 01:25 | disposition home or self-care (01) ==
LOC: ER 22:06
DX: N92.0 Excessive and frequent menstruation with regular cycle (principal); Z91.048 Other nonmedicinal substance allergy status
CPT/HCPCS: 36415; 76817; 80053; 81001; 81025; 84702; 84703; 85025; 86850; 86900; 86901; 96372; 99284

== ENCOUNTER 2023-01-28 18:34 | Observation (INO) | payer OTHER ==
[2023-01-28 19:08] LABS: Absolute Lymphocytes (CBC) 2.9 K/uL (0.7-4.9); Hematocrit 31.7 % (36.0-45.0); Lymphocytes % 22.1 % (15.3-44.8); MCV 72.5 fL (80-100); MPV 7.7 fL (7.6-11.3); Platelets 406 thou/uL (152-406); RBC Red Blood Cell Count 4.38 M/uL (3.86-4.86)
[2023-01-28 19:15] LABS: Protime INR 1.26
[2023-01-28] MEDS ORDERED: NA CHLORIDE 0.9% 1,000 ML ONE ×3 (19:25→22:00)
[2023-01-28 19:43] LABS: ALT/SGPT 18 U/L (13-56); AST/SGOT 12 U/L (15-37); Albumin 3.8 g/dL (3.4-5.0); Alkaline Phosphatase 50 U/L (45-117); BUN Blood Urea Nitrogen 22 mg/dL (7-18); Bicarbonate 17 mEq/L (21-32); Bilirubin Direct 0.1 mg/dL (0-0.2); Bilirubin Indirect, Calculated 0.4 mg/dL (0.2-0.8); Bilirubin Total 0.5 mg/dL (0.2-1.0); Glomerular Filtration Rate 78 ml/min (=/>90); Glucose Level 135 mg/dL (74-106); Potassium 2.7 mEq/L (3.5-5.1); Protein, Total 8.2 g/dL (6.4-8.2); Sodium Level 139 mEq/L (136-145)
[2023-01-28] MEDS ORDERED: NA CHLORIDE 0.9% 250 ML ONE (20:41)
[2023-01-28] MEDS ORDERED: KCL 20 MEQ/100 mL IVPB 100 ML IV ONE (20:41)
[2023-01-28] MEDS ORDERED: POTASSIUM 25 MEQ EFFERV TAB ONE (21:45)
[2023-01-28 23:29] LABS: Potassium 3.2 mEq/L (3.5-5.1)
[2023-01-29 01:49] LABS: Specific Gravity 1.014 (1.005-1.030)
[2023-01-29 01:50] LABS: Specific Gravity 1.014 (1.005-1.030); Urine Bacteria <20 /HPF (<20); Urine Bilirubin NEGATIVE (Negative); Urine Blood Trace (Negative); Urine Clarity Turbid (Clear); Urine Color Light-Yellow (Yellow); Urine Glucose NEGATIVE (Negative); Urine Mucus 1+ /HPF (None Seen); Urine Protein TRACE (Negative); Urine RBC None Seen /HPF (None Seen); Urine Urobilinogen Normal (Normal); Urine pH 5.5 (5.0-7.0)
[2023-01-29 02:05] LABS: Barbiturates NEGATIVE (NEGATIVE); Benzodiazepines NEGATIVE (NEGATIVE); Cocaine NEGATIVE (NEGATIVE); METHAMPHETAM NEGATIVE (NEGATIVE); Methadone NEGATIVE (NEGATIVE); Opiates NEGATIVE (NEGATIVE); Phencyclidine NEGATIVE (NEGATIVE); THC Cannibis POSITIVE (NEGATIVE)
[2023-01-29] MEDS ORDERED: POTASSIUM 25 MEQ EFFERV TAB ONE (03:00)
[2023-01-29] MEDS ORDERED: D5 0.9 NS 1,000 ML IV ONE (03:01)
[2023-01-29] MEDS ORDERED: SODIUM BICARB 50 MEQ/50ML VIAL ONE (03:01)
[2023-01-29] MEDS ORDERED: ONDANSETRON 4 MG/2 ML VIAL IV PRN (04:49)
[2023-01-29] MEDS ORDERED: ACETAMINOPHEN 325 MG TABLET PO PRN (04:49)
--- NOTE | 2023-01-29 04:52 | EDPHYS ---
Physician Documentation [facility] Name: Stella Goldstein Age: 42 yrs Sex: Female : 1980 Arrival Date: 01/28/2023 Time: 18:34 Bed 5 Private MD: ED Physician Jt Oliver HPI: 01/28 18:45 This 42 yrs old Female presents to ER via Unassigned with complaints of Overdose. cp 18:45 The patient presents to the emergency department after a known overdose, that was cp intentional. Context: Method: the patient has a confirmed or suspected ingestion, Time: today, reports between 1300 and 1400, the OD/poisoning occurred at at home, and was witnessed no one. 18:45 Patient admits to taking unknown quantity of prescription medications: Risperidone, cp Gabapentin, Hydroxyzine, Prazosin. 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 - Social history:: Smoking status: Patient reports the use of cigarette tobacco products, smokes one pack cigarettes per day. Patient uses alcohol, occasionally. Patient/guardian denies using street drugs, IV drugs. ROS: 18:50 Constitutional: Negative for body aches, chills, fever, poor PO intake, cp 18:50 Eyes: Negative for injury, pain, redness, and discharge, cp 18:50 Cardiovascular: Negative for chest pain, 18:50 Respiratory: Negative for wheezing, 18:50 Abdomen/GI: Negative for abdominal pain, vomiting, diarrhea, constipation, 18:50 Neuro: Negative for headache, 18:50 All other systems are negative, Exam: 18:55 Head/Face: Normocephalic, atraumatic. cp 18:55 Constitutional: The patient appears in no acute distress, non-diaphoretic, non-toxic, well developed, well nourished, 18:55 Eyes: Periorbital structures: appear normal, Pupils: equal, round, and reactive to cp light and accomodation, Conjunctiva: normal, no exudate, no injection, Sclera: no appreciated abnormality, Lids and lashes: appear normal, bilaterally, 18:55 ENT: External ear(s): are unremarkable, Nose: is normal, Mouth: Lips: moist, Oral mucosa: pink and intact, moist, Posterior pharynx: is normal, airway is patent, no erythema, no exudate, 18:55 Chest/axilla: Inspection: normal, Palpation: is normal, no crepitus, no tenderness, 18:55 Cardiovascular: Rate: tachycardic, Rhythm: regular, 18:55 Respiratory: the patient does not display signs of respiratory distress, Respirations: normal, no use of accessory muscles, no retractions, labored breathing, is not present, Breath sounds: are clear throughout, no decreased breath sounds, no stridor, no wheezing, 18:55 Abdomen/GI: Inspection: abdomen appears normal, Palpation: abdomen is soft and non-tender, in all quadrants, 18:55 Neuro: Orientation: to person, place, situation, Mentation: able to follow commands, slow to respond, Motor: moves all fours, strength is normal, 22:54 ECG was reviewed by the Attending Physician. Vital Signs: 19:10 BP 90 / 52; Pulse 144; Resp 16; Pulse Ox 97% on R/A; iw 20:00 BP 110 / 66; Pulse 117; Resp 17 S; Pulse Ox 98% on R/A; jw7 21:00 BP 132 / 68; Pulse 136; Resp 18 S; Pulse Ox 99% on R/A; jw7 22:00 BP 127 / 65; Pulse 134; Resp 18 S; Pulse Ox 99% on R/A; jw7 23:00 BP 110 / 62; Pulse 123; Resp 17 S; Pulse Ox 98% on R/A; jw7 12/12 01:00 BP 122 / 68; Pulse 118; Resp 18; Pulse Ox 97% on R/A; jb4 02:00 BP 123 / 74; Pulse 123; Resp 13 S; Pulse Ox 98% on R/A; jw7 03:12 BP 120 / 66; Pulse 122; Resp 15 S; Pulse Ox 100% on R/A; lg3 05:00 BP 104 / 62; Pulse 110; Resp 14 S; Pulse Ox 100% on R/A; jw7 07:38 BP 104 / 71; Pulse 119; Resp 19; Pulse Ox 99% on R/A; ld1 09:15 BP 111 / 76; Pulse 109; Resp 18; Pulse Ox 99% on R/A; ld1 11:00 BP 119 / 77; Pulse 119; Resp 18; Pulse Ox 100% on R/A; ld1 13:00 BP 124 / 79; Pulse 123; Resp 18; Pulse Ox 100% on R/A; ld1 MDM: 12 19:00 Differential diagnosis: over medication, suicidal attempt. 01/29 02:30 Transition of care: After a detail discussion of the patient's case, care is cp transferred to Jt Oliver MD. 03:52 Patient medically screened. 4 04:51 Data reviewed: vital signs, nurses notes, lab test result(s), EKG. sp4 01/28 18:46 Order name: Acetaminophen; Complete Time: 19:59 01/28 18:46 Order name: Basic Metabolic Panel; Complete Time: 19:59 01/28 22:56 Interpretation: Normal except: K 2.7; CL 109; CO2 17; ANION GAP 15.7; GLUC 135; BUN 22; cp GFR 78. 01/28 18:46 Order name: CBC with Diff; Complete Time: 19:59 01/29 00:39 Interpretation: Normal except: WBC 13.30; HGB 10.0; HCT 31.7; MCV 72.5; MCH 22.9; MCHC cp 31.6; RDW 18.2; NEUT A 9.1. 01/28 18:46 Order name: ETOH Level; Complete Time: 19:59 01/28 18:46 Order name: Hepatic Function; Complete Time: 19:59 01/28 18:46 Order name: PT-INR; Complete Time: 19:59 01/28 18:46 Order name: Test, Urine; Complete Time: 02:10 01/28 18:46 Order name: Ptt, Activated; Complete Time: 19:59 01/28 18:46 Order name: Salicylate; Complete Time: 21:29 01/28 18:46 Order name: Urinalysis w/ reflexes; Complete Time: 02:10 01/29 02:10 Interpretation: Normal except: UCLA Turbid; UBLD Trace; UPROT TRACE; HYAL 10-20. cp 01/28 18:46 Order name: Urine Drug Screen; Complete Time: 02:10 cp 01/29 02:10 Interpretation: Normal except: THC POSITIVE. 01/28 22:57 Order name: BMP: repeat after infusion of potassium; Complete Time: 00:37 01/29 00:37 Interpretation: Normal except: K 3.2; CL 113; CO2 20; GLUC 127. 01/29 04:55 Order name: CBC with Automated Diff EDMS 01/29 04:55 Order name: CBC with Automated Diff EDMS 01/29 04:55 Order name: Comprehensive Metabolic Panel EDMS 01/29 04:55 Order name: Comprehensive Metabolic Panel EDMS 01/28 18:46 Order name: EKG; Complete Time: 18:47 01/28 18:46 Order name: EKG - Nurse/Tech; Complete Time: 19:58 01/28 18:46 Order name: IV Saline Lock; Complete Time: 19:17 01/28 18:46 Order name: Labs collected and sent; Complete Time: 19:18 01/28 18:46 Order name: Suicide Precautions; Complete Time: 02:25 cp 01/28 18:46 Order name: Suicide Screening ([place]); Complete Time: 02:25 01/29 00:44 Order name: Vital Signs; Complete Time: 01:39 01/29 00:45 Order name: EKG - Nurse/Tech; Complete Time: 02:24 cp EC/11 22:54 Rate is 133 beats/min. Rhythm is regular. TN interval is normal. QRS interval is cp normal. QT interval is prolonged. Interpreted by me. Reviewed by me. Administered Medications: 01/29 06:55 Discontinued: [id number] ml IV at 125 ml/hr continuous jw7 01/28 19:19 Drug: NS 0.9% IV 1000 ml IV at 1 bolus Per protocol; 1000 mL bolus Route: IV; Rate: 1 kl bolus; Site: right antecubital; 21:59 Follow up: Response: No adverse reaction; IV Status: Completed infusion; IV Intake: jw7 1000ml 20:06 Drug: NS 0.9% IV 1000 ml IV at 1 bolus Per protocol; 1000 mL bolus Route: IV; Rate: 1 lg3 bolus; Site: right forearm; 22:00 Follow up: Response: No adverse reaction; IV Status: Completed infusion; IV Intake: jw7 1000ml 20:48 Drug: Potassium Chloride IV 20 mEq IV at calculated rate once; administer over 1-2 lg3 hours Route: IV; Rate: calculated rate; Site: right forearm; 22:00 Follow up: Response: No adverse reaction; IV Status: Completed infusion; IV Intake: jw7 350ml 21:58 Drug: Potassium PO Effervescent Tablet 50 mEq PO once; dissolve in 4 ounces of water or jw7 juice Route: PO; 01/29 01:08 Follow up: Response: No adverse reaction jw7 01/28 21:59 Drug: NS 0.9% IV 1000 ml IV at 1 bolus Per protocol; 1000 mL bolus Route: IV; Rate: 1 jw7 bolus; Site: right wrist; 01/29 01:09 Follow up: Response: No adverse reaction; IV Status: Completed infusion; IV Intake: jw7 1000ml 03:11 Drug: Sodium Bicarbonate IVP 1 amp IVP once; (50 mL); equals 50 mEq Route: IVP; Site: lg3 right antecubital; 06:31 Follow up: Response: No adverse reaction jw7 03:11 Drug: Sodium Bicarbonate IVP 1 amp IVP once; (50 mL); equals 50 mEq Route: IVP; Site: lg3 right antecubital; 06:31 Follow up: Response: No adverse reaction jw7 03:11 Drug: D5-NS IV 1000 ml IV at 125 ml/hr continuous Route: IV; Rate: 125 ml/hr; Site: lg3 right antecubital; 06:31 Follow up: Response: No adverse reaction; IV Status: Infusion continued upon admission; jw7 IV Intake: 500ml 06:55 Follow up: Response: No adverse reaction; IV Status: Order to discontinue infusion; IV jw7 Intake: 500ml 03:12 Drug: Potassium PO Effervescent Tablet 50 mEq PO once; dissolve in 4 ounces of water or lg3 juice Route: PO; 06:31 Follow up: Response: No adverse reaction jw7 04:56 CANCELLED (Other Intervention Used): lorazepam1 mg PO once sp4 04:56 Drug: Ativan IVP 1 mg IVP once Route: IVP; Site: right antecubital; lg3 06:31 Follow up: Response: No adverse reaction jw7 Disposition: 04:50 Co-signature as Attending Physician, Jt Oliver MD I agree with the assessment sp4 and plan of care. I reviewed the patient's care provided by Advanced Practice Provider \T\ agree w/ the diagnosis \T\ care plan. I personally saw the pt \T\ performed a substantive portion of the visit, incldng all aspects of the (History/Exam/Medical Decision Making). Disposition Summary: 01/29/23 04:51 Hospitalization Ordered Notes: Hospitalization Status: Observation sp4 Provider: Papo Callahan sp4 Condition: Stable sp4 Problem: new sp4 Symptoms: have improved sp4 Bed/Room Type: Standard sp4 Location: Telemetry/MedSurg (observation)(01/29/23 14:01) bd Room Assignment: 203(01/29/23 16:22) ja1 Diagnosis - Acute medication overdose, unintentional overdose, hypokalemia, hypotension, sp4 tachycardia, prolonged QT, generalized weakness Forms: - Medication Reconciliation Form sp4 - SBAR form sp4 - Leadership Thank You Letter sp4 Signatures: Dispatcher [employer] EDMS Luh Schuster Kimberly, RN RN kl Williams, Irene, RN RN iw Page, Corey, PA PA cp Tyron Medina RN NELSON foote1 Aleisha Betancourt, RN Martina Miller RN RN jw7 Jt Oliver MD MD sp4 Corrections: (The following items were deleted from the chart) 01/28 18:50 18:45 Context: Method: the patient has a confirmed or suspected ingestion, Time: today, cp at 13:00, and was witnessed no one, cp 23:02 22:54 Rate is 133 beats/min. Rhythm is regular. TN interval is normal. QRS interval is cp normal. Interpreted by me. Reviewed by me. cp 01/29 02:55 02:53 Constitutional: The patient appears in no acute distress, non-diaphoretic, cp non-toxic, well developed, well nourished, cp 02:55 02:53 Head/Face: Normocephalic, atraumatic. cp cp 04:56 04:49 LORazepam PO 1 mg PO once ordered. sp4 sp4 06:31 04:51 Telemetry/MedSurg (observation) sp4 kl 06:31 04:51 sp4 kl 14:01 06:31 [facility] ER [facility] kl bd 14:01 06:31 ERHOLD- kl bd 14:05 14:01 215 bd bd 16:22 14:05 bd ja1
--- NOTE | 2023-01-29 04:52 | ER ---
Nurse's Notes [facility] Name: Stella Goldstein Age: 42 yrs Sex: Female : 1980 Arrival Date: 01/28/2023 Time: 18:34 Bed 5 Private MD: Diagnosis: Acute medication overdose, unintentional overdose, hypokalemia, hypotension, tachycardia, prolonged QT, generalized weakness Presentation: 01/28 18:47 Chief complaint: EMS states: pt took a handful of her home meds at around 1 pm, iw significant other found her with AMS, drowsy. Coronavirus screen: At this time, the client does not indicate any symptoms associated with coronavirus-19. Ebola Screen: Patient negative for fever greater than or equal to 101.5 degrees Fahrenheit, and additional compatible Ebola Virus Disease symptoms Patient denies exposure to infectious person. Patient denies travel to an Ebola-affected area in the 21 days before illness onset. No symptoms or risks identified at this time. Initial Sepsis Screen: Does the patient meet any 2 criteria? No. Patient's initial sepsis screen is negative. Does the patient have a suspected source of infection? No. Patient's initial sepsis screen is negative. Risk Assessment: Do you want to hurt yourself or someone else? Patient reports desire/thoughts of hurting themselves or someone else. Provider notified. Onset of symptoms was January 28, 2023. 18:47 Method Of Arrival: EMS: [facility] iw 18:47 Acuity: SPENCER 2 iw 19:18 Care prior to arrival: IV initiated. 20 GA, in the right antecubital area. iw 19:18 Note Poison control notified case # [id number] recommends toxic workup seizure kl precautions caardiac monitoring obs until returns to baseline. CHICKEN HANGER: 19:00 LMP 01/02/2023, unknown jw7 Historical: - Allergies: 18:48 Laundry detergents; iw - PMHx: 18:48 Migraines; scoliosis; affects her left lung; Headaches; iw - PSHx: 18:48 tubal ligation (si); iw - Immunization history:: Adult Immunizations up to date, Client reports receiving the 2nd dose of the Covid vaccine, Flu vaccine is not up to date. - Social history:: Smoking status: Patient reports the use of cigarette tobacco products, smokes one pack cigarettes per day. Patient uses alcohol, occasionally. Patient/guardian denies using street drugs, IV drugs. Screenin:00 [facility] ED Fall Risk Assessment (Adult) History of falling in the last 3 months, jw7 including since admission No falls in past 3 months (0 pts) Score/Fall Risk Level 0 - 2 = Low Risk Oriented to surroundings, Maintained a safe environment. Abuse screen: Denies threats or abuse. Denies injuries from another. Nutritional screening: No deficits noted. Tuberculosis screening: No symptoms or risk factors identified. Assessment: 19:00 General: Appears in no apparent distress. uncomfortable, Behavior is calm, cooperative. jw7 Pain: Denies pain. Neuro: Hernandez Agitation-Sedation Scale (RASS): 0 - Alert and Calm Level of Consciousness is awake, alert, obeys commands, Oriented to person, place, time, situation. Cardiovascular: Capillary refill < 3 seconds Clubbing of nail beds is absent JVD is absent Patient's skin is warm and dry. Cardiovascular: Rhythm is sinus tachycardia. Respiratory: Airway is patent Trachea midline Respiratory effort is even, unlabored, Respiratory pattern is regular, symmetrical. GI: Abdomen is flat, non-distended, Bowel sounds present X 4 quads. : No deficits noted. No signs and/or symptoms were reported regarding the genitourinary system. EENT: No deficits noted. No signs and/or symptoms were reported regarding the EENT system. Derm: Skin is intact, is healthy with good turgor, Skin is dry, Skin is normal, Skin temperature is warm. Musculoskeletal: Circulation, motion, and sensation intact. Range of motion: intact in all extremities. 20:00 Reassessment: Patient appears in no apparent distress at this time. No changes from jw7 previously documented assessment. Patient and/or family updated on plan of care and expected duration. Pain level reassessed. Respirations even and unlabored at 18RR, and 98% O2 on RA. 21:00 Reassessment: Patient appears in no apparent distress at this time. No changes from jw7 previously documented assessment. Patient and/or family updated on plan of care and expected duration. Pain level reassessed. 21:26 General: Pt demanded removal of IV stated "Remove this Now", IV removed. . jw7 22:00 Reassessment: Patient appears in no apparent distress at this time. No changes from jw7 previously documented assessment. Patient and/or family updated on plan of care and expected duration. Pain level reassessed. 22:27 Reassessment: pt reports does not want to hurt herself reports sig other texted her to kl go ahead and take medication pt states " I did it to prove a point". 23:00 Reassessment: Patient appears in no apparent distress at this time. No changes from jw7 previously documented assessment. Patient and/or family updated on plan of care and expected duration. Pain level reassessed. 01/29 00:00 Reassessment: Patient appears in no apparent distress at this time. No changes from jw7 previously documented assessment. Patient and/or family updated on plan of care and expected duration. Pain level reassessed. 01:00 Reassessment: Patient appears in no apparent distress at this time. No changes from jw7 previously documented assessment. Patient and/or family updated on plan of care and expected duration. Pain level reassessed. 02:00 Reassessment: Patient appears in no apparent distress at this time. No changes from jw7 previously documented assessment. Patient and/or family updated on plan of care and expected duration. Pain level reassessed. 03:26 Reassessment: Patient appears in no apparent distress at this time. No changes from jw7 previously documented assessment. Patient and/or family updated on plan of care and expected duration. Pain level reassessed. 04:30 Reassessment: Patient appears in no apparent distress at this time. No changes from jw7 previously documented assessment. Patient and/or family updated on plan of care and expected duration. Pain level reassessed. 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 Non intentional over dose. Pt resting in bed. RR 20. Denies SI at this time. Pt on monitor with door open. General: Appears in no apparent distress. Behavior is cooperative, drowsy. Pain: Denies pain. Neuro: Hernandez Agitation-Sedation Scale (RASS): -1 Drowsy Level of Consciousness is obeys commands, Oriented to person, place, time, situation. Cardiovascular: Patient's skin is warm and dry. Rhythm is sinus tachycardia. Respiratory: Airway is patent Respiratory effort is even, unlabored, Respiratory pattern is regular, symmetrical. 09:15 Reassessment: Patient appears in no apparent distress at this time. No changes from ld1 previously documented assessment. Patient and/or family updated on plan of care and expected duration. Pain level reassessed. 11:00 Reassessment: Patient appears in no apparent distress at this time. Patient and/or ld1 family updated on plan of care and expected duration. Pain level reassessed. 13:00 Reassessment: Patient appears in no apparent distress at this time. No changes from ld1 previously documented assessment. Patient and/or family updated on plan of care and expected duration. Pain level reassessed. 15:00 Reassessment: Patient appears in no apparent distress at this time. No changes from ld1 previously documented assessment. Patient and/or family updated on plan of care and expected duration. Pain level reassessed. Overdose: 01/28 19:00 [place] Suicide Severity Screening: "In the past month, have you wished you were jw7 or wished you could go to sleep and not wake up?" Patient responds "yes." Based off client's responses, additional C-SSRS screening questions required. "In the past month, have you actually had any thoughts of killing yourself?" Patient responds "no." "In your lifetime, have you ever done anything, started to do anything, or prepared to do anything to end your life?" Patient responds "yes." Patient reports suicidal intent within 3 past months. 01/29 07:38 [place] Suicide Severity Screening: "In the past month, have you actually had any ld1 thoughts of killing yourself?" Patient responds "yes." Based off client's responses, additional C-SSRS screening questions required. Vital Signs: 01/28 19:10 BP 90 / 52; Pulse 144; Resp 16; Pulse Ox 97% on R/A; iw 20:00 BP 110 / 66; Pulse 117; Resp 17 S; Pulse Ox 98% on R/A; jw7 21:00 BP 132 / 68; Pulse 136; Resp 18 S; Pulse Ox 99% on R/A; jw7 22:00 BP 127 / 65; Pulse 134; Resp 18 S; Pulse Ox 99% on R/A; jw7 23:00 BP 110 / 62; Pulse 123; Resp 17 S; Pulse Ox 98% on R/A; jw7 01/29 01:00 BP 122 / 68; Pulse 118; Resp 18; Pulse Ox 97% on R/A; jb4 02:00 BP 123 / 74; Pulse 123; Resp 13 S; Pulse Ox 98% on R/A; jw7 03:12 BP 120 / 66; Pulse 122; Resp 15 S; Pulse Ox 100% on R/A; lg3 05:00 BP 104 / 62; Pulse 110; Resp 14 S; Pulse Ox 100% on R/A; jw7 07:38 BP 104 / 71; Pulse 119; Resp 19; Pulse Ox 99% on R/A; ld1 09:15 BP 111 / 76; Pulse 109; Resp 18; Pulse Ox 99% on R/A; ld1 11:00 BP 119 / 77; Pulse 119; Resp 18; Pulse Ox 100% on R/A; ld1 13:00 BP 124 / 79; Pulse 123; Resp 18; Pulse Ox 100% on R/A; ld1 ED Course: 01/28 18:35 Patient arrived in ED. sb4 18:38 Leonel Thorne PA is PHCP. cp 18:38 Anthony Mendoza MD is Attending Physician. cp 18:48 Triage completed. iw 18:49 Arm band placed on. iw 19:00 Patient has correct armband on for positive identification. Bed in low position. Call jw7 light in reach. Seizure precautions initiated. 19:19 Maintain EMS IV. Dressing intact. Good blood return noted. Gauge \\T\\ site: 20 RAC. iw 01/29 01:37 Inserted saline lock: 20 gauge in right antecubital area, using aseptic technique. jw7 02:59 Jt Oliver MD is Attending Physician. cp 04:50 Papo Callahan MD is Hospitalizing Provider. sp4 05:14 Provided Education on: need for admit. jw7 05:14 No provider procedures requiring assistance completed. Patient admitted, IV remains in jw7 place. Administered Medications: 06:55 Discontinued: [id number] ml IV at 125 ml/hr continuous jw7 01/28 19:19 Drug: NS 0.9% IV 1000 ml IV at 1 bolus Per protocol; 1000 mL bolus Route: IV; Rate: 1 kl bolus; Site: right antecubital; 21:59 Follow up: Response: No adverse reaction; IV Status: Completed infusion; IV Intake: jw7 1000ml 20:06 Drug: NS 0.9% IV 1000 ml IV at 1 bolus Per protocol; 1000 mL bolus Route: IV; Rate: 1 lg3 bolus; Site: right forearm; 22:00 Follow up: Response: No adverse reaction; IV Status: Completed infusion; IV Intake: jw7 1000ml 20:48 Drug: Potassium Chloride IV 20 mEq IV at calculated rate once; administer over 1-2 lg3 hours Route: IV; Rate: calculated rate; Site: right forearm; 22:00 Follow up: Response: No adverse reaction; IV Status: Completed infusion; IV Intake: jw7 350ml 21:58 Drug: Potassium PO Effervescent Tablet 50 mEq PO once; dissolve in 4 ounces of water or jw7 juice Route: PO; 01/29 01:08 Follow up: Response: No adverse reaction jw7 01/28 21:59 Drug: NS 0.9% IV 1000 ml IV at 1 bolus Per protocol; 1000 mL bolus Route: IV; Rate: 1 jw7 bolus; Site: right wrist; 01/29 01:09 Follow up: Response: No adverse reaction; IV Status: Completed infusion; IV Intake: jw7 1000ml 03:11 Drug: Sodium Bicarbonate IVP 1 amp IVP once; (50 mL); equals 50 mEq Route: IVP; Site: lg3 right antecubital; 06:31 Follow up: Response: No adverse reaction jw7 03:11 Drug: Sodium Bicarbonate IVP 1 amp IVP once; (50 mL); equals 50 mEq Route: IVP; Site: lg3 right antecubital; 06:31 Follow up: Response: No adverse reaction jw7 03:11 Drug: D5-NS IV 1000 ml IV at 125 ml/hr continuous Route: IV; Rate: 125 ml/hr; Site: lg3 right antecubital; 06:31 Follow up: Response: No adverse reaction; IV Status: Infusion continued upon admission; jw7 IV Intake: 500ml 06:55 Follow up: Response: No adverse reaction; IV Status: Order to discontinue infusion; IV jw7 Intake: 500ml 03:12 Drug: Potassium PO Effervescent Tablet 50 mEq PO once; dissolve in 4 ounces of water or lg3 juice Route: PO; 06:31 Follow up: Response: No adverse reaction jw7 04:56 CANCELLED (Other Intervention Used): lorazepam1 mg PO once sp4 04:56 Drug: Ativan IVP 1 mg IVP once Route: IVP; Site: right antecubital; lg3 06:31 Follow up: Response: No adverse reaction jw7 Medication: 03:28 VIS not applicable for this client. jw7 Intake: 01/28 21:59 IV: 1000ml; Total: 1000ml. jw7 22:00 IV: 1000ml; Total: 2000ml. jw7 22:00 IV: 350ml; Total: 2350ml. jw7 1212 01:09 IV: 1000ml; Total: 3350ml. jw7 06:31 IV: 500ml; Total: 3850ml. jw7 06:55 IV: 500ml; Total: 4350ml. jw7 Outcome: 04:51 Decision to Hospitalize by Provider. sp4 07:39 Admitted to ER Hold. Please see [facility] for further documentation. ld1 07:39 Condition: unchanged 07:39 Instructed on the need for admit, 17:09 Patient left the ED. rs5 Signatures: Mona Irving RN Melissa Alatorre RN Leonel Cole PA PA cp Bryson, James, RN RN jb4 Able, Lacie, RN RN lg3 Carolyn Rose RN RN ld1 Martina Bear RN RN jw7 Brown, Sophia, PA-C PA-C Tommy Patel RN RN rs5 Jt Oliver MD MD sp4 Corrections: (The following items were deleted from the chart) 01:58 01/28 21:04 BP 110 / 66; Pulse 110bpm; Resp 17bpm; Spontaneous; Pulse Ox 98% RA; lg3 jw7
--- NOTE | 2023-01-29 04:54 | P.HP ---
Certification for Inpatient Patient admitted to: Observation With expected LOS: <2 Midnights Practitioner: I am a practitioner with admitting privileges, knowledge of patient current condition, hospital course, and medical plan of care. Services: Services provided to patient in accordance with Admission requirements found in Title 42 Section 412.3 of the Code of Federal Regulations Patient History Date of Service: 01/29/23 Reason for admission: Accidental overdose History of Present Illness: 42-year-old female patient with medical history significant for depression for which she sees an outpatient psychiatrist. She came to the emergency department with complaint of altered mentation from medication side effect. She reported that she is takes couple of medicine for sleep related issues and also she was on antidepressant. She was worked up in ED with labs and initial lab revealed elevated white cell of 13,000, potassium of 2.7 and moderate metabolic acidemia with bicarb of 17. She was given IV potassium repletion and repeat lab revealed potassium of 3.0. She does have a history of use of THC for sleep related issues. She denies overt episode of auditory, visual hallucination, suicidal thoughts or homicidal thoughts. She does have a persistent nagging headache. Allergies No Known Drug Allergies Allergy (Verified 04/16/22 08:47) Unknown Home Medications: Acetam/Caff/Butal [Fioricet] 1 tab PO Q6H PRN 04/13/22 Atogepant [Qulipta] 10 mg PO DAILY 04/13/22 Bupropion *Xl* [Wellbutrin XL] 300 mg PO DAILY 04/13/22 Gabapentin [Neurontin] 100 mg PO BID 04/13/22 Sumatriptan [Imitrex] 50 mg PO PRN PRN 04/13/22 Ubrogepant [Ubrelvy] 50 mg PO PRN PRN 04/13/22 - Past Medical/Surgical History Diabetic: No -: Migraine -: blunt force trauma 2013 (door nob) -: tubal ligation -: breast reduction -: jhonatan newman - Family History Mother Notes: None Father -: Lung disease, Cancer Notes: Lung cancer - Social History Alcohol use: Yes CD- Drugs: No Caffeine use: Yes Review of Systems General: Weakness, Malaise Eyes: Unremarkable ENT: Unremarkable Respiratory: Unremarkable Cardiovascular: Unremarkable Gastrointestinal: Unremarkable Genitourinary: Unremarkable Musculoskeletal: Unremarkable Integumentary: Unremarkable Neurological: As per HPI Physical Examination - Physical Exam General: Alert, Oriented x3 HEENT: Atraumatic Neck: Supple Respiratory: Normal air movement Cardiovascular: Regular rate/rhythm, Normal S1 S2 Gastrointestinal: Soft and benign Musculoskeletal: No swelling Neurological: Normal speech - Studies Laboratory Data (last 24 hrs) 01/28/23 01/28/23 01/28/23 21:06 18:58 18:58 WBC 13.30 H Hgb 10.0 L Hct 31.7 L Plt Count 406 PT 13.8 H INR 1.26 APTT 30.5 Sodium 142 Potassium 3.2 L D BUN 18 Creatinine 0.82 Glucose 127 H Total Bilirubin AST ALT Alkaline Phosphatase 01/28/23 18:58 WBC Hgb Hct Plt Count PT INR APTT Sodium 139 Potassium 2.7 L BUN 22 H Creatinine 0.93 Glucose 135 H Total Bilirubin 0.5 AST 12 L ALT 18 Alkaline Phosphatase 50 Assessment and Plan - Plan Accidental drug overdose. Patient reported that she took a couple of drugs from antidepressant medications. This included bupropion, gabapentin and atrogepant. She has been evaluated in the emergency department and there were no overt major side effect except for tachycardia and borderline low blood pressure. She has IV fluid for hydration. Will continue patient on telemetry monitoring and monitor vital signs per unit protocol. Will continue to monitor for other major side effects. Mobile crisis evaluation may be desired prior to discharge Headache: Perhaps flare of her migraine issue. Will continue as needed Tylenol for pain control. Hypokalemia: Potassium is low at 3.0 this morning after initial repletion for low level of 2.7. Will continue to replete and follow levels on daily labs. Prophylaxis: Lovenox for DVT prophylaxis CODE STATUS: Full code Disposition: Will rule out underlying suspicion for suicide attempt and she will be discharged once medically cleared. Discharge Plan: Home - Advance Directives Does patient have a Living Will: No Does patient have a Durable POA for Healthcare: No Time Spent Managing Pts Care (In Minutes): 55
[2023-01-29] MEDS: D5.45NS W/KCL 20MEQ 1,000 ML IV SCH ×2 (05:00→17:09)
[2023-01-29] MEDS ORDERED: LORazepam 2 MG/ML VIAL ONE (05:08)
[2023-01-29] MEDS ORDERED: D5.45NS W/KCL 20MEQ 1,000 ML IV ONE (07:03)
[2023-01-29 07:43] VITALS: BMI 31.2
[2023-01-29] MEDS ORDERED: INFLUENZA VACCINE (for 6+ mo) 0.5 ML DOSE IMVAC ONE (08:00)
[2023-01-29] MEDS ORDERED: ENOXAPARIN 40 MG/0.4 ML SQ SCH (09:00)
[2023-01-29] MEDS: SODIUM BICARB 325 MG TAB PO SCH ×2 (09:00→14:00)
[2023-01-29] MEDS ORDERED: ENOXAPARIN 40 MG/0.4 ML SQ ONE (09:05)
--- NOTE | 2023-01-29 13:40 | EKG ---
Test Date: 2023-01-28 Test Time: 21:47:17 Ep Technologist: JESUS MEASUREMENT RESULTS: Intervals: Rate: 133 MO: 124 QRSD: 86 QT: 384 QTc: 571 [place]: P: 42 MO: 124 QRS: 6 T: 74 INTERPRETIVE STATEMENTS: Sinus tachycardia Otherwise normal ECG Compared to ECG 01/28/2023 20:02:10 No significant changes Electronically Signed On 01-29-23 13:39:00 CATHODE WASHER by Sam Ferro
--- NOTE | 2023-01-29 13:40 | EKG ---
Test Date: 2023-01-29 Test Time: 01:39:49 Production Machine Shop Supervisor: VASILIY MEASUREMENT RESULTS: Intervals: Rate: 116 FL: 148 QRSD: 88 QT: 364 QTc: 505 [place]: P: 67 FL: 148 QRS: 11 T: 69 INTERPRETIVE STATEMENTS: Sinus tachycardia Otherwise normal ECG Compared to ECG 01/28/2023 21:47:17 No significant changes Electronically Signed On 01-29-23 13:38:41 ADVERTISING SALES CONSULTANT by Sam Ferro
--- NOTE | 2023-01-29 13:41 | EKG ---
Test Date: 2023-01-28 Test Time: 20:02:10 Hearing Screen Coordinator: LA MEASUREMENT RESULTS: Intervals: Rate: 118 WA: 156 QRSD: 92 QT: 354 QTc: 496 [place]: P: 58 WA: 156 QRS: 18 T: 72 INTERPRETIVE STATEMENTS: Sinus tachycardia Otherwise normal ECG No previous ECG available for comparison Electronically Signed On 01-29-23 13:39:19 RAPID TRANSIT OPERATOR by Sam Ferro
[2023-01-29 14:50] VITALS: TEMP 97.8
[2023-01-29 17:54] VITALS: BP 124/79; O2SAT 100
--- NOTE | 2023-01-29 18:56 | P.PN ---
Date of Service: 01/29/23 Patient seen and examined. She is awake and alert. Noted tremors in both arms and legs. Patient denies any alcohol intake. She reported taking hydroxyzine in addition to her antidepressant and antianxiety medications and gabapentin. Toxicology positive for only THC. Plan: Continue supportive measures. IV hydration. Neurochecks. Diet as tolerated.
== END 2023-01-29 20:45 | disposition left against medical advice (07) ==
LOC: ER 18:34 → ERHOLD 01-29 04:49 → 2ND 01-29 16:54
PROVIDERS: ADMIT Internal Medicine Nephrology; ATTEND Internal Medicine
DX: T43.291A Poisoning by other antidepressants, accidental (unintentional), initial encounter (principal); T43.591A Poisoning by other antipsychotics and neuroleptics, accidental (unintentional), initial encounter; T42.6X1A Poisoning by other antiepileptic and sedative-hypnotic drugs, accidental (unintentional), initial encounter; F12.90 Cannabis use, unspecified, uncomplicated; R51.9 Headache, unspecified; E87.6 Hypokalemia; Y92.009 Unspecified place in unspecified non-institutional (private) residence as the place of occurrence of the external cause
CPT/HCPCS: 93005 ×3; 85025; 81001; 80048 ×2; 36415; 81025; 85610; 80076; 85730; 80307; 99285; 80143; 80179; 82077; J3480; J1650; J7042; J7050; J7030 ×3; G0378 ×3

== ENCOUNTER 2023-08-08 21:36 | Emergency (ER) | payer OTHER ==
[2023-08-08 22:30] LABS: Specific Gravity > 1.030 (1.005-1.030); Sqamous Epithelial <5 /HPF (None Seen); Urine Bacteria None Seen /HPF (<20); Urine Bilirubin NEGATIVE (Negative); Urine Blood 2+ (Negative); Urine Clarity Clear (Clear); Urine Color Yellow (Yellow); Urine Crystals Unidentified Few /HPF (None Seen); Urine Culture Reflex Order NOT NEEDED; Urine Glucose NEGATIVE (Negative); Urine Ketones NEGATIVE (Negative); Urine Micro Reflex YN NO BILL MICROSCOPIC; Urine Mucus 1+ /HPF (None Seen); Urine Nitrite NEGATIVE (Negative); Urine Protein TRACE (Negative); Urine RBC <5 /HPF (None Seen); Urine Urobilinogen Normal (Normal); Urine WBC <5 /HPF (<5); Urine pH 5.5 (5.0-7.0)
[2023-08-08 23:06] LABS: Absolute Basophils 0.1 K/uL (0-0.5); Absolute Eosinophils 0.2 K/uL (0-0.5); Absolute Lymphocytes (CBC) 3.3 K/uL (0.7-4.9); Absolute Monocytes 0.8 K/uL (0.1-1.3); Absolute Neutrophil 6.5 K/uL (1.8-8.0); Basophils % 0.6 % (0-1.3); Hemoglobin 14.1 g/dL (12.0-15.0); Lymphocytes % 30.4 % (15.3-44.8); MCH 29.9 pg (27.0-35.0); MCHC 33.7 g/dL (32.0-36.0); MCV 88.9 fL (80-100); MPV 8.8 fL (7.6-11.3); Nucleated Red Blood Cells % 0.2 % (0-0); Platelets 244 thou/uL (152-406); RBC Red Blood Cell Count 4.72 M/uL (3.86-4.86); Red Cell Distribution Width 13.9 % (12.1-15.2)
[2023-08-08 23:21] LABS: ALT/SGPT 21 U/L (13-56); Albumin 3.8 g/dL (3.4-5.0); Albumin/Globulin Ratio 1.1 (1.1-1.8); Alkaline Phosphatase 40 U/L (45-117); Anion Gap 8.5 mEq/L (5.0-15.0); BUN Blood Urea Nitrogen 20 mg/dL (7-18); Bicarbonate 28 mEq/L (21-32); Bilirubin Total 0.4 mg/dL (0.2-1.0); Globulin 3.5 g/dL (2.3-3.5); Glomerular Filtration Rate 109 ml/min (=/>90); Glucose Level 96 mg/dL (74-106); Potassium 3.5 mEq/L (3.5-5.1); Protein, Total 7.3 g/dL (6.4-8.2); Sodium Level 141 mEq/L (136-145)
--- NOTE | 2023-08-08 23:31 | EDPHYS ---
Physician Documentation [facility] Name: Stella Goldstein Age: 42 yrs Sex: Female : 1980 Arrival Date: 08/08/2023 Time: 21:36 Bed 16 Private MD: ED Physician Jt Oliver HPI: 08/07 21:40 This 42 yrs old Other Race Female presents to ER via Unassigned with complaints of sp4 Vaginal Bleeding. 08/08 04:36 42-year-old female presents complaining with 12 days of persistent vaginal bleeding. sp4 Patient requests shot that will stop her Vaginal bleeding. Patient states she is currently scheduled to obtain hysterectomy. Patient otherwise states that norethindrone may need to be given to her to stop vaginal bleeding.. 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 - Infectious Disease History:: Denies. - Social history:: Smoking status: Reported history of juuling and/or vaping. Patient uses alcohol, occasionally. - Family history:: not pertinent. ROS: 08/08 04:36 Constitutional: Negative for fever, chills, and weight loss, Eyes: Negative for injury, sp4 pain, redness, and discharge, ENT: Negative for injury, pain, and discharge, Neck: Negative for injury, pain, and swelling, Cardiovascular: Negative for chest pain, palpitations, and edema, Respiratory: Negative for shortness of breath, cough, wheezing, and pleuritic chest pain, : Positive vaginal bleeding All other systems are negative, Exam: 04:36 Constitutional: This is a well developed, well nourished patient who is awake, alert, sp4 and in no acute distress. Head/Face: Normocephalic, atraumatic. Eyes: Pupils equal round and reactive to light, extra-ocular motions intact. Lids and lashes normal. Conjunctiva and sclera are not injected. Cornea within normal limits. Periorbital areas with no swelling, redness, or edema. ENT: Nares patent. No nasal discharge, no septal abnormalities noted. Tympanic membranes are normal and external auditory canals are clear. Oropharynx with no redness, swelling, or masses, exudates, or evidence of obstruction, uvula midline. Mucous membranes moist. Neck: Trachea midline, no thyromegaly or masses palpated, and no cervical lymphadenopathy. Supple, full range of motion without nuchal rigidity, or vertebral point tenderness. Chest/axilla: Normal chest wall appearance and motion. Nontender with no deformity. No lesions are appreciated. Cardiovascular: Regular rate and rhythm with a normal S1 and S2. No gallops, murmurs, or rubs. Normal PMI, no JVD. No pulse deficits. Respiratory: Lungs have equal breath sounds bilaterally, clear to auscultation and percussion. No rales, rhonchi or wheezes noted. No increased work of breathing, no retractions or nasal flaring. Abdomen/GI: Soft, with normal bowel sounds. No distension or tympany. No guarding or rebound. No evidence of tenderness throughout. Back: No spinal tenderness. No costovertebral tenderness. Skin: Warm, dry with normal turgor. Normal color with no rashes, no lesions, and no evidence of cellulitis. MS/ Extremity: Pulses equal, no cyanosis. Neurovascular intact. Full, normal range of motion. Neuro: Awake and alert, GCS 15, oriented to person, place, time, and situation. Cranial nerves II-XII grossly intact. Motor strength 5/5 in all extremities. Sensory grossly intact. Psych: Awake, alert, with orientation to person, place and time. Upset and irritable on exam. Vital Signs: 08/07 21:52 BP 126 / 85; Pulse 79; Resp 17 S; Temp 97.6(O); Pulse Ox 100% on R/A; Weight 80.29 kg lg3 (R); Height 5 ft. 7 in. (R); 23:48 BP 127 / 81; Pulse 74; Resp 16 S; Temp 97.4(O); Pulse Ox 100% on R/A; lg3 21:52 Body Mass Index 27.72 (80.29 kg, 170.18 cm) lg3 [place] Coma Score: 08/08 04:36 Eye Response: spontaneous(4). Motor Response: obeys commands(6). Verbal Response: sp4 oriented(5). Total: 15. MDM: 08/07 21:38 Patient medically screened. sp4 08/08 04:36 Differential diagnosis: appendicitis, cervicitis, dysfunctional uterine bleeding, sp4 dysmenorrhea. Data reviewed: vital signs, nurses notes, lab test result(s), CBC, electrolytes, hepatic panel. Consideration of Admission/Observation Escalation of care including admission/observation considered. ED course: Patient Has requested injectable Norethindrone. patient was informed that Norethindrone and the injection form of it may be something that her PHOTO OPTICS TECHNICIAN should order. Patient was informed that we can give her a 1 month long trial of Sprintec to decrease the duration of her menstrual bleeding. Otherwise she should see her PHOTO OPTICS TECHNICIAN physician for additional management options for her vaginal bleeding.. 08/07 21:38 Order name: Test, Urine; Complete Time: 23:25 sp4 08/07 21:38 Order name: Urinalysis W/Microscopic; Complete Time: 23:25 sp4 08/07 22:05 Order name: CBC with Diff; Complete Time: 23:25 sp4 08/07 22:05 Order name: CMP; Complete Time: 04:36 sp4 Administered Medications: No medications were administered Disposition Summary: 08/08/23 23:31 Discharge Ordered Problem: new sp4 Symptoms: have improved sp4 Condition: Stable sp4 Diagnosis - Abnormal uterine and vaginal bleeding, unspecified sp4 Followup: sp4 - With: Private Physician - When: 7 - 10 days - Reason: Recheck today's complaints Discharge Instructions: - Discharge Summary Sheet sp4 - Abnormal Uterine Bleeding sp4 Forms: - Patient Portal Instructions sp4 Prescriptions: - Sprintec (28) 0.25-35 mg-mcg Oral tablet - take 1 tablet ORAL route daily; 1 Pack; Refills: 0, Product Selection Permitted sp4 Signatures: Dispatcher [employer] Aleisha Fernández RN RN lg3 Jt lOiver MD MD sp4 Corrections: (The following items were deleted from the chart) 08/07 21:39 21:38 Test, Urine+UC.LAB.BRZ ordered. EDMS EDMS 21:39 21:39 Urinalysis W/Microscopic+U.LAB.BRZ ordered. EDMS EDMS 22:05 22:05 CBC+H.LAB.BRZ ordered. EDMS EDMS 22:05 22:05 COMPREHENSIVE METABOLIC PANEL+C.LAB.BRZ ordered. EDMS EDMS 23:47 22:11 Pelvic Exam Setup ordered. sp4 lg3
--- NOTE | 2023-08-08 23:31 | ER ---
Nurse's Notes [facility] Name: Stella Goldstein Age: 42 yrs Sex: Female : 1980 Arrival Date: 08/08/2023 Time: 21:36 Bed 16 Private MD: Diagnosis: Abnormal uterine and vaginal bleeding, unspecified Presentation: 08/07 21:52 Chief complaint: Patient states: vaginal bleeding X12 days. Coronavirus screen: Client lg3 denies travel out of the [place] in the last 14 days. At this time, the client does not indicate any symptoms associated with coronavirus-19. Ebola Screen: No symptoms or risks identified at this time. Initial Sepsis Screen: Does the patient meet any 2 criteria? No. Patient's initial sepsis screen is negative. Does the patient have a suspected source of infection? No. Patient's initial sepsis screen is negative. Risk Assessment: Do you want to hurt yourself or someone else? Patient reports no desire to harm self or others. Onset of symptoms is unknown. 21:52 Method Of Arrival: Ambulatory lg3 21:52 Acuity: SPENCER 3 lg3 Triage Assessment: 21:53 General: Appears in no apparent distress. Behavior is agitated. Pain: Complains of pain lg3 in pelvis. EENT: No deficits noted. No signs and/or symptoms were reported regarding the EENT system. Neuro: No deficits noted. Hernandez Agitation-Sedation Scale (RASS): 0 - Alert and Calm Level of Consciousness is awake, alert, obeys commands, Oriented to person, place, time, situation. Cardiovascular: No deficits noted. Denies chest pain, shortness of breath. Respiratory: No deficits noted. Airway is patent Respiratory effort is even, unlabored, Respiratory pattern is regular, symmetrical. GI: No deficits noted. Abdomen is round non-distended. : Reports vaginal bleeding that is with clots, heavy flow. Derm: No deficits noted. No signs and/or symptoms reported regarding the dermatologic system. Skin is intact, is healthy with good turgor, Skin is dry, Skin is normal, Skin temperature is warm. Musculoskeletal: No deficits noted. No signs and/or symptoms reported regarding the musculoskeletal system. Circulation, motion, and sensation intact. Range of motion: intact in all extremities. 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 - Infectious Disease History:: Denies. - Social history:: Smoking status: Reported history of juuling and/or vaping. Patient uses alcohol, occasionally. - Family history:: not pertinent. Screenin:01 [facility] ED Fall Risk Assessment (Adult) History of falling in the last 3 months, lg3 including since admission No falls in past 3 months (0 pts) Confusion or Disorientation No (0 pts) Intoxicated or Sedated No (0 pts) Impaired Gait No (0 pts) Mobility Assist Device Used No (0 pt) Altered Elimination No (0 pt) Score/Fall Risk Level 0 - 2 = Low Risk Oriented to surroundings, Maintained a safe environment, Educated pt \T\ family on fall prevention, incl call for assistance when getting out of bed. Abuse screen: Denies threats or abuse. Denies injuries from another. Nutritional screening: No deficits noted. Tuberculosis screening: No symptoms or risk factors identified. Assessment: 22:01 General: see triage assessment. lg3 23:47 Reassessment: Patient appears in no apparent distress at this time. No changes from lg3 previously documented assessment. Patient and/or family updated on plan of care and expected duration. Pain level reassessed. Patient is alert, oriented x 3, equal unlabored respirations, skin warm/dry/pink. Vital Signs: 21:52 BP 126 / 85; Pulse 79; Resp 17 S; Temp 97.6(O); Pulse Ox 100% on R/A; Weight 80.29 kg lg3 (R); Height 5 ft. 7 in. (R); 23:48 BP 127 / 81; Pulse 74; Resp 16 S; Temp 97.4(O); Pulse Ox 100% on R/A; lg3 21:52 Body Mass Index 27.72 (80.29 kg, 170.18 cm) lg3 [place] Coma Score: 08/08 04:36 Eye Response: spontaneous(4). Motor Response: obeys commands(6). Verbal Response: sp4 oriented(5). Total: 15. ED Course: 08/07 21:37 Patient arrived in ED. jj6 21:38 Jt Oliver MD is Attending Physician. sp4 21:53 Triage completed. lg3 21:53 Arm band placed on right wrist. lg3 22:01 Aleisha Betancourt RN is Primary Nurse. lg3 22:01 Patient has correct armband on for positive identification. Placed in gown. Bed in low lg3 position. Call light in reach. Client placed on continuous cardiac and pulse oximetry monitoring. NIBP monitoring applied. Door closed. Noise minimized. Warm blanket given. Pillow given. Family accompanied patient. 23:49 No provider procedures requiring assistance completed. Patient did not have IV access lg3 during this emergency room visit. Administered Medications: No medications were administered Medication: 23:49 VIS not applicable for this client. lg3 Outcome: 23:31 Discharge ordered by MD. sp4 23:49 Discharged to home ambulatory, lg3 23:49 Condition: stable 23:49 Discharge instructions given to patient, Instructed on discharge instructions, follow up and referral plans. medication usage, Demonstrated understanding of instructions, follow-up care, medications, Prescriptions given X 1, 23:49 Patient left the ED. lg3 Signatures: Aleisha Betancourt RN RN lg3 Ivory Moss [email or web address] Jt Oliver MD MD sp4
[2023-08-08 23:37] LABS: AST/SGOT < 10 U/L (15-37)
[2023-08-09 01:15] VITALS: BP 127/81; TEMP 97.4; O2SAT 100
== END 2023-08-08 23:49 | disposition home or self-care (01) ==
LOC: ER 21:36
DX: N93.9 Abnormal uterine and vaginal bleeding, unspecified (principal)
CPT/HCPCS: 36415; 80053; 81001; 81025; 85025; 99283